=== PATIENT | female | born 1965 | race Caucasian/White ===

== ENCOUNTER 2018-07-05 09:28 | Inpatient (IN) | payer OTHER ==
--- NOTE | 2018-07-05 09:44 | PDOC ---
History of Present Illness - History of Present Illness Initial Comments: 07/05/18 13:53 The patient is a 53 year old female, with a significant past medical history of hypothyroidism, hypertension, and MS, who presents to the emergency department with weakness today. As per family at bedside, the patient was seen by Dr. 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 As per family, the patient was started on Baclofen at the time, however, reportedly fell a few hours later at home and when the PA in the neurology was called she advised the patient to decrease her dose. The patient states she started taking half of her 10mg Baclofen and started hallucinating as per the family. The family states the patient has not been able to ambulate secondary to weakness in her lower extremities (R>L) which is new since starting the new medication. The patient reports multiple bruises to her shins and elbows sustained after falling. The family and patient deny any head trauma or LOC during the patient s fall. Secondarily, the patient states she has had a cold all week but denies having cough or fevers. The patient denies chest pain, shortness of breath, headache and dizziness. The patient denies fever, chills, nausea, vomit, diarrhea and constipation. The patient denies dysuria, frequency, urgency and hematuria. Allergies: NKDA Past surgical history: liver biopsy Social history:Denies tobacco or ETOH PCP - Dr. John Wilkerson <Estrella Spencer - Last Filed: 07/05/18 13:53> - General History Source: Patient Exam Limitations: No Limitations - History of Present Illness Initial Comments: 07/05/18 10:01 Ms Hunter is a 53 yo F with a h/p HTN, Hypothyroidism, and ? MS vs Ataxia, ? h/ o autoimmune liver condition (no longer being treated) She presents to the ER with her family due to weakness Pt was seen 2 weeks ago and started on Baclofen 10 mg po. After taking a single dose, she fell to the ground She contacted the physician that prescribed it and they asked patient to take 5mg instead This resulted in her being confused Since that time, pt has been unable to ambulate as she had been at her baseline - she previously had been ambulatory with a walker No headache or head trauma No bowel or bladder incontinence Tolerating po with no difficulty No diarrhea Pt also reports an upper respiratory infection for the past 2 weeks No prior episodes like this PMH: HTN, Hypothyroidism PSH: Liver biopsy Meds: Levothyroxine, Propanolol, ALL: PCN, Sulfa -- > rash Social: Denies tobacco and drug use ROS: GENERAL/CONSTITUTIONAL: Yes: weakness No: fever, chills HEAD, EYES, EARS, NOSE AND THROAT: No: change in vision, ear pain, discharge, sore throat, throat swelling. CARDIOVASCULAR: No: chest pain, lightheadedness, palpitations, syncope RESPIRATORY: No: cough, shortness of breath, wheezing, GASTROINTESTINAL: No: nausea, vomiting, abdominal pain GENITOURINARY: No: dysuria, hematuria, frequency, urgency, flank pain. MUSCULOSKELETAL: No: back pain, neck pain, joint pain, muscle swelling or pain SKIN AND BREASTS: No: lesions, pallor, rash or easy bruising. NEUROLOGIC: Yes: weakness No: headache, vertigo, paresthesias ENDOCRINE: No: unexplained weight gain or loss HEMATOLOGIC/LYMPHATIC: No: anemia, easy bleeding, swelling nodes PE: GENERAL: The patient is in no acute distress. HEAD: Normal with no signs of trauma. EYES: PERRLA, EOMI, sclera anicteric, conjunctiva clear. ENT: Ears normal, nares patent, oropharynx clear without exudates. Dry mucous membranes. NECK: Normal range of motion, supple without lymphadenopathy, JVD, or masses. LUNGS: Breath sounds equal, clear to auscultation bilaterally. No wheezes, and no crackles. HEART:Regular rate and rhythm, normal S1 and S2 without murmur, rub or gallop. ABDOMEN: Soft, nontender, normoactive bowel sounds. No guarding, no rebound. EXTREMITIES: Normal range of motion, no edema. No clubbing or cyanosis. No erythema, or tenderness. NEUROLOGICAL: Cranial nerves II through XII grossly intact. Normal speech. Right leg weak 3/5 Left leg weak 4/5 Sensation in tact MUSCULOSKELETAL: Back non-tender to palpation, no CVA tenderness SKIN: Warm, Dry, normal turgor, no rashes or lesions noted. 07/05/18 10:17 <Nina Nguyen - Last Filed: 07/06/18 09:52> - General Chief Complaint: Weakness Stated Complaint: Weakness Time Seen by Provider: 07/05/18 09:43 Past History <Estrella Spencer - Last Filed: 07/05/18 13:53> - Past Medical History COPD: No HTN: Yes Thyroid Disease: Yes Other medical history: Multiple sclerosis - Immunization History Immunization Up to Date: No - Suicide/Smoking/Psychosocial Hx Smoking History: Unknown if ever smoked Have you smoked in the past 12 months: No If you are a former smoker, when did you quit?: 1985 Information on smoking cessation initiated: No Hx Alcohol Use: No Drug/Substance Use Hx: No Substance Use Type: None <Nina Nguyen - Last Filed: 07/06/18 09:52> - Past Medical History Allergies/Adverse Reactions: Allergies Allergy/AdvReac Type Severity Reaction Status Date / Time Penicillins Allergy Verified 07/05/18 12:53 sulfur dioxide Allergy Verified 07/05/18 12:53 Home Medications: Ambulatory Orders Fosinopril Sodium [Monopril -] 10 mg PO DAILY 07/05/18 Levothyroxine [Synthroid -] 100 mcg PO DAILY 07/05/18 Propranolol HCl 80 mg PO HS 07/05/18 *Physical Exam - Vital Signs Last Vital Signs Temp Pulse Resp BP Pulse Ox 99.1 F 74 18 115/79 96 07/05/18 10:20 07/05/18 12:53 07/05/18 12:53 07/05/18 12:53 07/05/18 12:53 <Estrella Spencer - Last Filed: 07/05/18 13:53> - Vital Signs Last Vital Signs Temp Pulse Resp BP Pulse Ox 99.0 F 75 16 115/71 96 07/05/18 09:35 07/05/18 09:35 07/05/18 09:35 07/05/18 09:35 07/05/18 09:35 <Nina Nguyen - Last Filed: 07/06/18 09:52> Moderate Sedation - Procedure Monitoring Vital Signs: Procedure Monitoring Vital Signs Temperature 99.1 F 07/05/18 10:20 Pulse Rate 74 07/05/18 12:53 Respiratory Rate 18 07/05/18 12:53 Blood Pressure 115/79 07/05/18 12:53 O2 Sat by Pulse Oximetry (%) 96 07/05/18 12:53 <Estrella Spencer - Last Filed: 07/05/18 13:53> - Procedure Monitoring Vital Signs: Procedure Monitoring Vital Signs Temperature 99.0 F 07/05/18 09:35 Pulse Rate 75 07/05/18 09:35 Respiratory Rate 16 07/05/18 09:35 Blood Pressure 115/71 07/05/18 09:35 O2 Sat by Pulse Oximetry (%) 96 07/05/18 09:35 <Nina Nguyen - Last Filed: 07/06/18 09:52> ED Treatment Course - LABORATORY CBC & Chemistry Diagram: 07/05/18 10:18 07/05/18 10:18 - ADDITIONAL ORDERS Additional order review: Laboratory Results 07/05/18 07/05/18 07/05/18 10:40 10:18 10:18 PT with INR INR PTT (Actin FS) VBG pH POC VBG pCO2 POC VBG pO2 Mixed VBG HCO3 Sodium Potassium Chloride Carbon Dioxide Anion Gap BUN Creatinine Creat Clearance w eGFR Random Glucose Lactic Acid Calcium Total Bilirubin AST ALT Alkaline Phosphatase Creatine Kinase CK-MB (CK-2) Troponin I < 0.02 Total Protein Albumin TSH 8.00 H Serum , Qual Negative Urine Color Patricia Urine Appearance Slcloudy Urine pH 5.0 Ur Specific [place] 1.025 Urine Protein Negative Urine Glucose (UA) Negative Urine Ketones 1+ H Urine Blood 1+ H Urine Nitrite Negative Urine Bilirubin 2.0 Urine Urobilinogen 4.0 e.u/dl H Ur Leukocyte Esterase Negative Urine WBC (Auto) 2 Urine RBC (Auto) 26 Hyaline Casts 10 Urine Mucus Many Blood Type Antibody Screen 07/05/18 07/05/18 07/05/18 10:18 10:18 10:18 PT with INR INR PTT (Actin FS) VBG pH POC VBG pCO2 POC VBG pO2 Mixed VBG HCO3 Sodium 143 Potassium 4.3 Chloride 107 Carbon Dioxide 28 Anion Gap 8 BUN 11 Creatinine 0.7 Creat Clearance w eGFR > 60 Random Glucose 99 Lactic Acid 0.8 Calcium 10.1 Total Bilirubin 0.7 AST 14 L ALT 16 Alkaline Phosphatase 72 Creatine Kinase 84 CK-MB (CK-2) < 1.0 Troponin I Total Protein 7.4 Albumin 3.8 TSH Serum , Qual Urine Color Urine Appearance Urine pH Ur Specific [place] Urine Protein Urine Glucose (UA) Urine Ketones Urine Blood Urine Nitrite Urine Bilirubin Urine Urobilinogen Ur Leukocyte Esterase Urine WBC (Auto) Urine RBC (Auto) Hyaline Casts Urine Mucus Blood Type O POSITIVE Antibody Screen Negative 07/05/18 07/05/18 10:18 10:18 PT with INR 11.90 INR 1.01 PTT (Actin FS) 29.3 VBG pH 7.35 POC VBG pCO2 50.2 POC VBG pO2 34.7 Mixed VBG HCO3 27.0 H Sodium Potassium Chloride Carbon Dioxide Anion Gap BUN Creatinine Creat Clearance w eGFR Random Glucose Lactic Acid Calcium Total Bilirubin AST ALT Alkaline Phosphatase Creatine Kinase CK-MB (CK-2) Troponin I Total Protein Albumin TSH Serum , Qual Urine Color Urine Appearance Urine pH Ur Specific [place] Urine Protein Urine Glucose (UA) Urine Ketones Urine Blood Urine Nitrite Urine Bilirubin Urine Urobilinogen Ur Leukocyte Esterase Urine WBC (Auto) Urine RBC (Auto) Hyaline Casts Urine Mucus Blood Type Antibody Screen 07/05/18 10:18 RBC 4.59 MCV 89.1 MCHC 34.8 RDW 12.6 MPV 8.5 Neutrophils % 62.9 D Lymphocytes % 19.8 D Monocytes % 12.0 H Eosinophils % 2.6 Basophils % 2.7 H <Estrella Spencer - Last Filed: 07/05/18 13:53> - LABORATORY CBC & Chemistry Diagram: 07/06/18 06:30 07/06/18 06:30 <Nina Nguyen - Last Filed: 07/06/18 09:52> Medical Decision Making - Medical Decision Making 07/05/18 10:12 EKG - NSR rate of 76 bpm, L axis deviation, no st elevation or depression, T waves upright Pt presents with weakness DD is broad and includes but is not limited to: UTI/sepsis, Pneumonia, ACS, MS flair?, hypothyroidism Will do: Labs EKG CXR CT head Neuro Consult 07/05/18 11:47 CBC - nml Serum - neg 07/05/18 11:49 Laboratory Tests 07/05/18 07/05/18 07/05/18 10:18 10:18 10:18 PT with INR 11.90 INR 1.01 PTT (Actin FS) 29.3 VBG pH 7.35 POC VBG pCO2 50.2 POC VBG pO2 34.7 BUN 11 Creatinine 0.7 Creatine Kinase 84 CK-MB (CK-2) < 1.0 Troponin I TSH 07/05/18 10:18 PT with INR INR PTT (Actin FS) VBG pH POC VBG pCO2 POC VBG pO2 BUN Creatinine Creatine Kinase CK-MB (CK-2) Troponin I < 0.02 TSH 8.00 H TSH elevated Call placed to PMD for admission Consult placed for Dr Muller <Nina Nguyen - Last Filed: 07/06/18 09:52> *DC/Admit/Observation/Transfer - Attestations Scribe Attestion: 07/05/18 13:53 Documentation prepared by Estrella Spencer, acting as medical esthetician for Nina Nguyen MD <Estrella Spencer - Last Filed: 07/05/18 13:53> - Discharge Dispostion Decision to Admit order: Yes <Nina Nguyen - Last Filed: 07/06/18 09:52> Diagnosis at time of Disposition: Weakness - Discharge Dispostion Condition at time of disposition: Stable
[2018-07-05] MEDS ORDERED: SODIUM CHLORIDE 1,000 ML IV STA (10:01)
[2018-07-05 10:41] LABS: VENOUS PC02 50.2 mmHg (38-52); VENOUS PH 7.35 (7.32-7.42); VENOUS PO2 34.7 mmHg (28-48)
[2018-07-05 10:43] LABS: BASO % 2.7 % (0-2.0); EOS % 2.6 % (0-4.5); HEMATOCRIT 40.9 % (32.4-45.2); HEMOGLOBIN 14.2 GM/dL (10.7-15.3); LYMPH % 19.8 % (8-40); MCHC 34.8 g/dl (32.0-36.0); MEAN CELL VOLUME 89.1 fl (80-96); MEAN PLT VOLUME 8.5 fl (7.5-11.1); NEUT % 62.9 % (42.8-82.8); PLATELET COUNT 180 K/MM3 (134-434); RBC 4.59 M/mm3 (3.60-5.2); RDW 12.6 % (11.6-15.6); WHITE BLOOD COUNT 4.9 K/mm3 (4.0-10.0)
[2018-07-05 11:03] LABS: ALBUMIN 3.8 g/dl (3.4-5.0); ALK PHOS 72 U/L (45-117); ANION GAP 8 MMOL/L (8-16); BILIRUBIN,TOTAL 0.7 mg/dL (0.2-1); BLOOD UREA NITROGEN 11 mg/dL (7-18); CALCIUM 10.1 mg/dL (8.5-10.1); CHLORIDE 107 mmol/L (98-107); CO2 28 mmol/L (21-32); CREATININE 0.7 mg/dL (0.55-1.3); GLUCOSE,RANDOM 99 mg/dL (74-106); POTASSIUM 4.3 mmol/L (3.5-5.1); SGOT/AST 14 U/L (15-37); SGPT/ALT 16 U/L (13-61); SODIUM 143 mmol/L (136-145); TOT PROT 7.4 g/dl (6.4-8.2)
[2018-07-05 11:13] LABS: INR 1.01 (0.83-1.09); PROTHROMBIN TIME (PATIENT) 11.9 SEC (9.7-13.0)
[2018-07-05 11:16] LABS: ACTIVATED PTT 29.3 SECONDS (25.2-36.5)
[2018-07-05 11:18] LABS: URINE APPEARANCE SLCLOUDY; URINE COLOR AMBER; URINE GLUCOSE (UA) NEGATIVE (NEGATIVE); URINE KETONE 1+ (NEGATIVE); URINE LEUK ESTERASE NEGATIVE (NEGATIVE); URINE NITRITE NEGATIVE (NEGATIVE); URINE PROTEIN NEGATIVE (NEGATIVE); URINE UROBILINOGEN 4.0 E.U/dl mg/dL (0.2-1.0)
[2018-07-05 12:29] LABS: URINE HYALINE CAST 10 /lpf; URINE MUCUS MANY
--- NOTE | 2018-07-05 17:56 | HP ---
Admitting History and Physical - Primary Care Physician PCP: Benjamín Lopez - Admission Chief Complaint: Recurrent falls/B/L leg Weakness/ History Source: Patient, Significant Other Limitations to Obtaining History: No Limitations - Past Medical History [employer]GER: Yes: Multiple Sclerosis (Questionable), Other (Recurrent falls, Ataxia,) ...: No - Smoking History Smoking history: Former smoker Have you smoked in the past 12 months: No If you are a former smoker, when did you quit?: 1985 - Alcohol/Substance Use Hx Alcohol Use: No Home Medications - Allergies Allergies/Adverse Reactions: Allergies Allergy/AdvReac Type Severity Reaction Status Date / Time Penicillins Allergy Verified 07/05/18 12:53 sulfur dioxide Allergy Verified 07/05/18 12:53 - Home Medications Home Medications: Ambulatory Orders Fosinopril Sodium [Monopril -] 10 mg PO DAILY 07/05/18 Levothyroxine [Synthroid -] 100 mcg PO DAILY 07/05/18 Propranolol HCl 80 mg PO HS 07/05/18 Review of Systems - Review of Systems Constitutional: reports: Weakness Neck: reports: No Symptoms Cardiovascular: reports: No Symptoms Respiratory: reports: No Symptoms Gastrointestinal: reports: Nausea Breasts: reports: No Symptoms Reported Musculoskeletal: reports: Back Pain, Extremity Pain, Muscle Cramps, Muscle Weakness Endocrine: reports: No Symptoms Hematology/Lymphatic: reports: No Symptoms Physical Examination Vital Signs: Vital Signs Temperature 98.3 F 07/05/18 17:17 Pulse Rate 76 07/05/18 17:17 Respiratory Rate 20 07/05/18 17:17 Blood Pressure 152/71 07/05/18 17:17 O2 Sat by Pulse Oximetry (%) 94 L 07/05/18 17:17 Labs: CBC, BMP 07/05/18 10:18 07/05/18 10:18 Problem List - Problems (1) Frequent falls Code(s): R29.6 - REPEATED FALLS (2) Paraparesis of both lower limbs Code(s): G82.20 - PARAPLEGIA, UNSPECIFIED (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 Code(s): I67.9 - CEREBROVASCULAR DISEASE, UNSPECIFIED; R27.0 - ATAXIA, UNSPECIFIED (4) Multiple sclerosis Code(s): G35 - MULTIPLE SCLEROSIS (5) HTN (hypertension) Code(s): I10 - ESSENTIAL (PRIMARY) HYPERTENSION (6) Anemia Code(s): D64.9 - ANEMIA, UNSPECIFIED (7) CAD (coronary artery disease) Code(s): I25.10 - ATHSCL HEART DISEASE OF [place] CORONARY ARTERY W/O ANG PCTRS (8) TIA (transient ischemic attack) Code(s): G45.9 - TRANSIENT CEREBRAL ISCHEMIC ATTACK, UNSPECIFIED (9) Hypothyroid Code(s): E03.9 - HYPOTHYROIDISM, UNSPECIFIED Assessment/Plan (1) Frequent falls Code(s): R29.6 - REPEATED FALLS (2) Paraparesis of both lower limbs Code(s): G82.20 - PARAPLEGIA, UNSPECIFIED (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 Code(s): I67.9 - CEREBROVASCULAR DISEASE, UNSPECIFIED; R27.0 - ATAXIA, UNSPECIFIED (4) Multiple sclerosis Code(s): G35 - MULTIPLE SCLEROSIS (5) HTN (hypertension) Code(s): I10 - ESSENTIAL (PRIMARY) HYPERTENSION (6) Anemia Code(s): D64.9 - ANEMIA, UNSPECIFIED (7) CAD (coronary artery disease) Code(s): I25.10 - ATHSCL HEART DISEASE OF [place] CORONARY ARTERY W/O ANG PCTRS (8) TIA (transient ischemic attack) Code(s): G45.9 - TRANSIENT CEREBRAL ISCHEMIC ATTACK, UNSPECIFIED (9) Hypothyroid Code(s): E03.9 - HYPOTHYROIDISM, UNSPECIFIED
[2018-07-05] MEDS: D5-1/2NS+10 MEQ KCL - 10 MEQ/1,000 ML INFUS.BAG IV SCH (18:28)
[2018-07-05] MEDS: LISINOPRIL 10 MG TABLET (FP) PO SCH (18:28)
[2018-07-05] MEDS: ACETAMINOPHEN 325 MG TABLET (FP) PO SCH (19:03)
--- NOTE | 2018-07-05 19:09 | EKG ---
Test Reason : Blood Pressure : / mmHG Vent. Rate : 076 BPM Atrial Rate : 076 BPM P-R Int : 144 ms QRS Dur : 084 ms QT Int : 384 ms P-R-T Axes : 057 -30 047 degrees QTc Int : 432 ms POOR DATA QUALITY, INTERPRETATION MAY BE ADVERSELY AFFECTED NORMAL SINUS RHYTHM LEFT AXIS DEVIATION ABNORMAL ECG WHEN COMPARED WITH ECG OF 16-MAR-2017 12:37, NO SIGNIFICANT CHANGE WAS FOUND Confirmed by ANDREW GONZALEZ MD ([id number]) on 07/05/2018 7:09:10 PM Referred By: Confirmed By:ANDREW GONZALEZ MD
[2018-07-05] MEDS: HEPARIN NA (PORCINE) 5,000 UNITS/ML 1ML VIAL SQ SCH (22:37)
[2018-07-06] MEDS: ACETAMINOPHEN 325 MG TABLET (FP) PO SCH ×3 (03:26→17:38)
[2018-07-06] MEDS: LEVOTHYROXINE NA 25 MCG TABLET (FP) PO SCH (06:32)
[2018-07-06 07:24] LABS: BASO % 0.7 % (0-2.0); EOS % 3.8 % (0-4.5); HEMATOCRIT 35.2 % (32.4-45.2); HEMOGLOBIN 12.6 GM/dL (10.7-15.3); LYMPH % 31.4 % (8-40); MCH 31.5 pg (25.7-33.7); MCHC 35.7 g/dl (32.0-36.0); MEAN CELL VOLUME 88.2 fl (80-96); MEAN PLT VOLUME 8.5 fl (7.5-11.1); MONO % 11.9 % (3.8-10.2); NEUT % 52.2 % (42.8-82.8); PLATELET COUNT 140 K/MM3 (134-434); RBC 3.99 M/mm3 (3.60-5.2); RDW 12.6 % (11.6-15.6); WHITE BLOOD COUNT 4.4 K/mm3 (4.0-10.0)
[2018-07-06 07:47] LABS: ANION GAP 7 MMOL/L (8-16); BLOOD UREA NITROGEN 10 mg/dL (7-18); CALCIUM 9.1 mg/dL (8.5-10.1); CHLORIDE 108 mmol/L (98-107); CO2 25 mmol/L (21-32); CREATININE 0.6 mg/dL (0.55-1.3); GLUCOSE,RANDOM 94 mg/dL (74-106); POTASSIUM 3.8 mmol/L (3.5-5.1); SODIUM 140 mmol/L (136-145)
--- NOTE | 2018-07-06 08:20 | CON.NEURO ---
Consult Consult Specialty:: NEUROLOGY-[facility] for Reason for Consultation:: Falls - History of Present Illness History of Present Illness: The patient is a 53 year old female, with a significant past medical history of hypothyroidism, hypertension, and MS, who presents to the emergency department with weakness today. As per family at bedside, the patient was seen by Dr. 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 As per family, the patient was started on Baclofen at the time, however, reportedly fell a few hours later at home and when the PA in the neurology was called she advised the patient to decrease her dose. The patient states she started taking half of her 10mg Baclofen and started hallucinating as per the family. The family states the patient has not been able to ambulate secondary to weakness in her lower extremities (R>L) which is new since starting the new medication. The patient reports multiple bruises to her shins and elbows sustained after falling. The family and patient deny any head trauma or LOC during the patient s fall. Secondarily, the patient states she has had a cold all week but denies having cough or fevers. The patient denies chest pain, shortness of breath, headache and dizziness. The patient denies fever, chills, nausea, vomit, diarrhea and constipation. The patient denies dysuria, frequency, urgency and hematuria. As per patients sister-in law she had hypothyroidism or hyperthyroidism 10 years ago, while being tapered off meds she developed neurologic symptoms and subsequently was dx. with MS and rx, for it. 4 weeks ago saw and dx. 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 X years she has been ambulant with walker. Reviewed MRIs 01/20 in system- only sig abn. is atrophy of the corpus callosum, no MS plaques noted, there is cerebral atrophy. Ambulates with walker x years=recent falls since baclofen - History Source History Provided By: Patient, Family Member - Past Medical History F[employer]ER BR[employer] MAN: Yes: Multiple Sclerosis (Questionable), Other (Recurrent falls, Ataxia,) ...: No - Alcohol/Substance Use Hx Alcohol Use: No - Smoking History Smoking history: Former smoker Have you smoked in the past 12 months: No If you are a former smoker, when did you quit?: 1985 Home Medications - Allergies Allergies/Adverse Reactions: Allergies Allergy/AdvReac Type Severity Reaction Status Date / Time Penicillins Allergy Verified 07/05/18 12:53 sulfur dioxide Allergy Verified 07/05/18 12:53 - Home Medications Home Medications: Ambulatory Orders Fosinopril Sodium [Monopril -] 10 mg PO DAILY 07/05/18 Levothyroxine [Synthroid -] 100 mcg PO DAILY 07/05/18 Propranolol HCl 80 mg PO HS 07/05/18 Physical Exam-Neuro Vital Signs: Vital Signs Temperature 98.3 F 07/06/18 06:40 Pulse Rate 75 07/06/18 06:40 Respiratory Rate 20 07/06/18 06:40 Blood Pressure 100/57 L 07/06/18 06:40 O2 Sat by Pulse Oximetry (%) 94 L 07/05/18 21:00 Labs: CBC, BMP 07/06/18 06:30 07/06/18 06:30 INR, PTT INR 1.01 (0.83-1.09) 07/05/18 10:18 - Neuro Exam Level Of Consciousness: Yes: Alert, Oriented to Person, Oriented to Place, Oriented to Time Eyes: Yes: Other (No nystagmus) Speech: Other (+ cerebellar dysarthria) Dominant Hand: Right Mini Mental Exam: Impaired attention/concentration, somewhat infantile affect+ spontaneous [id number]) Babinski: Present (bilat.upgoing toes) Motor Strength: 3/5: Left Leg, Right Leg (Markedly increased tone in all 4 ext. 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 The dx.is not settled yet, does not appear to have MS. Plan: Vit B12/look for metabolic/systemic causes of encephalopathy/infection. MRI Cspine Will attempt to send genetic ataxia panel. D/W Dr. Phan. Thank you, Chauncey Louis MD
[2018-07-06 08:38] LABS: CHOLESTEROL 103 mg/dL (50-200); HDL CHOLESTEROL 45 mg/dL (40-60); TRIGLYCERIDES 57 mg/dL (0-150)
[2018-07-06] MEDS: LISINOPRIL 10 MG TABLET (FP) PO SCH (12:43)
[2018-07-06] MEDS: HEPARIN NA (PORCINE) 5,000 UNITS/ML 1ML VIAL SQ SCH ×2 (12:52→21:41)
[2018-07-06] MEDS: D5-1/2NS+10 MEQ KCL - 10 MEQ/1,000 ML INFUS.BAG IV SCH ×2 (13:23→21:41)
[2018-07-06 14:42] VITALS: BMI 20.9
--- NOTE | 2018-07-06 15:22 | CONS ---
DATE OF CONSULTATION: 07/06/2018 PHYSICAL MEDICINE REHABILITATION CONSULTATION HISTORY OF PRESENT ILLNESS: The patient is a 53-year-old woman with a past medical history of possible multiple sclerosis but apparently, she was recently diagnosed by Neurology with cerebellar atrophy. She was admitted after a fall. The patient developed hallucinations on Baclofen following the fall and developed weakness in her lower extremities and difficulty with mobility. She apparently suffered a second or third fall at home. On admission, she underwent a CT of the head which was negative for any acute intracranial pathology. A CBC showed normal WBCs at 4.9, hemoglobin of 14.2, platelets count 180. Her chemistries were normal on admission except for an elevated TSH of 8.0. Repeat blood work today was stable except that her chloride was slightly elevated at 108, just slightly higher than it was yesterday at 107. The patient has no complaints of pain. She was placed on subcutaneous heparin. She is also on Synthroid. She was seen by Neurology, Dr. 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 The patient is very labile emotionally but is able to calm down. She is very adamant about not going anywhere for inpatient rehabilitation. She denies any numbness or tingling but does continue to complain of loss of balance and weakness. PAST MEDICAL AND SURGICAL HISTORY: She has a history of anemia, hypertension, coronary artery disease, TIA and hypothyroidism. SOCIAL HISTORY: She lives with her mother. No stairs to enter. There is a stair lift in the home. Premorbidly, she could ambulate short distances with a walker and assist. She required assistance for activities of daily living such as dressing and bathing but could feed herself. Currently, she has been at bed rest since admission. REVIEW OF SYSTEMS: No lightheadedness, dizziness, blurry vision, double vision or change in vision. No nausea, vomiting, difficulty swallowing, difficulty chewing, chest pain, shortness of breath, fever, chills, bowel or bladder changes. No numbness or tingling in the upper or lower extremities but weakness, poor control of her upper and lower extremities and loss of balance. No joint arthralgias. No back or neck pain. No injuries sustained in the fall. PHYSICAL EXAMINATION: GENERAL: The patient is a thin woman lying in bed. Again, she is quite emotional but is able to calm down after reassurance that she will not be sent to an inpatient rehab facility. HEENT: Normocephalic, atraumatic. Her extraocular muscles appear intact. She has no obvious facial weakness. No oral ulcers. NECK: Supple. EXTREMITIES: No pitting edema or calf tenderness. NEUROMUSCULAR: She is awake, alert, cooperative. Cranial nerves 2 through 12 appear grossly intact. She has diffuse weakness in her upper and lower extremities with more weakness in the distal lower extremities and increased tone with brisk reflexes and upgoing toes bilaterally. She has better proximal than distal strength in the lower extremities where she appears to have an equinovarus deformity in both ankles. She has some clonus but I can reduce her to at least a neutral position on the left and perhaps slightly past neutral on the right foot. She can do [id number] but has difficulty and her speech is abnormal. No joint arthralgias. There is good joint stability. SKIN: No skin rash or breakdown. OVERALL IMPRESSION: 1. Deficits in mobility and activities of daily living. 2. Status post multiple falls. 3. 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 4. Hypothyroidism. 5. Elevated TSH. 6. History of chronic anemia, currently normal. 7. Elevated risk for DVT due to immobility. 8. Elevated risk for decubitus ulcerations. PLANS/SUGGESTIONS: 1. Physical therapy at the bedside to include bed mobility, transfers, strengthening, stretching of the distal lower extremities, gait training if appropriate, family training s appropriate. 2. Out of bed to chair if and when appropriate. 3. Neurologic followup regarding blood work and MRI of the cervical spine. 4. Continue subq. heparin. 5. Skin precautions. 6. Bowel regimen. Monitor for constipation. 7. Disposition will most likely be to home with home services. Thank you for this referral. OTTO PACE M.D. PHILLIP/[id number]
--- NOTE | 2018-07-06 17:55 | PN ---
Progress Note, Physician Chief Complaint: Pt is having weakness of Both Lower Limbs Pt will have MRI of cervical spine - Current Medication List Current Medications: Active Medications Acetaminophen (Tylenol -) 650 mg PO Q8H [facility] Last Admin: 07/06/18 17:38 Dose: Not Given Docusate Sodium (Colace -) 100 mg PO Q12H PRN PRN Reason: CONSTIPATION Heparin Sodium (Porcine) (Heparin -) 5,000 unit SQ BID [facility] Last Admin: 07/06/18 12:52 Dose: 5,000 unit Potassium Chloride/Dextrose/Sod Cl (D5-1/2ns+10 Meq Kcl -) 10 meq in 1,000 mls @ 75 mls/hr IV ASDIR [facility] Last Admin: 07/06/18 13:23 Dose: 75 mls/hr Levothyroxine Sodium (Synthroid -) 25 mcg PO DAILY@0700 [facility] Last Admin: 07/06/18 06:32 Dose: 25 mcg Lisinopril (Prinivil) 10 mg PO DAILY [facility] Last Admin: 07/06/18 12:43 Dose: Not Given Propranolol HCl (Inderal La -) 80 mg PO DAILY [facility] Last Admin: 07/06/18 12:43 Dose: Not Given - Objective Vital Signs: Vital Signs Temperature 97.9 F 07/06/18 14:20 Pulse Rate 79 07/06/18 14:20 Respiratory Rate 20 07/06/18 14:20 Blood Pressure 117/73 07/06/18 14:20 O2 Sat by Pulse Oximetry (%) 94 L 07/05/18 21:00 Constitutional: Yes: No Distress Eyes: Yes: Conjunctiva Clear, EOM Intact HENT: Yes: Atraumatic, Normocephalic Neck: Yes: Supple, Trachea Midline Cardiovascular: Yes: Regular Rate and Rhythm, S1, S2 Respiratory: Yes: Regular, CTA Bilaterally Gastrointestinal: Yes: Normal Bowel Sounds, Soft Musculoskeletal: Yes: Joint Stiffness, Muscle Weakness Extremities: Yes: Other (B/L Weakness and wasting) Edema: No Labs: CBC, BMP 07/06/18 06:30 07/06/18 06:30 INR, PTT INR 1.01 (0.83-1.09) 07/05/18 10:18 Problem List - Problems (1) Frequent falls Code(s): R29.6 - REPEATED FALLS (2) Paraparesis of both lower limbs Code(s): G82.20 - PARAPLEGIA, UNSPECIFIED (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 Code(s): I67.9 - CEREBROVASCULAR DISEASE, UNSPECIFIED; R27.0 - ATAXIA, UNSPECIFIED (4) Multiple sclerosis Code(s): G35 - MULTIPLE SCLEROSIS (5) HTN (hypertension) Code(s): I10 - ESSENTIAL (PRIMARY) HYPERTENSION (6) Anemia Code(s): D64.9 - ANEMIA, UNSPECIFIED (7) CAD (coronary artery disease) Code(s): I25.10 - ATHSCL HEART DISEASE OF [place] CORONARY ARTERY W/O ANG PCTRS (8) TIA (transient ischemic attack) Code(s): G45.9 - TRANSIENT CEREBRAL ISCHEMIC ATTACK, UNSPECIFIED (9) Hypothyroid Code(s): E03.9 - HYPOTHYROIDISM, UNSPECIFIED Assessment/Plan (1) Frequent falls Code(s): R29.6 - REPEATED FALLS (2) Paraparesis of both lower limbs Code(s): G82.20 - PARAPLEGIA, UNSPECIFIED (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
[2018-07-07] MEDS: ACETAMINOPHEN 325 MG TABLET (FP) PO SCH ×3 (02:35→17:44)
[2018-07-07] MEDS: LEVOTHYROXINE NA 25 MCG TABLET (FP) PO SCH (06:02)
[2018-07-07] MEDS: HEPARIN NA (PORCINE) 5,000 UNITS/ML 1ML VIAL SQ SCH (11:00)
[2018-07-07] MEDS: LISINOPRIL 10 MG TABLET (FP) PO SCH (12:00)
[2018-07-07] MEDS ORDERED: LORazepam 2 MG/ML SDV VIAL IVPUSH SCH (13:30)
--- NOTE | 2018-07-07 17:11 | PN ---
Progress Note (short form) - Note Progress Note: 53 year old female, with a significant past medical history of hypothyroidism, hypertension, and MS, who presents to the emergency department with weakness today. As per family at bedside, the patient was seen by Dr. hPan two weeks ago and was told she does not have MS she has ataxia. As per family, the patient was started on Baclofen at the time, however, reportedly fell a few hours later at home and when the PA in the neurology was called she advised the patient to decrease her dose. The patient states she started taking half of her 10mg Baclofen and started hallucinating as per the family. The family states the patient has not been able to ambulate secondary to weakness in her lower extremities (R>L) which is new since starting the new medication. The patient reports multiple bruises to her shins and elbows sustained after falling. The family and patient deny any head trauma or LOC during the patients fall. Secondarily, the patient states she has had a cold all week but denies having cough or fevers. The patient denies chest pain, shortness of breath, headache and dizziness. The patient denies fever, chills, nausea, vomit, diarrhea and constipation. The patient denies dysuria, frequency, urgency and hematuria. As per patients sister-in law she had hypothyroidism or hyperthyroidism 10 years ago, while being tapered off meds she developed neurologic symptoms and subsequently was dx. with MS and rx, for it. 4 weeks ago saw and dx. 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 X years she has been ambulant with walker. Reviewed MRIs 01/20 in system- only sig abn. is atrophy of the corpus callosum, no MS plaques noted, there is cerebral atrophy. Ambulates with walker x years=recent falls since baclofen FU : was unable ot tolerate MRI C spine she is poor HX , +cognitive issues seen by REHAB - History Source History Provided By: Patient, Family Member - Past Medical History [employer]: Yes: Multiple Sclerosis (Questionable), Other (Recurrent falls, Ataxia,) ...: No - Alcohol/Substance Use Hx Alcohol Use: No - Smoking History Smoking history: Former smoker Have you smoked in the past 12 months: No If you are a former smoker, when did you quit?: 1985 Home Medications - Allergies Allergies/Adverse Reactions: Allergies Allergy/AdvReac Type Severity Reaction Status Date / Time Penicillins Allergy Verified 07/05/18 12:53 sulfur dioxide Allergy Verified 07/05/18 12:53 - Home Medications Home Medications: Ambulatory Orders Fosinopril Sodium [Monopril -] 10 mg PO DAILY 07/05/18 Levothyroxine [Synthroid -] 100 mcg PO DAILY 07/05/18 Propranolol HCl 80 mg PO HS 07/05/18 Physical Exam-Neuro Vital Signs: Vital Signs Temperature 97.7 F 07/07/18 15:26 Pulse Rate 77 07/07/18 15:26 Respiratory Rate 18 07/07/18 15:26 Blood Pressure 90/57 L 07/07/18 15:26 O2 Sat by Pulse Oximetry (%) 96 07/07/18 09:00 Labs: CBCD WBC 4.4 K/mm3 (4.0-10.0) 07/06/18 06:30 RBC 3.99 M/mm3 (3.60-5.2) 07/06/18 06:30 Hgb 12.6 GM/dL (10.7-15.3) 07/06/18 06:30 Hct 35.2 % (32.4-45.2) 07/06/18 06:30 MCV 88.2 fl (80-96) 07/06/18 06:30 MCHC 35.7 g/dl (32.0-36.0) 07/06/18 06:30 RDW 12.6 % (11.6-15.6) 07/06/18 06:30 Plt Count 140 K/MM3 (134-434) D 07/06/18 06:30 MPV 8.5 fl (7.5-11.1) 07/06/18 06:30 CMP Sodium 140 mmol/L (136-145) 07/06/18 06:30 Potassium 3.8 mmol/L (3.5-5.1) 07/06/18 06:30 Chloride 108 mmol/L (98-107) H 07/06/18 06:30 Carbon Dioxide 25 mmol/L (21-32) 07/06/18 06:30 Anion Gap 7 MMOL/L (8-16) L 07/06/18 06:30 BUN 10 mg/dL (7-18) 07/06/18 06:30 Creatinine 0.6 mg/dL (0.55-1.3) 07/06/18 06:30 Creat Clearance w eGFR > 60 (>60) 07/06/18 06:30 Calcium 9.1 mg/dL (8.5-10.1) 07/06/18 06:30 Total Bilirubin 0.7 mg/dL (0.2-1) 07/05/18 10:18 AST 14 U/L (15-37) L 07/05/18 10:18 ALT 16 U/L (13-61) 07/05/18 10:18 Alkaline Phosphatase 72 U/L (45-117) 07/05/18 10:18 Total Protein 7.4 g/dl (6.4-8.2) 07/05/18 10:18 Albumin 3.8 g/dl (3.4-5.0) 07/05/18 10:18 - Neuro Exam Level Of Consciousness: Yes: Alert, Oriented to Person, Oriented to Place, Oriented to Time Eyes: Yes: Other (No nystagmus) Speech: Other (+ cerebellar dysarthria) Dominant Hand: Right Mini Mental Exam: Impaired attention/concentration, somewhat infantile affect+ spontaneous [id number]) Babinski: Present (bilat.upgoing toes) Motor Strength: 3/5: Left Leg, Right Leg (Markedly increased tone in all 4 ext. 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 The dx.is not settled yet, does not appear to have MS. Plan: unable to get MRI C SPINE can get MRI BRAIN AND C SPINE OPEN SCAN OUTPT genetic testing is in order but can be done as outpt as well will need rehab in meantime -neurologically stable at this juncture spoke to DR DORETHA RIOS outpt with DR HARRY SOLOMON
--- NOTE | 2018-07-07 17:54 | PN ---
Progress Note, Physician Chief Complaint: Pt is Having difficulty in Walking No Fever Dysarthria History of Present Illness: Pt seen by Neurology spoke with Dr Muller on floor Pr is not able to do MRI Pt is having Low BP we will DC both BP meds - Current Medication List Current Medications: Active Medications Acetaminophen (Tylenol -) 650 mg PO Q8H [facility] Last Admin: 07/07/18 17:44 Dose: 650 mg Docusate Sodium (Colace -) 100 mg PO Q12H PRN PRN Reason: CONSTIPATION Heparin Sodium (Porcine) (Heparin -) 5,000 unit SQ BID [facility] Last Admin: 07/07/18 11:00 Dose: 5,000 unit Potassium Chloride/Dextrose/Sod Cl (D5-1/2ns+10 Meq Kcl -) 10 meq in 1,000 mls @ 75 mls/hr IV ASDIR [facility] Last Admin: 07/06/18 21:41 Dose: Not Given Levothyroxine Sodium (Synthroid -) 25 mcg PO DAILY@0700 [facility] Last Admin: 07/07/18 06:02 Dose: 25 mcg Lisinopril (Prinivil) 10 mg PO DAILY [facility] Last Admin: 07/07/18 12:00 Dose: Not Given Lorazepam (Ativan Injection -) 0.5 mg IVPUSH [employer] [facility] Stop: 07/07/18 18:00 Last Admin: 07/07/18 14:09 Dose: 0.5 mg - Objective Vital Signs: Vital Signs Temperature 97.7 F 07/07/18 15:26 Pulse Rate 77 07/07/18 15:26 Respiratory Rate 18 07/07/18 15:26 Blood Pressure 90/57 L 07/07/18 15:26 O2 Sat by Pulse Oximetry (%) 96 07/07/18 09:00 Constitutional: Yes: Anxious Eyes: Yes: Conjunctiva Clear, EOM Intact HENT: Yes: Atraumatic, Normocephalic Neck: Yes: Supple, Trachea Midline Cardiovascular: Yes: Regular Rate and Rhythm, S1, S2 Respiratory: Yes: Regular, CTA Bilaterally Gastrointestinal: Yes: Normal Bowel Sounds, Soft ...Rectal Exam: Yes: WNL Genitourinary: Yes: WNL Breast(s): Yes: WNL Musculoskeletal: Yes: Joint Stiffness, Muscle Weakness Edema: No Peripheral Pulses WNL: Yes Wound/Incision: Yes: Clean/Dry Neurological: Yes: Alert, Cran Nerves II-XII Intact Psychiatric: Yes: Alert Labs: CBC, BMP 07/06/18 06:30 07/06/18 06:30 INR, PTT INR 1.01 (0.83-1.09) 07/05/18 10:18 Problem List - Problems (1) Frequent falls Code(s): R29.6 - REPEATED FALLS (2) Paraparesis of both lower limbs Code(s): G82.20 - PARAPLEGIA, UNSPECIFIED (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
[2018-07-07] MEDS: D5-1/2NS+10 MEQ KCL - 10 MEQ/1,000 ML INFUS.BAG IV SCH (20:31)
[2018-07-08] MEDS: HEPARIN NA (PORCINE) 5,000 UNITS/ML 1ML VIAL SQ SCH ×3 (00:06→21:22)
[2018-07-08] MEDS: ACETAMINOPHEN 325 MG TABLET (FP) PO SCH ×3 (04:18→17:39)
[2018-07-08] MEDS: LEVOTHYROXINE NA 25 MCG TABLET (FP) PO SCH (06:16)
[2018-07-08] MEDS: DOCUSATE SODIUM 100 MG CAPSULE (FP) PO PRN (10:35)
--- NOTE | 2018-07-08 12:33 | PN ---
Progress Note, Physician Chief Complaint: Pt seen today along with Mother Pt wanted to try again today the MRI of cervical spine History of Present Illness: Pt will have MRI now - Current Medication List Current Medications: Active Medications Acetaminophen (Tylenol -) 650 mg PO Q8H [facility] Last Admin: 07/08/18 10:34 Dose: 650 mg Docusate Sodium (Colace -) 100 mg PO Q12H PRN PRN Reason: CONSTIPATION Last Admin: 07/08/18 10:35 Dose: 100 mg Heparin Sodium (Porcine) (Heparin -) 5,000 unit SQ BID [facility] Last Admin: 07/08/18 10:34 Dose: 5,000 unit Potassium Chloride/Dextrose/Sod Cl (D5-1/2ns+10 Meq Kcl -) 10 meq in 1,000 mls @ 75 mls/hr IV ASDIR [facility] Last Admin: 07/07/18 20:31 Dose: Not Given Levothyroxine Sodium (Synthroid -) 25 mcg PO DAILY@0700 [facility] Last Admin: 07/08/18 06:16 Dose: 25 mcg - Objective Vital Signs: Vital Signs Temperature 97.8 F 07/08/18 05:51 Pulse Rate 77 07/08/18 05:51 Respiratory Rate 18 07/08/18 05:51 Blood Pressure 98/63 07/08/18 05:51 O2 Sat by Pulse Oximetry (%) 96 07/07/18 20:49 Constitutional: Yes: Anxious Eyes: Yes: WNL, Conjunctiva Clear, EOM Intact HENT: Yes: WNL, Atraumatic, Normocephalic Neck: Yes: WNL, Supple, Trachea Midline Cardiovascular: Yes: Regular Rate and Rhythm, S1, S2 Respiratory: Yes: Regular, CTA Bilaterally Gastrointestinal: Yes: Normal Bowel Sounds, Soft Musculoskeletal: Yes: Joint Stiffness Edema: No Labs: CBC, BMP 07/06/18 06:30 07/06/18 06:30 INR, PTT INR 1.01 (0.83-1.09) 07/05/18 10:18 Problem List - Problems (1) Frequent falls Code(s): R29.6 - REPEATED FALLS (2) Paraparesis of both lower limbs Code(s): G82.20 - PARAPLEGIA, UNSPECIFIED (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 Code(s): I67.9 - CEREBROVASCULAR DISEASE, UNSPECIFIED; R27.0 - ATAXIA, UNSPECIFIED (4) Multiple sclerosis Code(s): G35 - MULTIPLE SCLEROSIS (5) HTN (hypertension) Code(s): I10 - ESSENTIAL (PRIMARY) HYPERTENSION (6) Anemia Code(s): D64.9 - ANEMIA, UNSPECIFIED (7) CAD (coronary artery disease) Code(s): I25.10 - ATHSCL HEART DISEASE OF [place] CORONARY ARTERY W/O ANG PCTRS (8) TIA (transient ischemic attack) Code(s): G45.9 - TRANSIENT CEREBRAL ISCHEMIC ATTACK, UNSPECIFIED (9) Hypothyroid Code(s): E03.9 - HYPOTHYROIDISM, UNSPECIFIED Assessment/Plan (1) Frequent falls Code(s): R29.6 - REPEATED FALLS (2) Paraparesis of both lower limbs Code(s): G82.20 - PARAPLEGIA, UNSPECIFIED (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 Code(s): I67.9 - CEREBROVASCULAR DISEASE, UNSPECIFIED; R27.0 - ATAXIA, UNSPECIFIED (4) Multiple sclerosis Code(s): G35 - MULTIPLE SCLEROSIS (5) HTN (hypertension) Code(s): I10 - ESSENTIAL (PRIMARY) HYPERTENSION (6) Anemia Code(s): D64.9 - ANEMIA, UNSPECIFIED (7) CAD (coronary artery disease) Code(s): I25.10 - ATHSCL HEART DISEASE OF [place] CORONARY ARTERY W/O ANG PCTRS (8) TIA (transient ischemic attack) Code(s): G45.9 - TRANSIENT CEREBRAL ISCHEMIC ATTACK, UNSPECIFIED (9) Hypothyroid Code(s): E03.9 - HYPOTHYROIDISM, UNSPECIFIED Pt is anxious will Give Ativan 1 mg Pt will have MRI of cervical spine
[2018-07-08] MEDS ORDERED: LORazepam 1 MG TABLET PO ONE (12:37)
[2018-07-08] MEDS ORDERED: LORazepam 2 MG/ML SDV VIAL ONE (15:35)
[2018-07-08] MEDS ORDERED: LORazepam 2 MG/ML SDV VIAL IVPUSH ONE (15:45)
[2018-07-08] MEDS: D5-1/2NS+10 MEQ KCL - 10 MEQ/1,000 ML INFUS.BAG IV SCH (17:48)
[2018-07-09] MEDS: ACETAMINOPHEN 325 MG TABLET (FP) PO SCH ×3 (04:08→18:22)
[2018-07-09] MEDS: LEVOTHYROXINE NA 25 MCG TABLET (FP) PO SCH (06:02)
[2018-07-09] MEDS: D5-1/2NS+10 MEQ KCL - 10 MEQ/1,000 ML INFUS.BAG IV SCH ×3 (06:50→18:25)
[2018-07-09] MEDS: DOCUSATE SODIUM 100 MG CAPSULE (FP) PO PRN (10:55)
[2018-07-09] MEDS: HEPARIN NA (PORCINE) 5,000 UNITS/ML 1ML VIAL SQ SCH ×2 (10:55→21:28)
--- NOTE | 2018-07-09 11:21 | PN ---
Progress Note, Physician Chief Complaint: Pt seen today along with Mother Pt wanted to try again today the MRI of cervical spine But Pt did not do it History of Present Illness: Pt is anxious did not do MRI despite Ativan - Current Medication List Current Medications: Active Medications Acetaminophen (Tylenol -) 650 mg PO Q8H [facility] Last Admin: 07/09/18 10:55 Dose: 650 mg Docusate Sodium (Colace -) 100 mg PO Q12H PRN PRN Reason: CONSTIPATION Last Admin: 07/09/18 10:55 Dose: 100 mg Heparin Sodium (Porcine) (Heparin -) 5,000 unit SQ BID [facility] Last Admin: 07/09/18 10:55 Dose: 5,000 unit Potassium Chloride/Dextrose/Sod Cl (D5-1/2ns+10 Meq Kcl -) 10 meq in 1,000 mls @ 75 mls/hr IV ASDIR [facility] Last Admin: 07/09/18 07:05 Dose: 75 mls/hr Levothyroxine Sodium (Synthroid -) 25 mcg PO DAILY@0700 [facility] Last Admin: 07/09/18 06:02 Dose: 25 mcg - Objective Vital Signs: Vital Signs Temperature 97.8 F 07/09/18 05:38 Pulse Rate 95 H 07/09/18 05:38 Respiratory Rate 18 07/09/18 05:38 Blood Pressure 108/73 07/09/18 05:38 O2 Sat by Pulse Oximetry (%) 97 07/08/18 21:00 Constitutional: Yes: Anxious Eyes: Yes: Conjunctiva Clear, EOM Intact HENT: Yes: Atraumatic, Normocephalic Neck: Yes: Supple, Trachea Midline Cardiovascular: Yes: Regular Rate and Rhythm, S1, S2 Respiratory: Yes: Regular, CTA Bilaterally Gastrointestinal: Yes: Normal Bowel Sounds, Soft Musculoskeletal: Yes: Joint Stiffness, Muscle Weakness Edema: No Labs: CBC, BMP 07/06/18 06:30 07/06/18 06:30 INR, PTT INR 1.01 (0.83-1.09) 07/05/18 10:18 Problem List - Problems (1) Frequent falls Code(s): R29.6 - REPEATED FALLS (2) Paraparesis of both lower limbs Code(s): G82.20 - PARAPLEGIA, UNSPECIFIED (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 Code(s): I67.9 - CEREBROVASCULAR DISEASE, UNSPECIFIED; R27.0 - ATAXIA, UNSPECIFIED (4) Multiple sclerosis Code(s): G35 - MULTIPLE SCLEROSIS (5) HTN (hypertension) Code(s): I10 - ESSENTIAL (PRIMARY) HYPERTENSION (6) Anemia Code(s): D64.9 - ANEMIA, UNSPECIFIED (7) CAD (coronary artery disease) Code(s): I25.10 - ATHSCL HEART DISEASE OF [place] CORONARY ARTERY W/O ANG PCTRS (8) TIA (transient ischemic attack) Code(s): G45.9 - TRANSIENT CEREBRAL ISCHEMIC ATTACK, UNSPECIFIED (9) Hypothyroid Code(s): E03.9 - HYPOTHYROIDISM, UNSPECIFIED Assessment/Plan (1) Frequent falls Code(s): R29.6 - REPEATED FALLS (2) Paraparesis of both lower limbs Code(s): G82.20 - PARAPLEGIA, UNSPECIFIED (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
[2018-07-10] MEDS: ACETAMINOPHEN 325 MG TABLET (FP) PO SCH ×3 (03:00→18:06)
[2018-07-10] MEDS: D5-1/2NS+10 MEQ KCL - 10 MEQ/1,000 ML INFUS.BAG IV SCH (06:03)
[2018-07-10] MEDS: LEVOTHYROXINE NA 25 MCG TABLET (FP) PO SCH (06:03)
[2018-07-10] MEDS: HEPARIN NA (PORCINE) 5,000 UNITS/ML 1ML VIAL SQ SCH ×2 (09:43→22:10)
--- NOTE | 2018-07-10 19:48 | PN ---
Progress Note, Physician Chief Complaint: Pt will be going to rehab Pt will be going to [facility] No Fever No SOB No chest pain History of Present Illness: Pt is hemodynamically stable - Current Medication List Current Medications: Active Medications Acetaminophen (Tylenol -) 650 mg PO Q8H [facility] Last Admin: 07/10/18 18:06 Dose: 650 mg Docusate Sodium (Colace -) 100 mg PO Q12H PRN PRN Reason: CONSTIPATION Last Admin: 07/09/18 10:55 Dose: 100 mg Heparin Sodium (Porcine) (Heparin -) 5,000 unit SQ BID [facility] Last Admin: 07/10/18 09:43 Dose: 5,000 unit Potassium Chloride/Dextrose/Sod Cl (D5-1/2ns+10 Meq Kcl -) 10 meq in 1,000 mls @ 75 mls/hr IV ASDIR [facility] Last Admin: 07/10/18 06:03 Dose: 75 mls/hr Levothyroxine Sodium (Synthroid -) 25 mcg PO DAILY@0700 [facility] Last Admin: 07/10/18 06:03 Dose: 25 mcg - Objective Vital Signs: Vital Signs Temperature 97.3 F L 07/10/18 18:26 Pulse Rate 92 H 07/10/18 18:26 Respiratory Rate 18 07/10/18 18:26 Blood Pressure 118/69 07/10/18 18:26 O2 Sat by Pulse Oximetry (%) 97 07/10/18 09:00 Constitutional: Yes: Anxious Eyes: Yes: Conjunctiva Clear, EOM Intact HENT: Yes: Atraumatic, Normocephalic Neck: Yes: Supple, Trachea Midline Cardiovascular: Yes: Regular Rate and Rhythm, S1, S2 Respiratory: Yes: Regular, CTA Bilaterally Gastrointestinal: Yes: Normal Bowel Sounds, Soft Musculoskeletal: Yes: Joint Stiffness, Muscle Weakness Edema: No Labs: CBC, BMP 07/06/18 06:30 07/06/18 06:30 INR, PTT INR 1.01 (0.83-1.09) 07/05/18 10:18 Problem List - Problems (1) Frequent falls Code(s): R29.6 - REPEATED FALLS (2) Paraparesis of both lower limbs Code(s): G82.20 - PARAPLEGIA, UNSPECIFIED (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 Code(s): I67.9 - CEREBROVASCULAR DISEASE, UNSPECIFIED; R27.0 - ATAXIA, UNSPECIFIED (4) Multiple sclerosis Code(s): G35 - MULTIPLE SCLEROSIS (5) HTN (hypertension) Code(s): I10 - ESSENTIAL (PRIMARY) HYPERTENSION (6) Anemia Code(s): D64.9 - ANEMIA, UNSPECIFIED (7) CAD (coronary artery disease) Code(s): I25.10 - ATHSCL HEART DISEASE OF [place] CORONARY ARTERY W/O ANG PCTRS (8) TIA (transient ischemic attack) Code(s): G45.9 - TRANSIENT CEREBRAL ISCHEMIC ATTACK, UNSPECIFIED (9) Hypothyroid Code(s): E03.9 - HYPOTHYROIDISM, UNSPECIFIED Assessment/Plan (1) Frequent falls Code(s): R29.6 - REPEATED FALLS (2) Paraparesis of both lower limbs Code(s): G82.20 - PARAPLEGIA, UNSPECIFIED (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 Code(s): I67.9 - CEREBROVASCULAR DISEASE, UNSPECIFIED; R27.0 - ATAXIA, UNSPECIFIED (4) Multiple sclerosis Code(s): G35 - MULTIPLE SCLEROSIS (5) HTN (hypertension) Code(s): I10 - ESSENTIAL (PRIMARY) HYPERTENSION (6) Anemia Code(s): D64.9 - ANEMIA, UNSPECIFIED (7) CAD (coronary artery disease) Code(s): I25.10 - ATHSCL HEART DISEASE OF [place] CORONARY ARTERY W/O ANG PCTRS (8) TIA (transient ischemic attack) Code(s): G45.9 - TRANSIENT CEREBRAL ISCHEMIC ATTACK, UNSPECIFIED (9) Hypothyroid Code(s): E03.9 - HYPOTHYROIDISM, UNSPECIFIED Pt will be going to rehab Pt will go to [facility] left a message for Larissa Lin [phone] we will FU in AM
[2018-07-10] MEDS: MIRTAZAPINE 15 MG TABLET (FP) PO SCH (22:52)
[2018-07-11] MEDS: D5-1/2NS+10 MEQ KCL - 10 MEQ/1,000 ML INFUS.BAG IV SCH ×2 (02:00→17:14)
[2018-07-11] MEDS: ACETAMINOPHEN 325 MG TABLET (FP) PO SCH ×3 (02:59→17:35)
[2018-07-11] MEDS: LEVOTHYROXINE NA 100 MCG TABLET (FP) PO SCH (06:43)
[2018-07-11 08:04] LABS: ANION GAP 6 MMOL/L (8-16); BLOOD UREA NITROGEN 6 mg/dL (7-18); CALCIUM 9.3 mg/dL (8.5-10.1); CHLORIDE 108 mmol/L (98-107); CO2 25 mmol/L (21-32); CREATININE 0.6 mg/dL (0.55-1.3); GLUCOSE,RANDOM 90 mg/dL (74-106); POTASSIUM 4.1 mmol/L (3.5-5.1); SODIUM 140 mmol/L (136-145)
[2018-07-11 08:06] LABS: BASO % 0.6 % (0-2.0); EOS % 2.8 % (0-4.5); HEMATOCRIT 36.7 % (32.4-45.2); HEMOGLOBIN 13.1 GM/dL (10.7-15.3); LYMPH % 24.6 % (8-40); MCH 31.7 pg (25.7-33.7); MCHC 35.6 g/dl (32.0-36.0); MEAN PLT VOLUME 8.8 fl (7.5-11.1); MONO % 11.9 % (3.8-10.2); NEUT % 60.1 % (42.8-82.8); PLATELET COUNT 161 K/MM3 (134-434); RBC 4.12 M/mm3 (3.60-5.2); RDW 12.8 % (11.6-15.6); WHITE BLOOD COUNT 5.9 K/mm3 (4.0-10.0)
[2018-07-11] MEDS: HEPARIN NA (PORCINE) 5,000 UNITS/ML 1ML VIAL SQ SCH ×2 (09:25→22:19)
--- NOTE | 2018-07-11 18:25 | PN ---
Progress Note, Physician Chief Complaint: Pt will be going to rehab Pt will be going to [facility] No Fever No SOB No chest pain History of Present Illness: Pt is hemodynamically stable and Pt is going to rehab - Current Medication List Current Medications: Active Medications Acetaminophen (Tylenol -) 650 mg PO Q8H [facility] Last Admin: 07/11/18 17:35 Dose: 650 mg Docusate Sodium (Colace -) 100 mg PO Q12H PRN PRN Reason: CONSTIPATION Last Admin: 07/09/18 10:55 Dose: 100 mg Heparin Sodium (Porcine) (Heparin -) 5,000 unit SQ BID [facility] Last Admin: 07/11/18 09:25 Dose: 5,000 unit Potassium Chloride/Dextrose/Sod Cl (D5-1/2ns+10 Meq Kcl -) 10 meq in 1,000 mls @ 75 mls/hr IV ASDIR [facility] Last Admin: 07/11/18 17:14 Dose: 75 mls/hr Levothyroxine Sodium (Synthroid -) 100 mcg PO DAILY@0700 [facility] Last Admin: 07/11/18 06:43 Dose: 100 mcg Mirtazapine (Remeron -) 7.5 mg PO HS [facility] Last Admin: 07/10/18 22:52 Dose: 7.5 mg - Objective Vital Signs: Vital Signs Temperature 98.1 F 07/11/18 13:58 Pulse Rate 103 H 07/11/18 13:58 Respiratory Rate 20 07/11/18 13:58 Blood Pressure 104/58 L 07/11/18 13:58 O2 Sat by Pulse Oximetry (%) 96 07/11/18 09:00 Constitutional: Yes: Anxious Eyes: Yes: Conjunctiva Clear, EOM Intact HENT: Yes: Atraumatic, Normocephalic Neck: Yes: Supple, Trachea Midline Cardiovascular: Yes: Regular Rate and Rhythm, S1, S2 Respiratory: Yes: CTA Bilaterally Gastrointestinal: Yes: Normal Bowel Sounds, Soft Musculoskeletal: Yes: Joint Stiffness, Muscle Weakness Edema: No Peripheral Pulses WNL: Yes Labs: CBC, BMP 07/11/18 06:30 07/11/18 06:30 INR, PTT INR 1.01 (0.83-1.09) 07/05/18 10:18 Problem List - Problems (1) Frequent falls Code(s): R29.6 - REPEATED FALLS (2) Paraparesis of both lower limbs Code(s): G82.20 - PARAPLEGIA, UNSPECIFIED (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 Code(s): I67.9 - CEREBROVASCULAR DISEASE, UNSPECIFIED; R27.0 - ATAXIA, UNSPECIFIED (4) Multiple sclerosis Code(s): G35 - MULTIPLE SCLEROSIS (5) HTN (hypertension) Code(s): I10 - ESSENTIAL (PRIMARY) HYPERTENSION (6) Anemia Code(s): D64.9 - ANEMIA, UNSPECIFIED (7) CAD (coronary artery disease) Code(s): I25.10 - ATHSCL HEART DISEASE OF [place] CORONARY ARTERY W/O ANG PCTRS (8) TIA (transient ischemic attack) Code(s): G45.9 - TRANSIENT CEREBRAL ISCHEMIC ATTACK, UNSPECIFIED (9) Hypothyroid Code(s): E03.9 - HYPOTHYROIDISM, UNSPECIFIED Assessment/Plan (1) Frequent falls Code(s): R29.6 - REPEATED FALLS (2) Paraparesis of both lower limbs Code(s): G82.20 - PARAPLEGIA, UNSPECIFIED (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 Code(s): I67.9 - CEREBROVASCULAR DISEASE, UNSPECIFIED; R27.0 - ATAXIA, UNSPECIFIED (4) Multiple sclerosis Code(s): G35 - MULTIPLE SCLEROSIS (5) HTN (hypertension) Code(s): I10 - ESSENTIAL (PRIMARY) HYPERTENSION (6) Anemia Code(s): D64.9 - ANEMIA, UNSPECIFIED (7) CAD (coronary artery disease) Code(s): I25.10 - ATHSCL HEART DISEASE OF [place] CORONARY ARTERY W/O ANG PCTRS (8) TIA (transient ischemic attack) Code(s): G45.9 - TRANSIENT CEREBRAL ISCHEMIC ATTACK, UNSPECIFIED (9) Hypothyroid Code(s): E03.9 - HYPOTHYROIDISM, UNSPECIFIED Pt will be going to rehab Pt will go to [facility] Pt will have Rehab there
--- NOTE | 2018-07-11 18:32 | DS ---
Physical Examination Vital Signs: Vital Signs Temperature 98.1 F 07/11/18 13:58 Pulse Rate 103 H 07/11/18 13:58 Respiratory Rate 20 07/11/18 13:58 Blood Pressure 104/58 L 07/11/18 13:58 O2 Sat by Pulse Oximetry (%) 96 07/11/18 09:00 Constitutional: Yes: Calm Eyes: Yes: Conjunctiva Clear, EOM Intact HENT: Yes: Atraumatic, Normocephalic Neck: Yes: Supple, Trachea Midline Cardiovascular: Yes: Regular Rate and Rhythm, S1, S2 Respiratory: Yes: Regular, CTA Bilaterally Gastrointestinal: Yes: Normal Bowel Sounds, Soft Musculoskeletal: Yes: Joint Stiffness, Muscle Weakness Edema: No Neurological: Yes: Alert, Cran Nerves II-XII Intact Labs: CBC, BMP 07/11/18 06:30 07/11/18 06:30 Discharge Summary Reason For Visit: Weakness Current Active Problems Anemia (Acute) Ataxia due to cerebrovascular disease (Acute) CAD (coronary artery disease) (Acute) Frequent falls (Acute) HTN (hypertension) (Acute) Hypothyroid (Acute) Multiple sclerosis (Acute) Paraparesis of both lower limbs (Acute) TIA (transient ischemic attack) (Acute) Weakness (Acute) Procedures: Principal: Pt having recurrent falls. Pt was seen by Neurology. Pt is having Neurodegenarative disorder. Pt need MRI cerviocal spine and MRI of brain (open MRI) as Pt very anxious. Pt need Neurology FU in one week with Dr Monterroso for workup of Neurodegenarative disorder panel. Pt need agrressive rehab. Pt is dpressed and she is put on remeron and dose clinton to be uptitrated. B /L heel gaurds. Sacral area care. Condition: Guarded - Instructions Referrals: Benjamín Lopez MD [Primary Care Provider] - - Home Medications Comprehensive Discharge Medication List: Ambulatory Orders Fosinopril Sodium [Monopril -] 10 mg PO DC Orthostatic Hypotension Levothyroxine [Synthroid -] 100 mcg PO DAILY 07/05/18 Propranolol HCl 80 mg PO HS to DC as Pt is orthostatic MVT one daily Remeron 7.5 Po daily after one week to increase to 15mg
[2018-07-11] MEDS ORDERED: PT OWN MED DRAWER 7, Y5N ONE (21:50)
[2018-07-11] MEDS: SULFAMETHOXAZOLE/TRIMETHOPRIM 800MG/160MG D.S. TABLET PO SCH (21:53)
[2018-07-11] MEDS: MIRTAZAPINE 15 MG TABLET (FP) PO SCH (21:54)
[2018-07-11] MEDS: MUPIROCIN CA 2% TOPICAL CREAM 15 GM TUBE TP SCH (21:58)
[2018-07-11] MEDS ORDERED: MIRTAZAPINE 15 MG TABLET (FP) PO SCH (22:00)
[2018-07-12] MEDS: ACETAMINOPHEN 325 MG TABLET (FP) PO SCH ×2 (03:30→10:00)
[2018-07-12] MEDS: LEVOTHYROXINE NA 100 MCG TABLET (FP) PO SCH (06:10)
[2018-07-12] MEDS: SULFAMETHOXAZOLE/TRIMETHOPRIM 800MG/160MG D.S. TABLET PO SCH (10:01)
[2018-07-12] MEDS: HEPARIN NA (PORCINE) 5,000 UNITS/ML 1ML VIAL SQ SCH (10:01)
[2018-07-12] MEDS: MUPIROCIN CA 2% TOPICAL CREAM 15 GM TUBE TP SCH (10:03)
[2018-07-12 10:40] VITALS: BP 105/66; PULSE 94; TEMP 98.4
== END 2018-07-12 14:41 | DRG 42 ==
LOC: JER 09:28 → JERBED 15:00 → J7W 15:49
PROVIDERS: ADMIT Internal Medicine; ATTEND Internal Medicine
DX: G11.1 Early-onset cerebellar ataxia (principal); G93.40 Encephalopathy, unspecified; R53.1 Weakness; E03.9 Hypothyroidism, unspecified; I10 Essential (primary) hypertension; G35 Multiple sclerosis; R29.6 Repeated falls; Z87.891 Personal history of nicotine dependence; G82.20 Paraplegia, unspecified; R47.1 Dysarthria and anarthria; I25.10 Atherosclerotic heart disease of native coronary artery without angina pectoris; D64.9 Anemia, unspecified; F32.9 Major depressive disorder, single episode, unspecified; Z86.73 Personal history of transient ischemic attack (TIA), and cerebral infarction without residual deficits
CPT/HCPCS: 36415; 70450-TC; 71045-TC-FY; 72141-TC; 80048; 80053; 80061; 81003; 81015; 82550; 82553; 82803; 83605; 83721; 84443; 84484; 84703; 85025; 85610; 85651; 85730; 86850; 86900; 86901; 87040; 87086; 93005; 93010; 97116-GP; 97162-GP; 99284-25; J1644; J7030

== ENCOUNTER 2018-08-14 02:50 | Inpatient (IN) | payer OTHER ==
--- NOTE | 2018-08-14 03:05 | PDOC ---
Attending Attestation - Resident Resident Name: Lucy Mata - HPI HPI: 08/14/18 03:36 PT presents to the ED complaining of shortness of breath in the mcc. Patient is apparently normally able to speak, but today is able only to speak yes no answers. Denies pain. Hypoxic into the 80's on arrival of EMS. - Physicial Exam PE: 08/14/18 03:38 Agree with resident exam. Patient is alert and opens her eyes in response to questions. Able to answer some yes/no questions in response to repeated questioning. CV: RRR tachycardic. Pulm: CTA b/l tachypneic. Abdomen: soft, non tender non distended. - Critical Care Time Total Critical Care Time: 30 Critical Care Statement: The care of this patient involved high complexity decision making to prevent further life threatening deterioration of the patient 's condition and/or to evaluate & treat vital organ system(s) failure or risk of failure. - Medical Decision Making 08/14/18 03:40 PT presents to the ED with hypoxia and altered mental status. Differential includes PNA, sepsis, MS flare, PE, less likely CHF or ACS. Will check labs and CXR, start bipap, check cxr, CT head, blood cx and lactate and admit to medicine for continued management.
[2018-08-14] MEDS ORDERED: SODIUM CHLORIDE 1,000 ML IV STA (03:23)
--- NOTE | 2018-08-14 03:29 | PDOC ---
History of Present Illness - General Chief Complaint: Shortness of Breath Stated Complaint: SOB Time Seen by Provider: 08/14/18 03:00 - History of Present Illness Initial Comments: 53yo F with PMH of HTN, MS, CAD, TIA presenting from the intermediate with hypoxia. Patient was noted to have low oxygen saturation in the 80s and was placed on nasal cannula with O2 sat improving to the low 90s. EMS placed her on 15L non rebreather mask and her oxygen sat increased to 96. Patient is limited in giving history as she is only nodding yes/no. Denies any acute pain. 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 Pt only nods Y/N) *Physical Exam - Vital Signs Last Vital Signs Temp Pulse Resp BP Pulse Ox 98.1 F 119 H 22 H 99/69 92 L 08/14/18 02:50 08/14/18 02:50 08/14/18 02:50 08/14/18 02:50 08/14/18 02:50 - Physical Exam Comments: General: Awake, alert, in no acute distress Head: No signs of trauma Eyes: EOMI, sclera anicteric ENT: Dry mucus membranes Neck: Normal ROM, supple Lungs: Tachypneic, Lungs clear to auscultation bilaterally Cardio: Tachycardic, regular rhythm, S1 and S2 present Abdomen: Soft, nontender. No guarding, no rebound, no masses Extremities: Normal range of motion, Distal pulses present SKIN: Warm, Dry, normal turgor Neurologic: Cranial nerves II through XII grossly intact. Paraplegic. Only nodding yes/no to questions. Following commands Moderate Sedation - Procedure Monitoring Vital Signs: Procedure Monitoring Vital Signs Temperature 98.1 F 08/14/18 02:50 Pulse Rate 119 H 08/14/18 02:50 Respiratory Rate 22 H 08/14/18 02:50 Blood Pressure 99/69 08/14/18 02:50 O2 Sat by Pulse Oximetry (%) 92 L 08/14/18 02:50 ED Treatment Course - LABORATORY CBC & Chemistry Diagram: 08/15/18 05:30 08/15/18 05:30 - RADIOLOGY Radiology Studies Ordered: Category Date Time Status CHEST X-RAY PORTABLE* [RAD] Stat Radiology 08/14/18 03:19 Ordered Medical Decision Making - Medical Decision Making 53yo F with PMH of HTN, MS, CAD, TIA presenting with hypoxia. Vitals significant for tachycardia, hypoxia, hypotension, and tachypnea DDX including but not limited to sepsis, MS exacerbation, pulmonary embolus, PNA Septic workup ordered 1L NS Per EMS, patient satting in low 90s while on NC at [place]. Satting 96 on 15L non- rebreather. BiPAP ordered 08/14/18 03:28 Patient's mother, Larissa Post, can be reached at [phone] 08/14/18 05:35 No leukocytosis or anemia Lactate wnl Tpn <0.02 Creatinine normal EKG: rate 125, QTc 453, sinus tachycardia CTA Chest ordered to assess for PE Patient's mother consented to imaging study with contrast Patient tolerating BiPAP, satting well 08/14/18 06:00 Patient signed out to day team *DC/Admit/Observation/Transfer Diagnosis at time of Disposition: Hypoxia - Discharge Dispostion Condition at time of disposition: Fair - Referrals - Patient Instructions - Post Discharge Activity
[2018-08-14 04:33] LABS: VENOUS PC02 38.6 mmHg (38-52); VENOUS PH 7.42 (7.32-7.42); VENOUS PO2 85.5 mmHg (28-48)
[2018-08-14 04:39] LABS: BASO % 0.7 % (0-2.0); EOS % 0.6 % (0-4.5); HEMATOCRIT 41.8 % (32.4-45.2); HEMOGLOBIN 14.7 GM/dL (10.7-15.3); LYMPH % 16.9 % (8-40); MCH 31.5 pg (25.7-33.7); MCHC 35.3 g/dl (32.0-36.0); MEAN CELL VOLUME 89.2 fl (80-96); MEAN PLT VOLUME 7.8 fl (7.5-11.1); NEUT % 73.8 % (42.8-82.8); PLATELET COUNT 352 K/MM3 (134-434); RBC 4.68 M/mm3 (3.60-5.2); WHITE BLOOD COUNT 8.4 K/mm3 (4.0-10.0)
[2018-08-14 04:48] LABS: INR 1.04 (0.83-1.09); PROTHROMBIN TIME (PATIENT) 12.3 SEC (9.7-13.0)
[2018-08-14 04:51] LABS: ACTIVATED PTT 26.9 SECONDS (25.2-36.5)
[2018-08-14 05:16] LABS: ALBUMIN 2.7 g/dl (3.4-5.0); ALK PHOS 105 U/L (45-117); ANION GAP 9 MMOL/L (8-16); BILIRUBIN,TOTAL 0.6 mg/dL (0.2-1); BLOOD UREA NITROGEN 7 mg/dL (7-18); CALCIUM 9.9 mg/dL (8.5-10.1); CHLORIDE 104 mmol/L (98-107); CO2 25 mmol/L (21-32); CREATININE 0.7 mg/dL (0.55-1.3); GLUCOSE,RANDOM 118 mg/dL (74-106); POTASSIUM 4.6 mmol/L (3.5-5.1); SGOT/AST 34 U/L (15-37); SGPT/ALT 22 U/L (13-61); SODIUM 137 mmol/L (136-145); TOT PROT 6.8 g/dl (6.4-8.2)
--- NOTE | 2018-08-14 07:53 | PDOC ---
*Physical Exam - Vital Signs Last Vital Signs Temp Pulse Resp BP Pulse Ox 98.1 F 119 H 22 H 99/69 95 08/14/18 02:50 08/14/18 02:50 08/14/18 02:50 08/14/18 02:50 08/14/18 07:35 ED Treatment Course - LABORATORY CBC & Chemistry Diagram: 08/14/18 03:58 08/14/18 03:58 - ADDITIONAL ORDERS Additional order review: Laboratory Results 08/14/18 08/14/18 08/14/18 03:58 03:58 03:58 PT with INR INR PTT (Actin FS) VBG pH 7.42 POC VBG pCO2 38.6 D POC VBG pO2 85.5 H D VBG HCO3 24.6 L* VBG O2 Sat (Stan) 96.2 H* VBG Base Excess 0.8 Sodium 137 Potassium 4.6 Chloride 104 Carbon Dioxide 25 Anion Gap 9 BUN 7 Creatinine 0.7 Creat Clearance w eGFR > 60 Random Glucose 118 H Lactic Acid 1.2 Calcium 9.9 Total Bilirubin 0.6 AST 34 ALT 22 Alkaline Phosphatase 105 Troponin I 0.02 Total Protein 6.8 Albumin 2.7 L TSH 7.08 H 08/14/18 03:58 PT with INR 12.30 INR 1.04 PTT (Actin FS) 26.9 VBG pH POC VBG pCO2 POC VBG pO2 VBG HCO3 VBG O2 Sat (Stan) VBG Base Excess Sodium Potassium Chloride Carbon Dioxide Anion Gap BUN Creatinine Creat Clearance w eGFR Random Glucose Lactic Acid Calcium Total Bilirubin AST ALT Alkaline Phosphatase Troponin I Total Protein Albumin TSH 08/14/18 03:58 RBC 4.68 MCV 89.2 MCHC 35.3 RDW 13.0 MPV 7.8 D Neutrophils % 73.8 D Lymphocytes % 16.9 D Monocytes % 8.0 Eosinophils % 0.6 Basophils % 0.7 - Medications Given in the ED: ED Medications Discontinued Medications Generic Name Dose Route Start Last Admin Trade Name Freq PRN Reason Stop Dose Admin Sodium Chloride 1,000 mls @ 1,000 mls/hr 08/14/18 03:23 08/14/18 05:15 Normal Saline - IV 08/14/18 04:22 1,000 mls/hr ASDIR STA Administration Medical Decision Making - Medical Decision Making 08/14/18 07:48 Sign out received from Dr So. Lucy Hunter is a 53yo woman with a PMH of HTN, neurodegenerative disease, CAD, TIA who presented with hypoxia with sats in the 80's, tachypnea to near 30 , tachycardia. Afebrile in ED. - ED workup so far notable for negative sepsis workup. Sats improved with BiPAP. Appeared altered, CT head ordered for eval. CTA chest ordered for evaluation of hypoxia, tachypnea, tachycardia. - CT's completed. CT head w/o acute abnormalities, read by radiology. CTA completed, reviewed in ED, no acute thrombus noted, radiology read pending. 08/14/18 10:19 - Spoke to radiology. No obvious PE but study limited by artifact. - Will contact PMD for admission 08/14/18 10:46 - Spoke to Dr Lopez. Will accept for admission, would like empiric antibiotics for possible aspiration. Would like to consult ICU for admission assessment. Also requesting consults for Dr Uribe and Dr Doty. 08/14/18 12:41 - Accepted to ICU for admission - Sign out given to Dr Salazar Discussed with Dr Goodman. Rosita Oconnor PGY1 *DC/Admit/Observation/Transfer Diagnosis at time of Disposition: Hypoxia - Discharge Dispostion Condition at time of disposition: Fair Decision to Admit order: Yes - Referrals Referrals: Benjamín Lopez MD [Primary Care Provider] - - Patient Instructions - Post Discharge Activity
[2018-08-14 09:46] LABS: URINE APPEARANCE CLOUDY; URINE BILIRUBIN NEGATIVE (<2.0 mg/dL); URINE GLUCOSE (UA) NEGATIVE (NEGATIVE); URINE KETONE NEGATIVE (NEGATIVE); URINE LEUK ESTERASE NEGATIVE (NEGATIVE); URINE NITRITE POSITIVE (NEGATIVE); URINE PROTEIN NEGATIVE (NEGATIVE); URINE UROBILINOGEN 4.0 E.U/dl mg/dL (0.2-1.0)
[2018-08-14 09:48] LABS: URINE COLOR YELLOW
--- NOTE | 2018-08-14 10:32 | EKG ---
Test Reason : Blood Pressure : / mmHG Vent. Rate : 125 BPM Atrial Rate : 125 BPM P-R Int : 122 ms QRS Dur : 082 ms QT Int : 314 ms P-R-T Axes : 071 264 063 degrees QTc Int : 453 ms SINUS TACHYCARDIA ABNORMAL ECG WHEN COMPARED WITH ECG OF 05-JUL-2018 10:02, VENT. RATE HAS INCREASED BY 49 BPM Confirmed by JÚNIOR LAGUNA MD ([id number]) on 08/14/2018 10:31:53 AM Referred By: Confirmed By:JÚNIOR LAGUNA MD
[2018-08-14] MEDS ORDERED: VANCOMYCIN 1 GM in D5W (PRE-DOCKED) 1,000 MG/250 ML IVPB ONE (10:48)
[2018-08-14] MEDS ORDERED: VANCOMYCIN 1 GRAM (PRE-DOCKED) 1,000 MG/250 ML BAG IVPB ONE (11:19)
--- NOTE | 2018-08-14 13:51 | CON.ID ---
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: Multiple Sclerosis (Questionable), Other (Recurrent falls, Ataxia,) - Alcohol/Substance Use Hx Alcohol Use: No - Smoking History Smoking history: Never smoked Have you smoked in the past 12 months: No If you are a former smoker, when did you quit?: 1985 Home Medications - Allergies Allergies/Adverse Reactions: Allergies Allergy/AdvReac Type Severity Reaction Status Date / Time Penicillins Allergy Verified 08/14/18 03:03 sulfur dioxide Allergy Verified 08/14/18 03:03 - Home Medications Home Medications: Ambulatory Orders Fosinopril Sodium [Monopril -] 10 mg PO DAILY 07/05/18 Levothyroxine [Synthroid -] 100 mcg PO DAILY 07/05/18 Propranolol HCl 80 mg PO HS 07/05/18 Physical Exam Vital Signs: Vital Signs Temperature 98.1 F 08/14/18 02:50 Pulse Rate 105 H 08/14/18 11:40 Respiratory Rate 16 08/14/18 11:40 Blood Pressure 121/100 08/14/18 11:40 O2 Sat by Pulse Oximetry (%) 95 08/14/18 13:40 Labs: CBC, BMP 08/14/18 03:58 08/14/18 03:58
--- NOTE | 2018-08-14 13:55 | PN ---
Teaching Attending Note Name of Resident: Supriya Salazar ATTENDING PHYSICIAN STATEMENT I saw and evaluated the patient. I reviewed the resident's note and discussed the case with the resident. I agree with the resident's findings and plan as documented. SUBJECTIVE: Patient seen in the ER. 53 F, undescript neurodegenerative process (deemed not MS), HTN, MS, CAD, and TIA. Admitted via the SNF due to hypoxia that required NIPPV with 100% FiO2. CTA: no PE, bilateral infiltrates Patient is not able to provide any history so it is obtained from the chart. Intake & Output 08/11/18 08/12/18 08/13/18 08/14/18 22:59 22:59 23:59 23:59 Weight 125 lb Last Vital Signs Temp Pulse Resp BP Pulse Ox 98.1 F 105 H 16 121/100 95 08/14/18 02:50 08/14/18 11:40 08/14/18 11:40 08/14/18 11:40 08/14/18 13:40 Active Medications Aztreonam 1 gm/ Dextrose 50 mls @ 100 mls/hr IVPB Q8H-IV [facility]; Protocol Levothyroxine Sodium (Synthroid -) 100 mcg PO DAILY [facility] Non-Formulary Medication (Fosinopril Sodium) 10 mg PO DAILY [facility] Non-Formulary Medication (Propranolol Hcl [Propranolol Hcl]) 80 mg PO HS [facility] General: Lethargic but arousable Head: No signs of trauma Eyes: EOMI, sclera anicteric ENT: Dry mucus membranes Neck: Normal ROM, supple Lungs: diminished at the bases, bilateral rhonchi, no wheeze Cardio: Tachycardic, regular rhythm, S1 and S2 present Abdomen: Soft, nontender. No guarding, no rebound, no masses Extremities: Normal range of motion, Distal pulses present SKIN: Warm, Dry, normal turgor Neurologic: lethargic diffuse weakness Laboratory Results - last 24 hr 08/14/18 08/14/18 08/14/18 03:58 03:58 03:58 WBC 8.4 RBC 4.68 Hgb 14.7 Hct 41.8 MCV 89.2 MCH 31.5 MCHC 35.3 RDW 13.0 Plt Count 352 D MPV 7.8 D Absolute Neuts (auto) 6.2 Neutrophils % 73.8 D Lymphocytes % 16.9 D Monocytes % 8.0 Eosinophils % 0.6 Basophils % 0.7 Nucleated RBC % 0 PT with INR 12.30 INR 1.04 PTT (Actin FS) 26.9 VBG pH 7.42 POC VBG pCO2 38.6 D POC VBG pO2 85.5 H D VBG HCO3 24.6 L* VBG O2 Sat (Stan) 96.2 H* VBG Base Excess 0.8 Sodium Potassium Chloride Carbon Dioxide Anion Gap BUN Creatinine Creat Clearance w eGFR Random Glucose Lactic Acid Calcium Total Bilirubin AST ALT Alkaline Phosphatase Troponin I Total Protein Albumin TSH Urine Color Urine Appearance Urine pH Ur Specific [place] Urine Protein Urine Glucose (UA) Urine Ketones Urine Blood Urine Nitrite Urine Bilirubin Urine Urobilinogen Ur Leukocyte Esterase 08/14/18 08/14/18 08/14/18 03:58 03:58 08:23 WBC RBC Hgb Hct MCV MCH MCHC RDW Plt Count MPV Absolute Neuts (auto) Neutrophils % Lymphocytes % Monocytes % Eosinophils % Basophils % Nucleated RBC % PT with INR INR PTT (Actin FS) VBG pH POC VBG pCO2 POC VBG pO2 VBG HCO3 VBG O2 Sat (Stan) VBG Base Excess Sodium 137 Potassium 4.6 Chloride 104 Carbon Dioxide 25 Anion Gap 9 BUN 7 Creatinine 0.7 Creat Clearance w eGFR > 60 Random Glucose 118 H Lactic Acid 1.2 Calcium 9.9 Total Bilirubin 0.6 AST 34 ALT 22 Alkaline Phosphatase 105 Troponin I 0.02 Total Protein 6.8 Albumin 2.7 L TSH 7.08 H Urine Color Yellow Urine Appearance Cloudy Urine pH 6.0 Ur Specific [place] 1.029 Urine Protein Negative Urine Glucose (UA) Negative Urine Ketones Negative Urine Blood 1+ H Urine Nitrite Positive Urine Bilirubin Negative Urine Urobilinogen 4.0 e.u/dl H Ur Leukocyte Esterase Negative IMP: Acute Hypoxemic Respiratory Failure R/O Sepsis R/O PNA No PE Neurodegenerative disease R/O Hypoventilation HTN CAD CVA TIA NIPPV as needed Check ABG Aspiration precautions Maynard-culture ABX per ID Neuro evaluation VTE prophylaxis Check NIF and VC if mental status improves Requires ICU monitoring as high risk for respiratory failure Dr Holly Critical care time spent in reviewing chart, evaluating patient and formulating plan - 36 minutes.
--- NOTE | 2018-08-14 13:57 | CONSULT ---
Consultation: REQUESTING PROVIDER: Dr. Bundy CONSULT REQUEST FOR ICU: We have been asked to medically evaluate this patient for Acute hypoxic respiratory failure. HISTORY OF PRESENT ILLNESS: Patient is a 53 year old female with a PMHx of HTN, TIA, progressive neurodegenerative disorder who presented from the [facility] due to respiratory distress and hypoxia. According to patients sister in law and mother at bedside, patient has been experiencing a decline in mental and neuro acuity since 2017. Patient was misdiagnosed with MS 9 years ago and had a follow up with the neurologist 1.[address] Phan who repeated images and then stopped her MS medications as she did not have MS. June of this year, patient started experiencing worsening Gait as well as mental acuity and is now in [facility] jail. According to the ED staff, patient was noted to have low oxygen saturation in the mid 80's at the [facility] and was placed on Nasal cannula with improved saturation in the low 90's. Patient in the ED was then found to be hypoxic in the mid 80's and placed on BIPAP. Non-rebreather was attempted and patient desaturated to the 80's and then placed back on BIPAP. On my evaluation, patient was in no acute distress but was unable to answer appropriately. I placed her on a non-rebreather and patient remained between 98 %-100%. When asking questions patient nodded no to any chest pain, palpitations, abdominal pain, diarrhea, constipation. 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 Responds to command. HEAD: Normal with no signs of trauma. EYES: Pupils equal, round and reactive to light, extraocular movements intact, sclera anicteric, conjunctiva clear. EARS, NOSE, THROAT: Oropharynx clear without exudates. Dry mucous membranes. NECK: (-) JVD, or masses. LUNGS: Bilateral rhonchi with diminished breath sounds. No accessory muscle use. HEART: Tachycardic with regular rhythm, normal S1 and S2 without murmur, rub or gallop. ABDOMEN: Soft, nontender, not distended, normoactive bowel sounds, no guarding, no rebound, no masses. No hepatomegaly or splenomegaly. MUSCULOSKELETAL: No CVA tenderness. EXTREMITIES: No calf tenderness. No peripheral edema. NEUROLOGICAL: Lethargic but arousable SKIN: Warm, dry, normal turgor, no rashes or lesions noted. Laboratory Results 08/14/18 03:58 08/14/18 03:58 08/14/18 03:58 Total Bilirubin 0.6 AST 34 ALT 22 Alkaline Phosphatase 105 Troponin I 0.02 TSH 7.08 H ABG Results ABG pH 7.45 (7.35-7.45) 08/14/18 14:13 ABG pCO2 at Pt Temp 34.2 mmHg (35-45) L 08/14/18 14:13 ABG pO2 at Pt Temp 117.0 mmHg (80-100) H 08/14/18 14:13 ABG HCO3 23.6 meq/L (22-26) 08/14/18 14:13 ABG O2 Sat (Measured) 98.3 % (90-98.9) 08/14/18 14:13 ABG O2 Content 18.5 % vol (15-22) 08/14/18 14:13 ABG Base Excess 0.6 meq/l (-2-2) 08/14/18 14:13 Urine Test Results Urine Color Yellow 08/14/18 08:23 Urine Appearance Cloudy 08/14/18 08:23 Urine pH 6.0 (5.0-8.0) 08/14/18 08:23 Ur Specific [place] 1.029 (1.010-1.035) 08/14/18 08:23 Urine Protein Negative (NEGATIVE) 08/14/18 08:23 Urine Glucose (UA) Negative (NEGATIVE) 08/14/18 08:23 Urine Ketones Negative (NEGATIVE) 08/14/18 08:23 Urine Blood 1+ (NEGATIVE) H 08/14/18 08:23 Urine Nitrite Positive (NEGATIVE) 08/14/18 08:23 Urine Bilirubin Negative (<2.0 mg/dL) 08/14/18 08:23 Ur Leukocyte Esterase Negative (NEGATIVE) 08/14/18 08:23 Ur Epithelial Cells None seen /HPF (FEW) 08/14/18 08:23 Urine Bacteria 4+ /hpf (NONE SEEN) 08/14/18 08:23 Active Medications Generic Name Dose Route Start Last Admin Trade Name Gricelda PRN Reason Stop Dose Admin Aztreonam 1 gm/ Dextrose 50 mls @ 100 mls/hr 08/14/18 14:00 IVPB Q8H-IV KIMO Protocol IMAGES: Chest CTA (08/14/18): Evaluation of the distal branches of both lower lobes are limited. Otherwise, there is no evidence of a pulmonary embolus within the main pulmonary artery and proximal branches, bilaterally. Normal size and enhancement of the thoracic and included portion of the upper abdominal aorta. Bibasal atelectasis/consolidation. Head CT (08/14/18): No evidence of acute intracranial hemorrhage, edema, midline shift, mass effect, or skull fracture. No CT evidence of acute territorial ischemic changes. Infratentorial, supratentorial loss of volume of the brain parenchyma with involutional changes. No evidence of hydrocephalus. ASSESSMENT/PLAN: Patient is a 53 year old female who was BIBEMS for hypoxia and was found to be in acute hypoxic respiratory failure. Patient admitted to ICU for further monitoring and management. NEURO: #Progressive Neurodegenerative Disorder -Progressive neurological acuity with worsening ataxia but no definite diagnosis. Currently being followed with outpatient neurologist, Dr. Phan -Frequent Neuro checks -Patient was recently taken off Baclofen as she developed hallucinations/ encephalopathy and worsened gait/falls. -Neuro consult placed #TIA -On no medications PULMONARY: #Acute Hypoxic Respiratory failure -Rule out sepsis vs PE vs PNA -No PE shown on CTA -Patient improved and is now on non-rebreather -ABG unimpressive -Negative inspiratory force and VC ordered once mental status improves -Aspiration precaution -Aztreonam 1gm Q8H IVPB, as per ID -Legionella and sputum cultures ordered -Blood and urine cultures pending -Aspiration precaution and HOB -Will need end tidal c02 monitoring -ID consult placed CARDIOLOGY: #HTN -Controlled -Continue home medication Propranolol ER 80mg daily -Continue to monitor BP ENDOCRINOLOGY: #Hypothyroidism -Continue home medication Levothyroxine 100mcg po daily -TSH elevated at 7, possibly sick euthyroidism GASTROENTEROLOGY #Autoimmune Liver Disease -Treated as outpatient several years ago according to family -Continue to monitor LFT's F/E/N -On no fluids -Electrolytes wnl -Clear liquid diet Prophylaxis -High risk. Heparin 5000 units sq TID for DVT -No GI required Disposition -Full code -Will need respiratory monitoring Supriya Salazar [id number] Visit type - Emergency Visit Emergency Visit: Yes ED Registration Date: 08/14/18 Care time: The patient presented to the Emergency Department on the above date and was hospitalized for further evaluation of their emergent condition. - New Patient This patient is new to me today: Yes Date on this admission: 08/14/18 - Critical Care Critical Care patient: Yes Total Critical Care Time (in minutes): 36 Critical Care Statement: The care of this patient involved high complexity decision making to prevent further life threatening deterioration of the patient 's condition and/or to evaluate & treat vital organ system(s) failure or risk of failure.
--- NOTE | 2018-08-14 14:21 | HP ---
Admitting History and Physical - Primary Care Physician PCP: Benjamín Lopez - Admission Chief Complaint: send from [facility] [facility] due to hypoxia History of Present Illness: pt seen/ examined in er chart reviewed case discussed with er physician/ pts pmd mother at bedside Per Er records 53yo F with PMH of HTN, Neuro degenerative disorder , CAD, TIA presenting from the [place] [facility] with hypoxia. Patient was noted to have low oxygen saturation in the 80s and was placed on nasal cannula with O2 sat improving to the low 90s. EMS placed her on 15L non rebreather mask and her oxygen sat increased to 96. 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: Multiple Sclerosis (Questionable), Other (Recurrent falls, Ataxia,) - Smoking History Smoking history: Never smoked Have you smoked in the past 12 months: No If you are a former smoker, when did you quit?: 1985 - Alcohol/Substance Use Hx Alcohol Use: No Home Medications - Allergies Allergies/Adverse Reactions: Allergies Allergy/AdvReac Type Severity Reaction Status Date / Time Penicillins Allergy Verified 08/14/18 03:03 sulfur dioxide Allergy Verified 08/14/18 03:03 - Home Medications Home Medications: Ambulatory Orders Fosinopril Sodium [Monopril -] 10 mg PO DAILY 07/05/18 Levothyroxine [Synthroid -] 100 mcg PO DAILY 07/05/18 Baclofen 10 mg PO DAILY 08/14/18 Propranolol HCl [Propranolol HCl ER] 80 mg PO DAILY 08/14/18 Physical Examination Vital Signs: Vital Signs Temperature 98.1 F 08/14/18 02:50 Pulse Rate 105 H 08/14/18 11:40 Respiratory Rate 16 08/14/18 11:40 Blood Pressure 121/100 08/14/18 11:40 O2 Sat by Pulse Oximetry (%) 95 08/14/18 13:40 Constitutional: Yes: Anxious, Mild Distress Eyes: Yes: Conjunctiva Clear Neck: Yes: Supple Cardiovascular: Yes: Regular Rate and Rhythm Respiratory: Yes: Diminished Gastrointestinal: Yes: Soft Edema: No Labs: CBC, BMP 08/14/18 03:58 08/14/18 03:58 Imaging - Results Cat Scan: Report Reviewed Problem List - Problems (1) Hypoxia Code(s): R09.02 - HYPOXEMIA (2) Ataxia due to cerebrovascular disease Code(s): I67.9 - CEREBROVASCULAR DISEASE, UNSPECIFIED; R27.0 - ATAXIA, UNSPECIFIED (3) Hypothyroid Code(s): E03.9 - HYPOTHYROIDISM, UNSPECIFIED Assessment/Plan Admit to icu Abx NIppv Pulmonary/ i/d on case Neurlogy consult dvt prophylaxs Discussed with Dr. Soren noe will follow cc time approx 40 min Discussed with pts private pmd also
[2018-08-14 14:22] LABS: ARTERIAL BLD GAS O2 SATURATION 98.3 % (90-98.9); ARTERIAL BLOOD GAS BASE EXCESS 0.6 meq/l (-2-2); ARTERIAL BLOOD GAS PCO2 34.2 mmHg (35-45); ARTERIAL BLOOD GAS pH 7.45 (7.35-7.45)
[2018-08-14 15:12] LABS: EPI CELLS NONE SEEN /HPF (FEW); URINE BACTERIA 4+ /hpf (NONE SEEN)
[2018-08-14] MEDS: AZTREONAM 1 GM in DEXTROSE 5%-WATER - 50 ML IVPB SCH ×3 (15:16→22:20)
[2018-08-14] MEDS ORDERED: ACETAMINOPHEN 1000 MG/100 ML VIAL (NON FORMULARY) IVPB PRN (18:21)
[2018-08-14] MEDS ORDERED: D5-1/2NS+10 MEQ KCL - 10 MEQ/1,000 ML INFUS.BAG IV SCH (20:30)
[2018-08-14] MEDS ORDERED: PROPRANOLOL HCL 80 MG PO SCH (22:00)
[2018-08-14] MEDS ORDERED: HEPARIN NA (PORCINE) 5,000 UNITS/ML 1ML VIAL ONE (22:17)
[2018-08-14] MEDS: HEPARIN NA (PORCINE) 5,000 UNITS/ML 1ML VIAL SQ SCH (22:20)
[2018-08-15] MEDS ORDERED: PT OWN MED DRAWER 7, Y5N ONE ×3 (02:57→09:25)
[2018-08-15] MEDS: AZTREONAM 1 GM in DEXTROSE 5%-WATER - 50 ML IVPB SCH ×3 (03:11→18:30)
[2018-08-15 06:26] LABS: BASO % 0.5 % (0-2.0); EOS % 3.2 % (0-4.5); HEMOGLOBIN 11.6 GM/dL (10.7-15.3); LYMPH % 21.7 % (8-40); MCH 31.1 pg (25.7-33.7); MEAN CELL VOLUME 88.7 fl (80-96); MEAN PLT VOLUME 7.4 fl (7.5-11.1); MONO % 7.4 % (3.8-10.2); NEUT % 67.2 % (42.8-82.8); PLATELET COUNT 240 K/MM3 (134-434); RBC 3.72 M/mm3 (3.60-5.2); WHITE BLOOD COUNT 6.2 K/mm3 (4.0-10.0)
[2018-08-15] MEDS: HEPARIN NA (PORCINE) 5,000 UNITS/ML 1ML VIAL SQ SCH ×2 (06:33→22:53)
[2018-08-15 06:45] LABS: ANION GAP 4 MMOL/L (8-16); BLOOD UREA NITROGEN 8 mg/dL (7-18); CALCIUM 8.5 mg/dL (8.5-10.1); CHLORIDE 110 mmol/L (98-107); CO2 24 mmol/L (21-32); CREATININE 0.5 mg/dL (0.55-1.3); GLUCOSE,RANDOM 96 mg/dL (74-106); POTASSIUM 3.8 mmol/L (3.5-5.1); SODIUM 138 mmol/L (136-145)
[2018-08-15] MEDS ORDERED: LEVOTHYROXINE NA 100 MCG TABLET (FP) PO SCH (07:00)
--- NOTE | 2018-08-15 08:39 | PN ---
Physical Exam: SUBJECTIVE: Patient is a 53 year old female with a PMHx of HTN, TIA, progressive neurodegenerative disorder, autoimmune liver disease who presented from [facility] due to respiratory distress and hypoxia. Pt was satting low 80s, palced on 15L nonrebreather, with resolution of hypoxia. In the ED pt was hypoxic and placed on BIPAP. Pt today reported no pain, no SOB, no complaints. OBJECTIVE: Vital Signs Period Temp Pulse Resp BP Sys/Ricardo Pulse Ox Last 24 Hr 98.6 F-100.7 F 81-118 14-21 91-133/64-100 94-100 GENERAL: The patient is awake, alert, and fully oriented, in no acute distress. HEAD: Normal with no signs of trauma. EYES: PERRL, extraocular movements intact, sclera anicteric, conjunctiva clear. No ptosis. ENT: Ears normal, nares patent, oropharynx clear without exudates, moist mucous membranes. NECK: Trachea midline, full range of motion, supple. LUNGS: Breath sounds equal, clear to auscultation bilaterally, no wheezes, no crackles, no accessory muscle use. HEART: Regular rate and rhythm, S1, S2 without murmur, rub or gallop. ABDOMEN: Soft, nontender, nondistended, normoactive bowel sounds, no guarding, no rebound, no hepatosplenomegaly, no masses. EXTREMITIES: 2+ pulses, warm, well-perfused, no edema. NEUROLOGICAL: Cranial nerves II through XII grossly intact. Normal speech, gait not observed. PSYCH: Normal mood, normal affect. SKIN: Warm, dry, normal turgor, no rashes or lesions noted Laboratory Results - last 24 hr 08/14/18 08/14/18 08/14/18 03:58 03:58 08:23 WBC RBC Hgb Hct MCV MCH MCHC RDW Plt Count MPV Absolute Neuts (auto) Neutrophils % Lymphocytes % Monocytes % Eosinophils % Basophils % Nucleated RBC % Anticoagulation Therapy Puncture Site ABG pH ABG pCO2 at Pt Temp ABG pO2 at Pt Temp ABG HCO3 ABG O2 Sat (Measured) ABG O2 Content ABG Base Excess José Luis Test VBG pH 7.42 POC VBG pCO2 38.6 D POC VBG pO2 85.5 H D VBG HCO3 24.6 L* VBG O2 Sat (Stan) 96.2 H* VBG Base Excess 0.8 O2 Delivery Device Oxygen Flow Rate Vent Mode Vent Rate Mechanical Rate Pressure Support Vent Sodium 137 Potassium 4.6 Chloride 104 Carbon Dioxide 25 Anion Gap 9 BUN 7 Creatinine 0.7 Creat Clearance w eGFR > 60 Random Glucose 118 H Calcium 9.9 Total Bilirubin 0.6 AST 34 ALT 22 Alkaline Phosphatase 105 Troponin I 0.02 Total Protein 6.8 Albumin 2.7 L TSH 7.08 H Urine Color Yellow Urine Appearance Cloudy Urine pH 6.0 Ur Specific [place] 1.029 Urine Protein Negative Urine Glucose (UA) Negative Urine Ketones Negative Urine Blood 1+ H Urine Nitrite Positive Urine Bilirubin Negative Urine Urobilinogen 4.0 e.u/dl H Ur Leukocyte Esterase Negative Urine WBC (Auto) 2-4 Urine RBC (Auto) 2-5 Ur Epithelial Cells None seen Urine Bacteria 4+ 08/14/18 08/15/18 08/15/18 14:13 05:30 05:30 WBC 6.2 RBC 3.72 Hgb 11.6 Hct 33.0 D MCV 88.7 MCH 31.1 MCHC 35.0 RDW 13.0 Plt Count 240 D MPV 7.4 L Absolute Neuts (auto) 4.2 Neutrophils % 67.2 Lymphocytes % 21.7 D Monocytes % 7.4 Eosinophils % 3.2 D Basophils % 0.5 Nucleated RBC % 0 Anticoagulation Therapy No Result Required. Puncture Site No Result Required. ABG pH 7.45 ABG pCO2 at Pt Temp 34.2 L ABG pO2 at Pt Temp 117.0 H ABG HCO3 23.6 ABG O2 Sat (Measured) 98.3 ABG O2 Content 18.5 ABG Base Excess 0.6 José Luis Test No Result Required. VBG pH POC VBG pCO2 POC VBG pO2 VBG HCO3 VBG O2 Sat (Stan) VBG Base Excess O2 Delivery Device No Result Required. Oxygen Flow Rate No Result Required. Vent Mode No Result Required. Vent Rate No Result Required. Mechanical Rate No Result Required. Pressure Support Vent No Result Required. Sodium 138 Potassium 3.8 Chloride 110 H Carbon Dioxide 24 Anion Gap 4 L BUN 8 Creatinine 0.5 L Creat Clearance w eGFR > 60 Random Glucose 96 Calcium 8.5 Total Bilirubin AST ALT Alkaline Phosphatase Troponin I Total Protein Albumin TSH Urine Color Urine Appearance Urine pH Ur Specific [place] Urine Protein Urine Glucose (UA) Urine Ketones Urine Blood Urine Nitrite Urine Bilirubin Urine Urobilinogen Ur Leukocyte Esterase Urine WBC (Auto) Urine RBC (Auto) Ur Epithelial Cells Urine Bacteria Active Medications Generic Name Dose Route Start Last Admin Trade Name Freq PRN Reason Stop Dose Admin Acetaminophen 1,000 mg 08/14/18 18:21 08/14/18 18:49 Ofirmev Injection - IVPB 1,000 mg Q6H PRN Administration FEVER Chlorhexidine Gluconate 1 applic 08/15/18 22:00 Hibiclens For Decolonization - TP HS KIMO Heparin Sodium (Porcine) 5,000 unit 08/14/18 22:00 08/15/18 06:33 Heparin - SQ 5,000 unit TID KIMO Administration Aztreonam 1 gm/ Dextrose 50 mls @ 100 mls/hr 08/14/18 20:00 08/15/18 03:11 IVPB 100 mls/hr Q8H-IV KIMO Administration Protocol Potassium Chloride/Dextrose/Sod Cl 10 meq in 1,000 mls @ 75 mls/hr 08/14/18 20 :30 08/14/18 21:40 D5-1/2ns+10 Meq Kcl - IV 75 mls/hr ASDIR KIMO Administration Levothyroxine Sodium 100 mcg 08/15/18 07:00 08/15/18 06:33 Synthroid - PO 100 mcg DAILY@0700 KIMO Administration Lisinopril 10 mg 08/15/18 10:00 Prinivil PO DAILY KIMO Mupirocin 1 applic 08/15/18 10:00 Bactroban Ointment (For Decolonization) - NS 08/20/18 09:59 BID KIMO Propranolol HCl 80 mg 08/15/18 10:00 Inderal La - PO DAILY KIMO Intake & Output 08/12/18 08/13/18 08/14/18 08/15/18 22:59 23:59 23:59 23:59 Intake Total 500 Balance 500 Weight 56.699 kg 50.848 kg ASSESSMENT/PLAN: Patient is a 53 year old female who was BIBEMS for hypoxia and was found to be in acute hypoxic respiratory failure. Patient admitted to ICU for further monitoring and management. NEURO: #Progressive Neurodegenerative Disorder -Progressive neurological acuity with worsening ataxia but no definite diagnosis. Currently being followed with outpatient neurologist, Dr. Phan -Frequent Neuro checks -Patient was recently taken off Baclofen as she developed hallucinations/ encephalopathy and worsened gait/falls. -Neuro consult placed #TIA -On no medications PULMONARY: #Acute Hypoxic Respiratory failure -No PE on CTA -Patient improved and is now off bipap on room air -No hypercapnia on ABG -Negative inspiratory force and VC ordered once mental status improves -Aspiration precaution -Aztreonam 1gm Q8H IVPB, as per ID -Legionella and sputum cultures ordered -Blood cultures negative at 24 hours -Aspiration precaution and HOB -End tidal c02 monitoring -ID consult placed CARDIOLOGY: #HTN -Controlled -Continue home medication Propranolol ER 80mg daily -Continue to monitor BP ENDOCRINOLOGY: #Hypothyroidism -Continue home medication Levothyroxine 100mcg po daily -TSH elevated at 7 GASTROENTEROLOGY #Autoimmune Liver Disease -Treated as outpatient several years ago according to family -Continue to monitor LFT's F/E/N -On no fluids -Electrolytes wnl -Clear liquid diet -Barium swallow today Prophylaxis -High risk. Heparin 5000 units sq TID for DVT -No GI required Disposition -Full code -Will need respiratory monitoring Visit type - Emergency Visit Emergency Visit: Yes ED Registration Date: 08/14/18 Care time: The patient presented to the Emergency Department on the above date and was hospitalized for further evaluation of their emergent condition. - New Patient This patient is new to me today: Yes Date on this admission: 08/17/18 - Critical Care Critical Care patient: Yes Total Critical Care Time (in minutes): 35 Critical Care Statement: The care of this patient involved high complexity decision making to prevent further life threatening deterioration of the patient 's condition and/or to evaluate & treat vital organ system(s) failure or risk of failure. - Discharge Referral Referred to [facility] Med P.C.: No
--- NOTE | 2018-08-15 09:21 | CONSULT ---
Consult - text type - Consultation Consultation Note: Neurology HISTORY OF PRESENT ILLNESS: Covering for Dr. Phan 53 year old female with a PMHx of HTN, TIA, progressive neurodegenerative disorder who [facility] and [facility]. According to patients sister in law and mother per notes, patient had been experiencing a decline in mental and neuro acuity since 2017. Patient was misdiagnosed with MS 9 years ago and had a follow up with the neurologist 1.[address] Phan who repeated images and then stopped her MS medications as she did not have MS according to history noted. June of this year, patient started experiencing worsening Gait as well as mental acuity and is now in [facility] custodial. According to the ED staff, patient was noted to have low oxygen saturation in the mid 80's at the [facility] and was placed on Nasal cannula with improved saturation in the low 90's. Patient in the ED was then found to be hypoxic in the mid 80's and placed on BIPAP. Non- rebreather was attempted and patient desaturated to the 80's and then placed back on BIPAP. Patient admitted and in ICU under critical care monitoring. On my evaluation this AM, patient was in no acute distress, awake, alert, but does not answer questions appropriately. Does appear neurologically stable and no focal deficits noted. CT head reviewed, no acute changes noted. PMHx: HTN Hypothyroidism TIA progressive neurodegenerative disorder Autoimmune Liver Disease (Treated according to the family) Social Hx: Lives at [facility] Denies smoking Denies alcohol use Denies drug use REVIEW OF SYSTEMS: Unable to obtain due to patients lack of verbal response PHYSICAL EXAMINATION Vital Signs Period Temp Pulse Resp BP Sys/Ricardo Pulse Ox Last 24 Hr 98.6 F-100.7 F 81-118 14-21 91-133/64-100 94-100 GENERAL: Awake, Responds to voice HEAD: Normal with no signs of trauma. EYES: Pupils equal, round and reactive to light, extraocular movements intact, sclera anicteric, conjunctiva clear. EARS, NOSE, THROAT: Oropharynx clear without exudates. Dry mucous membranes. NECK: (-) JVD, or masses. LUNGS: Bilateral rhonchi with diminished breath sounds. No accessory muscle use. HEART: Tachycardic with regular rhythm, normal S1 and S2 without murmur, rub or gallop. ABDOMEN: Soft, nontender, not distended, normoactive bowel sounds, no guarding, no rebound, no masses. No hepatomegaly or splenomegaly. MUSCULOSKELETAL: No CVA tenderness. EXTREMITIES: No calf tenderness. No peripheral edema. NEUROLOGICAL: Awake, alert, appears to move all extremities, not pariticipating in confrontation testing, intact to tactile stimulation SKIN: Warm, dry, normal turgor, no rashes or lesions noted. 08/14/18 03:58 Total Bilirubin 0.6 AST 34 ALT 22 Alkaline Phosphatase 105 Troponin I 0.02 TSH 7.08 H ABG Results ABG pH 7.45 (7.35-7.45) 08/14/18 14:13 ABG pCO2 at Pt Temp 34.2 mmHg (35-45) L 08/14/18 14:13 ABG pO2 at Pt Temp 117.0 mmHg (80-100) H 08/14/18 14:13 ABG HCO3 23.6 meq/L (22-26) 08/14/18 14:13 ABG O2 Sat (Measured) 98.3 % (90-98.9) 08/14/18 14:13 ABG O2 Content 18.5 % vol (15-22) 08/14/18 14:13 ABG Base Excess 0.6 meq/l (-2-2) 08/14/18 14:13 Urine Test Results Urine Color Yellow 08/14/18 08:23 Urine Appearance Cloudy 08/14/18 08:23 Urine pH 6.0 (5.0-8.0) 08/14/18 08:23 Ur Specific [place] 1.029 (1.010-1.035) 08/14/18 08:23 Urine Protein Negative (NEGATIVE) 08/14/18 08:23 Urine Glucose (UA) Negative (NEGATIVE) 08/14/18 08:23 Urine Ketones Negative (NEGATIVE) 08/14/18 08:23 Urine Blood 1+ (NEGATIVE) H 08/14/18 08:23 Urine Nitrite Positive (NEGATIVE) 08/14/18 08:23 Urine Bilirubin Negative (<2.0 mg/dL) 08/14/18 08:23 Ur Leukocyte Esterase Negative (NEGATIVE) 08/14/18 08:23 Ur Epithelial Cells None seen /HPF (FEW) 08/14/18 08:23 Urine Bacteria 4+ /hpf (NONE SEEN) 08/14/18 08:23 IMAGES: Chest CTA (08/14/18): Evaluation of the distal branches of both lower lobes are limited. Otherwise, there is no evidence of a pulmonary embolus within the main pulmonary artery and proximal branches, bilaterally. Normal size and enhancement of the thoracic and included portion of the upper abdominal aorta. Bibasal atelectasis/consolidation. Head CT (08/14/18): No evidence of acute intracranial hemorrhage, edema, midline shift, mass effect, or skull fracture. No CT evidence of acute territorial ischemic changes. Infratentorial, supratentorial loss of volume of the brain parenchyma with involutional changes. No evidence of hydrocephalus. ASSESSMENT/PLAN: 53 year old female with a PMHx of HTN, TIA, progressive neurodegenerative disorder who [facility] and [facility]. According to patients sister in law and mother per notes, patient had been experiencing a decline in mental and neuro acuity since 2017. Patient was misdiagnosed with MS 9 years ago and had a follow up with the neurologist 1.[address] Phan who repeated images and then stopped her MS medications as she did not have MS according to history noted. June of this year, patient started experiencing worsening Gait as well as mental acuity and is now in [facility] home. According to the ED staff, patient was noted to have low oxygen saturation in the mid 80's at the [facility] and was placed on Nasal cannula with improved saturation in the low 90's. Patient in the ED was then found to be hypoxic in the mid 80's and placed on BIPAP. Non- rebreather was attempted and patient desaturated to the 80's and then placed back on BIPAP. Patient admitted and in ICU under critical care monitoring. On my evaluation this AM, patient was in no acute distress, awake, alert, but does not answer questions appropriately. Does appear neurologically stable and no focal deficits noted. CT head reviewed, no acute changes noted. Continue medical optimization. Respiratory mgmt per ICU team. ABx as per primary for pulmonary consolidation. ID eval. Critical care time 40 mins.
[2018-08-15] MEDS ORDERED: MUPIROCIN 2% TOPICAL OINTMENT FOR DECOLONIZATION NS SCH ×2 (10:00→22:00)
[2018-08-15] MEDS ORDERED: LISINOPRIL 10 MG TABLET (FP) PO SCH (10:00)
--- NOTE | 2018-08-15 10:18 | PN ---
Progress Note (short form) - Note Progress Note: Events noted Pt saturating 96-97n % on room air No complaints crying Vital Signs - 24 hr 08/14/18 08/14/18 08/14/18 11:40 13:40 15:29 Temperature 98.6 F Pulse Rate Pulse Rate [ 105 H 104 H Left Apical] Respiratory 16 16 Rate Blood Pressure Blood Pressure 121/100 133/76 [Left Arm] O2 Sat by Pulse 100 95 95 Oximetry (%) 08/14/18 08/14/18 08/14/18 15:50 18:13 18:45 Temperature 100.7 F H Pulse Rate 106 H Pulse Rate [ 118 H Left Apical] Respiratory 16 Rate Blood Pressure Blood Pressure 111/73 [Left Arm] O2 Sat by Pulse 94 L 100 95 Oximetry (%) 08/15/18 08/15/18 08/15/18 01:06 02:00 02:16 Temperature 98.9 F 98.9 F Pulse Rate 92 H 90 Pulse Rate [ 88 Left Apical] Respiratory 19 21 H 20 Rate Blood Pressure 110/96 97/66 Blood Pressure 102/86 [Left Arm] O2 Sat by Pulse 96 96 Oximetry (%) 08/15/18 08/15/18 08/15/18 04:00 06:00 10:00 Temperature 99.2 F 98.9 F Pulse Rate 81 87 86 Pulse Rate [ Left Apical] Respiratory 20 14 14 Rate Blood Pressure 96/64 91/67 109/98 Blood Pressure [Left Arm] O2 Sat by Pulse Oximetry (%) Current Medications Generic Name Dose Route Start Last Admin Trade Name Freq PRN Reason Stop Dose Admin Acetaminophen 1,000 mg 08/14/18 18:21 08/14/18 18:49 Ofirmev Injection - IVPB 1,000 mg Q6H PRN Administration FEVER Chlorhexidine Gluconate 1 applic 08/15/18 22:00 Hibiclens For Decolonization - TP HS KIMO Heparin Sodium (Porcine) 5,000 unit 08/14/18 22:00 08/15/18 06:33 Heparin - SQ 5,000 unit TID [facility] Administration Aztreonam 1 gm/ Dextrose 50 mls @ 100 mls/hr 08/14/18 20:00 08/15/18 10:08 IVPB 100 mls/hr Q8H-IV KIMO Administration Protocol Potassium Chloride/Dextrose/Sod Cl 10 meq in 1,000 mls @ 75 mls/hr 08/14/18 20 :30 08/14/18 21:40 D5-1/2ns+10 Meq Kcl - IV 75 mls/hr ASDIR [facility]IMO Administration Levothyroxine Sodium 100 mcg 08/15/18 07:00 08/15/18 06:33 Synthroid - PO 100 mcg DAILY@0700 [facility] Administration Lisinopril 10 mg 08/15/18 10:00 08/15/18 10:07 Prinivil PO 10 mg DAILY [facility]IMO Administration Mupirocin 1 applic 08/15/18 10:00 08/15/18 10:07 Bactroban Ointment (For Decolonization) - NS 08/20/18 09:59 1 applic BID [facility] Administration Propranolol HCl 80 mg 08/15/18 10:00 Inderal La - PO DAILY [facility] Laboratory Results - last 24 hr 08/14/18 08/14/18 08/15/18 08:23 14:13 05:30 WBC 6.2 RBC 3.72 Hgb 11.6 Hct 33.0 D MCV 88.7 MCH 31.1 MCHC 35.0 RDW 13.0 Plt Count 240 D MPV 7.4 L Absolute Neuts (auto) 4.2 Neutrophils % 67.2 Lymphocytes % 21.7 D Monocytes % 7.4 Eosinophils % 3.2 D Basophils % 0.5 Nucleated RBC % 0 Anticoagulation Therapy No Result Required. Puncture Site No Result Required. ABG pH 7.45 ABG pCO2 at Pt Temp 34.2 L ABG pO2 at Pt Temp 117.0 H ABG HCO3 23.6 ABG O2 Sat (Measured) 98.3 ABG O2 Content 18.5 ABG Base Excess 0.6 José Luis Test No Result Required. O2 Delivery Device No Result Required. Oxygen Flow Rate No Result Required. Vent Mode No Result Required. Vent Rate No Result Required. Mechanical Rate No Result Required. Pressure Support Vent No Result Required. Sodium Potassium Chloride Carbon Dioxide Anion Gap BUN Creatinine Creat Clearance w eGFR Random Glucose Calcium Urine WBC (Auto) 2-4 Urine RBC (Auto) 2-5 Ur Epithelial Cells None seen Urine Bacteria 4+ 08/15/18 05:30 WBC RBC Hgb Hct MCV MCH MCHC RDW Plt Count MPV Absolute Neuts (auto) Neutrophils % Lymphocytes % Monocytes % Eosinophils % Basophils % Nucleated RBC % Anticoagulation Therapy Puncture Site ABG pH ABG pCO2 at Pt Temp ABG pO2 at Pt Temp ABG HCO3 ABG O2 Sat (Measured) ABG O2 Content ABG Base Excess José Luis Test O2 Delivery Device Oxygen Flow Rate Vent Mode Vent Rate Mechanical Rate Pressure Support Vent Sodium 138 Potassium 3.8 Chloride 110 H Carbon Dioxide 24 Anion Gap 4 L BUN 8 Creatinine 0.5 L Creat Clearance w eGFR > 60 Random Glucose 96 Calcium 8.5 Urine WBC (Auto) Urine RBC (Auto) Ur Epithelial Cells Urine Bacteria No pallor S1 S2 RRR Lungs decreased Abd- soft, NT Contracted PLAN All consults appreciated on iv antibiotics off BIPAP Saturating well nebs as needed Swallow eval to r/o aspiration Problem List - Problems (1) Neurodegenerative cognitive impairment Code(s): G31.9 - DEGENERATIVE DISEASE OF NERVOUS SYSTEM, UNSPECIFIED (2) Functional quadriplegia Code(s): R53.2 - FUNCTIONAL QUADRIPLEGIA (3) Hypoxia Code(s): R09.02 - HYPOXEMIA (4) Anemia Code(s): D64.9 - ANEMIA, UNSPECIFIED (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 Code(s): I67.9 - CEREBROVASCULAR DISEASE, UNSPECIFIED; R27.0 - ATAXIA, UNSPECIFIED (6) CAD (coronary artery disease) Code(s): I25.10 - ATHSCL HEART DISEASE OF [place] CORONARY ARTERY W/O ANG PCTRS (7) HTN (hypertension) Code(s): I10 - ESSENTIAL (PRIMARY) HYPERTENSION (8) Hypothyroid Code(s): E03.9 - HYPOTHYROIDISM, UNSPECIFIED (9) Paraparesis of both lower limbs Code(s): G82.20 - PARAPLEGIA, UNSPECIFIED (10) Weakness Code(s): R53.1 - WEAKNESS
--- NOTE | 2018-08-15 12:17 | CONSULT ---
Admitting History and Physical - Primary Care Physician PCP: Benjamín Lopez - Admission History of Present Illness: Per family history, pt has demonstrated a progressive neurodegenerative disorder x 15 years, initially thought to be MS. She has been evaluated by many neurologists. She was ambulating with a walker, living with assistance until further deterioration in June, unable to ambulate and deterioration of communication and swallowing function.[facility] and hypoxia. Speech intelligibilty has been quite impaired, but cries frequently, and she holds solids in her mouth, needing to spit it out. She is reported to cough at times while drinking. MRI 2017- No MS plaque Pt on Clear liquid diet, reported to be tolerating it. 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 No CT evidence of acute territorial ischemic changes. Infratentorial, supratentorial loss of volume of the brain parenchyma with involutional changes. No evidence of hydrocephalus.) MRI: Report Reviewed (2017- No ms plaque) Other: Report Reviewed ( Chest CTA (08/14/18): Evaluation of the distal branches of both lower lobes are limited. Otherwise, there is no evidence of a pulmonary embolus within the main pulmonary artery and proximal branches, bilaterally. Normal size and enhancement of the thoracic and included portion of the upper abdominal aorta. Bibasal atelectasis/consolidatio) - General Mental Status: Awake and Alert (Labile, crying frequently, but when asked, she denies feeling sad or depressed), Able to Follow Commands, Forgetful, Vague, Confused Attention: Distractible, Mild Impairment Ability to Follow Directions: Fair - Hearing Hearing: Normal Speech Evaluation - Communication Primary Language: GUYANESE Communication: Yes: Dysarthria Oral Expression Ability: Yes: Moderate Impairment, Severe Impairment - Speech Production Dysarthria: Yes: Ataxic Able to Make Needs Known: Yes: Moderately Impaired, Severely Impaired Intelligibility: Yes: Moderately Impaired, Severely Impaired - Speech Characteristics Voice Loudness: Excessive Variation Voice Pitch: Yes: Moderately High Voice Phonatory-based Quality: Yes: Shrill Speech Pattern: Impaired Speech Clarity: < 25% Articulation: Yes: Imprecise Voice, Other Observations: Yes: Progressively Weak Voice, Disordered Intonation , Inadequate Breath Support - Language/Auditory Comprehension Follows: Yes: 1 Stage Simple Commands Observation: Able to respond to yes/no queries: Yes, Yes/No Confusion: No, Comprehends Conversational Speech: Yes - Swallow Evaluation/Bedside Assessment Current Nutritional Intake: Clear Liquids Oral Secretions: Yes: WFL Dentition: Yes: Adequate Facial Symmetry at Rest: Symmetrical Facial Symmetry on Retraction: Symmetrical Jaw Position: Open at Rest Against Resistance Opening: Weak Against Resistance Closing: Weak Pucker Lips: Weak Smile: Weak Lingual Movement: Symmetric Lingual Movement Strgth Against Opposition: Reduced Laryngeal Movement: Able to Palpate, Labored,delay initiation Rate of Intake: Slow/Holding Bolus Size: Small Oral Prep Time: Increased Pocketing: Present Bilaterally Timing of Swallow: Delayed Coughing/Throat Clear: No Change in Voice: No Recommendations - Speech Evaluation, Impression/Plan Impression: Pt prents with 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 Lability, frequently "crying" without tears, denies sadness.Dysphagia. With cues to take deep breath, and say 1 word at a time, intelligibility improved significantly, with more euphonic pitch, improved breath control, and coordination of respiration, with phonation, articulation and resonance. - Dysphagia Impressions/Plan Swallowing Skills: Impaired Dysphagia Impressions: Suspect Aspiration *Silent aspiration: cannot be R/O at bedside Recommendations: Neuro Consult (f/u- r/o Cerebellar degeneration? Has Lymes disease been r/o?), Modified Barium Swallow
--- NOTE | 2018-08-15 13:22 | PN ---
Teaching Attending Note Name of Resident: Josette Watt ATTENDING PHYSICIAN STATEMENT I saw and evaluated the patient. I reviewed the resident's note and discussed the case with the resident. I agree with the resident's findings and plan as documented. SUBJECTIVE: Patient seen in the ICU. More awake and alert today. Off NIPPV. Some cough. CXR: LLL infiltrate Intake & Output 08/12/18 08/13/18 08/14/18 08/15/18 22:59 23:59 23:59 23:59 Intake Total 500 Balance 500 Weight 125 lb 112 lb 1.6 oz Last Vital Signs Temp Pulse Resp BP Pulse Ox 98.9 F 88 14 103/73 96 08/15/18 10:00 08/15/18 12:00 08/15/18 12:00 08/15/18 12:00 08/15/18 02:16 Active Medications Acetaminophen (Ofirmev Injection -) 1,000 mg IVPB Q6H PRN PRN Reason: FEVER Last Admin: 08/14/18 18:49 Dose: 1,000 mg Chlorhexidine Gluconate (Hibiclens For Decolonization -) 1 applic TP HS [facility] Heparin Sodium (Porcine) (Heparin -) 5,000 unit SQ TID [facility] Last Admin: 08/15/18 06:33 Dose: 5,000 unit Aztreonam 1 gm/ Dextrose 50 mls @ 100 mls/hr IVPB Q8H-IV [facility]IMO; Protocol Last Admin: 08/15/18 10:08 Dose: 100 mls/hr Potassium Chloride/Dextrose/Sod Cl (D5-1/2ns+10 Meq Kcl -) 10 meq in 1,000 mls @ 75 mls/hr IV ASDIR [facility] Last Admin: 08/14/18 21:40 Dose: 75 mls/hr Levothyroxine Sodium (Synthroid -) 100 mcg PO DAILY@0700 [facility] Last Admin: 08/15/18 06:33 Dose: 100 mcg Lisinopril (Prinivil) 10 mg PO DAILY [facility] Last Admin: 08/15/18 10:07 Dose: 10 mg Mupirocin (Bactroban Ointment (For Decolonization) -) 1 applic NS BID [facility] Stop: 08/20/18 09:59 Last Admin: 08/15/18 10:07 Dose: 1 applic Propranolol HCl (Inderal La -) 80 mg PO DAILY [facility] General: more awake and alert, interactive Head: No signs of trauma Eyes: EOMI, sclera anicteric ENT: Dry mucus membranes Neck: Normal ROM, supple Lungs: diminished at the bases, few basilar rhonchi, no wheeze Cardio: Tachycardic, regular rhythm, S1 and S2 present Abdomen: Soft, nontender. No guarding, no rebound, no masses Extremities: Normal range of motion, Distal pulses present SKIN: Warm, Dry, normal turgor Neurologic: more awake alert Laboratory Results - last 24 hr 08/14/18 08/14/18 08/15/18 08:23 14:13 05:30 WBC 6.2 RBC 3.72 Hgb 11.6 Hct 33.0 D MCV 88.7 MCH 31.1 MCHC 35.0 RDW 13.0 Plt Count 240 D MPV 7.4 L Absolute Neuts (auto) 4.2 Neutrophils % 67.2 Lymphocytes % 21.7 D Monocytes % 7.4 Eosinophils % 3.2 D Basophils % 0.5 Nucleated RBC % 0 Anticoagulation Therapy No Result Required. Puncture Site No Result Required. ABG pH 7.45 ABG pCO2 at Pt Temp 34.2 L ABG pO2 at Pt Temp 117.0 H ABG HCO3 23.6 ABG O2 Sat (Measured) 98.3 ABG O2 Content 18.5 ABG Base Excess 0.6 José Luis Test No Result Required. O2 Delivery Device No Result Required. Oxygen Flow Rate No Result Required. Vent Mode No Result Required. Vent Rate No Result Required. Mechanical Rate No Result Required. Pressure Support Vent No Result Required. Sodium Potassium Chloride Carbon Dioxide Anion Gap BUN Creatinine Creat Clearance w eGFR Random Glucose Calcium Urine WBC (Auto) 2-4 Urine RBC (Auto) 2-5 Ur Epithelial Cells None seen Urine Bacteria 4+ 08/15/18 05:30 WBC RBC Hgb Hct MCV MCH MCHC RDW Plt Count MPV Absolute Neuts (auto) Neutrophils % Lymphocytes % Monocytes % Eosinophils % Basophils % Nucleated RBC % Anticoagulation Therapy Puncture Site ABG pH ABG pCO2 at Pt Temp ABG pO2 at Pt Temp ABG HCO3 ABG O2 Sat (Measured) ABG O2 Content ABG Base Excess José Luis Test O2 Delivery Device Oxygen Flow Rate Vent Mode Vent Rate Mechanical Rate Pressure Support Vent Sodium 138 Potassium 3.8 Chloride 110 H Carbon Dioxide 24 Anion Gap 4 L BUN 8 Creatinine 0.5 L Creat Clearance w eGFR > 60 Random Glucose 96 Calcium 8.5 Urine WBC (Auto) Urine RBC (Auto) Ur Epithelial Cells Urine Bacteria IMP: Acute Hypoxemic Respiratory Failure R/O Sepsis R/O PNA No PE Neurodegenerative disease R/O Hypoventilation HTN CAD CVA TIA O2 as needed to maintain saturation Aspiration precautions Follow cultures ABX per ID Neuro evaluation noted VTE prophylaxis Floor Dr Holly
--- NOTE | 2018-08-15 14:13 | CONSULT ---
Admitting History and Physical - Admission History of Present Illness: 53yo F with PMH of HTN, Neuro degenerative disorder, CAD, TIA presenting [facility] with [facility]. Patient was noted to have low oxygen saturation in the 80s and was placed on nasal cannula with O2 sat improving to the low 90s. EMS placed her on 15L non rebreather mask and her oxygen sat increased to 96. 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
--- NOTE | 2018-08-15 15:38 | PN ---
Progress Note, Physician History of Present Illness: sad crying breathing well on room air comfortable - Current Medication List Current Medications: Active Medications Acetaminophen (Ofirmev Injection -) 1,000 mg IVPB Q6H PRN PRN Reason: FEVER Last Admin: 08/14/18 18:49 Dose: 1,000 mg Chlorhexidine Gluconate (Hibiclens For Decolonization -) 1 applic TP HS [facility] Heparin Sodium (Porcine) (Heparin -) 5,000 unit SQ TID [facility] Last Admin: 08/15/18 06:33 Dose: 5,000 unit Aztreonam 1 gm/ Dextrose 50 mls @ 100 mls/hr IVPB Q8H-IV [facility]IMO; Protocol Last Admin: 08/15/18 10:08 Dose: 100 mls/hr Potassium Chloride/Dextrose/Sod Cl (D5-1/2ns+10 Meq Kcl -) 10 meq in 1,000 mls @ 75 mls/hr IV ASDIR [facility] Last Admin: 08/14/18 21:40 Dose: 75 mls/hr Levothyroxine Sodium (Synthroid -) 100 mcg PO DAILY@0700 [facility] Last Admin: 08/15/18 06:33 Dose: 100 mcg Lisinopril (Prinivil) 10 mg PO DAILY [facility] Last Admin: 08/15/18 10:07 Dose: 10 mg Mupirocin (Bactroban Ointment (For Decolonization) -) 1 applic NS BID [facility] Stop: 08/20/18 09:59 Last Admin: 08/15/18 10:07 Dose: 1 applic Propranolol HCl (Inderal La -) 80 mg PO DAILY [facility] Last Admin: 08/15/18 15:14 Dose: Not Given - Objective Vital Signs: Vital Signs Temperature 98.9 F 08/15/18 10:00 Pulse Rate 95 H 08/15/18 14:01 Respiratory Rate 18 08/15/18 14:01 Blood Pressure 101/65 08/15/18 14:01 O2 Sat by Pulse Oximetry (%) 96 08/15/18 02:16 Constitutional: Yes: No Distress, Anxious Cardiovascular: Yes: Regular Rate and Rhythm Respiratory: Yes: Regular, CTA Bilaterally Gastrointestinal: Yes: Normal Bowel Sounds, Soft Extremities: Yes: Other Neurological: Yes: Alert Psychiatric: Yes: Alert Labs: CBC, BMP 08/15/18 05:30 08/15/18 05:30 INR, PTT INR 1.04 (0.83-1.09) 08/14/18 03:58 Assessment/Plan Problem List - Problems (1) Neurodegenerative cognitive impairment Code(s): G31.9 - DEGENERATIVE DISEASE OF NERVOUS SYSTEM, UNSPECIFIED (2) Functional quadriplegia Code(s): R53.2 - FUNCTIONAL QUADRIPLEGIA (3) Hypoxia Code(s): R09.02 - HYPOXEMIA (4) Anemia Code(s): D64.9 - ANEMIA, UNSPECIFIED (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 Code(s): I67.9 - CEREBROVASCULAR DISEASE, UNSPECIFIED; R27.0 - ATAXIA, UNSPECIFIED (6) CAD (coronary artery disease) Code(s): I25.10 - ATHSCL HEART DISEASE OF [place] CORONARY ARTERY W/O ANG PCTRS (7) HTN (hypertension) Code(s): I10 - ESSENTIAL (PRIMARY) HYPERTENSION (8) Hypothyroid Code(s): E03.9 - HYPOTHYROIDISM, UNSPECIFIED (9) Paraparesis of both lower limbs Code(s): G82.20 - PARAPLEGIA, UNSPECIFIED (10) Weakness Code(s): R53.1 - WEAKNESS plan will await for all cx if the cx are negative will probably deescalate the abx incentive juancarlos rest as per the team
[2018-08-15] MEDS ORDERED: ACETAMINOPHEN 1000 MG/100 ML VIAL (NON FORMULARY) IVPB PRN (17:26)
[2018-08-15] MEDS: D5-1/2NS+10 MEQ KCL - 10 MEQ/1,000 ML INFUS.BAG IV SCH (18:33)
[2018-08-15] MEDS ORDERED: CHLORHEXIDINE GLUCONATE 4% CLEANSER FOR DECOLONIZATION TP SCH ×2 (22:00)
[2018-08-16] MEDS: AZTREONAM 1 GM in DEXTROSE 5%-WATER - 50 ML IVPB SCH ×2 (02:30→11:05)
[2018-08-16] MEDS: D5-1/2NS+10 MEQ KCL - 10 MEQ/1,000 ML INFUS.BAG IV SCH (06:13)
[2018-08-16] MEDS: HEPARIN NA (PORCINE) 5,000 UNITS/ML 1ML VIAL SQ SCH ×4 (06:13→22:51)
[2018-08-16] MEDS ORDERED: LEVOTHYROXINE NA 100 MCG TABLET (FP) PO SCH (07:00)
[2018-08-16] MEDS ORDERED: LISINOPRIL 10 MG TABLET (FP) PO SCH (10:00)
--- NOTE | 2018-08-16 10:16 | PN ---
Progress Note (short form) - Note Progress Note: Barium swallow results noted No complaints crying- no c/o of pain behavior - sad Vital Signs - 24 hr 08/15/18 08/15/18 08/16/18 21:00 22:00 02:00 Temperature 98.9 F 99.5 F Pulse Rate 92 H 102 H Respiratory 18 18 18 Rate Blood Pressure 102/66 100/59 L O2 Sat by Pulse 96 Oximetry (%) 08/16/18 08/16/18 08/16/18 05:47 09:00 09:45 Temperature 99.1 F 97.4 F L Pulse Rate 96 H 105 H Respiratory 18 20 Rate Blood Pressure 102/54 L 98/52 L O2 Sat by Pulse 96 96 Oximetry (%) 08/16/18 14:00 Temperature 98.9 F Pulse Rate 89 Respiratory 18 Rate Blood Pressure 114/57 L O2 Sat by Pulse Oximetry (%) Current Medications Generic Name Dose Route Start Last Admin Trade Name Freq PRN Reason Stop Dose Admin Acetaminophen 1,000 mg 08/15/18 17:26 08/15/18 19:07 Ofirmev Injection - IVPB 1,000 mg Q6H PRN Administration FEVER Heparin Sodium (Porcine) 5,000 unit 08/15/18 22:00 08/16/18 14:38 Heparin - SQ 5,000 unit TID KIMO Administration Levothyroxine Sodium 112 mcg 08/17/18 07:00 Synthroid - PO DAILY@0700 [facility] Propranolol HCl 80 mg 08/16/18 10:00 08/16/18 11:10 Inderal La - PO 80 mg DAILY [facility] Administration No pallor S1 S2 RRR Lungs decreased Abd- soft, NT Contracted PLAN completed antibiotics diet changed will monitor for any signs of fever PT eval Neurology follow up increase Synthroid dose continue with meds possible dc in AM Problem List - Problems (1) Neurodegenerative cognitive impairment Code(s): G31.9 - DEGENERATIVE DISEASE OF NERVOUS SYSTEM, UNSPECIFIED (2) Functional quadriplegia Code(s): R53.2 - FUNCTIONAL QUADRIPLEGIA (3) Hypoxia Code(s): R09.02 - HYPOXEMIA (4) Anemia Code(s): D64.9 - ANEMIA, UNSPECIFIED (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 Code(s): I67.9 - CEREBROVASCULAR DISEASE, UNSPECIFIED; R27.0 - ATAXIA, UNSPECIFIED (6) CAD (coronary artery disease) Code(s): I25.10 - ATHSCL HEART DISEASE OF [place] CORONARY ARTERY W/O ANG PCTRS (7) HTN (hypertension) Code(s): I10 - ESSENTIAL (PRIMARY) HYPERTENSION (8) Hypothyroid Code(s): E03.9 - HYPOTHYROIDISM, UNSPECIFIED (9) Paraparesis of both lower limbs Code(s): G82.20 - PARAPLEGIA, UNSPECIFIED (10) Weakness Code(s): R53.1 - WEAKNESS
--- NOTE | 2018-08-16 11:00 | PN ---
Progress Note, Physician History of Present Illness: continues to have crying episodes otherwise comfortable no complaints no pain - Current Medication List Current Medications: Active Medications Acetaminophen (Ofirmev Injection -) 1,000 mg IVPB Q6H PRN PRN Reason: FEVER Last Admin: 08/15/18 19:07 Dose: 1,000 mg Heparin Sodium (Porcine) (Heparin -) 5,000 unit SQ TID [facility] Last Admin: 08/16/18 06:13 Dose: 5,000 unit Aztreonam 1 gm/ Dextrose 50 mls @ 100 mls/hr IVPB Q8H-IV [facility]; Protocol Last Admin: 08/16/18 02:30 Dose: 100 mls/hr Potassium Chloride/Dextrose/Sod Cl (D5-1/2ns+10 Meq Kcl -) 10 meq in 1,000 mls @ 75 mls/hr IV ASDIR [facility] Last Admin: 08/16/18 06:13 Dose: 75 mls/hr Levothyroxine Sodium (Synthroid -) 100 mcg PO DAILY@0700 [facility] Last Admin: 08/16/18 06:12 Dose: 100 mcg Propranolol HCl (Inderal La -) 80 mg PO DAILY [facility] - Objective Vital Signs: Vital Signs Temperature 97.4 F L 08/16/18 09:45 Pulse Rate 105 H 08/16/18 09:45 Respiratory Rate 20 08/16/18 09:45 Blood Pressure 98/52 L 08/16/18 09:45 O2 Sat by Pulse Oximetry (%) 96 08/16/18 09:45 Constitutional: Yes: No Distress, Other (crying) Cardiovascular: Yes: Regular Rate and Rhythm Respiratory: Yes: Regular, CTA Bilaterally Musculoskeletal: Yes: WNL Extremities: Yes: Other Neurological: Yes: Alert, Other Labs: CBC, BMP 08/15/18 05:30 08/15/18 05:30 INR, PTT INR 1.04 (0.83-1.09) 08/14/18 03:58 Assessment/Plan Problem List - Problems (1) Neurodegenerative cognitive impairment Code(s): G31.9 - DEGENERATIVE DISEASE OF NERVOUS SYSTEM, UNSPECIFIED (2) Functional quadriplegia Code(s): R53.2 - FUNCTIONAL QUADRIPLEGIA (3) Hypoxia Code(s): R09.02 - HYPOXEMIA (4) Anemia Code(s): D64.9 - ANEMIA, UNSPECIFIED (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 Code(s): I67.9 - CEREBROVASCULAR DISEASE, UNSPECIFIED; R27.0 - ATAXIA, UNSPECIFIED (6) CAD (coronary artery disease) Code(s): I25.10 - ATHSCL HEART DISEASE OF [place] CORONARY ARTERY W/O ANG PCTRS (7) HTN (hypertension) Code(s): I10 - ESSENTIAL (PRIMARY) HYPERTENSION (8) Hypothyroid Code(s): E03.9 - HYPOTHYROIDISM, UNSPECIFIED (9) Paraparesis of both lower limbs Code(s): G82.20 - PARAPLEGIA, UNSPECIFIED (10) Weakness Code(s): R53.1 - WEAKNESS plan will stop abx close watch rest as per the team
[2018-08-16 12:40] VITALS: BMI 20.2
--- NOTE | 2018-08-16 13:31 | PN ---
Progress Note (short form) - Note Progress Note: PULMONARY Denies shortness of breath, cough. No fevers or chills. Vital Signs Period Temp Pulse Resp BP Sys/Ricardo Pulse Ox Last 24 Hr 97.4 F-99.5 F 92-105 18-20 98-106/52-66 96-96 Gen: NAD but tearful Heart: RRR Lung: decreased breath sounds at the bases Abd: soft, nontender Ext: no edema CBC, BMP 08/15/18 05:30 08/15/18 05:30 Active Medications Acetaminophen (Ofirmev Injection -) 1,000 mg IVPB Q6H PRN PRN Reason: FEVER Last Admin: 08/15/18 19:07 Dose: 1,000 mg Heparin Sodium (Porcine) (Heparin -) 5,000 unit SQ TID [facility] Last Admin: 08/16/18 06:13 Dose: 5,000 unit Potassium Chloride/Dextrose/Sod Cl (D5-1/2ns+10 Meq Kcl -) 10 meq in 1,000 mls @ 75 mls/hr IV ASDIR [facility] Last Admin: 08/16/18 06:13 Dose: 75 mls/hr Levothyroxine Sodium (Synthroid -) 100 mcg PO DAILY@0700 [facility] Last Admin: 08/16/18 06:12 Dose: 100 mcg Propranolol HCl (Inderal La -) 80 mg PO DAILY [facility] Last Admin: 08/16/18 11:10 Dose: 80 mg A/P s/p Acute Hypoxic Respiratory Failure Pneumonia Sepsis Neurodegenerative Disorder CAD h/o CVA HTN - completed antibiotics - O2 as needed - aspiration precautions - DVT prophylaxis - d/c planning
--- NOTE | 2018-08-16 13:44 | PN ---
Progress Note, MEDICAL CODING SPECIALIST - Note Progress Note: Selected Entries 08/15/18 08/15/18 08/16/18 09:59 19:57 02:00 Breakfast 50% Supper 25% Temperature 99.5 F 08/16/18 08/16/18 05:47 09:45 Breakfast Supper Temperature 99.1 F 97.4 F L Laboratory Tests 08/15/18 05:30 WBC 6.2 Reviewed MBS with family and staff. Silent aspiration on thin liquid. Pt tolerated puree/nectar lunchtime today. Reviewed compensatory swallowing rec of MBS With cues, pt was able to inspire and then speak with much improved vocal quality, volume and normal intelligibility on 1-2 word level. Pt will benefit from continued speech/swallow tx upon d/c.
--- NOTE | 2018-08-16 14:07 | PN ---
Progress Note (short form) - Note Progress Note: NEUROLOGY PROGRESS: Events reviewed, Pt examined and discussed with MAGGY Belcher who met with patient 's Mother and [id number] earlier today. Dr. Coleman's coverage Consult read and appreciated. This 53 yo woman is from [facility] and well known to me for progressive gait dysfunction since her mid-to late 30's. Carried as MS > 10 years but multiple MRI scans of the brain and C-spine are neg for demyelinating lesions and show only progressive atrophy. She has been essentially wheelchair bound > 4 years and became difficult for her mother to care for her at home. Progressive OMS x 1-2 years and Incontinent of bowel and bladder. Exams have shown progressive UMN dysfunction c/w Progressive Spastic PP. She is here after reports of hypoxia, requiring BIPAP and brief ICU stay, possibly due to aspiration? Was put on Aztreotam while awaiting cx, discontinued as blood cx neg. Seen today awake and alert without distress, tolerating pureed diet. Head CT (reviewed): mod, diffuse, atrophy, scattered microcalcifications TSH 7.08; Alb 2.9 UC contaminated; Chest xray with possible LLL atelectasis. SARA: Cor reg. No Bruit. Tongue appears hydrated. Wearing diaper. Early contractures both Knees. NEURO: Awake, alert, speech sparse, fluent, dysarthric. Moderately severe OMS. No month, no year. Prominent PSEUDOBULBAR AFFECT. Full figueredo to threat. Decreased rapid tongue. Gag ok. Strong grasps. Brisk reflexes. B/L Babinski's. B/L ankle clonus. No FTN dystaxia Reduced pinch to all four's. Unable to lift legs off bed. Can wiggle toes. Impression: 1. 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 Dysaarthria, Dysphagia and Pseudobulbar affect (Pseudobulbar Palsy). 2. Worsening due to Toxic-Metabolic Encephalopathy (possibly aspiration with hypoxemia). Suggest: Tolerating pureed diet but Pt should only be fed when seated upright and observed. Agree with LOCK MASTER, assist with feeds Adjust levothyroxine dose as required (on levothyroxine 100 mcg, but TSH still > 7)) Repeat UA, C & S Will try Nuedexta for PBA as out patient Pt will still require SNF level of care but needs aggressive PT vs knee contractures (to prevent decubitae) Thank you very much, Rush Phan MD
[2018-08-17] MEDS: HEPARIN NA (PORCINE) 5,000 UNITS/ML 1ML VIAL SQ SCH ×2 (06:30→13:35)
[2018-08-17] MEDS ORDERED: LEVOTHYROXINE NA 112 MCG TABLET (FP) PO SCH (07:00)
--- NOTE | 2018-08-17 10:07 | PN ---
Progress Note (short form) - Note Progress Note: PULMONARY Denies shortness of breath, cough. No fevers or chills. Vital Signs Period Temp Pulse Resp BP Sys/Ricardo Pulse Ox Last 24 Hr 98.6 F-98.9 F 72-89 18-20 99-130/54-62 Gen: NAD but tearful Heart: RRR Lung: decreased breath sounds at the bases Abd: soft, nontender Ext: no edema CBC, BMP 08/15/18 05:30 08/15/18 05:30 Active Medications Acetaminophen (Ofirmev Injection -) 1,000 mg IVPB Q6H PRN PRN Reason: FEVER Last Admin: 08/15/18 19:07 Dose: 1,000 mg Heparin Sodium (Porcine) (Heparin -) 5,000 unit SQ TID [facility] Last Admin: 08/17/18 06:30 Dose: 5,000 unit Levothyroxine Sodium (Synthroid -) 112 mcg PO AM [facility] Last Admin: 08/17/18 06:30 Dose: 112 mcg Propranolol HCl (Inderal La -) 80 mg PO DAILY [facility] Last Admin: 08/16/18 11:10 Dose: 80 mg A/P s/p Acute Hypoxic Respiratory Failure Pneumonia Sepsis Neurodegenerative Disorder CAD h/o CVA HTN - completed antibiotics - O2 as needed - aspiration precautions - DVT prophylaxis - d/c planning
--- NOTE | 2018-08-17 11:13 | PN ---
Progress Note, HALL MONITOR - Note Progress Note: Selected Entries 08/16/18 08/16/18 08/16/18 02:00 05:47 09:45 Breakfast Lunch Supper Temperature 99.5 F 99.1 F 97.4 F L 08/16/18 08/16/18 08/16/18 14:00 18:00 19:00 Breakfast 25% Lunch 25% Supper 25% Temperature 98.9 F 98.8 F 08/17/18 05:50 Breakfast Lunch Supper Temperature 98.6 F Laboratory Tests 08/15/18 05:30 WBC 6.2 Tolerating diet. Accuracy of 25% documentation of meals? Family reported eating well yesterday and well this am. Provide supplements b/n meals, Recommend continued speech/swallow tx upon d/c.
--- NOTE | 2018-08-17 11:32 | DS ---
Physical Examination Vital Signs: Vital Signs Temperature 98.6 F 08/17/18 05:50 Pulse Rate 72 08/17/18 05:50 Respiratory Rate 20 08/17/18 05:50 Blood Pressure 99/54 L 08/17/18 05:50 O2 Sat by Pulse Oximetry (%) 96 08/16/18 09:45 Constitutional: Yes: Other (emotional labile) Cardiovascular: Yes: Regular Rate and Rhythm Respiratory: Yes: Diminished Gastrointestinal: Yes: Normal Bowel Sounds, Soft. No: Tenderness Extremities: Yes: Other (contracted) Edema: No Neurological: Yes: Other (emotionally labile, awake) Labs: CBC, BMP 08/15/18 05:30 08/15/18 05:30 Discharge Summary Reason For Visit: HYPOXIA Current Active Problems Functional quadriplegia (Acute) Hypoxia (Acute) Neurodegenerative cognitive impairment (Acute) Hospital Course: Admitting history-- Pt admitted to the ICU for acute hypoxic respiratory failure-- was initially on 100 % NRB and changed to BIPAP- intially admitted to ICU-- seen and evaluated by ID and Critical care team- pt was started on IV Aztreonam Cultures negative CTA chest-- Negative for PE , has pneumonia She completed antibiotics Synthroid increased per TSH Evaluated by swallow therapist on the medical floors-- recommends dysphagia puree diet with nectar thick liquids As per Neurology -- DR Phan Impression: 1. 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 Dysaarthria, Dysphagia and Pseudobulbar affect (Pseudobulbar Palsy). 2. Worsening due to Toxic-Metabolic Encephalopathy (possibly aspiration with hypoxemia). Suggest: Tolerating pureed diet but Pt should only be fed when seated upright and observed. Agree with [employer], assist with feeds Adjust levothyroxine dose as required (on levothyroxine 100 mcg, but TSH still > 7)) Repeat UA, C & S Will try Nuedexta for PBA as out patient Pt will still require SNF level of care but needs aggressive PT vs knee contractures (to prevent decubitae) Antibiotics discontinued on 08/16/18-- afebrile for the last 24 hours O2 sat-- 96 % RA PLAN for discharge-- Synthroid increased No further antibiotics Puree diet and nectar thick liquids Try Neudexta per Neurology Needs swallow and speech therapy in NH as well BP was lower side here -- DC Fosinopril monitor BP Follow up with Neurology as outpt Stable for dc to NH Condition: Fair - Instructions Referrals: Benjamín Lopez MD [Primary Care Provider] - [facility] - Home Medications Comprehensive Discharge Medication List: Ambulatory Orders Fosinopril Sodium [Monopril -] 10 mg PO DAILY 07/05/18 Levothyroxine [Synthroid -] 100 mcg PO DAILY 07/05/18 Baclofen 10 mg PO DAILY 08/14/18 Propranolol HCl [Propranolol HCl ER] 80 mg PO DAILY 08/14/18
[2018-08-17 13:54] VITALS: BP 105/50; PULSE 73; TEMP 98.2
--- NOTE | 2018-08-17 15:27 | PN ---
Progress Note, Physician - Current Medication List Current Medications: Active Medications Acetaminophen (Ofirmev Injection -) 1,000 mg IVPB Q6H PRN PRN Reason: FEVER Last Admin: 08/15/18 19:07 Dose: 1,000 mg Heparin Sodium (Porcine) (Heparin -) 5,000 unit SQ TID [facility] Last Admin: 08/17/18 13:35 Dose: 5,000 unit Levothyroxine Sodium (Synthroid -) 112 mcg PO AM [facility] Last Admin: 08/17/18 06:30 Dose: 112 mcg Propranolol HCl (Inderal La -) 80 mg PO DAILY [facility] Last Admin: 08/17/18 10:44 Dose: 80 mg - Objective Vital Signs: Vital Signs Temperature 98.2 F 08/17/18 13:52 Pulse Rate 73 08/17/18 13:52 Respiratory Rate 20 08/17/18 13:52 Blood Pressure 105/50 L 08/17/18 13:52 O2 Sat by Pulse Oximetry (%) 96 08/16/18 09:45 Labs: CBC, BMP 08/15/18 05:30 08/15/18 05:30 INR, PTT INR 1.04 (0.83-1.09) 08/14/18 03:58
== END 2018-08-17 17:01 | DRG 720 ==
LOC: JER 02:50 → JERBED 10:22 → JICU 08-15 01:32 → J6S 08-15 14:32
PROVIDERS: ADMIT Internal Medicine; ATTEND Internal Medicine
DX: A41.89 Other specified sepsis (principal); J18.9 Pneumonia, unspecified organism; I25.10 Atherosclerotic heart disease of native coronary artery without angina pectoris; R53.2 Functional quadriplegia; J98.11 Atelectasis; G35 Multiple sclerosis; I10 Essential (primary) hypertension; J96.01 Acute respiratory failure with hypoxia; K75.4 Autoimmune hepatitis; G93.41 Metabolic encephalopathy; R13.10 Dysphagia, unspecified; F48.2 Pseudobulbar affect; E03.9 Hypothyroidism, unspecified; G11.8 Other hereditary ataxias; D64.9 Anemia, unspecified; G82.20 Paraplegia, unspecified; R53.1 Weakness; G31.9 Degenerative disease of nervous system, unspecified; Z86.73 Personal history of transient ischemic attack (TIA), and cerebral infarction without residual deficits
CPT/HCPCS: 36415; 36600; 70450-TC; 71045-TC-FY; 71275-TC; 74230-TC-FY; 80048; 80053; 81003; 81015; 82803; 83605; 84443; 84484; 85025; 85610; 85730; 87040; 87086; 92611-GN; 93005; 93010; 97116-GP; 97161-GP; 99285-25; J0131; J1644; J7030

== ENCOUNTER 2018-10-09 10:03 | Inpatient (IN) | payer OTHER ==
--- NOTE | 2018-10-09 14:20 | HP ---
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: Multiple Sclerosis (Questionable), Other (Recurrent falls, Ataxia,) ...LMP Comment: UNSURE - Smoking History Smoking history: Never smoked Have you smoked in the past 12 months: No If you are a former smoker, when did you quit?: 1985 - Alcohol/Substance Use Hx Alcohol Use: No Home Medications - Allergies Allergies/Adverse Reactions: Allergies Allergy/AdvReac Type Severity Reaction Status Date / Time Penicillins Allergy Verified 10/06/18 15:14 sulfur dioxide Allergy Verified 10/06/18 15:14 - Home Medications Home Medications: Ambulatory Orders Fosinopril Sodium [Fosinopril Sodium -] 10 mg PO DAILY 07/05/18 Baclofen 10 mg PO DAILY 08/14/18 Propranolol HCl [Propranolol HCl ER] 80 mg PO DAILY 08/14/18 Heparin - 5,000 unit SQ BID #30 vial 08/17/18 Levothyroxine [Synthroid -] 112 mcg PO AM #30 tablet 08/17/18 Acetaminophen 325 mg PO PRN PRN 10/06/18 Docusate Sodium [Colace -] 200 mg PO HS 10/06/18 Nystatin Powder [Nystop Topical Powder -] 60 gm TP DAILY 10/06/18 Vits A and D/White Pet/Lanolin [A and D Ointment] 42.5 gm TP DAILY 10/06/18 Zinc Oxide 500 gm MC DAILY 10/06/18 Review of Systems - Review of Systems Neck: reports: No Symptoms, Swollen Glands Cardiovascular: reports: No Symptoms Respiratory: reports: No Symptoms Physical Examination Vital Signs: Vital Signs Temperature 97.6 F 10/09/18 11:06 Pulse Rate 86 10/09/18 11:06 Respiratory Rate 20 10/09/18 11:06 Blood Pressure 121/66 10/09/18 11:06 O2 Sat by Pulse Oximetry (%) 97 10/09/18 11:06 Constitutional: Yes: Calm, Thin Cardiovascular: Yes: Regular Rate and Rhythm, S1, S2 Respiratory: Yes: CTA Bilaterally Gastrointestinal: Yes: Normal Bowel Sounds, Soft Musculoskeletal: Yes: Other (flexed legs) Edema: No Problem List - Problems (1) Dysphagia Assessment/Plan: ng tube placed mittens now g tube in AM hold anticogulatns Code(s): R13.10 - DYSPHAGIA, UNSPECIFIED (2) Hypothyroid Assessment/Plan: synthroid Code(s): E03.9 - HYPOTHYROIDISM, UNSPECIFIED
[2018-10-09 15:43] LABS: HEMATOCRIT 44.8 % (32.4-45.2); HEMOGLOBIN 15.3 GM/dL (10.7-15.3); MCH 30.2 pg (25.7-33.7); MCHC 34.1 g/dl (32.0-36.0); MEAN CELL VOLUME 88.7 fl (80-96); MEAN PLT VOLUME 8.1 fl (7.5-11.1); PLATELET COUNT 258 K/MM3 (134-434); RBC 5.05 M/mm3 (3.60-5.2); RDW 15.2 % (11.6-15.6); WHITE BLOOD COUNT 6.2 K/mm3 (4.0-10.0)
[2018-10-09 16:01] LABS: INR 1.04 (0.83-1.09); PROTHROMBIN TIME (PATIENT) 12.3 SEC (9.7-13.0)
[2018-10-09 16:08] LABS: ALBUMIN 3.4 g/dl (3.4-5.0); ALK PHOS 85 U/L (45-117); ANION GAP 6 MMOL/L (8-16); BILIRUBIN,TOTAL 0.8 mg/dL (0.2-1); BLOOD UREA NITROGEN 17 mg/dL (7-18); CALCIUM 11.6 mg/dL (8.5-10.1); CHLORIDE 108 mmol/L (98-107); CO2 29 mmol/L (21-32); CREATININE 0.6 mg/dL (0.55-1.3); GLUCOSE,RANDOM 94 mg/dL (74-106); POTASSIUM 4.7 mmol/L (3.5-5.1); SGOT/AST 15 U/L (15-37); SGPT/ALT 21 U/L (13-61); SODIUM 143 mmol/L (136-145); TOT PROT 7.5 g/dl (6.4-8.2)
[2018-10-09] MEDS ORDERED: HEPARIN NA (PORCINE) 5,000 UNITS/ML 1ML VIAL SQ SCH (22:00)
[2018-10-10] MEDS: LEVOTHYROXINE SODIUM 100 MCG VIAL IVPUSH SCH (06:09)
[2018-10-10 08:47] LABS: ALBUMIN 3.1 g/dl (3.4-5.0); ALK PHOS 78 U/L (45-117); ANION GAP 11 MMOL/L (8-16); BILIRUBIN,TOTAL 1.2 mg/dL (0.2-1); BLOOD UREA NITROGEN 16 mg/dL (7-18); CALCIUM 10.5 mg/dL (8.5-10.1); CHLORIDE 103 mmol/L (98-107); CO2 24 mmol/L (21-32); CREATININE 0.6 mg/dL (0.55-1.3); GLUCOSE,RANDOM 86 mg/dL (74-106); POTASSIUM 3.8 mmol/L (3.5-5.1); SGOT/AST 21 U/L (15-37); SGPT/ALT 20 U/L (13-61); SODIUM 138 mmol/L (136-145); TOT PROT 6.9 g/dl (6.4-8.2)
--- NOTE | 2018-10-10 15:01 | PN ---
Progress Note, Physician Chief Complaint: G-tube Placement Multiple Sclerosis History of Present Illness: Previous notes and events reviewed sleeping, responsive to tactile stimuli G tube in place to LCS NGT - Current Medication List Current Medications: Active Medications Levothyroxine Sodium (Synthroid Injection -) 88 mcg IVPUSH DAILY@0700 [facility] Last Admin: 10/10/18 06:09 Dose: 88 mcg - Objective Vital Signs: Vital Signs Temperature 98.6 F 10/10/18 07:20 Pulse Rate 102 H 10/10/18 12:31 Respiratory Rate 14 10/10/18 12:27 Blood Pressure 107/73 10/10/18 12:31 O2 Sat by Pulse Oximetry (%) 98 10/10/18 12:31 Constitutional: Yes: No Distress, Calm Eyes: Yes: Conjunctiva Clear HENT: Yes: Atraumatic Cardiovascular: Yes: Regular Rate and Rhythm Respiratory: Yes: Regular, Diminished Gastrointestinal: Yes: Normal Bowel Sounds, Soft, Other (G-tube) Genitourinary: Yes: Incontinence Musculoskeletal: Yes: Muscle Weakness Edema: No Neurological: Yes: Alert, Pre-Existing Deficit Psychiatric: Yes: Alert Labs: CBC, BMP 10/09/18 15:00 10/10/18 06:30 INR, PTT INR 1.04 (0.83-1.09) 10/09/18 15:00 - ....Imaging X-ray: Report Reviewed Problem List - Problems (1) Dysphagia Assessment/Plan: -G tube placed -IR on board -NPO until G tube cleared for use -aspiration precaution Code(s): R13.10 - DYSPHAGIA, UNSPECIFIED (2) Anemia Assessment/Plan: -Hg 15.3 -monitor Hg and transfuse for Hg <8.0 Code(s): D64.9 - ANEMIA, UNSPECIFIED (3) Functional quadriplegia Assessment/Plan: -fall precaution -PT Code(s): R53.2 - FUNCTIONAL QUADRIPLEGIA (4) Hypothyroid Assessment/Plan: -Levothyroxine Code(s): E03.9 - HYPOTHYROIDISM, UNSPECIFIED (5) Multiple sclerosis Assessment/Plan: -PT -fall precaution Code(s): G35 - MULTIPLE SCLEROSIS Assessment/Plan see problem list dvt ppx
[2018-10-11] MEDS: LEVOTHYROXINE SODIUM 100 MCG VIAL IVPUSH SCH (06:10)
[2018-10-11 08:35] LABS: HEMATOCRIT 43.8 % (32.4-45.2); HEMOGLOBIN 15.1 GM/dL (10.7-15.3); MCH 30.7 pg (25.7-33.7); MCHC 34.4 g/dl (32.0-36.0); MEAN CELL VOLUME 89.3 fl (80-96); MEAN PLT VOLUME 8.3 fl (7.5-11.1); PLATELET COUNT 226 K/MM3 (134-434); RBC 4.91 M/mm3 (3.60-5.2); RDW 15.4 % (11.6-15.6); WHITE BLOOD COUNT 11.4 K/mm3 (4.0-10.0)
[2018-10-11 08:56] LABS: INR 1.14 (0.83-1.09); PROTHROMBIN TIME (PATIENT) 13.5 SEC (9.7-13.0)
[2018-10-11 09:07] LABS: ALBUMIN 3.1 g/dl (3.4-5.0); ALK PHOS 80 U/L (45-117); ANION GAP 10 MMOL/L (8-16); BILIRUBIN,TOTAL 1.4 mg/dL (0.2-1); BLOOD UREA NITROGEN 19 mg/dL (7-18); CALCIUM 10.6 mg/dL (8.5-10.1); CHLORIDE 106 mmol/L (98-107); CO2 26 mmol/L (21-32); CREATININE 0.8 mg/dL (0.55-1.3); GLUCOSE,RANDOM 88 mg/dL (74-106); POTASSIUM 3.9 mmol/L (3.5-5.1); SGOT/AST 27 U/L (15-37); SGPT/ALT 18 U/L (13-61); SODIUM 143 mmol/L (136-145); TOT PROT 6.8 g/dl (6.4-8.2)
--- NOTE | 2018-10-11 13:00 | EKG ---
Test Reason : Blood Pressure : / mmHG Vent. Rate : 115 BPM Atrial Rate : 115 BPM P-R Int : 124 ms QRS Dur : 076 ms QT Int : 334 ms P-R-T Axes : 077 -78 075 degrees QTc Int : 462 ms SINUS TACHYCARDIA LEFT ANTERIOR FASCICULAR BLOCK NONSPECIFIC ST ABNORMALITY ABNORMAL ECG WHEN COMPARED WITH ECG OF 14-AUG-2018 03:11, ST NOW DEPRESSED IN INFERIOR LEADS Confirmed by CARLOS SANABRIA, ANDREW ([id number]) on 10/11/2018 1:00:21 PM Referred By: MCKENNA VALDIVIA Confirmed By:ANDREW GONZALEZ MD
--- NOTE | 2018-10-11 14:26 | PN ---
Progress Note, Physician Chief Complaint: G-tube Placement Multiple Sclerosis History of Present Illness: Previous notes and events reviewed sleeping, responsive to tactile stimuli G tube in place, feedings tolerated during night noted to be tachycardic, hypotensive, and febrile--CXR, BC, and UA ordered WBC 11.4 - Current Medication List Current Medications: Active Medications Levothyroxine Sodium (Synthroid Injection -) 88 mcg IVPUSH DAILY@0700 [facility] Last Admin: 10/11/18 06:10 Dose: 88 mcg - Objective Vital Signs: Vital Signs Temperature 99 F 10/11/18 14:00 Pulse Rate 120 H 10/11/18 14:00 Respiratory Rate 18 10/11/18 14:00 Blood Pressure 98/67 10/11/18 14:00 O2 Sat by Pulse Oximetry (%) 97 10/11/18 05:25 Constitutional: Yes: No Distress, Calm Eyes: Yes: Conjunctiva Clear HENT: Yes: Atraumatic Cardiovascular: Yes: Tachycardia Respiratory: Yes: Regular, Diminished Gastrointestinal: Yes: Normal Bowel Sounds, Soft, Tenderness (diffuse), Other ( G tube) Genitourinary: Yes: Incontinence Musculoskeletal: Yes: Muscle Weakness Extremities: Yes: WNL Edema: No Neurological: Yes: Alert, Pre-Existing Deficit Psychiatric: Yes: Alert Labs: CBC, BMP 10/11/18 07:18 10/11/18 07:18 INR, PTT INR 1.14 (0.83-1.09) H 10/11/18 07:18 Problem List - Problems (1) Dysphagia Assessment/Plan: -G tube placed -IR on board -G tube with feeding infusing, currently tolerating -aspiration precaution Code(s): R13.10 - DYSPHAGIA, UNSPECIFIED (2) Anemia Assessment/Plan: -Hg 15.1 -monitor Hg and transfuse for Hg <8.0 Code(s): D64.9 - ANEMIA, UNSPECIFIED (3) Functional quadriplegia Assessment/Plan: -fall precaution -PT Code(s): R53.2 - FUNCTIONAL QUADRIPLEGIA (4) Hypothyroid Assessment/Plan: -Levothyroxine Code(s): E03.9 - HYPOTHYROIDISM, UNSPECIFIED (5) Multiple sclerosis Assessment/Plan: -PT -fall precaution Code(s): G35 - MULTIPLE SCLEROSIS (6) Tachycardia Assessment/Plan: -EKG -cardiac profile ordered Code(s): R00.0 - TACHYCARDIA, UNSPECIFIED (7) Fever Assessment/Plan: -tylenol for temp >100F -CXR, BC, UA ordered Code(s): R50.9 - FEVER, UNSPECIFIED (8) Leukocytosis Assessment/Plan: -WBC 11.4 -CXR, BC, UA ordered Code(s): D72.829 - ELEVATED WHITE BLOOD CELL COUNT, UNSPECIFIED Assessment/Plan see problem list dvt ppx
[2018-10-11] MEDS ORDERED: VANCOMYCIN 1 GRAM (PRE-DOCKED) 1,000 MG/250 ML BAG IVPB ONE (22:53)
[2018-10-11] MEDS ORDERED: AZTREONAM 2 GM in DEXTROSE 5%-WATER 100 ML IVPB ONE (22:55)
--- NOTE | 2018-10-11 23:15 | HOSP ---
Physical Examination Vital Signs: Vital Signs Temperature 102 F H 10/11/18 22:38 Pulse Rate 130 H 10/11/18 22:30 Respiratory Rate 20 10/11/18 22:30 Blood Pressure 109/69 10/11/18 22:30 O2 Sat by Pulse Oximetry (%) 97 10/11/18 14:00 Labs: CBC, BMP 10/11/18 07:18 10/11/18 07:18 Hospitalist Encounter Assessment: I got called for patient who has fever -102F, tachycardia, appears to be septic. Blood cultures, UA, cxr ordered earlier. Orderd cbc, bmp, lactate, aztreonam, flagyl, vancomycin. Patient is s/p PEG today, noted to have left forearm erythema- phlebitis? Possible source of infection. ID consult.
[2018-10-12 00:05] LABS: BASO % 0.4 % (0-2.0); EOS % 0.1 % (0-4.5); HEMATOCRIT 41.9 % (32.4-45.2); LYMPH % 10.7 % (8-40); MCH 30.1 pg (25.7-33.7); MCHC 33.3 g/dl (32.0-36.0); MEAN CELL VOLUME 90.6 fl (80-96); MEAN PLT VOLUME 8.2 fl (7.5-11.1); MONO % 9.9 % (3.8-10.2); NEUT % 78.9 % (42.8-82.8); PLATELET COUNT 193 K/MM3 (134-434); RBC 4.63 M/mm3 (3.60-5.2); RDW 15.3 % (11.6-15.6); WHITE BLOOD COUNT 11.6 K/mm3 (4.0-10.0)
[2018-10-12 00:24] LABS: CALCIUM 10.3 mg/dL (8.5-10.1); CREATININE 0.6 mg/dL (0.55-1.3); POTASSIUM 3.5 mmol/L (3.5-5.1)
[2018-10-12] MEDS ORDERED: PT OWN MED DRAWER 7, Y5N ONE (06:25)
[2018-10-12] MEDS: LEVOTHYROXINE SODIUM 100 MCG VIAL IVPUSH SCH (06:33)
[2018-10-12 08:02] LABS: HEMATOCRIT 39.9 % (32.4-45.2); HEMOGLOBIN 13.6 GM/dL (10.7-15.3); MCH 30.3 pg (25.7-33.7); MCHC 34.2 g/dl (32.0-36.0); MEAN CELL VOLUME 88.8 fl (80-96); MEAN PLT VOLUME 8.5 fl (7.5-11.1); PLATELET COUNT 211 K/MM3 (134-434); RBC 4.49 M/mm3 (3.60-5.2); WHITE BLOOD COUNT 11.6 K/mm3 (4.0-10.0)
[2018-10-12 08:29] LABS: ALBUMIN 2.7 g/dl (3.4-5.0); BILIRUBIN,TOTAL 0.8 mg/dL (0.2-1); CALCIUM 10.3 mg/dL (8.5-10.1); CREATININE 0.5 mg/dL (0.55-1.3); POTASSIUM 3.2 mmol/L (3.5-5.1); TOT PROT 6.5 g/dl (6.4-8.2)
[2018-10-12] MEDS ORDERED: KCL 10 MEQ IVPB 10 MEQ/100 ML INFUS.BAG IVPB SCH (12:15)
--- NOTE | 2018-10-12 12:40 | PN ---
Progress Note (short form) - Note Progress Note: ID CONSULT DICTATED FEVER/ TACHYCARDIA/ HYPOTENSION PROBABLE SEPSIS ? SKIN SOURCE ? CATHETER-RELATED PHLEBITIS R/O BACTEREMIA PCN ALLERGY NEUROMUSCULAR DISORDER PENDING C/S EMPIRIC VANCOMYCIN/ AZTREONAM
[2018-10-12] MEDS ORDERED: POTASSIUM CHLORIDE ORAL LIQUID 20 MEQ/15 ML GT ONE (13:12)
[2018-10-12] MEDS ORDERED: ACETAMINOPHEN 1000 MG/100 ML VIAL (NON FORMULARY) IVPB PRN (13:12)
[2018-10-12] MEDS ORDERED: POTASSIUM CHLORIDE ORAL LIQUID 20 MEQ/15 ML PO ONE (13:12)
--- NOTE | 2018-10-12 13:21 | PN ---
Progress Note, Physician Chief Complaint: G-tube Placement Multiple Sclerosis History of Present Illness: Previous notes and events reviewed awake and alert G tube in place, feedings tolerated during night patient have temp 102F WBC 11.6 - Current Medication List Current Medications: Active Medications Acetaminophen (Ofirmev Injection -) 1,000 mg IVPB Q6H PRN PRN Reason: FEVER Vancomycin HCl (Vancomycin (Pre-Docked)) 1,000 mg in 250 mls @ 166.667 mls/hr IVPB Q12H [facility]; Protocol Aztreonam 1 gm/ Dextrose 50 mls @ 100 mls/hr IVPB Q8H-IV [facility]; Protocol Levothyroxine Sodium (Synthroid Injection -) 88 mcg IVPUSH DAILY@0700 [facility] Last Admin: 10/12/18 06:33 Dose: 88 mcg Potassium Chloride (Potassium Chloride Oral Liquid) 40 meq GT ONCE ONE Stop: 10/12/18 13:13 - Objective Vital Signs: Vital Signs Temperature 102 F H 10/12/18 12:57 Pulse Rate 114 H 10/12/18 09:30 Respiratory Rate 20 10/12/18 12:57 Blood Pressure 116/63 10/12/18 09:30 O2 Sat by Pulse Oximetry (%) 97 10/12/18 06:00 Constitutional: Yes: No Distress, Calm Eyes: Yes: Conjunctiva Clear HENT: Yes: Atraumatic Cardiovascular: Yes: Tachycardia Respiratory: Yes: Regular, Diminished Gastrointestinal: Yes: Normal Bowel Sounds, Soft, Other (G-tube) Genitourinary: Yes: Incontinence Musculoskeletal: Yes: Muscle Weakness Extremities: Yes: WNL Neurological: Yes: Alert, Pre-Existing Deficit Psychiatric: Yes: Alert Labs: CBC, BMP 10/12/18 07:20 10/12/18 07:20 INR, PTT INR 1.14 (0.83-1.09) H 10/11/18 07:18 Problem List - Problems (1) Dysphagia Assessment/Plan: -G tube placed -IR on board -G tube with feeding infusing, currently tolerating -aspiration precaution Code(s): R13.10 - DYSPHAGIA, UNSPECIFIED (2) Anemia Assessment/Plan: -Hg 13.6 -monitor Hg and transfuse for Hg <8.0 Code(s): D64.9 - ANEMIA, UNSPECIFIED (3) Functional quadriplegia Assessment/Plan: -fall precaution -PT Code(s): R53.2 - FUNCTIONAL QUADRIPLEGIA (4) Hypothyroid Assessment/Plan: -Levothyroxine Code(s): E03.9 - HYPOTHYROIDISM, UNSPECIFIED (5) Multiple sclerosis Assessment/Plan: -PT -fall precaution Code(s): G35 - MULTIPLE SCLEROSIS (6) Tachycardia Assessment/Plan: -EKG -cardiac profile ordered Code(s): R00.0 - TACHYCARDIA, UNSPECIFIED (7) Fever Assessment/Plan: -tylenol for temp >100F -CXR shows some increased density seen at the left apex and some very atelectatic changes in RUL -pending BC and UC -IV hydration Code(s): R50.9 - FEVER, UNSPECIFIED (8) Leukocytosis Assessment/Plan: -WBC 11.6 -CXR shows some increased density seen at the left apex and some very atelectatic changes in RUL -BC and UC Pending -ID on board -IV Vancomycin and Azactam Code(s): D72.829 - ELEVATED WHITE BLOOD CELL COUNT, UNSPECIFIED Assessment/Plan see problem list dvt ppx
--- NOTE | 2018-10-12 13:26 | CONS ---
DATE OF CONSULTATION: DATE OF DICTATION: 10/12/2018 HISTORY OF PRESENT ILLNESS: The patient is a 53-year-old female who is evaluated for fever. History is obtained from the chart as she cannot give a history secondary to her condition. She was admitted to the hospital on October 09, 2018, for insertion of feeding gastrostomy. Her hospital course has now been complicated by fever of 102, hypotension, tachycardia. Cultures were obtained. She was empirically treated with vancomycin and Azactam. She has a history of PENICILLIN allergy. She was noted to have a phlebitis of the left upper extremity from a previous IV catheter. History is limited. She is able to nod her head and answer simple questions. When questioned she denied chest pain, shortness of breath, cough or sputum production. no vomiting or diarrhea. No dysuria. No infected decubitus ulcers. PAST MEDICAL HISTORY: Positive for hypertension, hypothyroidism, neuromuscular disorder. ALLERGIES: PENICILLIN and SULFA. Nature of the PENICILLIN allergy not known. MEDICATIONS: Lisinopril, baclofen, propranolol, Synthroid, Colace. SOCIAL HISTORY: She resides in a shelter facility, dependent in activities of daily living. No active tobacco or alcohol use. SYSTEMS REVIEW:Neurologic: Positive for neuromuscular disorder. Cardiac: Negative chest pain or palpitations. Respiratory: Negative cough or sputum production. Gastrointestinal: As per HPI. Genitourinary: Negative for urinary tract infection. LABORATORY DATA: White count 11.6, hematocrit 39.9, platelet count 211. Creatinine 0.5. Chest x-ray negative. Cultures are pending. PHYSICAL EXAMINATION:General: She is awake and alert. She is supine in bed in no acute distress, contracted. Vital Signs: Temperature 100.1, T-max 102, blood pressure 93/53, pulse 130, respirations 20 per minute. HEENT: Sclerae are anicteric. Cardiac: Heart sounds S1, S2. Lungs: Grossly clear. Abdomen: Soft, nontender. Feeding gastrostomy tube site no erythema or drainage. Extremities: Negative for edema. Negative Shivam sign. No heel decubiti present. There is erythema of the sacrum. No infected decubitus ulcer noted. Left upper extremity with catheter-related phlebitis, palpable cord and erythema. No fluctuance or expressible pus. IMPRESSION: 1. Fever, tachycardia, hypotension, probable sepsis. 2. Catheter-related phlebitis, rule out catheter-related bacteremia. 3. Rule out urinary tract infection/urosepsis. 4. PENICILLIN allergy. 5. Neuromuscular disorder. RECOMMENDATIONS: Pending sepsis workup empiric antibiotic coverage in this patient with PENICILLIN allergy with vancomycin and Azactam. Further recommendations pending cultures. Will follow. Thank you for the kind referral. FRANKO JANSEN M.D. [facility]/[id number]
[2018-10-12] MEDS ORDERED: DEXTROSE 5%-WATER - 50 ML IVPB ONE ×2 (14:09→17:54)
[2018-10-12] MEDS ORDERED: AZTREONAM 1 GM VIAL (RESTRICTED TO ID) ONE ×2 (14:09→17:54)
[2018-10-12] MEDS: AZTREONAM 1 GM in DEXTROSE 5%-WATER - 50 ML IVPB SCH ×2 (14:12→18:12)
[2018-10-12] MEDS: SODIUM CHLORIDE 1,000 ML IV SCH (14:12)
[2018-10-12] MEDS: VANCOMYCIN 1 GRAM (PRE-DOCKED) 1,000 MG/250 ML BAG IVPB SCH (16:09)
[2018-10-12] MEDS: ACETAMINOPHEN 650 MG/20.3 ML ORAL SOLUTION (CUPS) GT PRN (16:11)
[2018-10-12 19:08] LABS: EPI CELLS 1.1 /HPF (0-5/HPF); PH,URINE 5.5 (5.0-8.0); URINE APPEARANCE CLEAR; URINE BACTERIA 0.7 /hpf (NEGATIVE); URINE BILIRUBIN 1+ (NEGATIVE); URINE CASTS 12 /lpf (0-8); URINE COLOR DK YELLOW; URINE GLUCOSE (UA) NEGATIVE (NEGATIVE); URINE KETONE TRACE (NEGATIVE); URINE LEUK ESTERASE TRACE (NEGATIVE); URINE NITRITE POSITIVE (NEGATIVE); URINE PROTEIN NEGATIVE (NEGATIVE); URINE WBC 1 /hpf (0-5)
[2018-10-12 19:55] LABS: URINE RBC 3 /hpf (0-4)
[2018-10-13] MEDS ORDERED: DEXTROSE 5%-WATER - 50 ML IVPB ONE ×3 (00:25→16:59)
[2018-10-13] MEDS ORDERED: AZTREONAM 1 GM VIAL (RESTRICTED TO ID) ONE ×3 (00:25→16:58)
[2018-10-13] MEDS: VANCOMYCIN 1 GRAM (PRE-DOCKED) 1,000 MG/250 ML BAG IVPB SCH ×2 (01:13→12:09)
[2018-10-13] MEDS: AZTREONAM 1 GM in DEXTROSE 5%-WATER - 50 ML IVPB SCH ×3 (03:00→17:03)
[2018-10-13] MEDS ORDERED: PT OWN MED DRAWER 7, Y5N ONE ×2 (05:37→15:04)
[2018-10-13 06:50] LABS: HEMATOCRIT 35.4 % (32.4-45.2); HEMOGLOBIN 11.8 GM/dL (10.7-15.3); MCH 29.9 pg (25.7-33.7); MCHC 33.4 g/dl (32.0-36.0); MEAN CELL VOLUME 89.5 fl (80-96); MEAN PLT VOLUME 8.5 fl (7.5-11.1); PLATELET COUNT 156 K/MM3 (134-434); RBC 3.96 M/mm3 (3.60-5.2); RDW 15.3 % (11.6-15.6); WHITE BLOOD COUNT 11.8 K/mm3 (4.0-10.0)
[2018-10-13] MEDS: LEVOTHYROXINE SODIUM 100 MCG VIAL IVPUSH SCH (06:51)
[2018-10-13 07:31] LABS: ALBUMIN 2.1 g/dl (3.4-5.0); BILIRUBIN,TOTAL 0.6 mg/dL (0.2-1); CALCIUM 9.3 mg/dL (8.5-10.1); CREATININE 0.4 mg/dL (0.55-1.3); POTASSIUM 3.7 mmol/L (3.5-5.1); TOT PROT 5.5 g/dl (6.4-8.2)
--- NOTE | 2018-10-13 11:17 | PN ---
Progress Note, Physician History of Present Illness: AWAKE IN BED WEEPY BUT IN NO ACUTE DISTRESS LOW GRADE TEMP TODAY WBC SL ELEVATED BREATHING NON-LABORED CULTURES PRELIM (-) - Current Medication List Current Medications: Active Medications Acetaminophen (Tylenol Oral Solution -) 650 mg GT Q6H PRN PRN Reason: PAIN/FEVER Last Admin: 10/12/18 16:11 Dose: 650 mg Vancomycin HCl (Vancomycin (Pre-Docked)) 1,000 mg in 250 mls @ 166.667 mls/hr IVPB Q12H [facility]; Protocol Last Admin: 10/13/18 01:13 Dose: 166.667 mls/hr Aztreonam 1 gm/ Dextrose 50 mls @ 100 mls/hr IVPB Q8H-IV [facility]; Protocol Last Admin: 10/13/18 09:34 Dose: 100 mls/hr Sodium Chloride (Normal Saline -) 1,000 mls @ 50 mls/hr IV ASDIR [facility] Stop: 10/13/18 13:15 Last Admin: 10/12/18 14:12 Dose: 50 mls/hr Levothyroxine Sodium (Synthroid Injection -) 88 mcg IVPUSH DAILY@0700 [facility] Last Admin: 10/13/18 06:51 Dose: 88 mcg - Objective Vital Signs: Vital Signs Temperature 98.0 F 10/13/18 10:00 Pulse Rate 104 H 10/13/18 10:00 Respiratory Rate 18 10/13/18 10:00 Blood Pressure 86/52 L 10/13/18 10:00 O2 Sat by Pulse Oximetry (%) 94 L 10/12/18 21:00 Constitutional: Yes: No Distress, Cachectic Eyes: Yes: Conjunctiva Clear Cardiovascular: Yes: Regular Rate and Rhythm, S1, S2 Respiratory: Yes: Diminished Gastrointestinal: Yes: Normal Bowel Sounds, Soft. No: Tenderness Extremities: Yes: Other (+ PALPABLE CORD L FOREARM, SL ERYTHEMA; NO FLUCTUANCE/ DRAINAGE) Edema: No Labs: CBC, BMP 10/13/18 05:30 10/13/18 05:30 INR, PTT INR 1.14 (0.83-1.09) H 10/11/18 07:18 Assessment/Plan FEVER ? SKIN SOURCE ? ? ASP PCN ALLERGY HX NEUROMUSCULAR DISORDER AWAIT C/S CONTINUE VANCO/AZTREONAM
[2018-10-13] MEDS ORDERED: SODIUM CHLORIDE 250 ML IV STA (12:44)
--- NOTE | 2018-10-13 12:49 | PN ---
Progress Note, Physician Chief Complaint: G-tube Placement Multiple Sclerosis History of Present Illness: Previous notes and events reviewed awake and alert G tube in place, feedings tolerated during night patient have low grade temp 99.7F patient hypotensive BP 83/52--250cc bolus ordered WBC 11.8 - Current Medication List Current Medications: Active Medications Acetaminophen (Tylenol Oral Solution -) 650 mg GT Q6H PRN PRN Reason: PAIN/FEVER Last Admin: 10/12/18 16:11 Dose: 650 mg Vancomycin HCl (Vancomycin (Pre-Docked)) 1,000 mg in 250 mls @ 166.667 mls/hr IVPB Q12H [facility]; Protocol Last Admin: 10/13/18 12:09 Dose: 166.667 mls/hr Aztreonam 1 gm/ Dextrose 50 mls @ 100 mls/hr IVPB Q8H-IV [facility]; Protocol Last Admin: 10/13/18 09:34 Dose: 100 mls/hr Sodium Chloride (Normal Saline -) 1,000 mls @ 50 mls/hr IV ASDIR [facility] Stop: 10/13/18 13:15 Last Admin: 10/12/18 14:12 Dose: 50 mls/hr Levothyroxine Sodium (Synthroid Injection -) 88 mcg IVPUSH DAILY@0700 [facility] Last Admin: 10/13/18 06:51 Dose: 88 mcg - Objective Vital Signs: Vital Signs Temperature 98.0 F 10/13/18 10:00 Pulse Rate 104 H 10/13/18 10:00 Respiratory Rate 18 10/13/18 10:00 Blood Pressure 86/52 L 10/13/18 10:00 O2 Sat by Pulse Oximetry (%) 96 10/13/18 09:00 Constitutional: Yes: No Distress, Calm Eyes: Yes: Conjunctiva Clear HENT: Yes: Atraumatic Cardiovascular: Yes: Tachycardia Respiratory: Yes: Regular, Diminished Gastrointestinal: Yes: Normal Bowel Sounds, Soft, Other (G tube) Musculoskeletal: Yes: Muscle Weakness Edema: No Neurological: Yes: Alert, Pre-Existing Deficit Psychiatric: Yes: Alert Labs: CBC, BMP 10/13/18 05:30 10/13/18 05:30 INR, PTT INR 1.14 (0.83-1.09) H 10/11/18 07:18 Microbiology 10/11/18 16:00 Urine - Urine - Catheterized Urine Culture - Final NO GROWTH OBTAINED 10/11/18 17:00 Blood - Peripheral Venous Blood Culture - Preliminary NO GROWTH OBTAINED AFTER 24 HOURS, INCUBATION TO CONTINUE FOR 4 DAYS. 10/11/18 17:00 Blood - Peripheral Venous Blood Culture - Preliminary NO GROWTH OBTAINED AFTER 24 HOURS, INCUBATION TO CONTINUE FOR 4 DAYS. Problem List - Problems (1) Dysphagia Assessment/Plan: -G tube placed -IR on board -G tube with feeding infusing, currently tolerating -aspiration precaution Code(s): R13.10 - DYSPHAGIA, UNSPECIFIED (2) Anemia Assessment/Plan: -Hg 11.8 -monitor Hg and transfuse for Hg <8.0 -drop in Hg 13 to 11.8--stool OB ordered Code(s): D64.9 - ANEMIA, UNSPECIFIED (3) Functional quadriplegia Assessment/Plan: -fall precaution -PT Code(s): R53.2 - FUNCTIONAL QUADRIPLEGIA (4) Hypothyroid Assessment/Plan: -Levothyroxine Code(s): E03.9 - HYPOTHYROIDISM, UNSPECIFIED (5) Multiple sclerosis Assessment/Plan: -PT -fall precaution Code(s): G35 - MULTIPLE SCLEROSIS (6) Tachycardia Assessment/Plan: -EKG -cardiac profile ordered Code(s): R00.0 - TACHYCARDIA, UNSPECIFIED (7) Fever Assessment/Plan: -tylenol for temp >100F -CXR shows some increased density seen at the left apex and some very atelectatic changes in RUL -BC and UC neg -IV hydration Code(s): R50.9 - FEVER, UNSPECIFIED (8) Leukocytosis Assessment/Plan: -WBC 11.8 -CXR shows some increased density seen at the left apex and some very atelectatic changes in RUL -BC and UC Pending -ID on board -IV Vancomycin and Azactam Code(s): D72.829 - ELEVATED WHITE BLOOD CELL COUNT, UNSPECIFIED (9) Hypotension Assessment/Plan: -NS 250cc bolus x 1 -continue with NS at 50cc/hr -monitor BP Code(s): I95.9 - HYPOTENSION, UNSPECIFIED Assessment/Plan see problem list
[2018-10-13] MEDS: SODIUM CHLORIDE 1,000 ML IV SCH ×2 (15:22→18:45)
[2018-10-13] MEDS: ACETAMINOPHEN 650 MG/20.3 ML ORAL SOLUTION (CUPS) GT PRN (15:54)
[2018-10-13 18:52] VITALS: BMI 15.5
[2018-10-14] MEDS ORDERED: AZTREONAM 1 GM VIAL (RESTRICTED TO ID) ONE ×3 (02:24→17:38)
[2018-10-14] MEDS ORDERED: DEXTROSE 5%-WATER - 50 ML IVPB ONE ×3 (02:24→17:38)
[2018-10-14] MEDS: AZTREONAM 1 GM in DEXTROSE 5%-WATER - 50 ML IVPB SCH ×3 (02:26→17:43)
[2018-10-14] MEDS: VANCOMYCIN 1 GRAM (PRE-DOCKED) 1,000 MG/250 ML BAG IVPB SCH ×2 (02:39→14:22)
[2018-10-14] MEDS: ACETAMINOPHEN 650 MG/20.3 ML ORAL SOLUTION (CUPS) GT PRN (02:44)
[2018-10-14] MEDS: LEVOTHYROXINE SODIUM 100 MCG VIAL IVPUSH SCH (06:13)
[2018-10-14] MEDS: SODIUM CHLORIDE 1,000 ML IV SCH ×2 (06:18→23:20)
[2018-10-14 08:17] LABS: HEMATOCRIT 31.2 % (32.4-45.2); HEMOGLOBIN 10.8 GM/dL (10.7-15.3); MCH 30.8 pg (25.7-33.7); MCHC 34.6 g/dl (32.0-36.0); MEAN CELL VOLUME 89.1 fl (80-96); MEAN PLT VOLUME 8.8 fl (7.5-11.1); PLATELET COUNT 143 K/MM3 (134-434); RDW 15.2 % (11.6-15.6); WHITE BLOOD COUNT 10.8 K/mm3 (4.0-10.0)
[2018-10-14 08:58] LABS: ALBUMIN 1.8 g/dl (3.4-5.0); BILIRUBIN,TOTAL 0.5 mg/dL (0.2-1); CALCIUM 8.3 mg/dL (8.5-10.1); CREATININE 0.3 mg/dL (0.55-1.3); POTASSIUM 3.5 mmol/L (3.5-5.1); TOT PROT 4.7 g/dl (6.4-8.2)
--- NOTE | 2018-10-14 13:11 | PN ---
Progress Note, Physician Chief Complaint: G tube placement Multiple sclerosis History of Present Illness: G tube placed On IV abx for low grade temp Seen by ID - Current Medication List Current Medications: Active Medications Acetaminophen (Tylenol Oral Solution -) 650 mg GT Q6H PRN PRN Reason: PAIN/FEVER Last Admin: 10/14/18 02:44 Dose: 650 mg Vancomycin HCl (Vancomycin (Pre-Docked)) 1,000 mg in 250 mls @ 166.667 mls/hr IVPB Q12H [facility]; Protocol Last Admin: 10/14/18 02:39 Dose: 166.667 mls/hr Aztreonam 1 gm/ Dextrose 50 mls @ 100 mls/hr IVPB Q8H-IV [facility]; Protocol Last Admin: 10/14/18 10:57 Dose: 100 mls/hr Sodium Chloride (Normal Saline -) 1,000 mls @ 100 mls/hr IV ASDIR [facility] Last Admin: 10/14/18 06:18 Dose: 100 mls/hr Levothyroxine Sodium (Synthroid Injection -) 88 mcg IVPUSH DAILY@0700 [facility] Last Admin: 10/14/18 06:13 Dose: 88 mcg - Objective Vital Signs: Vital Signs Temperature 98.5 F 10/14/18 06:20 Pulse Rate 109 H 10/14/18 10:00 Respiratory Rate 20 10/14/18 10:00 Blood Pressure 107/66 10/14/18 10:00 O2 Sat by Pulse Oximetry (%) 96 10/14/18 09:00 Constitutional: Yes: No Distress, Calm, Cachectic Cardiovascular: Yes: Regular Rate and Rhythm Respiratory: Yes: Regular Gastrointestinal: Yes: Normal Bowel Sounds, Soft, Other (G tube) Genitourinary: Yes: Incontinence Musculoskeletal: Yes: Muscle Weakness Extremities: Yes: WNL Edema: No Neurological: Yes: Pre-Existing Deficit Labs: CBC, BMP 10/14/18 07:15 10/14/18 07:15 INR, PTT INR 1.14 (0.83-1.09) H 10/11/18 07:18 Assessment/Plan (1) Dysphagia Assessment/Plan: -G tube placed -IR on board -G tube with feeding infusing, currently tolerating -aspiration precaution Code(s): R13.10 - DYSPHAGIA, UNSPECIFIED (2) Anemia Assessment/Plan: -monitor Hg and transfuse for Hg <8.0 Code(s): D64.9 - ANEMIA, UNSPECIFIED (3) Functional quadriplegia Assessment/Plan: -fall precaution -PT Code(s): R53.2 - FUNCTIONAL QUADRIPLEGIA (4) Hypothyroid Assessment/Plan: -Levothyroxine Code(s): E03.9 - HYPOTHYROIDISM, UNSPECIFIED (5) Multiple sclerosis Assessment/Plan: -PT -fall precaution Code(s): G35 - MULTIPLE SCLEROSIS (6) Tachycardia Assessment/Plan: -EKG -cardiac profile ordered Code(s): R00.0 - TACHYCARDIA, UNSPECIFIED (7) Fever Assessment/Plan: -tylenol for temp >100F -CXR shows some increased density seen at the left apex and some very atelectatic changes in RUL -BC and UC neg -IV hydration -IV abx -Seen by ID Code(s): R50.9 - FEVER, UNSPECIFIED (8) Leukocytosis Assessment/Plan: -CXR shows some increased density seen at the left apex and some very atelectatic changes in RUL -BC and UC Pending -ID on board -IV Vancomycin and Azactam Code(s): D72.829 - ELEVATED WHITE BLOOD CELL COUNT, UNSPECIFIED
[2018-10-14] MEDS ORDERED: ACETAMINOPHEN 160 MG/5 ML *Children Solution PO PRN (13:25)
[2018-10-14] MEDS ORDERED: ACETAMINOPHEN 160 MG/5 ML *Children Solution PEG PRN (13:28)
[2018-10-14] MEDS ORDERED: BACLOFEN 10 MG TABLET (FP) PO SCH (13:30)
[2018-10-14] MEDS ORDERED: MULTIVIT-MINERALS ORAL LIQUID PO SCH (13:30)
[2018-10-14] MEDS ORDERED: PT OWN MED DRAWER 7, Y5N ONE (14:18)
[2018-10-14] MEDS: ACETAMINOPHEN 650 MG/20.3 ML ORAL SOLUTION (CUPS) PEG PRN ×2 (14:22→23:22)
[2018-10-14] MEDS: MULTIVIT-MINERALS ORAL LIQUID PEG SCH (14:23)
[2018-10-14] MEDS: NYSTATIN POWDER 100,000 UNITS/GM - 15 GM TOPICAL POWDER TP SCH ×2 (14:23→23:21)
[2018-10-14] MEDS: BACLOFEN 10 MG TABLET (FP) PEG SCH (14:28)
[2018-10-14] MEDS ORDERED: MINERAL OIL 30 ML UNIT-DOSE CUP PO PRN (14:28)
[2018-10-14] MEDS: MINERAL OIL 30 ML UNIT-DOSE CUP TP PRN (15:49)
[2018-10-14] MEDS: MINERAL OIL/PET HY-PHL TOPICAL OINTMENT 454 GM JAR TP SCH ×2 (15:55→23:21)
[2018-10-15] MEDS ORDERED: AZTREONAM 1 GM VIAL (RESTRICTED TO ID) ONE ×3 (00:57→17:22)
[2018-10-15] MEDS ORDERED: DEXTROSE 5%-WATER - 50 ML IVPB ONE ×3 (00:58→17:23)
[2018-10-15] MEDS: VANCOMYCIN 1 GRAM (PRE-DOCKED) 1,000 MG/250 ML BAG IVPB SCH ×2 (01:09→14:20)
[2018-10-15] MEDS: AZTREONAM 1 GM in DEXTROSE 5%-WATER - 50 ML IVPB SCH ×3 (03:02→17:28)
[2018-10-15] MEDS: LEVOTHYROXINE NA 112 MCG TABLET (FP) PEG SCH (06:13)
[2018-10-15] MEDS ORDERED: PT OWN MED DRAWER 7, Y5N ONE (09:39)
[2018-10-15] MEDS: BACLOFEN 10 MG TABLET (FP) PEG SCH (09:47)
[2018-10-15] MEDS: ACETAMINOPHEN 650 MG/20.3 ML ORAL SOLUTION (CUPS) PEG PRN ×2 (09:47→17:28)
[2018-10-15] MEDS: MULTIVIT-MINERALS ORAL LIQUID PEG SCH (09:48)
[2018-10-15] MEDS: MINERAL OIL/PET HY-PHL TOPICAL OINTMENT 454 GM JAR TP SCH ×2 (09:48→21:25)
[2018-10-15] MEDS: NYSTATIN POWDER 100,000 UNITS/GM - 15 GM TOPICAL POWDER TP SCH ×2 (09:49→21:25)
--- NOTE | 2018-10-15 18:20 | PN ---
Progress Note, Physician Chief Complaint: G tube placement Multiple sclerosis History of Present Illness: G tube placed On IV abx for low grade temp Seen by ID - Current Medication List Current Medications: Active Medications Acetaminophen (Tylenol Oral Solution -) 650 mg PEG Q4H PRN PRN Reason: FEVER Last Admin: 10/15/18 17:28 Dose: 650 mg Baclofen (Lioresal -) 10 mg PEG DAILY [facility] Last Admin: 10/15/18 09:47 Dose: 10 mg Emollient Ointment (Aquaphor -) 1 applic TP BID [facility] Last Admin: 10/15/18 09:48 Dose: 1 applic Vancomycin HCl (Vancomycin (Pre-Docked)) 1,000 mg in 250 mls @ 166.667 mls/hr IVPB Q12H [facility]; Protocol Last Admin: 10/15/18 14:20 Dose: 166.667 mls/hr Aztreonam 1 gm/ Dextrose 50 mls @ 100 mls/hr IVPB Q8H-IV [facility]; Protocol Last Admin: 10/15/18 17:28 Dose: 100 mls/hr Sodium Chloride (Normal Saline -) 1,000 mls @ 100 mls/hr IV ASDIR [facility] Last Admin: 10/14/18 23:20 Dose: 100 mls/hr Levothyroxine Sodium (Synthroid -) 112 mcg PEG DAILY@0700 [facility] Last Admin: 10/15/18 06:13 Dose: 112 mcg Mineral Oil (Mineral Oil -) 30 ml TP Q6H PRN PRN Reason: DRY MOUTH Last Admin: 10/14/18 15:49 Dose: 30 ml Nystatin (Nystop Powder -) 1 applic TP BID [facility] Last Admin: 10/15/18 09:49 Dose: 1 applic - Objective Vital Signs: Vital Signs Temperature 98.9 F 10/15/18 17:09 Pulse Rate 115 H 10/15/18 17:09 Respiratory Rate 18 10/15/18 17:09 Blood Pressure 128/68 10/15/18 17:09 O2 Sat by Pulse Oximetry (%) 96 10/15/18 09:00 Constitutional: Yes: No Distress, Calm, Cachectic Cardiovascular: Yes: Regular Rate and Rhythm Respiratory: Yes: Regular Gastrointestinal: Yes: Normal Bowel Sounds, Other (g tube) Genitourinary: Yes: WNL Musculoskeletal: Yes: WNL Extremities: Yes: WNL Edema: No Peripheral Pulses WNL: Yes Neurological: Yes: Pre-Existing Deficit Labs: CBC, BMP 10/14/18 07:15 10/14/18 07:15 INR, PTT INR 1.14 (0.83-1.09) H 10/11/18 07:18 Assessment/Plan (1) Dysphagia Assessment/Plan: -G tube placed -IR on board -G tube with feeding infusing, currently tolerating -aspiration precaution Code(s): R13.10 - DYSPHAGIA, UNSPECIFIED (2) Anemia Assessment/Plan: -monitor Hg and transfuse for Hg <8.0 Code(s): D64.9 - ANEMIA, UNSPECIFIED (3) Functional quadriplegia Assessment/Plan: -fall precaution -PT Code(s): R53.2 - FUNCTIONAL QUADRIPLEGIA (4) Hypothyroid Assessment/Plan: -Levothyroxine Code(s): E03.9 - HYPOTHYROIDISM, UNSPECIFIED (5) Multiple sclerosis Assessment/Plan: -PT -fall precaution Code(s): G35 - MULTIPLE SCLEROSIS (6) Tachycardia Assessment/Plan: -EKG -cardiac profile ordered Code(s): R00.0 - TACHYCARDIA, UNSPECIFIED (7) Fever Assessment/Plan: -tylenol for temp >100F -CXR shows some increased density seen at the left apex and some very atelectatic changes in RUL -BC and UC neg -IV hydration -IV abx -Seen by ID Code(s): R50.9 - FEVER, UNSPECIFIED (8) Leukocytosis Assessment/Plan: -CXR shows some increased density seen at the left apex and some very atelectatic changes in RUL -BC and UC Pending -ID on board -IV Vancomycin and Azactam Code(s): D72.829 - ELEVATED WHITE BLOOD CELL COUNT, UNSPECIFIED
[2018-10-15] MEDS: SODIUM CHLORIDE 1,000 ML IV SCH (21:26)
[2018-10-16] MEDS ORDERED: DEXTROSE 5%-WATER - 50 ML IVPB ONE ×2 (00:08→09:47)
[2018-10-16] MEDS ORDERED: AZTREONAM 1 GM VIAL (RESTRICTED TO ID) ONE ×2 (00:08→09:47)
[2018-10-16] MEDS: VANCOMYCIN 1 GRAM (PRE-DOCKED) 1,000 MG/250 ML BAG IVPB SCH ×2 (01:02→15:44)
[2018-10-16] MEDS: AZTREONAM 1 GM in DEXTROSE 5%-WATER - 50 ML IVPB SCH ×2 (02:53→10:11)
[2018-10-16] MEDS: SODIUM CHLORIDE 1,000 ML IV SCH ×2 (02:53→15:43)
[2018-10-16] MEDS: ACETAMINOPHEN 650 MG/20.3 ML ORAL SOLUTION (CUPS) PEG PRN ×2 (03:29→10:13)
[2018-10-16] MEDS: LEVOTHYROXINE NA 112 MCG TABLET (FP) PEG SCH (06:19)
[2018-10-16] MEDS: MINERAL OIL/PET HY-PHL TOPICAL OINTMENT 454 GM JAR TP SCH ×2 (10:08→21:19)
[2018-10-16] MEDS: NYSTATIN POWDER 100,000 UNITS/GM - 15 GM TOPICAL POWDER TP SCH ×2 (10:08→21:20)
[2018-10-16] MEDS: BACLOFEN 10 MG TABLET (FP) PEG SCH (10:12)
[2018-10-16] MEDS: MULTIVIT-MINERALS ORAL LIQUID PEG SCH (10:12)
--- NOTE | 2018-10-16 13:13 | PN ---
Progress Note, Physician Chief Complaint: G-tube Placement Multiple Sclerosis History of Present Illness: Previous notes and events reviewed awake and alert G tube in place, feedings tolerated afebrile WBC 10.8 erythematous rash noted to b/l wrists--2/2 ID band? - Current Medication List Current Medications: Active Medications Acetaminophen (Tylenol Oral Solution -) 650 mg PEG Q4H PRN PRN Reason: FEVER Last Admin: 10/16/18 10:13 Dose: 650 mg Baclofen (Lioresal -) 10 mg PEG DAILY [facility] Last Admin: 10/16/18 10:12 Dose: 10 mg Emollient Ointment (Aquaphor -) 1 applic TP BID [facility] Last Admin: 10/16/18 10:08 Dose: 1 applic Vancomycin HCl (Vancomycin (Pre-Docked)) 1,000 mg in 250 mls @ 166.667 mls/hr IVPB Q12H [facility]; Protocol Last Admin: 10/16/18 01:02 Dose: 166.667 mls/hr Aztreonam 1 gm/ Dextrose 50 mls @ 100 mls/hr IVPB Q8H-IV [facility]; Protocol Last Admin: 10/16/18 10:11 Dose: 100 mls/hr Sodium Chloride (Normal Saline -) 1,000 mls @ 100 mls/hr IV ASDIR [facility] Last Admin: 10/16/18 02:53 Dose: 100 mls/hr Levothyroxine Sodium (Synthroid -) 112 mcg PEG DAILY@0700 [facility] Last Admin: 10/16/18 06:19 Dose: 112 mcg Mineral Oil (Mineral Oil -) 30 ml TP Q6H PRN PRN Reason: DRY MOUTH Last Admin: 10/14/18 15:49 Dose: 30 ml Nystatin (Nystop Powder -) 1 applic TP BID [facility] Last Admin: 10/16/18 10:08 Dose: 1 applic - Objective Vital Signs: Vital Signs Temperature 98.4 F 10/16/18 05:00 Pulse Rate 106 H 10/16/18 05:00 Respiratory Rate 18 10/16/18 05:00 Blood Pressure 133/57 L 10/16/18 05:00 O2 Sat by Pulse Oximetry (%) 96 10/15/18 09:00 Constitutional: Yes: No Distress, Calm Eyes: Yes: Conjunctiva Clear HENT: Yes: Atraumatic Cardiovascular: Yes: Tachycardia Respiratory: Yes: Regular, Diminished Gastrointestinal: Yes: Normal Bowel Sounds, Soft, Other (G-tube) Genitourinary: Yes: Incontinence Musculoskeletal: Yes: Muscle Weakness Extremities: Yes: WNL Edema: No Integumentary: Yes: Rash (b/l wrists) Neurological: Yes: Alert, Pre-Existing Deficit Psychiatric: Yes: Alert Labs: CBC, BMP 10/14/18 07:15 10/14/18 07:15 INR, PTT INR 1.14 (0.83-1.09) H 10/11/18 07:18 Microbiology 10/11/18 17:00 Blood - Peripheral Venous Blood Culture - Preliminary NO GROWTH OBTAINED AFTER 96 HOURS, INCUBATION TO CONTINUE FOR 1 DAYS. 10/11/18 17:00 Blood - Peripheral Venous Blood Culture - Preliminary NO GROWTH OBTAINED AFTER 96 HOURS, INCUBATION TO CONTINUE FOR 1 DAYS. 10/11/18 16:00 Urine - Urine - Catheterized Urine Culture - Final NO GROWTH OBTAINED Problem List - Problems (1) Dysphagia Assessment/Plan: -G tube placed -IR on board -G tube with feeding infusing, currently tolerating -aspiration precaution Code(s): R13.10 - DYSPHAGIA, UNSPECIFIED (2) Anemia Assessment/Plan: -Hg 11.8 -monitor Hg and transfuse for Hg <8.0 Code(s): D64.9 - ANEMIA, UNSPECIFIED (3) Functional quadriplegia Assessment/Plan: -fall precaution -PT Code(s): R53.2 - FUNCTIONAL QUADRIPLEGIA (4) Hypothyroid Assessment/Plan: -Levothyroxine Code(s): E03.9 - HYPOTHYROIDISM, UNSPECIFIED (5) Multiple sclerosis Assessment/Plan: -PT -fall precaution Code(s): G35 - MULTIPLE SCLEROSIS (6) Tachycardia Assessment/Plan: -EKG -cardiac profile ordered Code(s): R00.0 - TACHYCARDIA, UNSPECIFIED (7) Fever Assessment/Plan: -tylenol for temp >100F -CXR shows some increased density seen at the left apex and some very atelectatic changes in RUL--Pulm consult -BC and UC neg -resolved Code(s): R50.9 - FEVER, UNSPECIFIED (8) Leukocytosis Assessment/Plan: -WBC 11.8 -CXR shows some increased density seen at the left apex and some very atelectatic changes in RUL--Pulm Consult -BC and UC neg -ID on board -IV Vancomycin and Azactam Code(s): D72.829 - ELEVATED WHITE BLOOD CELL COUNT, UNSPECIFIED (9) Hypotension Assessment/Plan: -resolved -monitor BP Code(s): I95.9 - HYPOTENSION, UNSPECIFIED (10) Rash and nonspecific skin eruption Assessment/Plan: -hydrocortisone cream Code(s): R21 - RASH AND OTHER NONSPECIFIC SKIN ERUPTION
--- NOTE | 2018-10-16 14:04 | CON.PULM ---
Consult Consult Specialty:: PULM/CCM Referred by:: PHILLIP Reason for Consultation:: Abnormal CXR - History of Present Illness Chief Complaint: cough History of Present Illness: 53 F, known to our service from previous admissions. Hypothyroidism, HTN , and a progressive neurodegenrative disorder. Admitted for placement of a G tube. No specific reports of CP or SOB. Some dry cough. No hemoptysis or night sweats. Noted has been on broad spectrum ABX per ID. 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: Multiple Sclerosis (Questionable), Other (Recurrent falls, Ataxia,) ...LMP Comment: UNSURE - Alcohol/Substance Use Hx Alcohol Use: No - Smoking History Smoking history: Never smoked Have you smoked in the past 12 months: No If you are a former smoker, when did you quit?: 1985 Home Medications - Allergies Allergies/Adverse Reactions: Allergies Allergy/AdvReac Type Severity Reaction Status Date / Time Penicillins Allergy Verified 10/06/18 15:14 sulfur dioxide Allergy Verified 10/06/18 15:14 - Home Medications Home Medications: Ambulatory Orders Fosinopril Sodium [Fosinopril Sodium -] 10 mg PO DAILY 07/05/18 Baclofen 10 mg PO DAILY 08/14/18 Propranolol HCl [Propranolol HCl ER] 80 mg PO DAILY 08/14/18 Heparin - 5,000 unit SQ BID #30 vial 08/17/18 Acetaminophen 325 mg PO PRN PRN 10/06/18 Docusate Sodium [Colace -] 200 mg PO HS 10/06/18 Nystatin Powder [Nystop Topical Powder -] 1 applic TP DAILY 10/06/18 Vits A and D/White Pet/Lanolin [A and D Ointment] 1 applic TP DAILY 10/06/18 Zinc Oxide 500 gm MC DAILY 10/06/18 Levothyroxine [Synthroid -] 112 mcg PO ACBK 10/09/18 Triamcinolone 0.1% Cream [Aristocort] 1 applic TP TID 10/09/18 Zinc Oxide 20% Topical Oint 1 applic TP Q8H 10/09/18 Review of Systems Unable to obtain ROS, reason: unable to provide Physical Exam Vital Sings: Vital Signs Temperature 98.6 F 10/16/18 09:00 Pulse Rate 113 H 10/16/18 09:00 Respiratory Rate 18 10/16/18 09:00 Blood Pressure 100/79 10/16/18 09:00 O2 Sat by Pulse Oximetry (%) 96 10/16/18 09:00 Constitutional: Yes: No Distress, Cachectic, Thin Eyes: Yes: Conjunctiva Clear, EOM Intact HENT: Yes: Atraumatic, Normocephalic Neck: Yes: Supple, Trachea Midline Cardiovascular: Yes: Regular Rate and Rhythm Respiratory: Yes: Diminished. No: Accessory Muscle Use, Rales, Rhonchi, SOB, SOB on Exertion, Stridor, Tachypnea, Wheezes ...Inspection: Yes: WNL ...Clubbing: No Gastrointestinal: Yes: Normal Bowel Sounds, Soft Renal/: Yes: WNL Musculoskeletal: Yes: WNL Extremities: Yes: Shortened Edema: No Peripheral Pulses WNL: Yes Neurological: Yes: Alert Psychiatric: Yes: Alert Labs: CBC, BMP 10/14/18 07:15 10/14/18 07:15 Imaging - Results Chest X-ray: Report Reviewed, Image Reviewed Problem List - Problems (1) Dysphagia Code(s): R13.10 - DYSPHAGIA, UNSPECIFIED (2) Rash and nonspecific skin eruption Code(s): R21 - RASH AND OTHER NONSPECIFIC SKIN ERUPTION (3) Tachycardia Code(s): R00.0 - TACHYCARDIA, UNSPECIFIED (4) Anemia Code(s): D64.9 - ANEMIA, UNSPECIFIED (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 Code(s): I67.9 - CEREBROVASCULAR DISEASE, UNSPECIFIED; R27.0 - ATAXIA, UNSPECIFIED (6) CAD (coronary artery disease) Code(s): I25.10 - ATHSCL HEART DISEASE OF [place] CORONARY ARTERY W/O ANG PCTRS (7) Functional quadriplegia Code(s): R53.2 - FUNCTIONAL QUADRIPLEGIA (8) HTN (hypertension) Code(s): I10 - ESSENTIAL (PRIMARY) HYPERTENSION (9) Hypothyroid Code(s): E03.9 - HYPOTHYROIDISM, UNSPECIFIED (10) Multiple sclerosis Code(s): G35 - MULTIPLE SCLEROSIS (11) Neurodegenerative cognitive impairment Code(s): G31.9 - DEGENERATIVE DISEASE OF NERVOUS SYSTEM, UNSPECIFIED (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 Dr Holly
[2018-10-16] MEDS ORDERED: PT OWN MED DRAWER 7, Y5N ONE ×2 (15:00→21:05)
--- NOTE | 2018-10-16 15:13 | PN ---
Progress Note, Physician History of Present Illness: AWAKE IN BED WEEPY BUT IN NO ACUTE DISTRESS AFEBRILE WBC IMPROVED BREATHING NON-LABORED CULTURES (-) - Current Medication List Current Medications: Active Medications Acetaminophen (Tylenol Oral Solution -) 650 mg PEG Q4H PRN PRN Reason: FEVER Last Admin: 10/16/18 10:13 Dose: 650 mg Baclofen (Lioresal -) 10 mg PEG DAILY [facility] Last Admin: 10/16/18 10:12 Dose: 10 mg Emollient Ointment (Aquaphor -) 1 applic TP BID [facility] Last Admin: 10/16/18 10:08 Dose: 1 applic Hydrocortisone (Anusol 2.5% Hc Cream -) 1 applic TP DAILY [facility] Vancomycin HCl (Vancomycin (Pre-Docked)) 1,000 mg in 250 mls @ 166.667 mls/hr IVPB Q12H [facility]; Protocol Last Admin: 10/16/18 01:02 Dose: 166.667 mls/hr Aztreonam 1 gm/ Dextrose 50 mls @ 100 mls/hr IVPB Q8H-IV [facility]; Protocol Last Admin: 10/16/18 10:11 Dose: 100 mls/hr Sodium Chloride (Normal Saline -) 1,000 mls @ 100 mls/hr IV ASDIR [facility] Last Admin: 10/16/18 02:53 Dose: 100 mls/hr Levothyroxine Sodium (Synthroid -) 112 mcg PEG DAILY@0700 [facility] Last Admin: 10/16/18 06:19 Dose: 112 mcg Mineral Oil (Mineral Oil -) 30 ml TP Q6H PRN PRN Reason: DRY MOUTH Last Admin: 10/14/18 15:49 Dose: 30 ml Nystatin (Nystop Powder -) 1 applic TP BID [facility] Last Admin: 10/16/18 10:08 Dose: 1 applic - Objective Vital Signs: Vital Signs Temperature 98.6 F 10/16/18 09:00 Pulse Rate 113 H 10/16/18 09:00 Respiratory Rate 18 10/16/18 09:00 Blood Pressure 100/79 10/16/18 09:00 O2 Sat by Pulse Oximetry (%) 96 10/16/18 09:00 Constitutional: Yes: No Distress, Cachectic Cardiovascular: Yes: Regular Rate and Rhythm, S1, S2 Respiratory: Yes: CTA Bilaterally Gastrointestinal: Yes: Normal Bowel Sounds, Soft. No: Tenderness Extremities: Yes: Other (PHLEBITIS L UE IMPROVED) Edema: No Labs: CBC, BMP 10/14/18 07:15 10/14/18 07:15 INR, PTT INR 1.14 (0.83-1.09) H 10/11/18 07:18 Assessment/Plan FEVER ? SKIN SOURCE ? ? ASP PCN ALLERGY HX NEUROMUSCULAR DISORDER IMPROVED DAY #5 VANCO/AZTREONAM WILL D/C ANTIBIOTICS, OBSERVE OFF
[2018-10-16] MEDS: HYDROCORTISONE 2.5% TOPICAL CREAM 30 GM TUBE TP SCH (15:38)
[2018-10-16] MEDS: MINERAL OIL 30 ML UNIT-DOSE CUP TP PRN (21:20)
[2018-10-17] MEDS: SODIUM CHLORIDE 1,000 ML IV SCH (00:02)
[2018-10-17] MEDS: LEVOTHYROXINE NA 112 MCG TABLET (FP) PEG SCH (06:00)
[2018-10-17 06:24] LABS: HEMATOCRIT 30.1 % (32.4-45.2); HEMOGLOBIN 10.4 GM/dL (10.7-15.3); MCHC 34.5 g/dl (32.0-36.0); PLATELET COUNT 258 K/MM3 (134-434); RBC 3.35 M/mm3 (3.60-5.2); RDW 16.1 % (11.6-15.6); WHITE BLOOD COUNT 8.8 K/mm3 (4.0-10.0)
[2018-10-17 06:55] LABS: ALBUMIN 1.8 g/dl (3.4-5.0); BILIRUBIN,TOTAL 0.3 mg/dL (0.2-1); CALCIUM 8.8 mg/dL (8.5-10.1); CREATININE 0.3 mg/dL (0.55-1.3); POTASSIUM 4.2 mmol/L (3.5-5.1); TOT PROT 4.9 g/dl (6.4-8.2)
[2018-10-17] MEDS ORDERED: PT OWN MED DRAWER 7, Y5N ONE (08:57)
[2018-10-17] MEDS: MINERAL OIL/PET HY-PHL TOPICAL OINTMENT 454 GM JAR TP SCH ×2 (09:43→22:07)
[2018-10-17] MEDS: MULTIVIT-MINERALS ORAL LIQUID PEG SCH (09:43)
[2018-10-17] MEDS: BACLOFEN 10 MG TABLET (FP) PEG SCH (09:43)
[2018-10-17] MEDS: HYDROCORTISONE 2.5% TOPICAL CREAM 30 GM TUBE TP SCH (09:44)
[2018-10-17] MEDS: NYSTATIN POWDER 100,000 UNITS/GM - 15 GM TOPICAL POWDER TP SCH ×2 (09:44→22:07)
--- NOTE | 2018-10-17 10:00 | PN ---
Progress Note (short form) - Note Progress Note: Awake. NAD on RA. Afebrile. Breathing non-labored. Intake & Output 10/14/18 10/15/18 10/16/18 10/17/18 23:59 23:59 23:59 23:59 Intake Total 4610 4090 3955 1260 Balance 4610 4090 3955 1260 Weight 101 lb 4 oz 100 lb 1 oz 101 lb 7 oz Last Vital Signs Temp Pulse Resp BP Pulse Ox 97.7 F 105 H 18 92/54 L 96 10/17/18 04:00 10/17/18 04:00 10/17/18 04:00 10/17/18 04:00 10/16/18 21:00 Active Medications Acetaminophen (Tylenol Oral Solution -) 650 mg PEG Q4H PRN PRN Reason: FEVER Last Admin: 10/16/18 10:13 Dose: 650 mg Baclofen (Lioresal -) 10 mg PEG DAILY [facility] Last Admin: 10/17/18 09:43 Dose: 10 mg Emollient Ointment (Aquaphor -) 1 applic TP BID [facility] Last Admin: 10/17/18 09:43 Dose: 1 applic Hydrocortisone (Anusol 2.5% Hc Cream -) 1 applic TP DAILY [facility] Last Admin: 10/17/18 09:44 Dose: 1 applic Levothyroxine Sodium (Synthroid -) 112 mcg PEG DAILY@0700 [facility] Last Admin: 10/17/18 06:00 Dose: 112 mcg Mineral Oil (Mineral Oil -) 30 ml TP Q6H PRN PRN Reason: DRY MOUTH Last Admin: 10/16/18 21:20 Dose: 30 ml Nystatin (Nystop Powder -) 1 applic TP BID [facility] Last Admin: 10/17/18 09:44 Dose: 1 applic Constitutional: Yes: No Distress, Cachectic, Thin Eyes: Yes: Conjunctiva Clear, EOM Intact HENT: Yes: Atraumatic, Normocephalic Neck: Yes: Supple, Trachea Midline Cardiovascular: Yes: Regular Rate and Rhythm Respiratory: Yes: Diminished. No: Accessory Muscle Use, Rales, Rhonchi, SOB, SOB on Exertion, Stridor, Tachypnea, Wheezes ...Inspection: Yes: WNL ...Clubbing: No Gastrointestinal: Yes: Normal Bowel Sounds, Soft Renal/: Yes: WNL Musculoskeletal: Yes: WNL Extremities: Yes: Shortened Edema: No Peripheral Pulses WNL: Yes Neurological: Yes: Alert Psychiatric: Yes: Alert Labs: Laboratory Results - last 24 hr 10/17/18 10/17/18 05:20 05:20 WBC 8.8 RBC 3.35 L Hgb 10.4 L Hct 30.1 L MCV 90.0 MCH 31.0 MCHC 34.5 RDW 16.1 H Plt Count 258 D MPV 8.0 Sodium 140 Potassium 4.2 Chloride 108 H Carbon Dioxide 28 Anion Gap 4 L BUN 8 Creatinine 0.3 L Est GFR (CKD-EPI)AfAm 151.50 Est GFR (CKD-EPI)NonAf 130.72 Random Glucose 94 Calcium 8.8 Total Bilirubin 0.3 AST 21 ALT 42 Alkaline Phosphatase 144 H Total Protein 4.9 L Albumin 1.8 L Problem List - Problems (1) Dysphagia Code(s): R13.10 - DYSPHAGIA, UNSPECIFIED (2) Rash and nonspecific skin eruption Code(s): R21 - RASH AND OTHER NONSPECIFIC SKIN ERUPTION (3) Tachycardia Code(s): R00.0 - TACHYCARDIA, UNSPECIFIED (4) Anemia Code(s): D64.9 - ANEMIA, UNSPECIFIED (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 Code(s): I67.9 - CEREBROVASCULAR DISEASE, UNSPECIFIED; R27.0 - ATAXIA, UNSPECIFIED (6) CAD (coronary artery disease) Code(s): I25.10 - ATHSCL HEART DISEASE OF [place] CORONARY ARTERY W/O ANG PCTRS (7) Functional quadriplegia Code(s): R53.2 - FUNCTIONAL QUADRIPLEGIA (8) HTN (hypertension) Code(s): I10 - ESSENTIAL (PRIMARY) HYPERTENSION (9) Hypothyroid Code(s): E03.9 - HYPOTHYROIDISM, UNSPECIFIED (10) Multiple sclerosis Code(s): G35 - MULTIPLE SCLEROSIS (11) Neurodegenerative cognitive impairment Code(s): G31.9 - DEGENERATIVE DISEASE OF NERVOUS SYSTEM, UNSPECIFIED (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 Assessment/Plan Suspect atelectasis more than PNA: S/P ABX coverage, monitoring of ABX per ID Aspiration precautions Pulmonary toilet as able due to Neuro status VTE prophylaxis Nutritional support D/C planning Dr Holly Problem List - Problems (1) Dysphagia Code(s): R13.10 - DYSPHAGIA, UNSPECIFIED (2) Rash and nonspecific skin eruption Code(s): R21 - RASH AND OTHER NONSPECIFIC SKIN ERUPTION (3) Tachycardia Code(s): R00.0 - TACHYCARDIA, UNSPECIFIED (4) Anemia Code(s): D64.9 - ANEMIA, UNSPECIFIED (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 Code(s): I67.9 - CEREBROVASCULAR DISEASE, UNSPECIFIED; R27.0 - ATAXIA, UNSPECIFIED (6) CAD (coronary artery disease) Code(s): I25.10 - ATHSCL HEART DISEASE OF [place] CORONARY ARTERY W/O ANG PCTRS (7) Functional quadriplegia Code(s): R53.2 - FUNCTIONAL QUADRIPLEGIA (8) HTN (hypertension) Code(s): I10 - ESSENTIAL (PRIMARY) HYPERTENSION (9) Hypothyroid Code(s): E03.9 - HYPOTHYROIDISM, UNSPECIFIED (10) Multiple sclerosis Code(s): G35 - MULTIPLE SCLEROSIS (11) Neurodegenerative cognitive impairment Code(s): G31.9 - DEGENERATIVE DISEASE OF NERVOUS SYSTEM, UNSPECIFIED (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
--- NOTE | 2018-10-17 11:05 | DS ---
Physical Examination Vital Signs: Vital Signs Temperature 97.8 F 10/17/18 08:00 Pulse Rate 109 H 10/17/18 08:00 Respiratory Rate 20 10/17/18 08:00 Blood Pressure 99/63 10/17/18 08:00 O2 Sat by Pulse Oximetry (%) 96 10/17/18 09:00 Findings/Remarks: 53 yr old female with PMH hypothyroid, HTN , progressive neurodegenrative disorder came in form [facility] for g tube placement Was treated for sepsis G tube place by IR Constitutional: Yes: No Distress, Calm, Cachectic Cardiovascular: Yes: Regular Rate and Rhythm Respiratory: Yes: Regular Gastrointestinal: Yes: Normal Bowel Sounds, Soft, Other (G tube) Musculoskeletal: Yes: WNL Extremities: Yes: WNL Edema: No Peripheral Pulses WNL: Yes Neurological: Yes: Pre-Existing Deficit Labs: CBC, BMP 10/17/18 05:20 10/17/18 05:20 Discharge Summary Reason For Visit: DYSPHAGIA Current Active Problems Dysphagia (Acute) Fever (Acute) Hypotension (Acute) Leukocytosis (Acute) Rash and nonspecific skin eruption (Acute) Tachycardia (Acute) Hospital Course: Laboratory Last Values WBC 8.8 K/mm3 (4.0-10.0) 10/17/18 05:20 RBC 3.35 M/mm3 (3.60-5.2) L 10/17/18 05:20 Hgb 10.4 GM/dL (10.7-15.3) L 10/17/18 05:20 Hct 30.1 % (32.4-45.2) L 10/17/18 05:20 MCV 90.0 fl (80-96) 10/17/18 05:20 MCH 31.0 pg (25.7-33.7) 10/17/18 05:20 MCHC 34.5 g/dl (32.0-36.0) 10/17/18 05:20 RDW 16.1 % (11.6-15.6) H 10/17/18 05:20 Plt Count 258 K/MM3 (134-434) D 10/17/18 05:20 MPV 8.0 fl (7.5-11.1) 10/17/18 05:20 Absolute Neuts (auto) 9.2 K/mm3 (1.5-8.0) H 10/11/18 23:35 Neutrophils % 78.9 % (42.8-82.8) 10/11/18 23:35 Lymphocytes % 10.7 % (8-40) D 10/11/18 23:35 Monocytes % 9.9 % (3.8-10.2) 10/11/18 23:35 Eosinophils % 0.1 % (0-4.5) D 10/11/18 23:35 Basophils % 0.4 % (0-2.0) 10/11/18 23:35 Nucleated RBC % 0 % (0-0) 10/11/18 23:35 PT with INR 13.50 SEC (9.7-13.0) H 10/11/18 07:18 INR 1.14 (0.83-1.09) H 10/11/18 07:18 Sodium 140 mmol/L (136-145) 10/17/18 05:20 Potassium 4.2 mmol/L (3.5-5.1) 10/17/18 05:20 Chloride 108 mmol/L (98-107) H 10/17/18 05:20 Carbon Dioxide 28 mmol/L (21-32) 10/17/18 05:20 Anion Gap 4 MMOL/L (8-16) L 10/17/18 05:20 BUN 8 mg/dL (7-18) 10/17/18 05:20 Creatinine 0.3 mg/dL (0.55-1.3) L 10/17/18 05:20 Creat Clearance w eGFR 75.03 (>60) 10/11/18 07:18 Est GFR (CKD-EPI)AfAm 151.50 10/17/18 05:20 Est GFR (CKD-EPI)NonAf 130.72 10/17/18 05:20 Random Glucose 94 mg/dL (74-106) 10/17/18 05:20 Lactic Acid 1.3 mmol/L (0.4-2.0) 10/11/18 23:35 Calcium 8.8 mg/dL (8.5-10.1) 10/17/18 05:20 Total Bilirubin 0.3 mg/dL (0.2-1) 10/17/18 05:20 AST 21 U/L (15-37) 10/17/18 05:20 ALT 42 U/L (13-61) 10/17/18 05:20 Alkaline Phosphatase 144 U/L (45-117) H 10/17/18 05:20 Creatine Kinase 488 U/L (26-192) H 10/11/18 13:45 Creatine Kinase Index 1.8 % (0.0-5.0) 10/11/18 13:45 CK-MB (CK-2) 8.8 ng/mL (0.5-3.6) H 10/11/18 13:45 Troponin I < 0.02 ng/ml (0.00-0.05) 10/11/18 13:45 Total Protein 4.9 g/dl (6.4-8.2) L 10/17/18 05:20 Albumin 1.8 g/dl (3.4-5.0) L 10/17/18 05:20 Urine Color Dk yellow 10/12/18 17:15 Urine Appearance Clear 10/12/18 17:15 Urine pH 5.5 (5.0-8.0) 10/12/18 17:15 Ur Specific Tie [place]iding 1.027 (1.010-1.035) 10/12/18 17:15 Urine Protein Negative (NEGATIVE) 10/12/18 17:15 Urine Glucose (UA) Negative (NEGATIVE) 10/12/18 17:15 Urine Ketones Trace (NEGATIVE) H 10/12/18 17:15 Urine Blood Negative (NEGATIVE) 10/12/18 17:15 Urine Nitrite Positive (NEGATIVE) H 10/12/18 17:15 Urine Bilirubin 1+ (NEGATIVE) H 10/12/18 17:15 Urine Urobilinogen 1.0 mg/dL (0.2-1.0) 10/12/18 17:15 Ur Leukocyte Esterase Trace (NEGATIVE) 10/12/18 17:15 Urine WBC (Auto) 1 /hpf (0-5) 10/12/18 17:15 Urine RBC (Auto) 3 /hpf (0-4) 10/12/18 17:15 Urine Casts (Auto) 12 /lpf (0-8) 10/12/18 17:15 U Epithel Cells (Auto) 1.1 /HPF (0-5/HPF) 10/12/18 17:15 Urine Bacteria (Auto) 0.7 /hpf (NEGATIVE) 10/12/18 17:15 Vital Signs Temp 97.8 F 10/17/18 08:00 Pulse 109 H 10/17/18 08:00 Resp 20 10/17/18 08:00 BP 99/63 10/17/18 08:00 Pulse Ox 96 10/17/18 09:00 Intake & Output 10/16/18 10/16/18 10/17/18 11:59 23:59 11:59 Intake Total 1000 2955 1260 Balance 1000 2955 1260 Weight 46.011 kg Intake: IV 700 1300 Normal Saline - 1,000 ml 700 300 @ 100 mls/hr IV ASDIR [facility] Rx#:[id number] SALINE LOCK 1000 IVPB 300 350 Tube Feeding 605 660 Tube Irrigant 700 600 Other: Voiding Method Incontinent Indwelling Catheter Incontinent # Unmeasured Voids Void 1 Bowel Movement No Weight Measurement [facility] 10/11/18 17:00 Blood - Peripheral Venous Blood Culture - Final NO GROWTH AFTER 5 DAYS INCUBATION 10/11/18 17:00 Blood - Peripheral Venous Blood Culture - Final NO GROWTH AFTER 5 DAYS INCUBATION 10/11/18 16:00 Urine - Urine - Catheterized Urine Culture - Final NO GROWTH OBTAINED Condition: Stable - Instructions Diet, Activity, Other Instructions: Continue Jevity 1.5 at 55 ml/hr with H20 50 ml/hr Disposition: [facility] - Home Medications Comprehensive Discharge Medication List: Ambulatory Orders Fosinopril Sodium [Fosinopril Sodium -] 10 mg PO DAILY 07/05/18 Baclofen 10 mg PO DAILY 08/14/18 Propranolol HCl [Propranolol HCl ER] 80 mg PO DAILY 08/14/18 Heparin - 5,000 unit SQ BID #30 vial 08/17/18 Acetaminophen 325 mg PO PRN PRN 10/06/18 Nystatin Powder [Nystop Powder -] 1 applic TP DAILY 10/06/18 Vits A and D/White Pet/Lanolin [A and D Ointment] 1 applic TP DAILY 10/06/18 Zinc Oxide 500 gm MC DAILY 10/06/18 Levothyroxine [Synthroid -] 112 mcg PO ACBK 10/09/18 Zinc Oxide 20% Topical Oint 1 applic TP Q8H 10/09/18 Baclofen [Lioresal -] 10 mg PEG DAILY tablet 10/17/18 Hydrocortisone 2.5% Topical Cr [Anusol-Hc -] 1 applic TP DAILY tube 10/17/18 Levothyroxine [Synthroid -] 112 mcg PEG DAILY@0700 tablet 10/17/18 Mineral Oil - 30 ml TP Q6H PRN cup 10/17/18 Mineral Oil/Pet Hy-Phl [Aquaphor -] 1 applic TP BID jar 10/17/18 Nystatin Powder [Nystop Powder -] 1 applic TP BID applic 10/17/18
[2018-10-17] MEDS: ACETAMINOPHEN 650 MG/20.3 ML ORAL SOLUTION (CUPS) PEG PRN ×3 (11:09→22:02)
[2018-10-18] MEDS: LEVOTHYROXINE NA 112 MCG TABLET (FP) PEG SCH (06:18)
[2018-10-18] MEDS: BACLOFEN 10 MG TABLET (FP) PEG SCH (09:04)
[2018-10-18] MEDS: ACETAMINOPHEN 650 MG/20.3 ML ORAL SOLUTION (CUPS) PEG PRN (09:05)
[2018-10-18] MEDS: HYDROCORTISONE 2.5% TOPICAL CREAM 30 GM TUBE TP SCH (09:06)
[2018-10-18] MEDS: MINERAL OIL/PET HY-PHL TOPICAL OINTMENT 454 GM JAR TP SCH (09:06)
[2018-10-18] MEDS: NYSTATIN POWDER 100,000 UNITS/GM - 15 GM TOPICAL POWDER TP SCH (09:06)
[2018-10-18] MEDS: MULTIVIT-MINERALS ORAL LIQUID PEG SCH (09:31)
[2018-10-18 10:12] VITALS: BP 106/75; PULSE 112; TEMP 98.3
--- NOTE | 2018-10-18 10:48 | PN ---
Progress Note, Physician Chief Complaint: G tube placement Multiple sclerosis History of Present Illness: G tube placed Awaiting discharge - Current Medication List Current Medications: Active Medications Acetaminophen (Tylenol Oral Solution -) 650 mg PEG Q4H PRN PRN Reason: FEVER Last Admin: 10/18/18 09:05 Dose: 650 mg Baclofen (Lioresal -) 10 mg PEG DAILY [facility] Last Admin: 10/18/18 09:04 Dose: 10 mg Emollient Ointment (Aquaphor -) 1 applic TP BID [facility] Last Admin: 10/18/18 09:06 Dose: 1 applic Hydrocortisone (Anusol 2.5% Hc Cream -) 1 applic TP DAILY [facility] Last Admin: 10/18/18 09:06 Dose: 1 applic Levothyroxine Sodium (Synthroid -) 112 mcg PEG DAILY@0700 [facility] Last Admin: 10/18/18 06:18 Dose: 112 mcg Mineral Oil (Mineral Oil -) 30 ml TP Q6H PRN PRN Reason: DRY MOUTH Last Admin: 10/16/18 21:20 Dose: 30 ml Nystatin (Nystop Powder -) 1 applic TP BID [facility] Last Admin: 10/18/18 09:06 Dose: 1 applic - Objective Vital Signs: Vital Signs Temperature 98.3 F 10/18/18 10:00 Pulse Rate 112 H 10/18/18 10:00 Respiratory Rate 18 10/18/18 10:00 Blood Pressure 106/75 10/18/18 10:00 O2 Sat by Pulse Oximetry (%) 96 10/17/18 21:00 Constitutional: Yes: No Distress, Calm, Cachectic Cardiovascular: Yes: Regular Rate and Rhythm Respiratory: Yes: Regular Gastrointestinal: Yes: Normal Bowel Sounds, Soft, Other (g tube) Genitourinary: Yes: Incontinence Musculoskeletal: Yes: Muscle Weakness Extremities: Yes: Other (generalized atrophy) Edema: No Peripheral Pulses WNL: Yes Neurological: Yes: Alert, Pre-Existing Deficit Psychiatric: Yes: Alert Labs: CBC, BMP 10/17/18 05:20 10/17/18 05:20 INR, PTT INR 1.14 (0.83-1.09) H 10/11/18 07:18 Assessment/Plan (1) Dysphagia Assessment/Plan: -G tube placed -IR on board -G tube with feeding infusing, currently tolerating -aspiration precaution Code(s): R13.10 - DYSPHAGIA, UNSPECIFIED (2) Anemia Assessment/Plan: -monitor Hg and transfuse for Hg <8.0 Code(s): D64.9 - ANEMIA, UNSPECIFIED (3) Functional quadriplegia Assessment/Plan: -fall precaution -PT Code(s): R53.2 - FUNCTIONAL QUADRIPLEGIA (4) Hypothyroid Assessment/Plan: -Levothyroxine Code(s): E03.9 - HYPOTHYROIDISM, UNSPECIFIED (5) Multiple sclerosis Assessment/Plan: -PT -fall precaution Code(s): G35 - MULTIPLE SCLEROSIS (6) Tachycardia Assessment/Plan: -EKG -cardiac profile ordered Code(s): R00.0 - TACHYCARDIA, UNSPECIFIED (7) Fever Assessment/Plan: -tylenol for temp >100F -BC and UC neg -IV hydration -completed IV abx -Seen by ID Code(s): R50.9 - FEVER, UNSPECIFIED (8) Leukocytosis Assessment/Plan: -resolved Code(s): D72.829 - ELEVATED WHITE BLOOD CELL COUNT, UNSPECIFIED Return back to [facility]
== END 2018-10-18 15:16 | DRG 720 ==
LOC: JRADIR 10:03 → J8W 12:38 → JRADIR 12:39 → J8W 12:39 → JRADIR 10-10 12:17 → J8W 10-10 12:17
PROVIDERS: ADMIT Family Medicine; ATTEND Family Medicine
PROC: 0DH64UZ Insertion of Feeding Device into Stomach, Percutaneous Endoscopic Approach (ICD-10-PCS; principal; 2018-10-10)
DX: A41.89 Other specified sepsis (principal); R64 Cachexia; R53.2 Functional quadriplegia; G35 Multiple sclerosis; R13.10 Dysphagia, unspecified; I95.9 Hypotension, unspecified; Z68.1 Body mass index [BMI] 19.9 or less, adult; J98.11 Atelectasis; E03.9 Hypothyroidism, unspecified; I10 Essential (primary) hypertension; Z45.89 Encounter for adjustment and management of other implanted devices; R27.0 Ataxia, unspecified; R29.6 Repeated falls; Z87.891 Personal history of nicotine dependence; D64.9 Anemia, unspecified; R21 Rash and other nonspecific skin eruption; G31.9 Degenerative disease of nervous system, unspecified; Z88.0 Allergy status to penicillin
CPT/HCPCS: 36415; 43752; 49440; 49465; 71045-TC-FY; 74018-TC-FY; 76000-TC-FY; 80048; 80053; 81003; 82550; 82553; 83605; 84484; 85025; 85027; 85610; 87040; 87086; 93005; 93010; E0186; J0475; J7030

== ENCOUNTER 2018-10-26 05:20 | Emergency (ER) | payer OTHER ==
--- NOTE | 2018-10-26 05:57 | PDOC ---
Attending Attestation - Resident Resident Name: Lucy Mata - ED Attending Attestation I have performed the following: I have examined & evaluated the patient, The case was reviewed & discussed with the resident, I agree w/resident's findings & plan - HPI HPI: 10/26/18 06:41 53-year-old female sent from an extended care facility for hip fracture on outpatient x-ray. - Physicial Exam PE: 10/26/18 06:42 Agree with resident exam - Medical Decision Making 10/26/18 06:50 53-year-old female with right hip fracture on outpatient imaging Repeat imaging and x-rays pending Signed out to day shift
--- NOTE | 2018-10-26 06:02 | PDOC ---
History of Present Illness - General Chief Complaint: Adult/Elder Abuse Stated Complaint: FALL Time Seen by Provider: 10/26/18 05:35 - History of Present Illness Initial Comments: 53yo F with PMH of HTN, progressive neurodegenerative disorder, CAD, TIA presenting from the care home with right proximal hip fracture. Patient is limited in giving history as she is not able to definitely gesture yes/no. When asked if she is in pain, patient pointed toward pelvis. Per PR paperwork: "right mandible- normal mandible. Pelvis- acute right proximal femur fracture. Left hip- normal left hip. Right hip- acute right femoral intertrochanteric fracture with no displacement" Per charge nurse, the PR reported that the fall likely occurred about five days ago with imaging results reported yesterday. Past History - Past Medical History Allergies/Adverse Reactions: Allergies Allergy/AdvReac Type Severity Reaction Status Date / Time Penicillins Allergy Verified 10/26/18 06:06 sulfur dioxide Allergy Verified 10/26/18 06:06 Home Medications: Ambulatory Orders Fosinopril Sodium [Fosinopril Sodium -] 10 mg GT DAILY 07/05/18 Propranolol HCl [Propranolol HCl ER] 80 mg GT BID 08/14/18 Heparin - 5,000 unit SQ BID #30 vial 08/17/18 Acetaminophen 650 mg GT Q6H PRN 10/06/18 Vits A and D/White Pet/Lanolin [A and D Ointment] 1 applic TP BID 10/06/18 Zinc Oxide 20% Topical Oint 1 applic TP Q8H 10/09/18 Baclofen [Lioresal -] 10 mg PEG DAILY tablet 10/17/18 Levothyroxine [Synthroid -] 112 mcg PEG DAILY@0700 tablet 10/17/18 Mineral Oil/Pet Hy-Phl [Aquaphor -] 1 applic TP BID jar 10/17/18 Nystatin Powder [Nystop Powder -] 1 applic TP BID applic 10/17/18 Hydrocortisone 2.5% Topical Cr [Anusol-Hc -] 1 applic TP BID 10/26/18 Silver Sulfadiazine [Silvadene] 1,000 gm TP BID 10/26/18 Anemia: No Asthma: No Cancer: No CVA: Yes COPD: No Disorders: No HTN: Yes Hypercholesterolemia: No 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) Thyroid Disease: (Yes; HYPOTHYROIDISM) - Immunization History Immunization Up to Date: No - Suicide/Smoking/Psychosocial Hx Smoking History: Never smoked Have you smoked in the past 12 months: No If you are a former smoker, when did you quit?: 1985 Hx Alcohol Use: No Drug/Substance Use Hx: No Substance Use Type: None Hx Substance Use Treatment: No Review of Systems - Review of Systems Able to Perform ROS?: No (pt unable to communicate) *Physical Exam - Physical Exam Comments: General: Awake, alert, cachectic, pained expression on face, laying in position Head: No signs of trauma Eyes: EOMI, sclera anicteric ENT: Dry mucus membranes Neck: Normal ROM, supple Lungs: Lungs clear to auscultation bilaterally Cardio: Regular rhythm, S1 and S2 present Abdomen: Soft, nontender Extremities: Normal range of motion, Distal pulses present SKIN: Warm, Dry, normal turgor Neurologic: Contracted in lower extremities. Paraplegic. Will gesture indeterminately to questions. Following commands ED Treatment Course - LABORATORY CBC & Chemistry Diagram: 10/26/18 06:45 10/26/18 06:45 Medical Decision Making - Medical Decision Making 53yo F with PMH of HTN, progressive neurodegenerative disorder, CAD, TIA presenting from the care home with right proximal hip fracture. Pre-op labs, EKG, CXR Right hip and pelvis, Right femur radiographs 10/26/18 06:46 EKG: rate 98, QTc 418, NSR, LAD Patient signed out to Dr. Vela and day team 10/26/18 07:51 *DC/Admit/Observation/Transfer Diagnosis at time of Disposition: Fall - Discharge Dispostion Disposition: LONGTERM FACILITY Condition at time of disposition: Fair - Referrals Referrals: Fredo Collier MD [Primary Care Provider] - - Patient Instructions Additional Instructions: You were seen in the Emergency Department for evaluation after a fall. Your Xray showed no fractures within your hip. You were evaluated by the orthopedic surgeon who discussed no intervention is necessary at this time. You are being discharged back to [facility] facility. Continue taking your medications as directed. Follow up with your primary care physician within one-two days after discharge. Return to the nearest Emergency Department if you experience worsening, or concerning symptoms, subjective fevers, chills, shortness of breath, chest pain , palpitations, abdominal pain, nausea, vomiting, lightheadedness, dizziness, fall, loss of consciousness, any trauma. - Post Discharge Activity
[2018-10-26 06:06] VITALS: BMI 16.3
[2018-10-26] MEDS ORDERED: ACETAMINOPHEN 1000 MG/100 ML VIAL (NON FORMULARY) IVPB ONE (06:09)
[2018-10-26] MEDS ORDERED: morphine CARPU-JECT 4 MG/1 ML DISP.SYRIN IVPUSH ONE (06:16)
[2018-10-26] MEDS ORDERED: morphine SULFATE 4 MG/ML VIAL ONE (06:49)
[2018-10-26] MEDS ORDERED: ACETAMINOPHEN INJECTION 100 ML IVPB ONE (06:49)
[2018-10-26 07:05] LABS: BASO % 0.7 % (0-2.0); EOS % 3.8 % (0-4.5); HEMOGLOBIN 11.4 GM/dL (10.7-15.3); LYMPH % 22.1 % (8-40); MCH 30.9 pg (25.7-33.7); MCHC 34.5 g/dl (32.0-36.0); MEAN CELL VOLUME 89.4 fl (80-96); MONO % 8.2 % (3.8-10.2); NEUT % 65.2 % (42.8-82.8); PLATELET COUNT 407 K/MM3 (134-434); RBC 3.69 M/mm3 (3.60-5.2); RDW 15.9 % (11.6-15.6); WHITE BLOOD COUNT 7.4 K/mm3 (4.0-10.0)
--- NOTE | 2018-10-26 07:55 | PDOC ---
History of Present Illness - General Chief Complaint: Adult/Elder Abuse Stated Complaint: FALL Time Seen by Provider: 10/26/18 05:35 Past History - Past Medical History Allergies/Adverse Reactions: Allergies Allergy/AdvReac Type Severity Reaction Status Date / Time Penicillins Allergy Verified 10/26/18 06:06 sulfur dioxide Allergy Verified 10/26/18 06:06 Home Medications: Ambulatory Orders Fosinopril Sodium [Fosinopril Sodium -] 10 mg GT DAILY 07/05/18 Propranolol HCl [Propranolol HCl ER] 80 mg GT BID 08/14/18 Heparin - 5,000 unit SQ BID #30 vial 08/17/18 Acetaminophen 650 mg GT Q6H PRN 10/06/18 Vits A and D/White Pet/Lanolin [A and D Ointment] 1 applic TP BID 10/06/18 Zinc Oxide 20% Topical Oint 1 applic TP Q8H 10/09/18 Baclofen [Lioresal -] 10 mg PEG DAILY tablet 10/17/18 Levothyroxine [Synthroid -] 112 mcg PEG DAILY@0700 tablet 10/17/18 Mineral Oil/Pet Hy-Phl [Aquaphor -] 1 applic TP BID jar 10/17/18 Nystatin Powder [Nystop Powder -] 1 applic TP BID applic 10/17/18 Hydrocortisone 2.5% Topical Cr [Anusol-Hc -] 1 applic TP BID 10/26/18 Silver Sulfadiazine [Silvadene] 1,000 gm TP BID 10/26/18 Anemia: No Asthma: No Cancer: No CVA: Yes COPD: No Disorders: No HTN: Yes Hypercholesterolemia: No 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) Thyroid Disease: (Yes; HYPOTHYROIDISM) - Immunization History Immunization Up to Date: No - Suicide/Smoking/Psychosocial Hx Smoking History: Never smoked Have you smoked in the past 12 months: No If you are a former smoker, when did you quit?: 1985 Information on smoking cessation initiated: No Hx Alcohol Use: No Drug/Substance Use Hx: No Substance Use Type: None Hx Substance Use Treatment: No *Physical Exam - Vital Signs Last Vital Signs Temp Pulse Resp BP Pulse Ox 97.8 F 94 H 18 106/71 97 10/26/18 05:20 10/26/18 05:20 10/26/18 05:20 10/26/18 05:20 10/26/18 05:20 ED Treatment Course - LABORATORY CBC & Chemistry Diagram: 10/26/18 06:45 10/26/18 06:45 - ADDITIONAL ORDERS Additional order review: 10/26/18 06:45 RBC 3.69 MCV 89.4 MCHC 34.5 RDW 15.9 H MPV 7.0 L D Neutrophils % 65.2 Lymphocytes % 22.1 D Monocytes % 8.2 Eosinophils % 3.8 D Basophils % 0.7 - Medications Given in the ED: ED Medications Discontinued Medications Generic Name Dose Route Start Last Admin Trade Name Gricelda PRN Reason Stop Dose Admin Acetaminophen 1,000 mg 10/26/18 06:09 10/26/18 06:54 Ofirmev Injection - IVPB 10/26/18 06:10 1,000 mg ONCE ONE Administration Morphine Sulfate 4 mg 10/26/18 06:16 10/26/18 06:54 Morphine Injection - IVPUSH 10/26/18 06:17 4 mg ONCE ONE Administration Medical Decision Making - Medical Decision Making 10/26/18 07:54 Sign out obtained from Dr. Mata Briefly, patient is a 53 year old female presenting from [facility] for right hip fracture. Pending: Radiograph hip, femur, pelvis CBC, CMP, PT/INR, type and cross Will discuss case with orthopedic surgery once imaging results. 10/26/18 08:[address] Zepeda, orthopedic surgery 10/26/18 10:21 Per orthopedic surgery, no acute fracture noted upon review of todays radiographs. No orthopedic surgery intervention. Per patient's family at bedside, patient appears at baseline. Will discharge patient back to [facility] 10/26/18 10:[address] Madden who is in agreement for discharge back to [facility] *DC/Admit/Observation/Transfer Diagnosis at time of Disposition: Fall - Discharge Dispostion Disposition: [facility]OD[facility] FACILITY Condition at time of disposition: Fair Decision to Admit order: No - Referrals Referrals: Fredo Collier MD [Primary Care Provider] - - Patient Instructions Additional Instructions: You were seen in the Emergency Department for evaluation after a fall. Your Xray showed no fractures within your hip. You were evaluated by the orthopedic surgeon who discussed no intervention is necessary at this time. You are being discharged back to [facility] facility. Continue taking your medications as directed. Follow up with your primary care physician within one-two days after discharge. Return to the nearest Emergency Department if you experience worsening, or concerning symptoms, subjective fevers, chills, shortness of breath, chest pain , palpitations, abdominal pain, nausea, vomiting, lightheadedness, dizziness, fall, loss of consciousness, any trauma. - Post Discharge Activity
[2018-10-26 08:10] LABS: ALBUMIN 2.5 g/dl (3.4-5.0); BILIRUBIN,TOTAL 0.4 mg/dL (0.2-1); CALCIUM 9.5 mg/dL (8.5-10.1); CREATININE 0.4 mg/dL (0.55-1.3); POTASSIUM 4.7 mmol/L (3.5-5.1)
[2018-10-26 08:52] LABS: INR 0.94 (0.83-1.09); PROTHROMBIN TIME (PATIENT) 11.1 SEC (9.7-13.0)
[2018-10-26 08:55] LABS: ACTIVATED PTT 28.6 SECONDS (25.2-36.5)
--- NOTE | 2018-10-26 09:48 | PN ---
Progress Note (short form) - Note Progress Note: Pt seen and examined in ER. She is a 53 year old female who lives in a NH, has a progressive neurologic degenerative disorder, is a nonverbal, nonambulator who slipped out of bed onto the floor which had a rubber mat on it. According to her mother, who I spoke to at the ER bedside, she is at her normal baseline, she does not appear to be in pain, she in in NAD. Her mother confirms she is a nonambulator, and has flexion contractures of both hips and knees. PE Bedbound female in NAD. Nonverbal Does not appear to be in any pain, including with pressure over right hip and pelvis. B/L LE at her baseline, with contractures, + moving Xrays Of the pelvis and right hip show no acute pathology, no fractures or dislocations. Imp No hip fracture in a 53 nonverbal nonambulator. + mild right hip contusion Rec No orthopedic intervention necessary Can transfer back to the NH from the ER from an orthopedic pov No f/u needed unless there are continued problems
[2018-10-26 10:56] VITALS: BP 120/63; PULSE 92; TEMP 98.1
--- NOTE | 2018-10-26 13:11 | EKG ---
Test Reason : Blood Pressure : / mmHG Vent. Rate : 098 BPM Atrial Rate : 098 BPM P-R Int : 126 ms QRS Dur : 074 ms QT Int : 328 ms P-R-T Axes : 065 -39 065 degrees QTc Int : 418 ms POOR DATA QUALITY, INTERPRETATION MAY BE ADVERSELY AFFECTED NORMAL SINUS RHYTHM LEFT AXIS DEVIATION ABNORMAL ECG WHEN COMPARED WITH ECG OF 11-OCT-2018 12:33, ST NO LONGER DEPRESSED IN INFERIOR LEADS Confirmed by SALEEM ROTHMAN MD ([id number]) on 10/26/2018 1:11:13 PM Referred By: Confirmed By:SALEEM ROTHMAN MD
== END 2018-10-26 11:00 ==
LOC: JER 05:20
DX: S70.01XA Contusion of right hip, initial encounter (principal); W06.XXXA Fall from bed, initial encounter; Y93.89 Activity, other specified; Y92.122 Bedroom in nursing home as the place of occurrence of the external cause; Y99.8 Other external cause status; I10 Essential (primary) hypertension; E03.8 Other specified hypothyroidism; G31.9 Degenerative disease of nervous system, unspecified; M35.8 Other specified systemic involvement of connective tissue; Z86.73 Personal history of transient ischemic attack (TIA), and cerebral infarction without residual deficits
CPT/HCPCS: 36415; 71045-TC-FY; 73523-TC-FY; 73552-TC-RT-FY; 80053; 85025; 85610; 85730; 86850; 86900; 86901; 93005; 93010; 99283-25; J0131

== ENCOUNTER 2019-04-22 09:09 | Inpatient (IN) | payer MEDICARE, OTHER ==
--- NOTE | 2019-04-22 09:34 | PDOC ---
History of Present Illness - General Chief Complaint: SIRS, Suspected/Possible Stated Complaint: FEVER Time Seen by Provider: 04/22/19 09:32 History Source: Patient, Shelter Records Exam Limitations: Clinical Condition - History of Present Illness Initial Comments: 53yo F with PMH of HTN, progressive neurodegenerative disorder, CAD, TIA, and pseudobulbar affect presents to the emergency department from her detention for elevated temperature, tachycardia, and tachypnea. The patient was unable to provide a history due to clinical condition. Per the detention, the fever began today. Allergies: PCN, sulfur dioxide Past History - Past Medical History Allergies/Adverse Reactions: Allergies Allergy/AdvReac Type Severity Reaction Status Date / Time Penicillins Allergy Verified 04/22/19 09:38 sulfur dioxide Allergy Verified 04/22/19 09:38 Home Medications: Ambulatory Orders Fosinopril Sodium [Fosinopril Sodium -] 10 mg GT DAILY 07/05/18 Propranolol HCl [Propranolol HCl ER] 80 mg GT BID 08/14/18 Heparin - 5,000 unit SQ BID #30 vial 08/17/18 Acetaminophen 650 mg GT Q6H PRN 10/06/18 Vits A and D/White Pet/Lanolin [A and D Ointment] 1 applic TP BID 10/06/18 Zinc Oxide 20% Topical Oint 1 applic TP Q8H 10/09/18 Baclofen [Lioresal -] 10 mg PEG DAILY tablet 10/17/18 Levothyroxine [Synthroid -] 112 mcg PEG DAILY@0700 tablet 10/17/18 Hydrocortisone 2.5% Topical Cr [Anusol 2.5% Hc Cream -] 1 applic RC BID Lactulose (Oral Use) [Cephulac -] 15 ml GT DAILY 04/22/19 Sennosides [Senna] 2 tab GT HS 04/22/19 Anemia: No Asthma: No Cancer: No CVA: Yes COPD: No GI Disorders: Yes (peg tube) Disorders: No HTN: Yes Hypercholesterolemia: No 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) Thyroid Disease: (Yes; HYPOTHYROIDISM) - Immunization History Immunization Up to Date: No - Psycho Social/Smoking Cessation Hx Smoking History: Never smoked Have you smoked in the past 12 months: No If you are a former smoker, when did you quit?: 1985 Hx Alcohol Use: No Drug/Substance Use Hx: No Substance Use Type: None Hx Substance Use Treatment: No Review of Systems - Review of Systems Able to Perform ROS?: No (CLINICAL CONDITION) *Physical Exam - Physical Exam General Appearance: Yes: Nourished, Appropriately Dressed, Mild Distress, Other (tachypnea, hot to the touch) HEENT: positive: EOMI, KIRAN, Other (dry mucous membranes. no lymphadenopathy appreciated. ). negative: Pale Conjunctivae, Scleral Icterus (R), Scleral Icterus (L) Neck: positive: Trachea midline, Supple. negative: Tender, Lymphadenopathy (R) , Lymphadenopathy (L), Tender lateral, Tender midline Respiratory/Chest: positive: Lungs Clear, Rapid RR, Decreased Breath Sounds ( bilateral bases; decreased more on the right side). negative: Chest Tender, Accessory Muscle Use Cardiovascular: positive: Regular Rhythm, S1, S2, Tachycardia. negative: Systolic Murmur Gastrointestinal/Abdominal: positive: Normal Bowel Sounds, Flat, Soft, Other ( PEG present. no erythema or purulent discharge noted at the stoma). negative: Tender Lymphatic: negative: Adenopathy Musculoskeletal: negative: Normal Inspection (contraction of the extremities), CVA Tenderness, Vertebral Tenderness Extremity: positive: Normal Capillary Refill. negative: Normal Inspection ( contracted), Normal Range of Motion (contracted), Tender, Swelling, Calf Tenderness Integumentary: positive: Normal Color, Dry, Warm Neurologic: positive: Alert ED Treatment Course - LABORATORY CBC & Chemistry Diagram: 04/22/19 09:40 04/22/19 09:40 Medical Decision Making - Medical Decision Making 53yo F with PMH of HTN, progressive neurodegenerative disorder, CAD, TIA, and pseudobulbar affect presents to the emergency department from her detention for elevated temperature, tachycardia, and tachypnea Initial vitals: Initial Vital Signs Temp 103.8 F H 04/22/19 09:15 Heart rate was in 140s, RR in the 40s, BP within normal limits. Work up: 04/22/19 13:41 The patient was reassessed. Vital Signs Temperature 99.8 F H 04/22/19 13:00 Pulse Rate 107 H 04/22/19 13:00 Respiratory Rate 31 H 04/22/19 13:00 Blood Pressure 105/81 04/22/19 13:00 O2 Sat by Pulse Oximetry (%) 100 04/22/19 13:00 04/22/19 13:54 Mother of the patient: [phone] 04/22/19 14:32 Discharge - Discharge Information Problems reviewed: Yes Clinical Impression/Diagnosis: Sepsis, UTI (urinary tract infection) - Follow up/Referral Referrals: Fredo Collier MD [Primary Care Provider] - - Patient Discharge Instructions - Post Discharge Activity
[2019-04-22] MEDS ORDERED: SODIUM CHLORIDE 1,000 ML IV STA ×2 (09:35→12:25)
[2019-04-22] MEDS ORDERED: ACETAMINOPHEN 1000 MG/100 ML VIAL (NON FORMULARY) IVPB ONE (09:36)
[2019-04-22] MEDS ORDERED: VANCOMYCIN 1 GM in D5W (PRE-DOCKED) 1,000 MG/250 ML IVPB ONE (09:39)
[2019-04-22] MEDS ORDERED: MEROPENEM 1 GM in DEXTROSE 5%-WATER 100 ML IVPB ONE (09:41)
[2019-04-22] MEDS ORDERED: ACETAMINOPHEN 325 MG SUPP.RECT PR ONE (09:44)
[2019-04-22] MEDS ORDERED: IBUPROFEN 800 MG/8 ML IJ IVPB ONE ×2 (09:45→09:59)
[2019-04-22] MEDS ORDERED: MEROPENEM 1 GM VIAL (RESTRICTED TO ID) IVPB ONE ×2 (09:59→17:52)
[2019-04-22 10:04] LABS: VENOUS PH 7.45 (7.31-7.41)
[2019-04-22 10:07] LABS: BASO % 0.7 % (0-2.0); EOS % 0.9 % (0-4.5); HEMATOCRIT 44.5 % (32.4-45.2); HEMOGLOBIN 15.1 GM/dL (10.7-15.3); LYMPH % 17.1 % (8-40); MCHC 33.9 g/dl (32.0-36.0); MEAN CELL VOLUME 94.6 fl (80-96); MEAN PLT VOLUME 7.7 fl (7.5-11.1); MONO % 8.1 % (3.8-10.2); NEUT % 73.2 % (42.8-82.8); PLATELET COUNT 377 K/MM3 (134-434); RBC 4.71 M/mm3 (3.60-5.2); RDW 12.8 % (11.6-15.6); WHITE BLOOD COUNT 12.1 K/mm3 (4.0-10.0)
[2019-04-22 10:19] LABS: EPI CELLS 5.3 /HPF (0-5/HPF); HYALINE CASTS 136 /lpf (0-8); PH,URINE 6.5 (5.0-8.0); URINE APPEARANCE TURBID; URINE BACTERIA 5.7 /hpf (NEGATIVE); URINE BILIRUBIN NEGATIVE (NEGATIVE); URINE COLOR YELLOW; URINE GLUCOSE (UA) NEGATIVE (NEGATIVE); URINE KETONE NEGATIVE (NEGATIVE); URINE LEUK ESTERASE 3+ (NEGATIVE); URINE NITRITE NEGATIVE (NEGATIVE); URINE PROTEIN TRACE (NEGATIVE); URINE WBC 153 /hpf (0-5)
[2019-04-22 10:20] LABS: INR 1.02 (0.83-1.09)
[2019-04-22] MEDS ORDERED: VANCOMYCIN 1 GRAM (PRE-DOCKED) 1,000 MG/250 ML BAG IVPB ONE (10:21)
[2019-04-22 10:23] LABS: ACTIVATED PTT 28.1 SECONDS (25.2-36.5)
[2019-04-22 10:25] LABS: ALBUMIN 3.3 g/dl (3.4-5.0); ALK PHOS 118 U/L (45-117); ANION GAP 5 MMOL/L (8-16); BILIRUBIN,TOTAL 0.4 mg/dL (0.2-1); CALCIUM 9.6 mg/dL (8.5-10.1); CHLORIDE 111 mmol/L (98-107); CO2 25 mmol/L (21-32); CREATININE 0.9 mg/dL (0.55-1.3); GLUCOSE,RANDOM 159 mg/dL (74-106); POTASSIUM 4.8 mmol/L (3.5-5.1); SGOT/AST 28 U/L (15-37); SGPT/ALT 53 U/L (13-61); SODIUM 141 mmol/L (136-145); TOT PROT 8.1 g/dl (6.4-8.2)
[2019-04-22 10:37] LABS: URINE CRYSTALS NONE SEEN /hpf; URINE RBC 10 /hpf (0-4); YEAST 3+ (NEGATIVE)
--- NOTE | 2019-04-22 10:52 | PDOC ---
Documentation entered by Jo Koch SCRIBE, acting as scribe for Jhoan Barakat MD. Jhoan Barakat MD: This documentation has been prepared by the kailaibe, Jo Koch SCRIBE, under my direction and personally reviewed by me in its entirety. I confirm that the documentation accurately reflects all work, treatment, procedures, and medical decision making performed by me. Attending Attestation - Resident Resident Name: Fernando Gorman - ED Attending Attestation I have performed the following: I have examined & evaluated the patient, The case was reviewed & discussed with the resident, I agree w/resident's findings & plan - HPI HPI: 04/22/19 09:47 53y F hx of hypothyroidism, htn, ?neurodegenerative disorder, presnts from [place] for fever. History is limited by the patient due to her clinical status she is awake staring ahead but not answering questions. On upon arrival the patient was noted to be febrile, tachycardic, tachypneic. Lung sounds appear to be symmetric without any rales. Patient had a Adkins catheter in place with purulent urine. GENERAL: The patient is awake, tachypneic HEAD: Normocephalic, atraumatic. EYES: extraocular movements intact, sclera anicteric, conjunctiva clear. ENT: Normal voice, dry mucous membranes. NECK: Normal range of motion, supple LUNGS: Diminished breath sounds bilaterally HEART: Tachycardic, regular ABDOMEN: Soft, nontender, No guarding, no rebound. G-tube in place EXTREMITIES: Normal range of motion, no edema. NEUROLOGICAL: No facial assymetry, history limited by physical condition PSYCH: Normal mood, normal affect. SKIN: Hot to touch, Dry, normal turgor, Upon arrival we were at bedside immediately patient was placed on sofa inspector, sepsis protocol was initiated. We will give the patient medication for fever control We will give this patient some fluids for hydration as she appears dry - Physicial Exam PE: 04/22/19 11:15 see above - Critical Care Time Total Critical Care Time: 35 Critical Care Statement: The care of this patient involved high complexity decision making to prevent further life threatening deterioration of the patient 's condition and/or to evaluate & treat vital organ system(s) failure or risk of failure. - Medical Decision Making 04/22/19 10:49 labs reviweed noted for mild leukocytosis ua noted for yeast but minimal bacteria blood gas noted for mild respirator alkalosis 04/22/19 11:15 mother bedside, notes that pt was in her usual state of health yesterday. her typical baseline mental status is sometimes she can track, and sometimes verbalize/grunt in response. 04/22/19 13:41 pt doig well, no more responsive, tracking me, shaking/nodding her head to questions HR also improved to 96. bp stable. RR improved pts ct abdomen reviewed will obtain lipase will admit for further management Heart Score/ECG Review - ECG Impressions Comment:: 04/22/19 09:56 Twelve-lead EKG was performed and reviewed by me. There is normal sinus rhythm with rate of 136 Left axis deviation Abnormal R wave progression
[2019-04-22] MEDS ORDERED: FLUCONAZOLE 150 MG TABLET PO ONE (11:50)
[2019-04-22 11:53] LABS: ARTERIAL BLOOD GAS BASE EXCESS -1.9 meq/l (-2-2); ARTERIAL BLOOD GAS PCO2 35.1 mmHg (35-45); ARTERIAL BLOOD GAS PO2 89.2 mmHg (80-100); ARTERIAL BLOOD GAS pH 7.41 (7.35-7.45)
[2019-04-22 11:54] LABS: ALLENS TEST POSITIVE
[2019-04-22] MEDS ORDERED: FLUCONAZOLE 100 MG TABLET (UD) ONE (11:56)
[2019-04-22 13:45] LABS: LIPASE 173 U/L (73-393)
--- NOTE | 2019-04-22 17:29 | PN ---
Progress Note (short form) - Note Progress Note: ID consult dictated fevers/lethargy pen/sulfa allergy suspect urinary source continue vanco/meropenem abd/pelvis ct no acute pathology robbins inserted in ED with cloudy urine with sediment cxray no infiltrate Problem List - Problems (1) Fever Code(s): R50.9 - FEVER, UNSPECIFIED (2) UTI (urinary tract infection) Code(s): N39.0 - URINARY TRACT INFECTION, SITE NOT SPECIFIED (3) Functional quadriplegia Code(s): R53.2 - FUNCTIONAL QUADRIPLEGIA (4) Allergy to multiple antibiotics Code(s): Z88.1 - ALLERGY STATUS TO OTHER ANTIBIOTIC AGENTS STATUS
[2019-04-22] MEDS ORDERED: DEXTROSE 5%-WATER 100 ML IVPB ONE (17:52)
[2019-04-22] MEDS ORDERED: PT OWN MED DRAWER 7, Y5N ONE (21:37)
[2019-04-22] MEDS: HEPARIN NA (PORCINE) 5,000 UNITS/ML 1ML VIAL SQ SCH (21:42)
[2019-04-22] MEDS: VANCOMYCIN 1 GRAM (PRE-DOCKED) 1,000 MG/250 ML BAG IVPB SCH (21:42)
[2019-04-22] MEDS: MEROPENEM 1 GM in DEXTROSE 5%-WATER 100 ML IVPB SCH (21:42)
[2019-04-22] MEDS: SENNOSIDES 8.6MG TABLET (FP) PO SCH (21:43)
[2019-04-22] MEDS: LANOLIN (EMOLL) 30 GM TUBE TP SCH (22:00)
[2019-04-22] MEDS: HYDROCORTISONE 2.5% TOPICAL CREAM 30 GM TUBE RC SCH (22:39)
[2019-04-23] MEDS ORDERED: DEXTROSE 5%-WATER 100 ML IVPB ONE ×4 (00:52→17:01)
[2019-04-23] MEDS ORDERED: MEROPENEM 1 GM VIAL (RESTRICTED TO ID) IVPB ONE ×4 (00:52→17:01)
[2019-04-23] MEDS: MEROPENEM 1 GM in DEXTROSE 5%-WATER 100 ML IVPB SCH ×3 (01:04→17:09)
[2019-04-23] MEDS: VANCOMYCIN 1 GRAM (PRE-DOCKED) 1,000 MG/250 ML BAG IVPB SCH (06:24)
[2019-04-23] MEDS ORDERED: LEVOTHYROXINE NA 112 MCG TABLET (FP) PEG SCH (07:00)
[2019-04-23 07:54] LABS: HEMATOCRIT 34.3 % (32.4-45.2); HEMOGLOBIN 11.8 GM/dL (10.7-15.3); MCH 32.5 pg (25.7-33.7); MCHC 34.4 g/dl (32.0-36.0); MEAN CELL VOLUME 94.7 fl (80-96); MEAN PLT VOLUME 8.2 fl (7.5-11.1); PLATELET COUNT 203 K/MM3 (134-434); RBC 3.62 M/mm3 (3.60-5.2); RDW 12.8 % (11.6-15.6); WHITE BLOOD COUNT 7.9 K/mm3 (4.0-10.0)
[2019-04-23 08:07] LABS: ALBUMIN 2.6 g/dl (3.4-5.0); BILIRUBIN,TOTAL 0.7 mg/dL (0.2-1); BLOOD UREA NITROGEN 12.6 mg/dL (7-18); CALCIUM 9.4 mg/dL (8.5-10.1); CREATININE 0.5 mg/dL (0.55-1.3); MAGNESIUM 2.1 mg/dL (1.8-2.4); POTASSIUM 4.2 mmol/L (3.5-5.1); TOT PROT 6.2 g/dl (6.4-8.2)
--- NOTE | 2019-04-23 10:07 | EKG ---
Test Reason : Blood Pressure : / mmHG Vent. Rate : 136 BPM Atrial Rate : 136 BPM P-R Int : 118 ms QRS Dur : 072 ms QT Int : 282 ms P-R-T Axes : 079 -85 065 degrees QTc Int : 424 ms SINUS TACHYCARDIA POSSIBLE LEFT ATRIAL ENLARGEMENT LEFT AXIS DEVIATION SEPTAL INFARCT , AGE UNDETERMINED ABNORMAL ECG WHEN COMPARED WITH ECG OF 26-OCT-2018 06:49, NO SIGNIFICANT CHANGE WAS FOUND Confirmed by JÚNIOR LAGUNA MD ([id number]) on 04/23/2019 10:06:57 AM Referred By: Confirmed By:JÚNIOR LAGUNA MD
[2019-04-23] MEDS: LISINOPRIL 5 MG TABLET (FP) NGT SCH (10:15)
[2019-04-23] MEDS ORDERED: PT OWN MED DRAWER 7, Y5N ONE ×2 (10:17→21:40)
[2019-04-23] MEDS: BACLOFEN 10 MG TABLET (FP) PEG SCH (10:21)
[2019-04-23] MEDS: HEPARIN NA (PORCINE) 5,000 UNITS/ML 1ML VIAL SQ SCH ×2 (10:21→21:59)
[2019-04-23] MEDS: HYDROCORTISONE 2.5% TOPICAL CREAM 30 GM TUBE RC SCH ×2 (10:21→21:59)
[2019-04-23] MEDS: LACTULOSE 20 GM/30 ML UDC (FOR ORAL USE ONLY) GT SCH (10:22)
--- NOTE | 2019-04-23 10:37 | PN ---
Progress Note (short form) - Note Progress Note: PULMONARY CONSULTATION DICTATED 04/23/19 IMP FEVER ? ,? PNEUMONIA ADVANCED MS HTN H/O TIA ASHD FUNCTIONAL QUADRIPLEGIA PLAN CULTURES O2 ABX IVF MONITOR LYTES,CBC F/U CHEST X-RAYS DR CATALAN Problem List - Problems (1) Sepsis Code(s): A41.9 - SEPSIS, UNSPECIFIED ORGANISM (2) UTI (urinary tract infection) Code(s): N39.0 - URINARY TRACT INFECTION, SITE NOT SPECIFIED (3) Anemia Code(s): D64.9 - ANEMIA, UNSPECIFIED (4) CAD (coronary artery disease) Code(s): I25.10 - ATHSCL HEART DISEASE OF [place] CORONARY ARTERY W/O ANG PCTRS (5) Fever Code(s): R50.9 - FEVER, UNSPECIFIED (6) Functional quadriplegia Code(s): R53.2 - FUNCTIONAL QUADRIPLEGIA (7) HTN (hypertension) Code(s): I10 - ESSENTIAL (PRIMARY) HYPERTENSION (8) Hypothyroid Code(s): E03.9 - HYPOTHYROIDISM, UNSPECIFIED (9) Multiple sclerosis Code(s): G35 - MULTIPLE SCLEROSIS (10) Neurodegenerative cognitive impairment Code(s): G31.9 - DEGENERATIVE DISEASE OF NERVOUS SYSTEM, UNSPECIFIED (11) Tachycardia Code(s): R00.0 - TACHYCARDIA, UNSPECIFIED
[2019-04-23] MEDS: LANOLIN (EMOLL) 30 GM TUBE TP SCH ×2 (11:10→22:00)
--- NOTE | 2019-04-23 13:28 | CONS ---
PULMONARY CONSULTATION DATE OF CONSULTATION: 04/23/2019 REFERRING PHYSICIAN: Fredo Collier MD History is obtained from medical records. HISTORY: Patient is a 53-year-old female with past medical history of hypothyroidism, hypertension, advanced MS, history of TIAs, pseudobulbar long term resident transferred to [facility] on April 22 secondary to fever. Patient apparently at the long term was noted to be febrile, tachycardic, and tachypneic. Apparently, she had a Adkins in place with purulent urine. Cultures were obtained. Patient was started on IV fluids and antibiotics and transferred up to telemetry unit for further management. Patient underwent a CT of the abdomen , which revealed bibasilar atelectasis changes, cannot exclude possible infiltrate but no evidence of acute intra-abdominal process. Patient is essentially bedbound. PAST MEDICAL HISTORY: Again includes hypothyroidism, TIA, ASHD, hypertension, advanced MS. REVIEW OF SYSTEMS: Unable to obtain. CURRENT MEDICATIONS: Include Anusol, lactulose, Tylenol, Prinivil, Meropenem, vancomycin, heparin, lanolin topical ointment, Inderal, Senna, and Synthroid. PHYSICAL EXAMINATION: General: Patient is a well-developed, thin female, lower extremity contractures. Awake, alert in no acute distress. She is nonverbal. Vital Signs: Blood pressure is 107/67, temperature 98, respiratory rate 20, O2 saturation 98% on 2 L nasal cannula. HEENT: Normocephalic, atraumatic. Neck: Supple. Heart: Regular S1, S2. Chest: Clear. Abdomen: Soft. Bowel sounds are positive. Extremities: Bilateral lower extremity contractures. LABORATORIES: UA is positive heme, 3+ leukocyte esterase, negative nitrite. WBC is 7.9, hemoglobin 11.8, hematocrit 34.3 with a platelet count of 203,000 initially. WBC 12.1, hemoglobin 15.1, hematocrit 44.5 with a platelet count of 377,000. Blood gas; pH 7.41, PCO2 of 35, PO2 of 89, bicarbonate 21, saturation 97. That was on 2 L nasal cannula. BUN initially 31, creatinine 0.9, lactate level 1.8. Repeat BUN is 12.6, hematocrit 0.5. TSH is 7.82. Chest x-ray; no acute infiltrates and/or effusions. CT scan of the abdomen as noted. IMPRESSION: 1. Fever etiology to be determined. Rule out possible urosepsis, rule out possible pneumonia. 2. Advanced multiple sclerosis, bed bound. 3. Hypertension. 4. History of transient ischemic attack. 5. Functional Quadriplegia 6. Pseudobulbar. 7. Hypothyroid PLAN: Cultures. Supplemental O2. Antibiotics. IV fluids. Monitor electrolytes and CBC. MASON CATALAN M.D. [id number] MTDD
--- NOTE | 2019-04-23 13:39 | HP ---
Admitting History and Physical - Admission Chief Complaint: sent in from [place] for fever tachycardia and respiratory distress History of Present Illness: 53y F hx of hypothyroidism, htn, ?neurodegenerative disorder, presnts from [place] for fever. History is limited by the patient due to her clinical status she is awake staring ahead but not answering questions. per MD records the temp at MD was 103.4 and RR 48 and HR 113 and BP 109/64 paient was given TYlenol and 40min after the temp was 102.2 in the ER in ER WBC 12. got vancomycin and meropenem History Source: Medical Record Limitations to Obtaining History: Clinical Condition, Other - Past Medical History MANAGER SKILLED: Yes: Multiple Sclerosis (Questionable), Other (Recurrent falls, Ataxia,) - Smoking History Smoking history: Never smoked Have you smoked in the past 12 months: No If you are a former smoker, when did you quit?: 1985 - Alcohol/Substance Use Hx Alcohol Use: No Home Medications - Allergies Allergies/Adverse Reactions: Allergies Allergy/AdvReac Type Severity Reaction Status Date / Time Penicillins Allergy Verified 04/22/19 09:38 sulfur dioxide Allergy Verified 04/22/19 09:38 - Home Medications Home Medications: Ambulatory Orders Fosinopril Sodium [Fosinopril Sodium -] 10 mg GT DAILY 07/05/18 Propranolol HCl [Propranolol HCl ER] 80 mg GT BID 08/14/18 Heparin - 5,000 unit SQ BID #30 vial 08/17/18 Acetaminophen 650 mg GT Q6H PRN 10/06/18 Vits A and D/White Pet/Lanolin [A and D Ointment] 1 applic TP BID 10/06/18 Zinc Oxide 20% Topical Oint 1 applic TP Q8H 10/09/18 Baclofen [Lioresal -] 10 mg PEG DAILY tablet 10/17/18 Levothyroxine [Synthroid -] 112 mcg PEG DAILY@0700 tablet 10/17/18 Hydrocortisone 2.5% Topical Cr [Anusol 2.5% Hc Cream -] 1 applic RC BID Lactulose (Oral Use) [Cephulac -] 15 ml GT DAILY 04/22/19 Sennosides [Senna] 2 tab GT HS 04/22/19 Review of Systems Unable to obtain ROS, reason: non verbal Physical Examination Vital Signs: Vital Signs Temperature 99.3 F 04/23/19 10:00 Pulse Rate 101 H 04/23/19 10:00 Respiratory Rate 20 04/23/19 10:00 Blood Pressure 99/69 04/23/19 10:00 O2 Sat by Pulse Oximetry (%) 98 04/23/19 09:00 afebrile still tacycardiac on monitor- sinus tachy Constitutional: Yes: Calm, Thin Cardiovascular: Yes: Regular Rate and Rhythm, S1, S2 Respiratory: Yes: Diminished Gastrointestinal: Yes: Soft, Other (g tube) Renal/: Yes: Adkins Present Extremities: Yes: Other (contracted flexed) Labs: CBC, BMP 04/23/19 06:30 04/23/19 06:30 Imaging - Results Cat Scan: Report Reviewed (no acute abdominal pathology noted) Problem List - Problems (1) Sepsis Assessment/Plan: seconday to UTI iv abx WBC now normal normal lactic acid Microbiology 04/22/19 09:40 Urine - Urine Adkins Urine Culture - Final NO GROWTH OBTAINED 04/22/19 09:40 Blood - Peripheral Venous Blood Culture - Preliminary NO GROWTH OBTAINED AFTER 24 HOURS, INCUBATION TO CONTINUE FOR 4 DAYS. 04/22/19 09:40 Blood - Peripheral Venous Blood Culture - Preliminary NO GROWTH OBTAINED AFTER 24 HOURS, INCUBATION TO CONTINUE FOR 4 DAYS. Code(s): A41.9 - SEPSIS, UNSPECIFIED ORGANISM (2) UTI (urinary tract infection) Assessment/Plan: ID on board meropenem and vancomycin Code(s): N39.0 - URINARY TRACT INFECTION, SITE NOT SPECIFIED (3) Functional quadriplegia Assessment/Plan: ferquent turn and position g tube for nutrion dvt ppx Code(s): R53.2 - FUNCTIONAL QUADRIPLEGIA (4) Hypothyroid Assessment/Plan: tsh noted 7 range mello increase the synthroid dose to 125mcg daily Code(s): E03.9 - HYPOTHYROIDISM, UNSPECIFIED (5) Leukocytosis Assessment/Plan: resolved Code(s): D72.829 - ELEVATED WHITE BLOOD CELL COUNT, UNSPECIFIED (6) Neurodegenerative cognitive impairment Assessment/Plan: frequent trun and positioning dvt xx nutrition via g tube Code(s): G31.9 - DEGENERATIVE DISEASE OF NERVOUS SYSTEM, UNSPECIFIED
--- NOTE | 2019-04-23 14:15 | PN ---
Progress Note (short form) - Note Progress Note: high grade fevers resolved resting comfortablly Vital Signs Period Temp Pulse Resp BP Sys/Ricardo Pulse Ox Last 24 Hr 98.0 F-99.3 F 77-101 20-24 99-107/62-82 98-99 cor-rrr lulngs decreased bs at bases abd soft,nt ext contracted CBC, BMP 04/23/19 06:30 04/23/19 06:30 Microbiology 04/22/19 09:40 Blood - Peripheral Venous Blood Culture - Preliminary NO GROWTH OBTAINED AFTER 24 HOURS, INCUBATION TO CONTINUE FOR 4 DAYS. 04/22/19 09:40 Blood - Peripheral Venous Blood Culture - Preliminary NO GROWTH OBTAINED AFTER 24 HOURS, INCUBATION TO CONTINUE FOR 4 DAYS. 04/22/19 09:40 Urine - Urine Adkins Urine Culture - Final NO GROWTH OBTAINED Active Medications Acetaminophen (Tylenol Oral Solution -) 650 mg GT Q4H PRN PRN Reason: PAIN Baclofen (Lioresal -) 10 mg PEG DAILY REPLACED BY [facility] Last Admin: 04/23/19 10:21 Dose: 10 mg Emollient Ointment (Lanolin Topical Ointment -) 1 applic TP BID REPLACED BY [facility] Last Admin: 04/23/19 11:10 Dose: 1 applic Heparin Sodium (Porcine) (Heparin -) 5,000 unit SQ BID REPLACED BY [facility] Last Admin: 04/23/19 10:21 Dose: 5,000 unit Hydrocortisone (Anusol 2.5% Hc Cream -) 1 applic RC BID REPLACED BY [facility] Last Admin: 04/23/19 10:21 Dose: 1 applic Vancomycin HCl (Vancomycin (Pre-Docked)) 1,000 mg in 250 mls @ 166.667 mls/hr IVPB BID@0600,1800 REPLACED BY [facility]; Protocol Last Admin: 04/23/19 06:24 Dose: 166.667 mls/hr Meropenem 1 gm/ Dextrose 100 mls @ 200 mls/hr IVPB Q8H-IV REPLACED BY [facility] Last Admin: 04/23/19 10:21 Dose: 200 mls/hr Influenza Virus Vaccine Quadrival (Flulaval Quad ) 60 mcg IM .ONCE ONE Stop: 04/23/19 13:37 Lactulose (Cephulac (Oral Use)) 10 gm GT DAILY REPLACED BY [facility] Last Admin: 04/23/19 10:22 Dose: 10 gm Levothyroxine Sodium (Synthroid -) 125 mcg PEG DAILY@0700 REPLACED BY [facility] Lisinopril (Prinivil) 2.5 mg NGT DAILY REPLACED BY [facility] Last Admin: 04/23/19 10:15 Dose: Not Given Propranolol HCl (Inderal -) 80 mg PO BID REPLACED BY [facility] Last Admin: 04/23/19 10:15 Dose: Not Given Senna (Senna -) 2 tab PO HS REPLACED BY [facility] Last Admin: 04/22/19 21:43 Dose: 2 tab a/p fevers improved no clear source d/c vancomycin continue meropenem for now
[2019-04-23] MEDS ORDERED: FLU VACCINE QUAD 60 MCG/0.5 ML (MDV 19-20) IM ONE (15:00)
[2019-04-23] MEDS: SENNOSIDES 8.6MG TABLET (FP) PO SCH (22:00)
[2019-04-23] MEDS: ACETAMINOPHEN 650 MG/20.3 ML ORAL SOLUTION (CUPS) GT PRN (22:01)
[2019-04-24] MEDS ORDERED: SODIUM CHLORIDE 500 ML IV STA (01:48)
[2019-04-24] MEDS ORDERED: DEXTROSE 5%-WATER 100 ML IVPB ONE ×2 (01:52→17:15)
[2019-04-24] MEDS ORDERED: MEROPENEM 1 GM VIAL (RESTRICTED TO ID) IVPB ONE ×3 (01:52→17:14)
[2019-04-24] MEDS: MEROPENEM 1 GM in DEXTROSE 5%-WATER 100 ML IVPB SCH ×3 (01:58→18:00)
[2019-04-24] MEDS: LEVOTHYROXINE NA 125 MCG TABLET (FP) PEG SCH (06:29)
--- NOTE | 2019-04-24 10:47 | PN ---
Progress Note, Physician Chief Complaint: FUO History of Present Illness: Seen by JEFFRY rivera, still on meropenem Cultures so far negative leukocytosis improved afebrile this morning Mother at bedisde Pt more awake - Current Medication List Current Medications: Active Medications Acetaminophen (Tylenol Oral Solution -) 650 mg GT Q4H PRN PRN Reason: PAIN Last Admin: 04/23/19 22:01 Dose: 650 mg Baclofen (Lioresal -) 10 mg PEG DAILY [facility] Last Admin: 04/23/19 10:21 Dose: 10 mg Emollient Ointment (Lanolin Topical Ointment -) 1 applic TP BID [facility] Last Admin: 04/23/19 22:00 Dose: 1 applic Heparin Sodium (Porcine) (Heparin -) 5,000 unit SQ BID [facility] Last Admin: 04/23/19 21:59 Dose: 5,000 unit Hydrocortisone (Anusol 2.5% Hc Cream -) 1 applic RC BID [facility] Last Admin: 04/23/19 21:59 Dose: 1 applic Meropenem 1 gm/ Dextrose 100 mls @ 200 mls/hr IVPB Q8H-IV [facility] Last Admin: 04/24/19 01:58 Dose: 200 mls/hr Lactulose (Cephulac (Oral Use)) 10 gm GT DAILY [facility] Last Admin: 04/23/19 10:22 Dose: 10 gm Levothyroxine Sodium (Synthroid -) 125 mcg PEG DAILY@0700 [facility] Last Admin: 04/24/19 06:29 Dose: 125 mcg Lisinopril (Prinivil) 2.5 mg NGT DAILY [facility] Last Admin: 04/23/19 10:15 Dose: Not Given Propranolol HCl (Inderal -) 80 mg PO BID [facility] Last Admin: 04/23/19 21:59 Dose: 80 mg Senna (Senna -) 2 tab PO HS [facility] Last Admin: 04/23/19 22:00 Dose: 2 tab - Objective Vital Signs: Vital Signs Temperature 99.1 F 04/24/19 09:20 Pulse Rate 84 04/24/19 09:20 Respiratory Rate 20 04/24/19 09:20 Blood Pressure 97/63 04/24/19 09:20 O2 Sat by Pulse Oximetry (%) 98 04/24/19 09:00 Constitutional: Yes: Well Nourished, No Distress, Calm Cardiovascular: Yes: Regular Rate and Rhythm Respiratory: Yes: Regular Gastrointestinal: Yes: Normal Bowel Sounds, Soft Genitourinary: Yes: Incontinence Musculoskeletal: Yes: Other (generalized atrophy) Extremities: Yes: WNL Edema: No Peripheral Pulses WNL: Yes Neurological: Yes: Alert, Pre-Existing Deficit Psychiatric: Yes: Alert Labs: CBC, BMP 04/23/19 06:30 04/23/19 06:30 INR, PTT INR 1.02 (0.83-1.09) 04/22/19 09:40 Problem List - Problems (1) FUO (fever of unknown origin) Assessment/Plan: -ABD/Pelvis CT: bilateral lower lobe discoid atelectasis. A wall superimposed infiltrate would be difficult to exclude on the basis of CT only. Correlate clinically. No definite CT findings of acute pathology is seen involving the abdomen/pelvis. A percutaneous gastrostomy tube is seen in place. The balloon portion appears to be located within the duodenal cap. The common bile duct appears slightly dilated measuring 0.7 cm. There is also mild focal prominence of the main pancreatic duct within the body (versus representing a 0.5 cm cyst). Direct comparison with prior imaging studies would be quite helpful if available from a different facility. If prior studies are not available MRI/MRCP evaluation is suggested. Alternatively correlate with endoscopic sonography or 2 month follow- up contrast enhanced CT. -ID on board -IV abx -Cultures:negative so far Microbiology 04/22/19 09:40 Blood - Peripheral Venous Blood Culture - Preliminary NO GROWTH OBTAINED AFTER 48 HOURS, INCUBATION TO CONTINUE FOR 3 DAYS. 04/22/19 09:40 Blood - Peripheral Venous Blood Culture - Preliminary NO GROWTH OBTAINED AFTER 48 HOURS, INCUBATION TO CONTINUE FOR 3 DAYS. 04/22/19 09:40 Urine - Urine Adkins Urine Culture - Final NO GROWTH OBTAINED -afebrile this AM -leukocytosis resolved Code(s): R50.9 - FEVER, UNSPECIFIED (2) Sepsis Assessment/Plan: -no lactic acidosis -BP stable -afebrile this AM -leukocytosis resolved -ID on board -IV abx -Cultures negative so far Problems reviewed: Yes Code(s): A41.9 - SEPSIS, UNSPECIFIED ORGANISM (3) Functional quadriplegia Problems reviewed: Yes Code(s): R53.2 - FUNCTIONAL QUADRIPLEGIA (4) Hypothyroid Assessment/Plan: -Levothyroxine increased to 125 mcg daily -repeat thyroid profile in 4 weeks Code(s): E03.9 - HYPOTHYROIDISM, UNSPECIFIED (5) Neurodegenerative cognitive impairment Problems reviewed: Yes Code(s): G31.9 - DEGENERATIVE DISEASE OF NERVOUS SYSTEM, UNSPECIFIED Assessment/Plan see problem list
--- NOTE | 2019-04-24 10:49 | PN ---
Progress Note, Physician History of Present Illness: PULMONARY ALERT,COMFORTABLE,-RESP DISTRESS - Current Medication List Current Medications: Active Medications Acetaminophen (Tylenol Oral Solution -) 650 mg GT Q4H PRN PRN Reason: PAIN Last Admin: 04/23/19 22:01 Dose: 650 mg Baclofen (Lioresal -) 10 mg PEG DAILY [facility] Last Admin: 04/23/19 10:21 Dose: 10 mg Emollient Ointment (Lanolin Topical Ointment -) 1 applic TP BID [facility] Last Admin: 04/23/19 22:00 Dose: 1 applic Heparin Sodium (Porcine) (Heparin -) 5,000 unit SQ BID [facility] Last Admin: 04/23/19 21:59 Dose: 5,000 unit Hydrocortisone (Anusol 2.5% Hc Cream -) 1 applic RC BID [facility] Last Admin: 04/23/19 21:59 Dose: 1 applic Meropenem 1 gm/ Dextrose 100 mls @ 200 mls/hr IVPB Q8H-IV [facility] Last Admin: 04/24/19 01:58 Dose: 200 mls/hr Lactulose (Cephulac (Oral Use)) 10 gm GT DAILY [facility] Last Admin: 04/23/19 10:22 Dose: 10 gm Levothyroxine Sodium (Synthroid -) 125 mcg PEG DAILY@0700 [facility] Last Admin: 04/24/19 06:29 Dose: 125 mcg Lisinopril (Prinivil) 2.5 mg NGT DAILY [facility] Last Admin: 04/23/19 10:15 Dose: Not Given Propranolol HCl (Inderal -) 80 mg PO BID [facility] Last Admin: 04/23/19 21:59 Dose: 80 mg Senna (Senna -) 2 tab PO HS [facility] Last Admin: 04/23/19 22:00 Dose: 2 tab - Objective Vital Signs: Vital Signs Temperature 99.1 F 04/24/19 09:20 Pulse Rate 84 04/24/19 09:20 Respiratory Rate 20 04/24/19 09:20 Blood Pressure 97/63 04/24/19 09:20 O2 Sat by Pulse Oximetry (%) 98 04/24/19 09:00 Constitutional: Yes: Calm, Thin Eyes: Yes: WNL HENT: Yes: WNL Neck: Yes: WNL Cardiovascular: Yes: Regular Rate and Rhythm, S1, S2 Respiratory: Yes: Diminished Gastrointestinal: Yes: Normal Bowel Sounds, Soft Extremities: Yes: Other (LOWER EXT CONTRACTURES) Edema: No Peripheral Pulses WNL: No Labs: CBC, BMP Problem List - Problems (1) Sepsis Code(s): A41.9 - SEPSIS, UNSPECIFIED ORGANISM (2) UTI (urinary tract infection) Code(s): N39.0 - URINARY TRACT INFECTION, SITE NOT SPECIFIED (3) Anemia Code(s): D64.9 - ANEMIA, UNSPECIFIED (4) CAD (coronary artery disease) Code(s): I25.10 - ATHSCL HEART DISEASE OF [place] CORONARY ARTERY W/O ANG PCTRS (5) Fever Code(s): R50.9 - FEVER, UNSPECIFIED (6) Functional quadriplegia Code(s): R53.2 - FUNCTIONAL QUADRIPLEGIA (7) HTN (hypertension) Code(s): I10 - ESSENTIAL (PRIMARY) HYPERTENSION (8) Hypothyroid Code(s): E03.9 - HYPOTHYROIDISM, UNSPECIFIED (9) Multiple sclerosis Code(s): G35 - MULTIPLE SCLEROSIS (10) Neurodegenerative cognitive impairment Code(s): G31.9 - DEGENERATIVE DISEASE OF NERVOUS SYSTEM, UNSPECIFIED (11) Tachycardia Code(s): R00.0 - TACHYCARDIA, UNSPECIFIED Assessment/Plan IMP FEVER ? ,? PNEUMONIA ADVANCED MS HTN H/O TIA ASHD FUNCTIONAL QUADRIPLEGIA PLAN O2 ABX PER ID IVF MONITOR LYTES,CBC F/U CHEST X-RAYS DR CATALAN Problem List - Problems (1) Sepsis Code(s): A41.9 - SEPSIS, UNSPECIFIED ORGANISM (2) UTI (urinary tract infection) Code(s): N39.0 - URINARY TRACT INFECTION, SITE NOT SPECIFIED (3) Anemia Code(s): D64.9 - ANEMIA, UNSPECIFIED (4) CAD (coronary artery disease) Code(s): I25.10 - ATHSCL HEART DISEASE OF [place] CORONARY ARTERY W/O ANG PCTRS (5) Fever Code(s): R50.9 - FEVER, UNSPECIFIED (6) Functional quadriplegia Code(s): R53.2 - FUNCTIONAL QUADRIPLEGIA (7) HTN (hypertension) Code(s): I10 - ESSENTIAL (PRIMARY) HYPERTENSION (8) Hypothyroid Code(s): E03.9 - HYPOTHYROIDISM, UNSPECIFIED (9) Multiple sclerosis Code(s): G35 - MULTIPLE SCLEROSIS (10) Neurodegenerative cognitive impairment Code(s): G31.9 - DEGENERATIVE DISEASE OF NERVOUS SYSTEM, UNSPECIFIED (11) Tachycardia Code(s): R00.0 - TACHYCARDIA, UNSPECIFIED
[2019-04-24] MEDS ORDERED: DEXTROSE 5%-WATER 200 ML IVPB ONE (11:17)
[2019-04-24] MEDS: LISINOPRIL 5 MG TABLET (FP) NGT SCH (11:21)
[2019-04-24] MEDS: HEPARIN NA (PORCINE) 5,000 UNITS/ML 1ML VIAL SQ SCH ×2 (11:21→21:39)
[2019-04-24] MEDS ORDERED: PT OWN MED DRAWER 7, Y5N ONE ×2 (11:27→21:11)
[2019-04-24] MEDS: HYDROCORTISONE 2.5% TOPICAL CREAM 30 GM TUBE RC SCH ×2 (11:31→21:39)
[2019-04-24] MEDS: BACLOFEN 10 MG TABLET (FP) PEG SCH (11:32)
[2019-04-24] MEDS: LANOLIN (EMOLL) 30 GM TUBE TP SCH ×2 (11:32→21:39)
[2019-04-24] MEDS: LACTULOSE 20 GM/30 ML UDC (FOR ORAL USE ONLY) GT SCH (11:33)
[2019-04-24 13:14] VITALS: BMI 23.9
--- NOTE | 2019-04-24 18:49 | CON.GI ---
Consult Consult Specialty:: GI Referred by:: Dr Collier - History of Present Illness History of Present Illness: 53 y/o F with PMH of advanced MS, quadriplegia was admitted because of pneumonia and UTI. Ct was done which revealed a 0.5CM pancreatic cyst in the body of the pancreas. The pancreatic duct and common bile duct was top normal. She denies abdominal pain, nausea and vomiting. - Past Medical History [employer]: Yes: Multiple Sclerosis (Questionable), Other (Recurrent falls, Ataxia,) - Alcohol/Substance Use Hx Alcohol Use: No - Smoking History Smoking history: Never smoked Have you smoked in the past 12 months: No If you are a former smoker, when did you quit?: 1985 Home Medications - Allergies Allergies/Adverse Reactions: Allergies Allergy/AdvReac Type Severity Reaction Status Date / Time Penicillins Allergy Verified 04/22/19 09:38 sulfur dioxide Allergy Verified 04/22/19 09:38 - Home Medications Home Medications: Ambulatory Orders Fosinopril Sodium [Fosinopril Sodium -] 10 mg GT DAILY 07/05/18 Propranolol HCl [Propranolol HCl ER] 80 mg GT BID 08/14/18 Heparin - 5,000 unit SQ BID #30 vial 08/17/18 Acetaminophen 650 mg GT Q6H PRN 10/06/18 Vits A and D/White Pet/Lanolin [A and D Ointment] 1 applic TP BID 10/06/18 Zinc Oxide 20% Topical Oint 1 applic TP Q8H 10/09/18 Baclofen [Lioresal -] 10 mg PEG DAILY tablet 10/17/18 Levothyroxine [Synthroid -] 112 mcg PEG DAILY@0700 tablet 10/17/18 Hydrocortisone 2.5% Topical Cr [Anusol 2.5% Hc Cream -] 1 applic RC BID Lactulose (Oral Use) [Cephulac -] 15 ml GT DAILY 04/22/19 Sennosides [Senna] 2 tab GT HS 04/22/19 Review of Systems - Review of Systems Gastrointestinal: reports: No Symptoms Physical Exam-GI Vital Signs: Vital Signs Temperature 98.3 F 04/24/19 15:24 Pulse Rate 94 H 04/24/19 15:24 Respiratory Rate 18 04/24/19 15:24 Blood Pressure 93/60 04/24/19 15:24 O2 Sat by Pulse Oximetry (%) 98 04/24/19 09:00 Constitutional: Yes: No Distress Eyes: Yes: Conjunctiva Clear HENT: Yes: Atraumatic Neck: Yes: Trachea Midline Cardiovascular: Yes: Regular Rate and Rhythm Respiratory: Yes: CTA Bilaterally ...Palpate: Yes: Soft. No: Firm/Rigid, Guarding, Hepatomegaly, Mass, Pulsatile Mass, Splenomegaly, Tenderness Labs: CBC, BMP 04/23/19 06:30 04/23/19 06:30 INR, PTT INR 1.02 (0.83-1.09) 04/22/19 09:40 Problem List - Problems (1) Pancreatic cyst Assessment/Plan: 5mm body of the pancreas by catscan R> MRI of the pancreas CEA, [id number] Code(s): K86.2 - CYST OF PANCREAS
--- NOTE | 2019-04-24 19:02 | PN ---
Progress Note (short form) - Note Progress Note: afebrile alert Vital Signs Period Temp Pulse Resp BP Sys/Ricardo Pulse Ox Last 24 Hr 98.2 F-100.5 F 84-120 18-20 89-97/53-63 98-98 cor-rrr lungs decreased bs at bases abd soft +gt with green bilious leakage ext no edema CBC, BMP 04/23/19 06:30 04/23/19 06:30 Microbiology 04/22/19 09:40 Blood - Peripheral Venous Blood Culture - Preliminary NO GROWTH OBTAINED AFTER 48 HOURS, INCUBATION TO CONTINUE FOR 3 DAYS. 04/22/19 09:40 Blood - Peripheral Venous Blood Culture - Preliminary NO GROWTH OBTAINED AFTER 48 HOURS, INCUBATION TO CONTINUE FOR 3 DAYS. 04/22/19 09:40 Urine - Urine Adkins Urine Culture - Final NO GROWTH OBTAINED a/p fevers/lethargy pen/sulfa allergy ?basilar pneumonia cultures negative continue meropenem GI to evaluate GT Problem List - Problems (1) Fever Code(s): R50.9 - FEVER, UNSPECIFIED (2) UTI (urinary tract infection) Code(s): N39.0 - URINARY TRACT INFECTION, SITE NOT SPECIFIED (3) Functional quadriplegia Code(s): R53.2 - FUNCTIONAL QUADRIPLEGIA (4) Allergy to multiple antibiotics Code(s): Z88.1 - ALLERGY STATUS TO OTHER ANTIBIOTIC AGENTS STATUS
--- NOTE | 2019-04-24 19:04 | PN ---
Progress Note (short form) - Note Progress Note: I was informed that the g -tube was clogged. The g tube was noted to have migrated to the duodenum. The balloon was deflated and g-tube re adjusted. R> do not use the tube until gastrograffin study done. Problem List - Problems (1) Pancreatic cyst Code(s): K86.2 - CYST OF PANCREAS
[2019-04-25] MEDS: MEROPENEM 1 GM in DEXTROSE 5%-WATER 100 ML IVPB SCH ×3 (03:40→17:54)
[2019-04-25] MEDS ORDERED: DEXTROSE 5%-WATER 100 ML IVPB ONE ×3 (03:58→17:53)
[2019-04-25] MEDS ORDERED: MEROPENEM 1 GM VIAL (RESTRICTED TO ID) IVPB ONE ×3 (03:58→17:53)
[2019-04-25] MEDS: SENNOSIDES 8.6MG TABLET (FP) PO SCH ×2 (06:39→22:22)
[2019-04-25] MEDS: LEVOTHYROXINE NA 125 MCG TABLET (FP) PEG SCH (06:40)
[2019-04-25] MEDS ORDERED: PT OWN MED DRAWER 7, Y5N ONE (09:42)
[2019-04-25] MEDS: LACTULOSE 20 GM/30 ML UDC (FOR ORAL USE ONLY) GT SCH (09:45)
[2019-04-25] MEDS: LISINOPRIL 5 MG TABLET (FP) NGT SCH (09:46)
[2019-04-25] MEDS: HEPARIN NA (PORCINE) 5,000 UNITS/ML 1ML VIAL SQ SCH ×2 (09:46→22:23)
[2019-04-25] MEDS: LANOLIN (EMOLL) 30 GM TUBE TP SCH ×2 (09:47→22:23)
[2019-04-25] MEDS: BACLOFEN 10 MG TABLET (FP) PEG SCH (09:47)
[2019-04-25] MEDS: HYDROCORTISONE 2.5% TOPICAL CREAM 30 GM TUBE RC SCH ×2 (09:51→22:23)
--- NOTE | 2019-04-25 10:27 | PN ---
Progress Note, Physician Chief Complaint: FUO History of Present Illness: Seen by JEFFRY rivera, still on meropenem Cultures so far negative leukocytosis improved Now febrile this morning Mother at bedisde Pt more awake G tube was clogged- fxnal now - Current Medication List Current Medications: Active Medications Acetaminophen (Tylenol Oral Solution -) 650 mg GT Q4H PRN PRN Reason: PAIN Last Admin: 04/23/19 22:01 Dose: 650 mg Baclofen (Lioresal -) 10 mg PEG DAILY [facility] Last Admin: 04/25/19 09:47 Dose: 10 mg Emollient Ointment (Lanolin Topical Ointment -) 1 applic TP BID [facility] Last Admin: 04/25/19 09:47 Dose: 1 applic Heparin Sodium (Porcine) (Heparin -) 5,000 unit SQ BID [facility] Last Admin: 04/25/19 09:46 Dose: 5,000 unit Hydrocortisone (Anusol 2.5% Hc Cream -) 1 applic RC BID [facility] Last Admin: 04/25/19 09:51 Dose: 1 applic Meropenem 1 gm/ Dextrose 100 mls @ 200 mls/hr IVPB Q8H-IV [facility] Last Admin: 04/25/19 09:47 Dose: 200 mls/hr Lactulose (Cephulac (Oral Use)) 10 gm GT DAILY [facility] Last Admin: 04/25/19 09:45 Dose: 10 gm Levothyroxine Sodium (Synthroid -) 125 mcg PEG DAILY@0700 [facility] Last Admin: 04/25/19 06:40 Dose: Not Given Lisinopril (Prinivil) 2.5 mg NGT DAILY [facility] Last Admin: 04/25/19 09:46 Dose: 2.5 mg Propranolol HCl (Inderal -) 80 mg PO BID [facility] Last Admin: 04/25/19 09:48 Dose: Not Given Senna (Senna -) 2 tab PO HS [facility] Last Admin: 04/25/19 06:39 Dose: Not Given - Objective Vital Signs: Vital Signs Temperature 97.9 F 04/25/19 05:43 Pulse Rate 98 H 04/25/19 05:43 Respiratory Rate 20 04/25/19 05:43 Blood Pressure 94/62 04/25/19 05:43 O2 Sat by Pulse Oximetry (%) 98 04/24/19 21:00 Constitutional: Yes: Well Nourished, No Distress, Calm Cardiovascular: Yes: Regular Rate and Rhythm Respiratory: Yes: Regular Gastrointestinal: Yes: Normal Bowel Sounds, Soft Genitourinary: Yes: Robbins Present Musculoskeletal: Yes: Other (generalized atrophy) Extremities: Yes: WNL Edema: No Peripheral Pulses WNL: Yes Neurological: Yes: Alert, Pre-Existing Deficit Psychiatric: Yes: Alert Labs: CBC, BMP 04/23/19 06:30 04/23/19 06:30 INR, PTT INR 1.02 (0.83-1.09) 04/22/19 09:40 Problem List - Problems (1) FUO (fever of unknown origin) Assessment/Plan: -ABD/Pelvis CT: bilateral lower lobe discoid atelectasis. A wall superimposed infiltrate would be difficult to exclude on the basis of CT only. Correlate clinically. No definite CT findings of acute pathology is seen involving the abdomen/pelvis. A percutaneous gastrostomy tube is seen in place. The balloon portion appears to be located within the duodenal cap. The common bile duct appears slightly dilated measuring 0.7 cm. There is also mild focal prominence of the main pancreatic duct within the body (versus representing a 0.5 cm cyst). Direct comparison with prior imaging studies would be quite helpful if available from a different facility. If prior studies are not available MRI/MRCP evaluation is suggested. Alternatively correlate with endoscopic sonography or 2 month follow- up contrast enhanced CT. -ID on board -IV abx -Cultures:negative so far Microbiology 04/22/19 09:40 Blood - Peripheral Venous Blood Culture - Preliminary NO GROWTH OBTAINED AFTER 48 HOURS, INCUBATION TO CONTINUE FOR 3 DAYS. 04/22/19 09:40 Blood - Peripheral Venous Blood Culture - Preliminary NO GROWTH OBTAINED AFTER 48 HOURS, INCUBATION TO CONTINUE FOR 3 DAYS. 04/22/19 09:40 Urine - Urine Robbins Urine Culture - Final NO GROWTH OBTAINED -afebrile this AM -leukocytosis resolved -Possible BLL pneumonia Problems reviewed: Yes Code(s): R50.9 - FEVER, UNSPECIFIED (2) Sepsis Assessment/Plan: -no lactic acidosis -BP stable -febrile this AM -leukocytosis resolved -Repeat labs today pending -ID on board -IV abx -Cultures negative so far Problems reviewed: Yes Code(s): A41.9 - SEPSIS, UNSPECIFIED ORGANISM (3) Functional quadriplegia Problems reviewed: Yes Code(s): R53.2 - FUNCTIONAL QUADRIPLEGIA (4) Hypothyroid Assessment/Plan: -Levothyroxine increased to 125 mcg daily -repeat thyroid profile in 4 weeks Problems reviewed: Yes Code(s): E03.9 - HYPOTHYROIDISM, UNSPECIFIED (5) Neurodegenerative cognitive impairment Problems reviewed: Yes Code(s): G31.9 - DEGENERATIVE DISEASE OF NERVOUS SYSTEM, UNSPECIFIED (6) Dislodged gastrostomy tube Assessment/Plan: -Seen by GI and re-adjusted -Grastrograffin study confirmed placement Problems reviewed: Yes Code(s): Z43.1 - ENCOUNTER FOR ATTENTION TO GASTROSTOMY Assessment/Plan see problem list D/C robbins catheter
--- NOTE | 2019-04-25 11:09 | PN ---
Progress Note, Physician History of Present Illness: pulmonary awake,comfortable,-resp distress,-congestion. tmax 1003 - Current Medication List Current Medications: Active Medications Acetaminophen (Tylenol Oral Solution -) 650 mg GT Q4H PRN PRN Reason: PAIN Last Admin: 04/23/19 22:01 Dose: 650 mg Baclofen (Lioresal -) 10 mg PEG DAILY [facility] Last Admin: 04/25/19 09:47 Dose: 10 mg Emollient Ointment (Lanolin Topical Ointment -) 1 applic TP BID [facility] Last Admin: 04/25/19 09:47 Dose: 1 applic Heparin Sodium (Porcine) (Heparin -) 5,000 unit SQ BID [facility] Last Admin: 04/25/19 09:46 Dose: 5,000 unit Hydrocortisone (Anusol 2.5% Hc Cream -) 1 applic RC BID [facility] Last Admin: 04/25/19 09:51 Dose: 1 applic Meropenem 1 gm/ Dextrose 100 mls @ 200 mls/hr IVPB Q8H-IV [facility] Last Admin: 04/25/19 09:47 Dose: 200 mls/hr Lactulose (Cephulac (Oral Use)) 10 gm GT DAILY [facility] Last Admin: 04/25/19 09:45 Dose: 10 gm Levothyroxine Sodium (Synthroid -) 125 mcg PEG DAILY@0700 [facility] Last Admin: 04/25/19 06:40 Dose: Not Given Lisinopril (Prinivil) 2.5 mg NGT DAILY [facility] Last Admin: 04/25/19 09:46 Dose: 2.5 mg Propranolol HCl (Inderal -) 80 mg PO BID [facility] Last Admin: 04/25/19 09:48 Dose: Not Given Senna (Senna -) 2 tab PO HS [facility] Last Admin: 04/25/19 06:39 Dose: Not Given - Objective Vital Signs: Vital Signs Temperature 97.9 F 04/25/19 05:43 Pulse Rate 98 H 04/25/19 05:43 Respiratory Rate 20 04/25/19 05:43 Blood Pressure 94/62 04/25/19 05:43 O2 Sat by Pulse Oximetry (%) 98 04/24/19 21:00 Constitutional: Yes: Well Nourished, Calm Eyes: Yes: WNL HENT: Yes: WNL Neck: Yes: WNL Cardiovascular: Yes: Regular Rate and Rhythm, S1, S2 Respiratory: Yes: Diminished Gastrointestinal: Yes: Normal Bowel Sounds, Soft Extremities: Yes: Other (contracted) Edema: No Labs: Problem List - Problems (1) Sepsis Code(s): A41.9 - SEPSIS, UNSPECIFIED ORGANISM (2) UTI (urinary tract infection) Code(s): N39.0 - URINARY TRACT INFECTION, SITE NOT SPECIFIED (3) Anemia Code(s): D64.9 - ANEMIA, UNSPECIFIED (4) CAD (coronary artery disease) Code(s): I25.10 - ATHSCL HEART DISEASE OF [place] CORONARY ARTERY W/O ANG PCTRS (5) Fever Code(s): R50.9 - FEVER, UNSPECIFIED (6) Functional quadriplegia Code(s): R53.2 - FUNCTIONAL QUADRIPLEGIA (7) HTN (hypertension) Code(s): I10 - ESSENTIAL (PRIMARY) HYPERTENSION (8) Hypothyroid Code(s): E03.9 - HYPOTHYROIDISM, UNSPECIFIED (9) Multiple sclerosis Code(s): G35 - MULTIPLE SCLEROSIS (10) Neurodegenerative cognitive impairment Code(s): G31.9 - DEGENERATIVE DISEASE OF NERVOUS SYSTEM, UNSPECIFIED (11) Tachycardia Code(s): R00.0 - TACHYCARDIA, UNSPECIFIED Assessment/Plan IMP FEVER ? ,? PNEUMONIA ADVANCED MS HTN H/O TIA ASHD FUNCTIONAL QUADRIPLEGIA PLAN O2 ABX PER ID IVF MONITOR LYTES,CBC F/U CHEST X-RAYS DR CATALAN Problem List - Problems (1) Sepsis Code(s): A41.9 - SEPSIS, UNSPECIFIED ORGANISM (2) UTI (urinary tract infection) Code(s): N39.0 - URINARY TRACT INFECTION, SITE NOT SPECIFIED (3) Anemia Code(s): D64.9 - ANEMIA, UNSPECIFIED (4) CAD (coronary artery disease) Code(s): I25.10 - ATHSCL HEART DISEASE OF [place] CORONARY ARTERY W/O ANG PCTRS (5) Fever Code(s): R50.9 - FEVER, UNSPECIFIED (6) Functional quadriplegia Code(s): R53.2 - FUNCTIONAL QUADRIPLEGIA (7) HTN (hypertension) Code(s): I10 - ESSENTIAL (PRIMARY) HYPERTENSION (8) Hypothyroid Code(s): E03.9 - HYPOTHYROIDISM, UNSPECIFIED (9) Multiple sclerosis Code(s): G35 - MULTIPLE SCLEROSIS (10) Neurodegenerative cognitive impairment Code(s): G31.9 - DEGENERATIVE DISEASE OF NERVOUS SYSTEM, UNSPECIFIED (11) Tachycardia Code(s): R00.0 - TACHYCARDIA, UNSPECIFIED
[2019-04-25 12:54] LABS: BASO % 0.3 % (0-2.0); EOS % 3.7 % (0-4.5); HEMATOCRIT 36.8 % (32.4-45.2); HEMOGLOBIN 12.1 GM/dL (10.7-15.3); LYMPH % 14.4 % (8-40); MCH 31.4 pg (25.7-33.7); MEAN CELL VOLUME 95.2 fl (80-96); MEAN PLT VOLUME 8.6 fl (7.5-11.1); MONO % 9.5 % (3.8-10.2); NEUT % 72.1 % (42.8-82.8); PLATELET COUNT 210 K/MM3 (134-434); RBC 3.87 M/mm3 (3.60-5.2); RDW 12.9 % (11.6-15.6)
[2019-04-25 13:22] LABS: ALBUMIN 2.8 g/dl (3.4-5.0); BILIRUBIN,TOTAL 0.6 mg/dL (0.2-1); BLOOD UREA NITROGEN 12.7 mg/dL (7-18); CALCIUM 9.2 mg/dL (8.5-10.1); CREATININE 0.5 mg/dL (0.55-1.3)
[2019-04-25] MEDS: ACETAMINOPHEN 650 MG/20.3 ML ORAL SOLUTION (CUPS) GT PRN (15:25)
--- NOTE | 2019-04-25 18:07 | PN ---
Progress Note (short form) - Note Progress Note: Pt seen/examined, no acute issues per nursing staff. G tube study confirmed position. On examination: pt appears comfortable Abd soft, nt, nd Labs reviewed. LFTs normal CT abd/pelvis revealing mild biliary and PD dilation vs possible cyst Recommendations: -Ok to resume PEG feeds, formula per junior brand manager -MRI/MRCP if within GOC to further evaluate CT findings r/o underlying pancreatic pathology
[2019-04-26] MEDS ORDERED: DEXTROSE 5%-WATER 100 ML IVPB ONE ×2 (00:55→09:52)
[2019-04-26] MEDS ORDERED: MEROPENEM 1 GM VIAL (RESTRICTED TO ID) IVPB ONE ×2 (00:55→09:51)
[2019-04-26] MEDS: MEROPENEM 1 GM in DEXTROSE 5%-WATER 100 ML IVPB SCH ×2 (01:22→11:33)
[2019-04-26] MEDS: ACETAMINOPHEN 650 MG/20.3 ML ORAL SOLUTION (CUPS) GT PRN ×3 (01:51→22:42)
[2019-04-26] MEDS: LEVOTHYROXINE NA 125 MCG TABLET (FP) PEG SCH (06:03)
[2019-04-26 08:08] LABS: BASO % 0.7 % (0-2.0); EOS % 3.5 % (0-4.5); HEMATOCRIT 34.4 % (32.4-45.2); HEMOGLOBIN 11.7 GM/dL (10.7-15.3); LYMPH % 16.8 % (8-40); MCH 32.2 pg (25.7-33.7); MCHC 34.1 g/dl (32.0-36.0); MEAN CELL VOLUME 94.5 fl (80-96); MEAN PLT VOLUME 8.5 fl (7.5-11.1); MONO % 10.3 % (3.8-10.2); NEUT % 68.7 % (42.8-82.8); PLATELET COUNT 196 K/MM3 (134-434); RBC 3.64 M/mm3 (3.60-5.2); RDW 12.9 % (11.6-15.6)
[2019-04-26 08:49] LABS: ALBUMIN 2.6 g/dl (3.4-5.0); BILIRUBIN,TOTAL 0.8 mg/dL (0.2-1); BLOOD UREA NITROGEN 13.7 mg/dL (7-18); CALCIUM 9.2 mg/dL (8.5-10.1); CREATININE 0.6 mg/dL (0.55-1.3); POTASSIUM 3.8 mmol/L (3.5-5.1); TOT PROT 6.6 g/dl (6.4-8.2)
--- NOTE | 2019-04-26 10:28 | PN ---
Progress Note, Physician History of Present Illness: pulmonary awake,no distress,-congestion. tmax 100.9 - Current Medication List Current Medications: Active Medications Acetaminophen (Tylenol Oral Solution -) 650 mg GT Q4H PRN PRN Reason: PAIN Last Admin: 04/26/19 05:53 Dose: 650 mg Baclofen (Lioresal -) 10 mg PEG DAILY [facility] Last Admin: 04/25/19 09:47 Dose: 10 mg Emollient Ointment (Lanolin Topical Ointment -) 1 applic TP BID [facility] Last Admin: 04/25/19 22:23 Dose: 1 applic Heparin Sodium (Porcine) (Heparin -) 5,000 unit SQ BID [facility] Last Admin: 04/25/19 22:23 Dose: 5,000 unit Hydrocortisone (Anusol 2.5% Hc Cream -) 1 applic RC BID [facility] Last Admin: 04/25/19 22:23 Dose: 1 applic Meropenem 1 gm/ Dextrose 100 mls @ 200 mls/hr IVPB Q8H-IV [facility] Last Admin: 04/26/19 01:22 Dose: 200 mls/hr Lactulose (Cephulac (Oral Use)) 10 gm GT DAILY [facility] Last Admin: 04/25/19 09:45 Dose: 10 gm Levothyroxine Sodium (Synthroid -) 125 mcg PEG DAILY@0700 [facility] Last Admin: 04/26/19 06:03 Dose: 125 mcg Lisinopril (Prinivil) 2.5 mg NGT DAILY [facility] Last Admin: 04/25/19 09:46 Dose: 2.5 mg Propranolol HCl (Inderal -) 80 mg PO BID [facility] Last Admin: 04/25/19 22:21 Dose: Not Given Senna (Senna -) 2 tab PO HS [facility] Last Admin: 04/25/19 22:22 Dose: 2 tab - Objective Vital Signs: Vital Signs Temperature 100.5 F H 04/26/19 05:00 Pulse Rate 100 H 04/26/19 05:00 Respiratory Rate 20 04/26/19 05:00 Blood Pressure 93/66 04/26/19 05:00 O2 Sat by Pulse Oximetry (%) 100 04/25/19 21:00 Constitutional: Yes: Well Nourished, Calm Eyes: Yes: WNL HENT: Yes: WNL Neck: Yes: WNL Cardiovascular: Yes: Regular Rate and Rhythm, S1, S2 Respiratory: Yes: Diminished Gastrointestinal: Yes: Normal Bowel Sounds, Soft Extremities: Yes: Other (contracted) Edema: No Labs: CBC, BMP 04/26/19 07:25 04/26/19 07:25 Problem List - Problems (1) Sepsis Code(s): A41.9 - SEPSIS, UNSPECIFIED ORGANISM (2) UTI (urinary tract infection) Code(s): N39.0 - URINARY TRACT INFECTION, SITE NOT SPECIFIED (3) Anemia Code(s): D64.9 - ANEMIA, UNSPECIFIED (4) CAD (coronary artery disease) Code(s): I25.10 - ATHSCL HEART DISEASE OF [place] CORONARY ARTERY W/O ANG PCTRS (5) Fever Code(s): R50.9 - FEVER, UNSPECIFIED (6) Functional quadriplegia Code(s): R53.2 - FUNCTIONAL QUADRIPLEGIA (7) HTN (hypertension) Code(s): I10 - ESSENTIAL (PRIMARY) HYPERTENSION (8) Hypothyroid Code(s): E03.9 - HYPOTHYROIDISM, UNSPECIFIED (9) Multiple sclerosis Code(s): G35 - MULTIPLE SCLEROSIS (10) Neurodegenerative cognitive impairment Code(s): G31.9 - DEGENERATIVE DISEASE OF NERVOUS SYSTEM, UNSPECIFIED (11) Tachycardia Code(s): R00.0 - TACHYCARDIA, UNSPECIFIED Assessment/Plan IMP FEVER ? ,? PNEUMONIA ADVANCED MS HTN H/O TIA ASHD FUNCTIONAL QUADRIPLEGIA PLAN O2 ABX PER ID IVF MONITOR LYTES,CBC F/U CHEST X-RAY TODAY DR CATALAN Problem List - Problems (1) Sepsis Code(s): A41.9 - SEPSIS, UNSPECIFIED ORGANISM (2) UTI (urinary tract infection) Code(s): N39.0 - URINARY TRACT INFECTION, SITE NOT SPECIFIED (3) Anemia Code(s): D64.9 - ANEMIA, UNSPECIFIED (4) CAD (coronary artery disease) Code(s): I25.10 - ATHSCL HEART DISEASE OF [place] CORONARY ARTERY W/O ANG PCTRS (5) Fever Code(s): R50.9 - FEVER, UNSPECIFIED (6) Functional quadriplegia Code(s): R53.2 - FUNCTIONAL QUADRIPLEGIA (7) HTN (hypertension) Code(s): I10 - ESSENTIAL (PRIMARY) HYPERTENSION (8) Hypothyroid Code(s): E03.9 - HYPOTHYROIDISM, UNSPECIFIED (9) Multiple sclerosis Code(s): G35 - MULTIPLE SCLEROSIS (10) Neurodegenerative cognitive impairment Code(s): G31.9 - DEGENERATIVE DISEASE OF NERVOUS SYSTEM, UNSPECIFIED (11) Tachycardia Code(s): R00.0 - TACHYCARDIA, UNSPECIFIED
[2019-04-26] MEDS: HYDROCORTISONE 2.5% TOPICAL CREAM 30 GM TUBE RC SCH ×2 (11:25→23:14)
[2019-04-26] MEDS: LACTULOSE 20 GM/30 ML UDC (FOR ORAL USE ONLY) GT SCH (11:32)
[2019-04-26] MEDS: HEPARIN NA (PORCINE) 5,000 UNITS/ML 1ML VIAL SQ SCH ×2 (11:32→22:43)
[2019-04-26] MEDS: LANOLIN (EMOLL) 30 GM TUBE TP SCH ×2 (11:32→23:14)
[2019-04-26] MEDS: BACLOFEN 10 MG TABLET (FP) PEG SCH (11:33)
[2019-04-26] MEDS: LISINOPRIL 5 MG TABLET (FP) NGT SCH (11:33)
--- NOTE | 2019-04-26 12:40 | PN ---
Progress Note, Physician Chief Complaint: patient seen in bed mom at bedside does not verbalize - Current Medication List Current Medications: Active Medications Acetaminophen (Tylenol Oral Solution -) 650 mg GT Q4H PRN PRN Reason: PAIN Last Admin: 04/26/19 05:53 Dose: 650 mg Baclofen (Lioresal -) 10 mg PEG DAILY [facility] Last Admin: 04/26/19 11:33 Dose: 10 mg Emollient Ointment (Lanolin Topical Ointment -) 1 applic TP BID [facility] Last Admin: 04/26/19 11:32 Dose: 1 applic Heparin Sodium (Porcine) (Heparin -) 5,000 unit SQ BID [facility] Last Admin: 04/26/19 11:32 Dose: 5,000 unit Hydrocortisone (Anusol 2.5% Hc Cream -) 1 applic RC BID [facility] Last Admin: 04/26/19 11:25 Dose: 1 applic Meropenem 1 gm/ Dextrose 100 mls @ 200 mls/hr IVPB Q8H-IV [facility] Last Admin: 04/26/19 11:33 Dose: 200 mls/hr Lactulose (Cephulac (Oral Use)) 10 gm GT DAILY [facility] Last Admin: 04/26/19 11:32 Dose: 10 gm Levothyroxine Sodium (Synthroid -) 125 mcg PEG DAILY@0700 [facility] Last Admin: 04/26/19 06:03 Dose: 125 mcg Lisinopril (Prinivil) 2.5 mg NGT DAILY [facility] Last Admin: 04/26/19 11:33 Dose: Not Given Propranolol HCl (Inderal -) 80 mg PO BID [facility] Last Admin: 04/26/19 11:32 Dose: Not Given Senna (Senna -) 2 tab PO HS [facility] Last Admin: 04/25/19 22:22 Dose: 2 tab - Objective Vital Signs: Vital Signs Temperature 100.5 F H 04/26/19 05:00 Pulse Rate 100 H 04/26/19 05:00 Respiratory Rate 20 04/26/19 05:00 Blood Pressure 93/66 04/26/19 05:00 O2 Sat by Pulse Oximetry (%) 100 04/25/19 21:00 Constitutional: Yes: Calm Neck: Yes: Trachea Midline Cardiovascular: Yes: Regular Rate and Rhythm, S1, S2 Respiratory: Yes: CTA Bilaterally Gastrointestinal: Yes: Normal Bowel Sounds, Soft Musculoskeletal: Yes: Other (contracted and flexed) Edema: No Labs: CBC, BMP 04/26/19 07:25 04/26/19 07:25 INR, PTT INR 1.02 (0.83-1.09) 04/22/19 09:40 Problem List - Problems (1) Elevated LFTs Assessment/Plan: ct scan show mild bilary and PD dilatation mom is ok with getting Abdominal MRI gi consult noted Code(s): R94.5 - ABNORMAL RESULTS OF LIVER FUNCTION STUDIES (2) Sepsis Assessment/Plan: temp today 100.5 iv abx MRI of abdomen ordered to look at pancreatic CBD WBC now normal normal lactic acid Microbiology 04/22/19 09:40 Urine - Urine Adkins Urine Culture - Final NO GROWTH OBTAINED 04/22/19 09:40 Blood - Peripheral Venous Blood Culture - Preliminary NO GROWTH OBTAINED AFTER 24 HOURS, INCUBATION TO CONTINUE FOR 4 DAYS. 04/22/19 09:40 Blood - Peripheral Venous Blood Culture - Preliminary NO GROWTH OBTAINED AFTER 24 HOURS, INCUBATION TO CONTINUE FOR 4 DAYS. Microbiology 04/22/19 09:40 Urine - Urine Adkins Urine Culture - Final NO GROWTH OBTAINED 04/22/19 09:40 Blood - Peripheral Venous Blood Culture - Preliminary NO GROWTH OBTAINED AFTER 96 HOURS, INCUBATION TO CONTINUE FOR 1 DAYS. 04/22/19 09:40 Blood - Peripheral Venous Blood Culture - Preliminary NO GROWTH OBTAINED AFTER 96 HOURS, INCUBATION TO CONTINUE FOR 1 DAYS. Code(s): A41.9 - SEPSIS, UNSPECIFIED ORGANISM (3) UTI (urinary tract infection) Assessment/Plan: culture negative meropenem Code(s): N39.0 - URINARY TRACT INFECTION, SITE NOT SPECIFIED (4) Functional quadriplegia Assessment/Plan: ferquent turn and position g tube for nutrion dvt ppx Code(s): R53.2 - FUNCTIONAL QUADRIPLEGIA (5) Hypothyroid Assessment/Plan: tsh noted 7 range mello increase the synthroid dose to 125mcg daily Code(s): E03.9 - HYPOTHYROIDISM, UNSPECIFIED (6) Leukocytosis Assessment/Plan: resolved Code(s): D72.829 - ELEVATED WHITE BLOOD CELL COUNT, UNSPECIFIED (7) Neurodegenerative cognitive impairment Assessment/Plan: frequent trun and positioning dvt xx nutrition via g tube Code(s): G31.9 - DEGENERATIVE DISEASE OF NERVOUS SYSTEM, UNSPECIFIED
--- NOTE | 2019-04-26 15:09 | PN ---
Progress Note (short form) - Note Progress Note: low grade fever alert Vital Signs Period Temp Pulse Resp BP Sys/Ricardo Pulse Ox Last 24 Hr 99.3 F-100.9 F 100-106 18-20 83-100/59-69 100 cor-rrr lungs clear decreased bs at bases abd soft, +gt ext +erythema LUE CBC, BMP 04/26/19 07:25 04/26/19 07:25 Microbiology 04/22/19 09:40 Blood - Peripheral Venous Blood Culture - Preliminary NO GROWTH OBTAINED AFTER 96 HOURS, INCUBATION TO CONTINUE FOR 1 DAYS. 04/22/19 09:40 Blood - Peripheral Venous Blood Culture - Preliminary NO GROWTH OBTAINED AFTER 96 HOURS, INCUBATION TO CONTINUE FOR 1 DAYS. 04/22/19 09:40 Urine - Urine Adkins Urine Culture - Final NO GROWTH OBTAINED a/p fevers/ pen/sulfa allergy cellulitis LUe cultures sent switch to vancomycin d/c meropenem Problem List - Problems (1) Fever Code(s): R50.9 - FEVER, UNSPECIFIED (2) UTI (urinary tract infection) Code(s): N39.0 - URINARY TRACT INFECTION, SITE NOT SPECIFIED (3) Functional quadriplegia Code(s): R53.2 - FUNCTIONAL QUADRIPLEGIA (4) Allergy to multiple antibiotics Code(s): Z88.1 - ALLERGY STATUS TO OTHER ANTIBIOTIC AGENTS STATUS
[2019-04-26] MEDS: VANCOMYCIN 1 GRAM (PRE-DOCKED) 1,000 MG/250 ML BAG IVPB SCH (17:53)
[2019-04-26] MEDS: SENNOSIDES 8.6MG TABLET (FP) PO SCH (22:43)
[2019-04-27] MEDS: LEVOTHYROXINE NA 125 MCG TABLET (FP) PEG SCH (06:36)
[2019-04-27 07:20] LABS: ALBUMIN 2.5 g/dl (3.4-5.0); BILIRUBIN,TOTAL 0.5 mg/dL (0.2-1); BLOOD UREA NITROGEN 12.6 mg/dL (7-18); CALCIUM 9.6 mg/dL (8.5-10.1); CREATININE 0.5 mg/dL (0.55-1.3); POTASSIUM 3.7 mmol/L (3.5-5.1); TOT PROT 6.5 g/dl (6.4-8.2)
[2019-04-27] MEDS: BACLOFEN 10 MG TABLET (FP) PEG SCH (11:01)
[2019-04-27] MEDS: LISINOPRIL 5 MG TABLET (FP) NGT SCH (11:01)
[2019-04-27] MEDS: LACTULOSE 20 GM/30 ML UDC (FOR ORAL USE ONLY) GT SCH (11:02)
[2019-04-27] MEDS: HYDROCORTISONE 2.5% TOPICAL CREAM 30 GM TUBE RC SCH ×2 (11:05→21:56)
[2019-04-27] MEDS: HEPARIN NA (PORCINE) 5,000 UNITS/ML 1ML VIAL SQ SCH ×2 (11:05→21:58)
[2019-04-27] MEDS: LANOLIN (EMOLL) 30 GM TUBE TP SCH ×2 (11:05→21:55)
--- NOTE | 2019-04-27 11:30 | PN ---
Progress Note, Physician History of Present Illness: pulmonary awake,-resp distress,afebrile - Current Medication List Current Medications: Active Medications Acetaminophen (Tylenol Oral Solution -) 650 mg GT Q4H PRN PRN Reason: PAIN Last Admin: 04/26/19 22:42 Dose: 650 mg Baclofen (Lioresal -) 10 mg PEG DAILY [facility] Last Admin: 04/27/19 11:01 Dose: 10 mg Emollient Ointment (Lanolin Topical Ointment -) 1 applic TP BID [facility] Last Admin: 04/27/19 11:05 Dose: 1 applic Heparin Sodium (Porcine) (Heparin -) 5,000 unit SQ BID [facility] Last Admin: 04/27/19 11:05 Dose: 5,000 unit Hydrocortisone (Anusol 2.5% Hc Cream -) 1 applic RC BID [facility] Last Admin: 04/27/19 11:05 Dose: 1 applic Vancomycin HCl (Vancomycin (Pre-Docked)) 1,000 mg in 250 mls @ 166.667 mls/hr IVPB Q24H [facility]; Protocol Last Admin: 04/26/19 17:53 Dose: 166.667 mls/hr Lactulose (Cephulac (Oral Use)) 10 gm GT DAILY [facility] Last Admin: 04/27/19 11:02 Dose: 10 gm Levothyroxine Sodium (Synthroid -) 125 mcg PEG DAILY@0700 [facility] Last Admin: 04/27/19 06:36 Dose: 125 mcg Lisinopril (Prinivil) 2.5 mg NGT DAILY [facility] Last Admin: 04/27/19 11:01 Dose: 2.5 mg Propranolol HCl (Inderal -) 80 mg PO BID [facility] Last Admin: 04/27/19 11:02 Dose: 80 mg Senna (Senna -) 2 tab PO HS [facility] Last Admin: 04/26/19 22:43 Dose: 2 tab - Objective Vital Signs: Vital Signs Temperature 99.1 F 04/27/19 09:00 Pulse Rate 98 H 04/27/19 09:00 Respiratory Rate 18 04/27/19 09:00 Blood Pressure 103/58 L 04/27/19 09:00 O2 Sat by Pulse Oximetry (%) 95 04/27/19 09:00 Constitutional: Yes: Well Nourished, Calm Eyes: Yes: WNL HENT: Yes: WNL Neck: Yes: WNL Cardiovascular: Yes: Regular Rate and Rhythm, S1, S2 Respiratory: Yes: Diminished Gastrointestinal: Yes: Normal Bowel Sounds, Soft Extremities: Yes: Other (contracted) Labs: CBC, BMP 04/27/19 06:09 INR, PTT INR 1.02 (0.83-1.09) 04/22/19 09:40 Problem List - Problems (1) Sepsis Code(s): A41.9 - SEPSIS, UNSPECIFIED ORGANISM (2) UTI (urinary tract infection) Code(s): N39.0 - URINARY TRACT INFECTION, SITE NOT SPECIFIED (3) Anemia Code(s): D64.9 - ANEMIA, UNSPECIFIED (4) CAD (coronary artery disease) Code(s): I25.10 - ATHSCL HEART DISEASE OF [place] CORONARY ARTERY W/O ANG PCTRS (5) Fever Code(s): R50.9 - FEVER, UNSPECIFIED (6) Functional quadriplegia Code(s): R53.2 - FUNCTIONAL QUADRIPLEGIA (7) HTN (hypertension) Code(s): I10 - ESSENTIAL (PRIMARY) HYPERTENSION (8) Hypothyroid Code(s): E03.9 - HYPOTHYROIDISM, UNSPECIFIED (9) Multiple sclerosis Code(s): G35 - MULTIPLE SCLEROSIS (10) Neurodegenerative cognitive impairment Code(s): G31.9 - DEGENERATIVE DISEASE OF NERVOUS SYSTEM, UNSPECIFIED (11) Tachycardia Code(s): R00.0 - TACHYCARDIA, UNSPECIFIED Assessment/Plan IMP FEVER IMPROVING ADVANCED MS HTN H/O TIA ASHD FUNCTIONAL QUADRIPLEGIA PLAN O2 ABX PER ID IVF MONITOR LYTES,CBC DR CATALAN Problem List - Problems (1) Sepsis Code(s): A41.9 - SEPSIS, UNSPECIFIED ORGANISM (2) UTI (urinary tract infection) Code(s): N39.0 - URINARY TRACT INFECTION, SITE NOT SPECIFIED (3) Anemia Code(s): D64.9 - ANEMIA, UNSPECIFIED (4) CAD (coronary artery disease) Code(s): I25.10 - ATHSCL HEART DISEASE OF [place] CORONARY ARTERY W/O ANG PCTRS (5) Fever Code(s): R50.9 - FEVER, UNSPECIFIED (6) Functional quadriplegia Code(s): R53.2 - FUNCTIONAL QUADRIPLEGIA (7) HTN (hypertension) Code(s): I10 - ESSENTIAL (PRIMARY) HYPERTENSION (8) Hypothyroid Code(s): E03.9 - HYPOTHYROIDISM, UNSPECIFIED (9) Multiple sclerosis Code(s): G35 - MULTIPLE SCLEROSIS (10) Neurodegenerative cognitive impairment Code(s): G31.9 - DEGENERATIVE DISEASE OF NERVOUS SYSTEM, UNSPECIFIED (11) Tachycardia Code(s): R00.0 - TACHYCARDIA, UNSPECIFIED
--- NOTE | 2019-04-27 11:58 | PN ---
Progress Note (short form) - Note Progress Note: afebrile nad alert 2 Vital Signs Period Temp Pulse Resp BP Sys/Ricardo Pulse Ox Last 24 Hr 98.1 F-100 F 87-101 17-20 94-110/58-79 95-95 cor-rrr lungs decreased bs at bases abd soft, +GT no leaking ext less erythema left arm CBC, BMP 04/26/19 07:25 04/27/19 06:09 Microbiology 04/22/19 09:40 Blood - Peripheral Venous Blood Culture - Final NO GROWTH AFTER 5 DAYS INCUBATION 04/22/19 09:40 Blood - Peripheral Venous Blood Culture - Final NO GROWTH AFTER 5 DAYS INCUBATION 04/25/19 18:30 Blood - Peripheral Venous Blood Culture - Preliminary NO GROWTH OBTAINED AFTER 24 HOURS, INCUBATION TO CONTINUE FOR 4 DAYS. 04/25/19 18:30 Blood - Peripheral Venous Blood Culture - Preliminary NO GROWTH OBTAINED AFTER 24 HOURS, INCUBATION TO CONTINUE FOR 4 DAYS. 04/22/19 09:40 Urine - Urine Adkins Urine Culture - Final NO GROWTH OBTAINED a/p fevers/ pen/sulfa allergy cellulitis LUE cultures sent continue vancomycin Problem List - Problems (1) Fever Code(s): R50.9 - FEVER, UNSPECIFIED (2) UTI (urinary tract infection) Code(s): N39.0 - URINARY TRACT INFECTION, SITE NOT SPECIFIED (3) Functional quadriplegia Code(s): R53.2 - FUNCTIONAL QUADRIPLEGIA (4) Allergy to multiple antibiotics Code(s): Z88.1 - ALLERGY STATUS TO OTHER ANTIBIOTIC AGENTS STATUS
--- NOTE | 2019-04-27 14:53 | PN ---
Progress Note, Physician Chief Complaint: patient seen and examined on iv vancomycin for LUE cellulitis - Current Medication List Current Medications: Active Medications Acetaminophen (Tylenol Oral Solution -) 650 mg GT Q4H PRN PRN Reason: PAIN Last Admin: 04/26/19 22:42 Dose: 650 mg Baclofen (Lioresal -) 10 mg PEG DAILY [facility] Last Admin: 04/27/19 11:01 Dose: 10 mg Emollient Ointment (Lanolin Topical Ointment -) 1 applic TP BID [facility] Last Admin: 04/27/19 11:05 Dose: 1 applic Heparin Sodium (Porcine) (Heparin -) 5,000 unit SQ BID [facility] Last Admin: 04/27/19 11:05 Dose: 5,000 unit Hydrocortisone (Anusol 2.5% Hc Cream -) 1 applic RC BID [facility] Last Admin: 04/27/19 11:05 Dose: 1 applic Vancomycin HCl (Vancomycin (Pre-Docked)) 1,000 mg in 250 mls @ 166.667 mls/hr IVPB Q24H [facility]; Protocol Last Admin: 04/26/19 17:53 Dose: 166.667 mls/hr Lactulose (Cephulac (Oral Use)) 10 gm GT DAILY [facility] Last Admin: 04/27/19 11:02 Dose: 10 gm Levothyroxine Sodium (Synthroid -) 125 mcg PEG DAILY@0700 [facility] Last Admin: 04/27/19 06:36 Dose: 125 mcg Lisinopril (Prinivil) 2.5 mg NGT DAILY [facility] Last Admin: 04/27/19 11:01 Dose: 2.5 mg Propranolol HCl (Inderal -) 80 mg PO BID [facility] Last Admin: 04/27/19 11:02 Dose: 80 mg Senna (Senna -) 2 tab PO HS [facility] Last Admin: 04/26/19 22:43 Dose: 2 tab - Objective Vital Signs: Vital Signs Temperature 99.4 F 04/27/19 14:33 Pulse Rate 98 H 04/27/19 14:33 Respiratory Rate 16 04/27/19 14:33 Blood Pressure 95/57 L 04/27/19 14:33 O2 Sat by Pulse Oximetry (%) 95 04/27/19 09:00 Constitutional: Yes: Calm Cardiovascular: Yes: Regular Rate and Rhythm, S1, S2 Respiratory: Yes: CTA Bilaterally, Diminished (at bases) Gastrointestinal: Yes: Normal Bowel Sounds, Soft Extremities: Yes: Erythema, Other (LUE) Neurological: Yes: Other (non verbal) Labs: CBC, BMP 04/26/19 07:25 04/27/19 06:09 INR, PTT INR 1.02 (0.83-1.09) 04/22/19 09:40 Problem List - Problems (1) Elevated LFTs Assessment/Plan: ct scan show mild bilary and PD dilatation mom is ok with getting Abdominal MRI awaiting abdominal MRI gi consult noted Code(s): R94.5 - ABNORMAL RESULTS OF LIVER FUNCTION STUDIES (2) Sepsis Assessment/Plan: afebrile iv abx MRI of abdomen ordered to look at pancreatic CBD WBC now normal normal lactic acid Microbiology 04/22/19 09:40 Urine - Urine Adkins Urine Culture - Final NO GROWTH OBTAINED 04/22/19 09:40 Blood - Peripheral Venous Blood Culture - Preliminary NO GROWTH OBTAINED AFTER 24 HOURS, INCUBATION TO CONTINUE FOR 4 DAYS. 04/22/19 09:40 Blood - Peripheral Venous Blood Culture - Preliminary NO GROWTH OBTAINED AFTER 24 HOURS, INCUBATION TO CONTINUE FOR 4 DAYS. Microbiology 04/22/19 09:40 Urine - Urine Adkins Urine Culture - Final NO GROWTH OBTAINED 04/22/19 09:40 Blood - Peripheral Venous Blood Culture - Preliminary NO GROWTH OBTAINED AFTER 96 HOURS, INCUBATION TO CONTINUE FOR 1 DAYS. 04/22/19 09:40 Blood - Peripheral Venous Blood Culture - Preliminary NO GROWTH OBTAINED AFTER 96 HOURS, INCUBATION TO CONTINUE FOR 1 DAYS. LUE cellulitis now on iv vancomcyin Code(s): A41.9 - SEPSIS, UNSPECIFIED ORGANISM (3) UTI (urinary tract infection) Assessment/Plan: culture negative meropenem dc Code(s): N39.0 - URINARY TRACT INFECTION, SITE NOT SPECIFIED (4) Functional quadriplegia Assessment/Plan: ferquent turn and position g tube for nutrion dvt ppx Code(s): R53.2 - FUNCTIONAL QUADRIPLEGIA (5) Hypothyroid Assessment/Plan: tsh noted 7 range mello increase the synthroid dose to 125mcg daily Code(s): E03.9 - HYPOTHYROIDISM, UNSPECIFIED (6) Leukocytosis Assessment/Plan: resolved Code(s): D72.829 - ELEVATED WHITE BLOOD CELL COUNT, UNSPECIFIED (7) Neurodegenerative cognitive impairment Assessment/Plan: frequent trun and positioning dvt xx nutrition via g tube Code(s): G31.9 - DEGENERATIVE DISEASE OF NERVOUS SYSTEM, UNSPECIFIED (8) Cellulitis Assessment/Plan: iv vancomycin Code(s): L03.90 - CELLULITIS, UNSPECIFIED Qualifiers: Site of cellulitis of extremity: upper extremity
[2019-04-27] MEDS: VANCOMYCIN 1 GRAM (PRE-DOCKED) 1,000 MG/250 ML BAG IVPB SCH (17:13)
[2019-04-27] MEDS: SENNOSIDES 8.6MG TABLET (FP) PO SCH (21:58)
[2019-04-28] MEDS: LEVOTHYROXINE NA 125 MCG TABLET (FP) PEG SCH (06:26)
[2019-04-28] MEDS ORDERED: PT OWN MED DRAWER 7, Y5N ONE (08:37)
[2019-04-28] MEDS: LISINOPRIL 5 MG TABLET (FP) NGT SCH (09:22)
[2019-04-28] MEDS: BACLOFEN 10 MG TABLET (FP) PEG SCH (09:23)
[2019-04-28] MEDS: HEPARIN NA (PORCINE) 5,000 UNITS/ML 1ML VIAL SQ SCH ×2 (09:23→21:35)
[2019-04-28] MEDS: LACTULOSE 20 GM/30 ML UDC (FOR ORAL USE ONLY) GT SCH (09:53)
[2019-04-28] MEDS: LANOLIN (EMOLL) 30 GM TUBE TP SCH ×2 (10:41→21:36)
[2019-04-28] MEDS: HYDROCORTISONE 2.5% TOPICAL CREAM 30 GM TUBE RC SCH ×2 (10:41→21:34)
--- NOTE | 2019-04-28 10:43 | PN ---
Progress Note, Physician Chief Complaint: Sepsis History of Present Illness: Previous notes and events reviewed awake and alert non-verbal, tracks with eyes NAD PEG tube feeding BC and UC neg - Current Medication List Current Medications: Active Medications Acetaminophen (Tylenol Oral Solution -) 650 mg GT Q4H PRN PRN Reason: PAIN Last Admin: 04/26/19 22:42 Dose: 650 mg Baclofen (Lioresal -) 10 mg PEG DAILY [facility] Last Admin: 04/28/19 09:23 Dose: 10 mg Emollient Ointment (Lanolin Topical Ointment -) 1 applic TP BID [facility] Last Admin: 04/27/19 21:55 Dose: Not Given Heparin Sodium (Porcine) (Heparin -) 5,000 unit SQ BID [facility] Last Admin: 04/28/19 09:23 Dose: 5,000 unit Hydrocortisone (Anusol 2.5% Hc Cream -) 1 applic RC BID [facility] Last Admin: 04/27/19 21:56 Dose: Not Given Vancomycin HCl (Vancomycin (Pre-Docked)) 1,000 mg in 250 mls @ 166.667 mls/hr IVPB Q24H [facility]; Protocol Last Admin: 04/27/19 17:13 Dose: 166.667 mls/hr Lactulose (Cephulac (Oral Use)) 10 gm GT DAILY [facility] Last Admin: 04/28/19 09:53 Dose: 10 gm Levothyroxine Sodium (Synthroid -) 125 mcg PEG DAILY@0700 [facility] Last Admin: 04/28/19 06:26 Dose: 125 mcg Lisinopril (Prinivil) 2.5 mg NGT DAILY [facility] Last Admin: 04/28/19 09:22 Dose: 2.5 mg Propranolol HCl (Inderal -) 80 mg PO BID [facility] Last Admin: 04/28/19 09:26 Dose: 80 mg Senna (Senna -) 2 tab PO HS [facility] Last Admin: 04/27/19 21:58 Dose: 2 tab - Objective Vital Signs: Vital Signs Temperature 98.9 F 04/28/19 09:00 Pulse Rate 92 H 04/28/19 09:00 Respiratory Rate 18 04/28/19 09:00 Blood Pressure 95/68 04/28/19 09:00 O2 Sat by Pulse Oximetry (%) 98 04/28/19 09:00 Constitutional: Yes: No Distress, Calm Eyes: Yes: Conjunctiva Clear HENT: Yes: Atraumatic Cardiovascular: Yes: Regular Rate and Rhythm Respiratory: Yes: Regular, Diminished, On Nasal O2 Gastrointestinal: Yes: Normal Bowel Sounds, Soft, Other (PEG tube) Musculoskeletal: Yes: WNL Extremities: Yes: Erythema (LUE) Neurological: Yes: Alert, Other (non-verbal) Labs: CBC, BMP 04/26/19 07:25 04/27/19 06:09 INR, PTT INR 1.02 (0.83-1.09) 04/22/19 09:40 Microbiology 04/25/19 18:30 Blood - Peripheral Venous Blood Culture - Preliminary NO GROWTH OBTAINED AFTER 48 HOURS, INCUBATION TO CONTINUE FOR 3 DAYS. 04/25/19 18:30 Blood - Peripheral Venous Blood Culture - Preliminary NO GROWTH OBTAINED AFTER 48 HOURS, INCUBATION TO CONTINUE FOR 3 DAYS. 04/22/19 09:40 Blood - Peripheral Venous Blood Culture - Final NO GROWTH AFTER 5 DAYS INCUBATION 04/22/19 09:40 Blood - Peripheral Venous Blood Culture - Final NO GROWTH AFTER 5 DAYS INCUBATION 04/22/19 09:40 Urine - Urine Adkins Urine Culture - Final NO GROWTH OBTAINED Problem List - Problems (1) Cellulitis Assessment/Plan: -ID on board -Vancomycin -BC neg -afebrile -no leukocytosis Code(s): L03.90 - CELLULITIS, UNSPECIFIED Qualifiers: Site of cellulitis of extremity: upper extremity (2) Elevated LFTs Assessment/Plan: -GI on board -AST 80, ALT 154, Alk Phos 158 -Abd/Pelvic CT scan shows CBD appears slightly dilated 0.7cm, mild focal prominence of the main pancreatic duct within the body vs representing 0.5cm cyst, -Abdomen MRI ordered Code(s): R94.5 - ABNORMAL RESULTS OF LIVER FUNCTION STUDIES (3) Sepsis Assessment/Plan: -ID on board -Vancomycin -no leukocytosis -afebrile -BC neg x 2, UC neg -LA 1.8~1.2 -CXR new bibasilar atelectatic changes Code(s): A41.9 - SEPSIS, UNSPECIFIED ORGANISM (4) UTI (urinary tract infection) Assessment/Plan: -ID on board -Vancomycin -no leukocytosis -afebrile -UA shows 3+ leuks, 1+ blood -UC neg Code(s): N39.0 - URINARY TRACT INFECTION, SITE NOT SPECIFIED (5) Fever Assessment/Plan: -tylenol for temp >100F -no leukocytosis -currently afebrile -Vancomycin Code(s): R50.9 - FEVER, UNSPECIFIED (6) Functional quadriplegia Assessment/Plan: -PT -fall precautions -turn q2h -offloading Code(s): R53.2 - FUNCTIONAL QUADRIPLEGIA (7) HTN (hypertension) Assessment/Plan: -Lisinopril Code(s): I10 - ESSENTIAL (PRIMARY) HYPERTENSION (8) Hypothyroid Assessment/Plan: -Levothyroxine Code(s): E03.9 - HYPOTHYROIDISM, UNSPECIFIED (9) Leukocytosis Assessment/Plan: -ID on board -Vancomycin -no leukocytosis -afebrile -BC neg x 2, UC neg -LA 1.8~1.2 -CXR new bibasilar atelectatic changes Code(s): D72.829 - ELEVATED WHITE BLOOD CELL COUNT, UNSPECIFIED (10) Multiple sclerosis Assessment/Plan: -baclofen -propanolol -fall precaution -PEG tube for nutrition Code(s): G35 - MULTIPLE SCLEROSIS Assessment/Plan see problem list dvt ppx
[2019-04-28] MEDS: VANCOMYCIN 1 GRAM (PRE-DOCKED) 1,000 MG/250 ML BAG IVPB SCH (16:40)
--- NOTE | 2019-04-28 17:32 | PN ---
Progress Note, Physician History of Present Illness: OFFERS NO COMPLAINTS NEW PHLEBITIS NOTED L FOREARM AFEBRILE - Current Medication List Current Medications: Active Medications Acetaminophen (Tylenol Oral Solution -) 650 mg GT Q4H PRN PRN Reason: PAIN Last Admin: 04/26/19 22:42 Dose: 650 mg Baclofen (Lioresal -) 10 mg PEG DAILY [facility] Last Admin: 04/28/19 09:23 Dose: 10 mg Emollient Ointment (Lanolin Topical Ointment -) 1 applic TP BID [facility] Last Admin: 04/28/19 10:41 Dose: 1 applic Heparin Sodium (Porcine) (Heparin -) 5,000 unit SQ BID [facility] Last Admin: 04/28/19 09:23 Dose: 5,000 unit Hydrocortisone (Anusol 2.5% Hc Cream -) 1 applic RC BID [facility] Last Admin: 04/28/19 10:41 Dose: 1 applic Vancomycin HCl (Vancomycin (Pre-Docked)) 1,000 mg in 250 mls @ 166.667 mls/hr IVPB Q24H [facility]; Protocol Last Admin: 04/28/19 16:40 Dose: 166.667 mls/hr Lactulose (Cephulac (Oral Use)) 10 gm GT DAILY [facility] Last Admin: 04/28/19 09:53 Dose: 10 gm Levothyroxine Sodium (Synthroid -) 125 mcg PEG DAILY@0700 [facility] Last Admin: 04/28/19 06:26 Dose: 125 mcg Lisinopril (Prinivil) 2.5 mg NGT DAILY [facility] Last Admin: 04/28/19 09:22 Dose: 2.5 mg Propranolol HCl (Inderal -) 80 mg PO BID [facility] Last Admin: 04/28/19 09:26 Dose: 80 mg Senna (Senna -) 2 tab PO HS [facility] Last Admin: 04/27/19 21:58 Dose: 2 tab - Objective Vital Signs: Vital Signs Temperature 98.9 F 04/28/19 09:00 Pulse Rate 92 H 04/28/19 09:00 Respiratory Rate 18 04/28/19 09:00 Blood Pressure 95/68 04/28/19 09:00 O2 Sat by Pulse Oximetry (%) 98 04/28/19 09:00 Constitutional: Yes: No Distress Eyes: Yes: Conjunctiva Clear Cardiovascular: Yes: Regular Rate and Rhythm, S1, S2 Respiratory: Yes: CTA Bilaterally Gastrointestinal: Yes: Normal Bowel Sounds, Soft Extremities: Yes: Other (RESOLVING PHLEBITIS L UE NEW PHLEBITIS L FOREARM) Labs: CBC, BMP 04/26/19 07:25 04/27/19 06:09 INR, PTT INR 1.02 (0.83-1.09) 04/22/19 09:40 Assessment/Plan PHLEBITIS L UE ANTIBIOTIC ALLERGIES AWAIT C/S CONTINUE VANCOMYCIN
[2019-04-28] MEDS: SENNOSIDES 8.6MG TABLET (FP) PO SCH (21:34)
[2019-04-29] MEDS: LEVOTHYROXINE NA 125 MCG TABLET (FP) PEG SCH (06:25)
[2019-04-29 07:12] LABS: HEMATOCRIT 34.7 % (32.4-45.2); MCH 32.2 pg (25.7-33.7); MCHC 34.5 g/dl (32.0-36.0); MEAN CELL VOLUME 93.2 fl (80-96); MEAN PLT VOLUME 8.3 fl (7.5-11.1); PLATELET COUNT 238 K/MM3 (134-434); RBC 3.72 M/mm3 (3.60-5.2); RDW 12.5 % (11.6-15.6); WHITE BLOOD COUNT 6.6 K/mm3 (4.0-10.0)
[2019-04-29 07:30] LABS: ALBUMIN 2.6 g/dl (3.4-5.0); BILIRUBIN,TOTAL 0.3 mg/dL (0.2-1); BLOOD UREA NITROGEN 13.1 mg/dL (7-18); CALCIUM 9.5 mg/dL (8.5-10.1); CREATININE 0.6 mg/dL (0.55-1.3); POTASSIUM 3.9 mmol/L (3.5-5.1); TOT PROT 6.5 g/dl (6.4-8.2)
[2019-04-29] MEDS: LACTULOSE 20 GM/30 ML UDC (FOR ORAL USE ONLY) GT SCH (09:41)
[2019-04-29] MEDS: BACLOFEN 10 MG TABLET (FP) PEG SCH (09:41)
[2019-04-29] MEDS: HEPARIN NA (PORCINE) 5,000 UNITS/ML 1ML VIAL SQ SCH (09:41)
[2019-04-29] MEDS: HYDROCORTISONE 2.5% TOPICAL CREAM 30 GM TUBE RC SCH ×2 (09:42→21:28)
[2019-04-29] MEDS: LANOLIN (EMOLL) 30 GM TUBE TP SCH ×2 (09:42→21:29)
[2019-04-29] MEDS: LISINOPRIL 5 MG TABLET (FP) NGT SCH (09:46)
--- NOTE | 2019-04-29 10:09 | PN ---
Progress Note, Physician Chief Complaint: Sepsis History of Present Illness: Previous notes and events reviewed awake and alert non-verbal, tracks with eyes NAD PEG tube feeding BC and UC neg LUE erythema noted, tender to palpation - Current Medication List Current Medications: Active Medications Acetaminophen (Tylenol Oral Solution -) 650 mg GT Q4H PRN PRN Reason: PAIN Last Admin: 04/26/19 22:42 Dose: 650 mg Baclofen (Lioresal -) 10 mg PEG DAILY [facility] Last Admin: 04/29/19 09:41 Dose: 10 mg Emollient Ointment (Lanolin Topical Ointment -) 1 applic TP BID [facility] Last Admin: 04/29/19 09:42 Dose: 1 applic Heparin Sodium (Porcine) (Heparin -) 5,000 unit SQ BID [facility] Last Admin: 04/29/19 09:41 Dose: 5,000 unit Hydrocortisone (Anusol 2.5% Hc Cream -) 1 applic RC BID [facility] Last Admin: 04/29/19 09:42 Dose: Not Given Vancomycin HCl (Vancomycin (Pre-Docked)) 1,000 mg in 250 mls @ 166.667 mls/hr IVPB Q24H [facility]; Protocol Last Admin: 04/28/19 16:40 Dose: 166.667 mls/hr Lactulose (Cephulac (Oral Use)) 10 gm GT DAILY [facility] Last Admin: 04/29/19 09:41 Dose: 10 gm Levothyroxine Sodium (Synthroid -) 125 mcg PEG DAILY@0700 [facility] Last Admin: 04/29/19 06:25 Dose: 125 mcg Lisinopril (Prinivil) 2.5 mg NGT DAILY [facility] Last Admin: 04/29/19 09:46 Dose: Not Given Propranolol HCl (Inderal -) 80 mg PO BID [facility] Last Admin: 04/29/19 09:46 Dose: Not Given Senna (Senna -) 2 tab PO HS [facility] Last Admin: 04/28/19 21:34 Dose: 2 tab - Objective Vital Signs: Vital Signs Temperature 98.2 F 04/29/19 05:00 Pulse Rate 101 H 04/29/19 05:00 Respiratory Rate 18 04/29/19 05:00 Blood Pressure 98/55 L 04/29/19 05:00 O2 Sat by Pulse Oximetry (%) 95 04/28/19 21:00 Constitutional: Yes: No Distress, Calm Eyes: Yes: Conjunctiva Clear HENT: Yes: Atraumatic Cardiovascular: Yes: Tachycardia Respiratory: Yes: Regular, CTA Bilaterally Gastrointestinal: Yes: Normal Bowel Sounds, Soft, Other (PEG tube) Genitourinary: Yes: Incontinence Musculoskeletal: Yes: Muscle Weakness, Other (contractures) Extremities: Yes: Erythema (LUE), Other (lower extremities) Edema: Yes (LUE ) Neurological: Yes: Alert, Confusion Psychiatric: Yes: Alert Labs: CBC, BMP 04/29/19 06:50 04/29/19 06:50 INR, PTT INR 1.02 (0.83-1.09) 04/22/19 09:40 Microbiology 04/25/19 18:30 Blood - Peripheral Venous Blood Culture - Preliminary NO GROWTH OBTAINED AFTER 72 HOURS, INCUBATION TO CONTINUE FOR 2 DAYS. 04/25/19 18:30 Blood - Peripheral Venous Blood Culture - Preliminary NO GROWTH OBTAINED AFTER 72 HOURS, INCUBATION TO CONTINUE FOR 2 DAYS. 04/22/19 09:40 Blood - Peripheral Venous Blood Culture - Final NO GROWTH AFTER 5 DAYS INCUBATION 04/22/19 09:40 Blood - Peripheral Venous Blood Culture - Final NO GROWTH AFTER 5 DAYS INCUBATION 04/22/19 09:40 Urine - Urine Adkins Urine Culture - Final NO GROWTH OBTAINED Problem List - Problems (1) Cellulitis Assessment/Plan: -ID on board -Vancomycin -BC neg -afebrile -no leukocytosis Code(s): L03.90 - CELLULITIS, UNSPECIFIED Qualifiers: Site of cellulitis of extremity: upper extremity (2) Elevated LFTs Assessment/Plan: -GI on board -ALT 69 Alk Phos 142 -Abd/Pelvic CT scan shows CBD appears slightly dilated 0.7cm, mild focal prominence of the main pancreatic duct within the body vs representing 0.5cm cyst, -Abdomen MRI ordered Code(s): R94.5 - ABNORMAL RESULTS OF LIVER FUNCTION STUDIES (3) Sepsis Assessment/Plan: -ID on board -Vancomycin -no leukocytosis -afebrile -BC neg x 2, UC neg -LA 1.8~1.2 -CXR new bibasilar atelectatic changes Code(s): A41.9 - SEPSIS, UNSPECIFIED ORGANISM (4) UTI (urinary tract infection) Assessment/Plan: -ID on board -Vancomycin -no leukocytosis -afebrile -UA shows 3+ leuks, 1+ blood -UC neg Code(s): N39.0 - URINARY TRACT INFECTION, SITE NOT SPECIFIED (5) Fever Assessment/Plan: -tylenol for temp >100F -no leukocytosis -currently afebrile -Vancomycin Code(s): R50.9 - FEVER, UNSPECIFIED (6) Functional quadriplegia Assessment/Plan: -PT -fall precautions -turn q2h -offloading Code(s): R53.2 - FUNCTIONAL QUADRIPLEGIA (7) HTN (hypertension) Assessment/Plan: -Lisinopril Code(s): I10 - ESSENTIAL (PRIMARY) HYPERTENSION (8) Hypothyroid Assessment/Plan: -Levothyroxine Code(s): E03.9 - HYPOTHYROIDISM, UNSPECIFIED (9) Leukocytosis Assessment/Plan: -ID on board -Vancomycin -no leukocytosis -afebrile -BC neg x 2, UC neg -LA 1.8~1.2 -CXR new bibasilar atelectatic changes Code(s): D72.829 - ELEVATED WHITE BLOOD CELL COUNT, UNSPECIFIED (10) Multiple sclerosis Assessment/Plan: -baclofen -propanolol -fall precaution -PEG tube for nutrition Code(s): G35 - MULTIPLE SCLEROSIS Assessment/Plan see problem list dvt ppx
[2019-04-29] MEDS: VANCOMYCIN 1 GRAM (PRE-DOCKED) 1,000 MG/250 ML BAG IVPB SCH (17:12)
[2019-04-29] MEDS: ACETAMINOPHEN 650 MG/20.3 ML ORAL SOLUTION (CUPS) GT PRN (21:28)
[2019-04-29] MEDS: SENNOSIDES 8.6MG TABLET (FP) PO SCH (21:29)
[2019-04-30] MEDS: LEVOTHYROXINE NA 125 MCG TABLET (FP) PEG SCH (06:21)
[2019-04-30 07:13] LABS: HEMATOCRIT 32.3 % (32.4-45.2); HEMOGLOBIN 11.3 GM/dL (10.7-15.3); MCH 32.5 pg (25.7-33.7); MCHC 34.8 g/dl (32.0-36.0); MEAN CELL VOLUME 93.3 fl (80-96); MEAN PLT VOLUME 8.5 fl (7.5-11.1); PLATELET COUNT 221 K/MM3 (134-434); RBC 3.47 M/mm3 (3.60-5.2); RDW 12.5 % (11.6-15.6); WHITE BLOOD COUNT 5.2 K/mm3 (4.0-10.0)
[2019-04-30 07:51] LABS: ALBUMIN 2.5 g/dl (3.4-5.0); BILIRUBIN,TOTAL 0.3 mg/dL (0.2-1); BLOOD UREA NITROGEN 13.6 mg/dL (7-18); CREATININE 0.5 mg/dL (0.55-1.3); POTASSIUM 3.8 mmol/L (3.5-5.1); TOT PROT 6.1 g/dl (6.4-8.2)
--- NOTE | 2019-04-30 10:22 | PN ---
Progress Note, Physician History of Present Illness: pulmonary alert,no distress,non-verbal - Current Medication List Current Medications: Active Medications Acetaminophen (Tylenol Oral Solution -) 650 mg GT Q4H PRN PRN Reason: PAIN Last Admin: 04/29/19 21:28 Dose: 650 mg Baclofen (Lioresal -) 10 mg PEG DAILY [facility] Last Admin: 04/29/19 09:41 Dose: 10 mg Emollient Ointment (Lanolin Topical Ointment -) 1 applic TP BID [facility] Last Admin: 04/29/19 21:29 Dose: 1 applic Hydrocortisone (Anusol 2.5% Hc Cream -) 1 applic RC BID [facility] Last Admin: 04/29/19 21:28 Dose: Not Given Vancomycin HCl (Vancomycin (Pre-Docked)) 1,000 mg in 250 mls @ 166.667 mls/hr IVPB Q24H [facility]; Protocol Last Admin: 04/29/19 17:12 Dose: 166.667 mls/hr Lactulose (Cephulac (Oral Use)) 10 gm GT DAILY [facility] Last Admin: 04/29/19 09:41 Dose: 10 gm Levothyroxine Sodium (Synthroid -) 125 mcg PEG DAILY@0700 [facility] Last Admin: 04/30/19 06:21 Dose: 125 mcg Lisinopril (Prinivil) 2.5 mg NGT DAILY [facility] Last Admin: 04/29/19 09:46 Dose: Not Given Propranolol HCl (Inderal -) 80 mg PO BID [facility] Last Admin: 04/29/19 21:29 Dose: Not Given Senna (Senna -) 2 tab PO HS [facility] Last Admin: 04/29/19 21:29 Dose: 2 tab - Objective Vital Signs: Vital Signs Temperature 98.6 F 04/30/19 05:00 Pulse Rate 100 H 04/30/19 05:00 Respiratory Rate 18 04/30/19 05:00 Blood Pressure 88/64 L 04/30/19 05:00 O2 Sat by Pulse Oximetry (%) 99 04/29/19 21:00 Constitutional: Yes: Calm, Thin Eyes: Yes: WNL HENT: Yes: WNL Neck: Yes: WNL Cardiovascular: Yes: Regular Rate and Rhythm, S1, S2 Respiratory: Yes: Diminished Gastrointestinal: Yes: Normal Bowel Sounds, Soft Extremities: Yes: Other (contracted) Edema: No Labs: CBC, BMP 04/30/19 06:06 04/30/19 06:06 INR, PTT INR 1.02 (0.83-1.09) 04/22/19 09:40 Problem List - Problems (1) Sepsis Code(s): A41.9 - SEPSIS, UNSPECIFIED ORGANISM (2) UTI (urinary tract infection) Code(s): N39.0 - URINARY TRACT INFECTION, SITE NOT SPECIFIED (3) Anemia Code(s): D64.9 - ANEMIA, UNSPECIFIED (4) CAD (coronary artery disease) Code(s): I25.10 - ATHSCL HEART DISEASE OF [place] CORONARY ARTERY W/O ANG PCTRS (5) Fever Code(s): R50.9 - FEVER, UNSPECIFIED (6) Functional quadriplegia Code(s): R53.2 - FUNCTIONAL QUADRIPLEGIA (7) HTN (hypertension) Code(s): I10 - ESSENTIAL (PRIMARY) HYPERTENSION (8) Hypothyroid Code(s): E03.9 - HYPOTHYROIDISM, UNSPECIFIED (9) Multiple sclerosis Code(s): G35 - MULTIPLE SCLEROSIS (10) Neurodegenerative cognitive impairment Code(s): G31.9 - DEGENERATIVE DISEASE OF NERVOUS SYSTEM, UNSPECIFIED (11) Tachycardia Code(s): R00.0 - TACHYCARDIA, UNSPECIFIED Assessment/Plan IMP FEVER IMPROVING ADVANCED MS HTN H/O TIA ASHD FUNCTIONAL QUADRIPLEGIA PLAN O2 CONTINUE ABX PER ID MONITOR LYTES,CBC DR CATALAN Problem List - Problems (1) Sepsis Code(s): A41.9 - SEPSIS, UNSPECIFIED ORGANISM (2) UTI (urinary tract infection) Code(s): N39.0 - URINARY TRACT INFECTION, SITE NOT SPECIFIED (3) Anemia Code(s): D64.9 - ANEMIA, UNSPECIFIED (4) CAD (coronary artery disease) Code(s): I25.10 - ATHSCL HEART DISEASE OF [place] CORONARY ARTERY W/O ANG PCTRS (5) Fever Code(s): R50.9 - FEVER, UNSPECIFIED (6) Functional quadriplegia Code(s): R53.2 - FUNCTIONAL QUADRIPLEGIA (7) HTN (hypertension) Code(s): I10 - ESSENTIAL (PRIMARY) HYPERTENSION (8) Hypothyroid Code(s): E03.9 - HYPOTHYROIDISM, UNSPECIFIED (9) Multiple sclerosis Code(s): G35 - MULTIPLE SCLEROSIS (10) Neurodegenerative cognitive impairment Code(s): G31.9 - DEGENERATIVE DISEASE OF NERVOUS SYSTEM, UNSPECIFIED (11) Tachycardia Code(s): R00.0 - TACHYCARDIA, UNSPECIFIED
[2019-04-30] MEDS: HYDROCORTISONE 2.5% TOPICAL CREAM 30 GM TUBE RC SCH ×2 (10:27→21:39)
[2019-04-30] MEDS ORDERED: PT OWN MED DRAWER 7, Y5N ONE (10:29)
[2019-04-30] MEDS: LACTULOSE 20 GM/30 ML UDC (FOR ORAL USE ONLY) GT SCH (10:31)
[2019-04-30] MEDS: BACLOFEN 10 MG TABLET (FP) PEG SCH (10:32)
[2019-04-30] MEDS: LISINOPRIL 5 MG TABLET (FP) NGT SCH (10:34)
[2019-04-30] MEDS: LANOLIN (EMOLL) 30 GM TUBE TP SCH ×2 (10:38→21:38)
--- NOTE | 2019-04-30 13:19 | PN ---
Progress Note, Physician Chief Complaint: patient seen and examined on iv abx for UE cellulitis - Current Medication List Current Medications: Active Medications Acetaminophen (Tylenol Oral Solution -) 650 mg GT Q4H PRN PRN Reason: PAIN Last Admin: 04/29/19 21:28 Dose: 650 mg Baclofen (Lioresal -) 10 mg PEG DAILY [facility] Last Admin: 04/30/19 10:32 Dose: 10 mg Emollient Ointment (Lanolin Topical Ointment -) 1 applic TP BID [facility] Last Admin: 04/30/19 10:38 Dose: 1 applic Hydrocortisone (Anusol 2.5% Hc Cream -) 1 applic RC BID [facility] Last Admin: 04/30/19 10:27 Dose: Not Given Vancomycin HCl (Vancomycin (Pre-Docked)) 1,000 mg in 250 mls @ 166.667 mls/hr IVPB Q24H [facility]; Protocol Last Admin: 04/29/19 17:12 Dose: 166.667 mls/hr Lactulose (Cephulac (Oral Use)) 10 gm GT DAILY [facility] Last Admin: 04/30/19 10:31 Dose: 10 gm Levothyroxine Sodium (Synthroid -) 125 mcg PEG DAILY@0700 [facility] Last Admin: 04/30/19 06:21 Dose: 125 mcg Lisinopril (Prinivil) 2.5 mg NGT DAILY [facility] Last Admin: 04/30/19 10:34 Dose: Not Given Propranolol HCl (Inderal -) 80 mg PO BID [facility] Last Admin: 04/30/19 10:34 Dose: Not Given Senna (Senna -) 2 tab PO HS [facility] Last Admin: 04/29/19 21:29 Dose: 2 tab - Objective Vital Signs: Vital Signs Temperature 98.6 F 04/30/19 05:00 Pulse Rate 100 H 04/30/19 05:00 Respiratory Rate 18 04/30/19 05:00 Blood Pressure 88/64 L 04/30/19 05:00 O2 Sat by Pulse Oximetry (%) 99 04/29/19 21:00 Constitutional: Yes: Calm Cardiovascular: Yes: Regular Rate and Rhythm, S1, S2 Respiratory: Yes: CTA Bilaterally Gastrointestinal: Yes: Normal Bowel Sounds, Soft Extremities: Yes: Erythema (much imprved) Labs: CBC, BMP 04/30/19 06:06 04/30/19 06:06 INR, PTT INR 1.02 (0.83-1.09) 04/22/19 09:40 Problem List - Problems (1) Elevated LFTs Assessment/Plan: ct scan show mild bilary and PD dilatation LFT trending down awaiting abdominal MRI gi consult noted Code(s): R94.5 - ABNORMAL RESULTS OF LIVER FUNCTION STUDIES (2) Sepsis Assessment/Plan: afebrile iv abx MRI of abdomen ordered to look at pancreatic CBD WBC now normal normal lactic acid Microbiology 04/22/19 09:40 Urine - Urine Adkins Urine Culture - Final NO GROWTH OBTAINED 04/22/19 09:40 Blood - Peripheral Venous Blood Culture - Preliminary NO GROWTH OBTAINED AFTER 24 HOURS, INCUBATION TO CONTINUE FOR 4 DAYS. 04/22/19 09:40 Blood - Peripheral Venous Blood Culture - Preliminary NO GROWTH OBTAINED AFTER 24 HOURS, INCUBATION TO CONTINUE FOR 4 DAYS. Microbiology 04/22/19 09:40 Urine - Urine Adkins Urine Culture - Final NO GROWTH OBTAINED 04/22/19 09:40 Blood - Peripheral Venous Blood Culture - Preliminary NO GROWTH OBTAINED AFTER 96 HOURS, INCUBATION TO CONTINUE FOR 1 DAYS. 04/22/19 09:40 Blood - Peripheral Venous Blood Culture - Preliminary NO GROWTH OBTAINED AFTER 96 HOURS, INCUBATION TO CONTINUE FOR 1 DAYS. LUE cellulitis now on iv vancomcyin Code(s): A41.9 - SEPSIS, UNSPECIFIED ORGANISM (3) UTI (urinary tract infection) Assessment/Plan: culture negative meropenem dc Code(s): N39.0 - URINARY TRACT INFECTION, SITE NOT SPECIFIED (4) Functional quadriplegia Assessment/Plan: ferquent turn and position g tube for nutrion dvt ppx Code(s): R53.2 - FUNCTIONAL QUADRIPLEGIA (5) Hypothyroid Assessment/Plan: tsh noted 7 range mello increase the synthroid dose to 125mcg daily Code(s): E03.9 - HYPOTHYROIDISM, UNSPECIFIED (6) Leukocytosis Code(s): D72.829 - ELEVATED WHITE BLOOD CELL COUNT, UNSPECIFIED (7) Neurodegenerative cognitive impairment Code(s): G31.9 - DEGENERATIVE DISEASE OF NERVOUS SYSTEM, UNSPECIFIED (8) Cellulitis Code(s): L03.90 - CELLULITIS, UNSPECIFIED Qualifiers: Site of cellulitis of extremity: upper extremity
--- NOTE | 2019-04-30 16:01 | PN ---
Progress Note (short form) - Note Progress Note: afebrile NAD 2 Vital Signs Period Temp Pulse Resp BP Sys/Ricardo Pulse Ox Last 24 Hr 98.1 F-100 F 92-103 18-20 88-106/64-76 99 cor-rrr lungs clear abd soft, +GT ext erythema resolved LUE CBC, BMP 04/30/19 06:06 04/30/19 06:06 Microbiology 04/25/19 18:30 Blood - Peripheral Venous Blood Culture - Preliminary NO GROWTH OBTAINED AFTER 96 HOURS, INCUBATION TO CONTINUE FOR 1 DAYS. 04/25/19 18:30 Blood - Peripheral Venous Blood Culture - Preliminary NO GROWTH OBTAINED AFTER 96 HOURS, INCUBATION TO CONTINUE FOR 1 DAYS. 04/22/19 09:40 Blood - Peripheral Venous Blood Culture - Final NO GROWTH AFTER 5 DAYS INCUBATION 04/22/19 09:40 Blood - Peripheral Venous Blood Culture - Final NO GROWTH AFTER 5 DAYS INCUBATION 04/22/19 09:40 Urine - Urine Adkins Urine Culture - Final NO GROWTH OBTAINED a/p fevers- cellulitis resolved, d/c vancomycin pen/sulfa allergy cellulitis LUE cultures negative Problem List - Problems (1) Fever Code(s): R50.9 - FEVER, UNSPECIFIED (2) UTI (urinary tract infection) Code(s): N39.0 - URINARY TRACT INFECTION, SITE NOT SPECIFIED (3) Functional quadriplegia Code(s): R53.2 - FUNCTIONAL QUADRIPLEGIA (4) Allergy to multiple antibiotics Code(s): Z88.1 - ALLERGY STATUS TO OTHER ANTIBIOTIC AGENTS STATUS
[2019-04-30] MEDS: VANCOMYCIN 1 GRAM (PRE-DOCKED) 1,000 MG/250 ML BAG IVPB SCH (16:56)
[2019-04-30] MEDS: SENNOSIDES 8.6MG TABLET (FP) PO SCH (21:37)
[2019-05-01] MEDS: LEVOTHYROXINE NA 125 MCG TABLET (FP) PEG SCH (06:44)
--- NOTE | 2019-05-01 09:07 | DS ---
Physical Examination Vital Signs: Vital Signs Temperature 97.5 F L 05/01/19 05:40 Pulse Rate 81 05/01/19 05:40 Respiratory Rate 20 05/01/19 05:40 Blood Pressure 94/60 05/01/19 05:40 O2 Sat by Pulse Oximetry (%) 98 04/30/19 21:00 Cardiovascular: Yes: S1, S2 Respiratory: Yes: Regular, CTA Bilaterally Gastrointestinal: Yes: Normal Bowel Sounds, Soft Labs: CBC, BMP 04/30/19 06:06 04/30/19 06:06 Discharge Summary Problems reviewed: Yes Reason For Visit: SEPSIS Current Active Problems Allergy to multiple antibiotics (Acute) Cellulitis (Acute) Dislodged gastrostomy tube (Acute) Elevated LFTs (Acute) FUO (fever of unknown origin) (Acute) Pancreatic cyst (Acute) Sepsis (Acute) UTI (urinary tract infection) (Acute) Hospital Course: - Problems (1) Elevated LFTs Assessment/Plan: ct scan show mild bilary and PD dilatation LFT trending down cancel abdominal MRI--d/w mom follow up ct scan a s outpatient gi consult noted Code(s): R94.5 - ABNORMAL RESULTS OF LIVER FUNCTION STUDIES (2) Sepsis Assessment/Plan: afebrile off iv abx WBC now normal normal lactic acid Microbiology 04/22/19 09:40 Urine - Urine Adkins Urine Culture - Final NO GROWTH OBTAINED 04/22/19 09:40 Blood - Peripheral Venous Blood Culture - Preliminary NO GROWTH OBTAINED AFTER 24 HOURS, INCUBATION TO CONTINUE FOR 4 DAYS. 04/22/19 09:40 Blood - Peripheral Venous Blood Culture - Preliminary NO GROWTH OBTAINED AFTER 24 HOURS, INCUBATION TO CONTINUE FOR 4 DAYS. Microbiology 04/22/19 09:40 Urine - Urine Adkins Urine Culture - Final NO GROWTH OBTAINED 04/22/19 09:40 Blood - Peripheral Venous Blood Culture - Preliminary NO GROWTH OBTAINED AFTER 96 HOURS, INCUBATION TO CONTINUE FOR 1 DAYS. 04/22/19 09:40 Blood - Peripheral Venous Blood Culture - Preliminary NO GROWTH OBTAINED AFTER 96 HOURS, INCUBATION TO CONTINUE FOR 1 DAYS. LUE cellulitis now on iv vancomcyin Code(s): A41.9 - SEPSIS, UNSPECIFIED ORGANISM (3) UTI (urinary tract infection) Assessment/Plan: culture negative meropenem dc Code(s): N39.0 - URINARY TRACT INFECTION, SITE NOT SPECIFIED (4) Functional quadriplegia Assessment/Plan: ferquent turn and position g tube for nutrion dvt ppx Code(s): R53.2 - FUNCTIONAL QUADRIPLEGIA (5) Hypothyroid Assessment/Plan: tsh noted 7 range mello increase the synthroid dose to 125mcg daily Code(s): E03.9 - HYPOTHYROIDISM, UNSPECIFIED (6) Leukocytosis Code(s): D72.829 - ELEVATED WHITE BLOOD CELL COUNT, UNSPECIFIED (7) Neurodegenerative cognitive impairment Code(s): G31.9 - DEGENERATIVE DISEASE OF NERVOUS SYSTEM, UNSPECIFIED (8) Cellulitis Code(s): L03.90 - CELLULITIS, UNSPECIFIED Qualifiers: Site of cellulitis of extremity: upper extremity Condition: Improved - Instructions Diet, Activity, Other Instructions: cbc cmp tuesday cmp q week x 4 weeks Referrals: Fredo Collier MD [Primary Care Provider] - Disposition: [facility] - Home Medications Comprehensive Discharge Medication List: Ambulatory Orders Propranolol HCl [Propranolol HCl ER] 80 mg GT BID 08/14/18 Heparin - 5,000 unit SQ BID #30 vial 08/17/18 Acetaminophen 650 mg GT Q6H PRN 10/06/18 Vits A and D/White Pet/Lanolin [A and D Ointment] 1 applic TP BID 10/06/18 Zinc Oxide 20% Topical Oint 1 applic TP Q8H 10/09/18 Baclofen [Lioresal -] 10 mg PEG DAILY tablet 10/17/18 Levothyroxine [Synthroid -] 112 mcg PEG DAILY@0700 tablet 10/17/18 Hydrocortisone 2.5% Topical Cr [Anusol-Hc -] 1 applic RC BID 04/22/19 Lactulose (Oral Use) [Cephulac -] 15 ml GT DAILY 04/22/19 Sennosides [Senna] 2 tab GT HS 04/22/19 Lisinopril [Prinivil] 2.5 mg NGT DAILY tablet 05/01/19
--- NOTE | 2019-05-01 11:03 | PN ---
Progress Note, Physician History of Present Illness: PULMONARY ALERT,NO DISTRESS,AFEBRILE,-SOB,-CONGESTION - Current Medication List Current Medications: Active Medications Acetaminophen (Tylenol Oral Solution -) 650 mg GT Q4H PRN PRN Reason: PAIN Last Admin: 04/29/19 21:28 Dose: 650 mg Baclofen (Lioresal -) 10 mg PEG DAILY [facility] Last Admin: 04/30/19 10:32 Dose: 10 mg Emollient Ointment (Lanolin Topical Ointment -) 1 applic TP BID [facility] Last Admin: 04/30/19 21:38 Dose: 1 applic Hydrocortisone (Anusol 2.5% Hc Cream -) 1 applic RC BID [facility] Last Admin: 04/30/19 21:39 Dose: Not Given Lactulose (Cephulac (Oral Use)) 10 gm GT DAILY [facility] Last Admin: 04/30/19 10:31 Dose: 10 gm Levothyroxine Sodium (Synthroid -) 125 mcg PEG DAILY@0700 [facility] Last Admin: 05/01/19 06:44 Dose: 125 mcg Lisinopril (Prinivil) 2.5 mg NGT DAILY [facility] Last Admin: 04/30/19 10:34 Dose: Not Given Propranolol HCl (Inderal -) 80 mg PO BID [facility] Last Admin: 04/30/19 21:37 Dose: 80 mg Senna (Senna -) 2 tab PO HS [facility] Last Admin: 04/30/19 21:37 Dose: 2 tab - Objective Vital Signs: Vital Signs Temperature 98.1 F 05/01/19 10:00 Pulse Rate 80 05/01/19 10:00 Respiratory Rate 21 H 05/01/19 10:00 Blood Pressure 92/65 05/01/19 10:00 O2 Sat by Pulse Oximetry (%) 97 05/01/19 09:00 Constitutional: Yes: Well Nourished, Calm Eyes: Yes: WNL HENT: Yes: WNL Neck: Yes: WNL Cardiovascular: Yes: Regular Rate and Rhythm, S1, S2 Respiratory: Yes: CTA Bilaterally Gastrointestinal: Yes: Normal Bowel Sounds, Soft Extremities: Yes: Other (CONTRACTED) Edema: No Labs: CBC, BMP 04/30/19 06:06 04/30/19 06:06 INR, PTT INR 1.02 (0.83-1.09) 04/22/19 09:40 Problem List - Problems (1) Sepsis Code(s): A41.9 - SEPSIS, UNSPECIFIED ORGANISM (2) UTI (urinary tract infection) Code(s): N39.0 - URINARY TRACT INFECTION, SITE NOT SPECIFIED (3) Anemia Code(s): D64.9 - ANEMIA, UNSPECIFIED (4) CAD (coronary artery disease) Code(s): I25.10 - ATHSCL HEART DISEASE OF [place] CORONARY ARTERY W/O ANG PCTRS (5) Fever Code(s): R50.9 - FEVER, UNSPECIFIED (6) Functional quadriplegia Code(s): R53.2 - FUNCTIONAL QUADRIPLEGIA (7) HTN (hypertension) Code(s): I10 - ESSENTIAL (PRIMARY) HYPERTENSION (8) Hypothyroid Code(s): E03.9 - HYPOTHYROIDISM, UNSPECIFIED (9) Multiple sclerosis Code(s): G35 - MULTIPLE SCLEROSIS (10) Neurodegenerative cognitive impairment Code(s): G31.9 - DEGENERATIVE DISEASE OF NERVOUS SYSTEM, UNSPECIFIED (11) Tachycardia Code(s): R00.0 - TACHYCARDIA, UNSPECIFIED Assessment/Plan IMP FEVER IMPROVING ADVANCED MS HTN H/O TIA ASHD FUNCTIONAL QUADRIPLEGIA PLAN OK FOR DISCHARGE FROM PULMONARY STANDPOINT DR CATALAN Problem List - Problems (1) Sepsis Code(s): A41.9 - SEPSIS, UNSPECIFIED ORGANISM (2) UTI (urinary tract infection) Code(s): N39.0 - URINARY TRACT INFECTION, SITE NOT SPECIFIED (3) Anemia Code(s): D64.9 - ANEMIA, UNSPECIFIED (4) CAD (coronary artery disease) Code(s): I25.10 - ATHSCL HEART DISEASE OF [place] CORONARY ARTERY W/O ANG PCTRS (5) Fever Code(s): R50.9 - FEVER, UNSPECIFIED (6) Functional quadriplegia Code(s): R53.2 - FUNCTIONAL QUADRIPLEGIA (7) HTN (hypertension) Code(s): I10 - ESSENTIAL (PRIMARY) HYPERTENSION (8) Hypothyroid Code(s): E03.9 - HYPOTHYROIDISM, UNSPECIFIED (9) Multiple sclerosis Code(s): G35 - MULTIPLE SCLEROSIS (10) Neurodegenerative cognitive impairment Code(s): G31.9 - DEGENERATIVE DISEASE OF NERVOUS SYSTEM, UNSPECIFIED (11) Tachycardia Code(s): R00.0 - TACHYCARDIA, UNSPECIFIED
[2019-05-01] MEDS: HYDROCORTISONE 2.5% TOPICAL CREAM 30 GM TUBE RC SCH (11:43)
[2019-05-01] MEDS: LACTULOSE 20 GM/30 ML UDC (FOR ORAL USE ONLY) GT SCH (11:44)
[2019-05-01] MEDS: BACLOFEN 10 MG TABLET (FP) PEG SCH (11:45)
[2019-05-01] MEDS: LISINOPRIL 5 MG TABLET (FP) NGT SCH (11:45)
[2019-05-01] MEDS: LANOLIN (EMOLL) 30 GM TUBE TP SCH (11:48)
[2019-05-01 15:48] VITALS: BP 90/70; PULSE 90; TEMP 98.9
== END 2019-05-01 17:30 | DRG 720 ==
LOC: JER 09:09 → JERBED 13:00 → J4W 15:15
PROVIDERS: ADMIT Family Medicine; ATTEND Family Medicine
DX: A41.89 Other specified sepsis (principal); I25.10 Atherosclerotic heart disease of native coronary artery without angina pectoris; I10 Essential (primary) hypertension; E03.9 Hypothyroidism, unspecified; G31.9 Degenerative disease of nervous system, unspecified; N39.0 Urinary tract infection, site not specified; G35 Multiple sclerosis; R53.2 Functional quadriplegia; D72.829 Elevated white blood cell count, unspecified; R00.0 Tachycardia, unspecified; K86.2 Cyst of pancreas; K94.23 Gastrostomy malfunction; Y84.8 Other medical procedures as the cause of abnormal reaction of the patient, or of later complication, without mention of misadventure at the time of the procedure; J98.11 Atelectasis; L03.114 Cellulitis of left upper limb; I80.8 Phlebitis and thrombophlebitis of other sites; Z88.0 Allergy status to penicillin; Z86.73 Personal history of transient ischemic attack (TIA), and cerebral infarction without residual deficits; Z88.1 Allergy status to other antibiotic agents
CPT/HCPCS: 36415; 36600; 71045-TC-FY; 74018-TC-FY; 74177-TC; 80053; 81003; 82140; 82550; 82553; 82803; 83605; 83690; 83735; 84439; 84443; 84484; 85025; 85027; 85610; 85730; 87040; 87086; 87804; 93005; 93010; 97161-GP; 99285-25; G0480; J0475; J1644; J7030; Q2036

== ENCOUNTER 2019-05-17 08:53 | Inpatient (IN) | payer SELFPAY ==
[2019-05-17] MEDS ORDERED: ACETAMINOPHEN 1000 MG/100 ML VIAL (NON FORMULARY) IVPB ONE (09:13)
[2019-05-17] MEDS ORDERED: SODIUM CHLORIDE 0.9% 1000 ML INFUS.BAG IV ONE (09:14)
--- NOTE | 2019-05-17 09:14 | PDOC ---
History of Present Illness - History of Present Illness Initial Comments: 05/17/19 09:28 53y F hx of hypothyroidism, htn, ?neurodegenerative disorder, presnts from [place] for fever, tachypnea and tachycardia. History is limited by the patient due to her clinical status she is awake staring ahead but nonverbal at baseline. On arrival in the Emergency department she was febrile to 102.7 (rectal) and tachycardic to 153. Of note the patient was recently hospitalized and discharged on 05/01, for treatment of LUE cellulitis and UTI. 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) Thyroid Disease: (Yes; HYPOTHYROIDISM) - Immunization History Immunization Up to Date: No - Psycho Social/Smoking Cessation Hx Smoking History: Never smoked Have you smoked in the past 12 months: No If you are a former smoker, when did you quit?: 1985 Hx Alcohol Use: No Drug/Substance Use Hx: No Substance Use Type: None Hx Substance Use Treatment: No <Thelma Damon - Last Filed: 05/17/19 11:04> <Jannie Bee - Last Filed: 05/17/19 11:24> - Past Medical History Allergies/Adverse Reactions: Allergies Allergy/AdvReac Type Severity Reaction Status Date / Time Penicillins Allergy Verified 05/17/19 09:37 sulfur dioxide Allergy Verified 05/17/19 09:37 Home Medications: Ambulatory Orders Propranolol HCl [Propranolol HCl ER] 80 mg GT BID 08/14/18 Heparin - 5,000 unit SQ BID #30 vial 08/17/18 Acetaminophen 650 mg GT Q6H PRN 10/06/18 Vits A and D/White Pet/Lanolin [A and D Ointment] 1 applic TP BID 10/06/18 Zinc Oxide 20% Topical Oint 1 applic TP Q8H 10/09/18 Baclofen [Lioresal -] 10 mg PEG DAILY tablet 10/17/18 Levothyroxine [Synthroid -] 112 mcg PEG DAILY@0700 tablet 10/17/18 Hydrocortisone 2.5% Topical Cr [Anusol-Hc -] 1 applic RC BID 04/22/19 Lactulose (Oral Use) [Cephulac -] 15 ml GT DAILY 04/22/19 Sennosides [Senna] 2 tab GT HS 04/22/19 Lisinopril [Prinivil] 2.5 mg NGT DAILY tablet 05/01/19 Ipratropium/Albuterol Sulfate [Iprat-Albut 0.5-3(2.5) mg/3 ml] 3 ml IH QID 05/17 Review of Systems - Review of Systems Able to Perform ROS?: No (patient is non-verbal) <Thelma Damon - Last Filed: 05/17/19 11:04> *Physical Exam - Physical Exam General Appearance: Yes: Nourished, Appropriately Dressed, Other (looking around room, tracking with eyes, nonverbal (at baseline)). No: Apparent Distress HEENT: positive: EOMI, KIRAN, Other (dry mucous membranes) Neck: positive: Trachea midline, Supple. negative: Tender Respiratory/Chest: positive: Lungs Clear, Normal Breath Sounds. negative: Respiratory Distress, Accessory Muscle Use, Crackles, Rales, Wheezing Cardiovascular: positive: Regular Rhythm, S1, S2, Tachycardia. negative: Murmur Gastrointestinal/Abdominal: positive: Normal Bowel Sounds, Flat, Soft. negative : Tender Musculoskeletal: positive: Other (arms and legs contracted, resisting motion to extend but no obvious cuts, ulcers or skin findings suspicious for cellulitis. No sacral decubitus ulcer. ) Extremity: positive: Normal Capillary Refill, Normal Inspection. negative: Tender Integumentary: positive: Normal Color, Dry, Warm Neurologic: positive: insurance follow up specialist II-XII NML intact, Alert <Thelma Damon - Last Filed: 05/17/19 11:04> - Vital Signs Last Vital Signs Temp Pulse Resp BP Pulse Ox 102.7 F H 153 H 28 H 118/85 95 05/17/19 09:26 05/17/19 09:00 05/17/19 09:00 05/17/19 09:00 05/17/19 09:44 <Jannie Bee - Last Filed: 05/17/19 11:24> ED Treatment Course - LABORATORY CBC & Chemistry Diagram: 05/17/19 09:20 05/17/19 09:20 <Thelma Damon - Last Filed: 05/17/19 11:04> - LABORATORY CBC & Chemistry Diagram: 05/17/19 09:20 05/17/19 09:20 - ADDITIONAL ORDERS Additional order review: Laboratory Results 05/17/19 05/17/19 05/17/19 09:40 09:20 09:20 PT with INR 12.90 INR 1.09 PTT (Actin FS) 30.1 VBG pH 7.44 H POC VBG pCO2 33.4 L POC VBG pO2 82.9 H VBG HCO3 22.5 L VBG O2 Sat (Stan) 96.6 H VBG Base Excess -0.5 Sodium Potassium Chloride Carbon Dioxide Anion Gap BUN Creatinine Est GFR (CKD-EPI)AfAm Est GFR (CKD-EPI)NonAf Random Glucose Calcium Total Bilirubin AST ALT Alkaline Phosphatase Troponin I Total Protein Albumin Urine Color Yellow Urine Appearance Cloudy Urine pH 6.5 Ur Specific Kimberly 1.026 Urine Protein 2+ H Urine Glucose (UA) Negative Urine Ketones Negative Urine Blood 1+ H Urine Nitrite Negative Urine Bilirubin Negative Urine Urobilinogen 1.0 Ur Leukocyte Esterase 3+ H Urine WBC (Auto) 47 Urine Casts (Auto) 103 U Epithel Cells (Auto) >36 Urine Bacteria (Auto) 8.4 05/17/19 09:20 PT with INR INR PTT (Actin FS) VBG pH POC VBG pCO2 POC VBG pO2 VBG HCO3 VBG O2 Sat (Stan) VBG Base Excess Sodium 144 Potassium 4.0 Chloride 112 H Carbon Dioxide 23 Anion Gap 8 BUN 26.4 H Creatinine 0.9 Est GFR (CKD-EPI)AfAm 84.61 Est GFR (CKD-EPI)NonAf 73.00 Random Glucose 167 H Calcium 9.3 Total Bilirubin 0.5 AST 24 ALT 37 Alkaline Phosphatase 102 Troponin I < 0.02 Total Protein 7.8 Albumin 3.1 L Urine Color Urine Appearance Urine pH Ur Specific Kimberly Urine Protein Urine Glucose (UA) Urine Ketones Urine Blood Urine Nitrite Urine Bilirubin Urine Urobilinogen Ur Leukocyte Esterase Urine WBC (Auto) Urine Casts (Auto) U Epithel Cells (Auto) Urine Bacteria (Auto) 05/17/19 09:20 RBC 4.11 MCV 94.4 MCHC 33.8 RDW 13.7 MPV 8.1 Neutrophils % 73.9 Lymphocytes % 12.8 D Monocytes % 13.0 H Eosinophils % 0.0 D Basophils % 0.3 - Medications Given in the ED: ED Medications Discontinued Medications Generic Name Dose Route Start Last Admin Trade Name Gricelda PRN Reason Stop Dose Admin Acetaminophen 1,000 mg 05/17/19 09:13 05/17/19 09:31 Ofirmev Injection - IVPB 05/17/19 09:14 1,000 mg ONCE ONE Administration Sodium Chloride 1,000 ml 05/17/19 09:14 05/17/19 09:18 Normal Saline - IV 05/17/19 09:15 1,000 ml ONCE ONE Administration Sodium Chloride 1,000 ml 05/17/19 09:26 05/17/19 10:00 Normal Saline - IV 05/17/19 09:27 1,000 ml ONCE ONE Administration <Jannie Bee - Last Filed: 05/17/19 11:24> Medical Decision Making - Medical Decision Making 05/17/19 09:40 53y F hx of hypothyroidism, htn, ?neurodegenerative disorder, presnts from [place] for fever, tachypnea and tachycardia. Concern for sepsis, unknown source at this time. Will obtain: - CBC - CMP - Coags - Trop - LA - Influenza A/B - UA - Ucx - Blood cx - 2LNC - CXR Will administer - 2LNS bolus - tylenol for pain and fever 05/17/19 11:04 - CXR with evidence of L sided PNA - UA also consistent with UTI (3+ LE and 47wbc) - EKG with sinus tachycardia (147) QTc 406 - Pt to be admitted to Dr. Madden for treatment of sepsis 2/2 UTI and L sided PNA. Blood and urine cx pending. <Thelma Damon - Last Filed: 05/17/19 11:04> - Critical Care Time Total Critical Care Time (minutes): 45 (severe sepsis/infection) Critical Care Statement: The care of this patient involved high complexity decision making to prevent further life threatening deterioration of the patient 's condition and/or to evaluate & treat vital organ system(s) failure or risk of failure. <Jannie Bee - Last Filed: 05/17/19 11:24> Discharge <NelsonThelma - Last Filed: 05/17/19 11:04> - Discharge Information Problems reviewed: Yes - Admission Yes <CristalJannieabbey Winter - Last Filed: 05/17/19 11:24> - Discharge Information Clinical Impression/Diagnosis: Severe sepsis UTI (urinary tract infection) Qualifiers: Urinary tract infection type: site unspecified Hematuria presence: with hematuria Qualified Code(s): N39.0 - Urinary tract infection, site not specified Pneumonia Qualifiers: Pneumonia type: due to unspecified organism Laterality: left Lung location: unspecified part of lung Qualified Code(s): J18.9 - Pneumonia, unspecified organism Condition: Guarded
[2019-05-17] MEDS ORDERED: ACETAMINOPHEN INJECTION 100 ML IVPB ONE (09:18)
--- NOTE | 2019-05-17 09:25 | PDOC ---
Attending Attestation - Resident Resident Name: Thelma Damon - ED Attending Attestation I have performed the following: I have examined & evaluated the patient, The case was reviewed & discussed with the resident, I agree w/resident's findings & plan - HPI HPI: 05/17/19 09:30 53yo F with PMH of HTN, progressive neurodegenerative disorder, CAD, TIA, and pseudobulbar affect presents to the emergency department from her [place] [facility], with fever and respiratory distress/SOB/tachypnea. Recent admission 04/22 to 05/01 for fever 2/2 UTI/upper extremity cellulitis, placed on vancomycin and meropenem; since resolved Allergies to sulfa and pcn. history limited 2/2 patient's neurodegenerative disorder. nonverbal status, provided by family and [place] [facility] records. 05/17/19 10:24 - Physicial Exam PE: 05/17/19 09:25 Agree with the resident's HPI and PE as documented in the electronic medical record. nonverbal, alert. EOMI, PERRL, nl conjunctiva, anicteric; very dry mucus membranes/cracked lips, neck supple. lungs clear but diminished 2/2 poor inspiratory effort., +tachycardic, abdomen soft nontender. no rebound, guarding. +G tube in place. Back nontender. CORDON x4, increased tone/ +contracted in all extremities. No peripheral edema. normal color for ethnicity, WWP. no rash. 05/17/19 10:23 - Critical Care Time Total Critical Care Time: 45 (severe sepsis, infection) Critical Care Statement: The care of this patient involved high complexity decision making to prevent further life threatening deterioration of the patient 's condition and/or to evaluate & treat vital organ system(s) failure or risk of failure. - Medical Decision Making 05/17/19 09:30 Vital Signs Temp Pulse Resp BP Pulse Ox 102.7 F H 153 H 28 H 118/85 95 05/17/19 09:26 05/17/19 09:00 05/17/19 09:00 05/17/19 09:00 05/17/19 09:44 Vital signs reviewed here febrile and tachycardic. EKG reveals sinus tachycardia 147 bpm secondary to the fever. We will pursue sepsis work-up, including urine and blood cultures, straight cath, lactic, basic labs. IV antibiotics meropenem and vancomycin to empirically cover for MRSA and gram- negative organisms given recent hospitalization and risk factors for severe infection. 2 L IV fluid hydration. prior urine and blood cultures were negative for any organism, has been empirically treated so will do the same for this presentation. UA with +leuk esterase and copious wbc/rbcs, treat as recurrent UTI; no findings to suggest cellulitis blood and urine cultures pending +leukocytosis of 13K. lytes and cr normal lactic_elevated to 3, c/w severe sepsis, empirically covered, IVF, will recheck and trend lactic flu neg cxr_Chest x-ray with normal cardiac silhouette some increased interstitial markings on the left lung field, suspicious for pna. covered for pneumonia with gretel/vancomycin given allergies.. recheck vitals, defervescing, tachy downtrending. admission to Dr Collier/[facility]. dx severe sepsis, UTI and Pneumonia 05/17/19 11:00 Heart Score/ECG Review #1 ECG reviewed & interpreted by me at: 09:20 General ECG Interpretation: Sinus Rhythm, Normal Intervals Compared to previous ECG there are: Changes noted 05/17/19 09:32 Sinus tachycardia 147 bpm, narrow complex QRS, nonspecific T wave abnormalities could be rate related, no ST elevations or depressions, normal intervals
[2019-05-17] MEDS ORDERED: SODIUM CHLORIDE 0.9% 500 ML INFUS.BAG IV ONE (09:26)
[2019-05-17 09:37] VITALS: BMI 19.8
[2019-05-17 09:37] LABS: VENOUS PC02 33.4 mmHg (38-52); VENOUS PH 7.44 (7.31-7.41); VENOUS PO2 82.9 mmHg (28-48)
[2019-05-17 09:39] LABS: BASO % 0.3 % (0-2.0); HEMATOCRIT 38.8 % (32.4-45.2); HEMOGLOBIN 13.1 GM/dL (10.7-15.3); LYMPH % 12.8 % (8-40); MCH 31.9 pg (25.7-33.7); MCHC 33.8 g/dl (32.0-36.0); MEAN CELL VOLUME 94.4 fl (80-96); MEAN PLT VOLUME 8.1 fl (7.5-11.1); NEUT % 73.9 % (42.8-82.8); PLATELET COUNT 248 K/MM3 (134-434); RBC 4.11 M/mm3 (3.60-5.2); RDW 13.7 % (11.6-15.6)
[2019-05-17 09:43] LABS: EPI CELLS >36 /HPF (0-5/HPF); HYALINE CASTS 103 /lpf (0-8); PH,URINE 6.5 (5.0-8.0); URINE APPEARANCE CLOUDY; URINE BACTERIA 8.4 /hpf (NEGATIVE); URINE BILIRUBIN NEGATIVE (NEGATIVE); URINE COLOR YELLOW; URINE GLUCOSE (UA) NEGATIVE (NEGATIVE); URINE KETONE NEGATIVE (NEGATIVE); URINE LEUK ESTERASE 3+ (NEGATIVE); URINE NITRITE NEGATIVE (NEGATIVE); URINE PROTEIN 2+ (NEGATIVE); URINE WBC 47 /hpf (0-5)
[2019-05-17 10:09] LABS: INR 1.09 (0.83-1.09); PROTHROMBIN TIME (PATIENT) 12.9 SEC (9.7-13.0)
[2019-05-17 10:12] LABS: ACTIVATED PTT 30.1 SECONDS (25.2-36.5)
[2019-05-17 10:14] LABS: ALBUMIN 3.1 g/dl (3.4-5.0); ALK PHOS 102 U/L (45-117); ANION GAP 8 MMOL/L (8-16); BILIRUBIN,TOTAL 0.5 mg/dL (0.2-1); BLOOD UREA NITROGEN 26.4 mg/dL (7-18); CALCIUM 9.3 mg/dL (8.5-10.1); CHLORIDE 112 mmol/L (98-107); CO2 23 mmol/L (21-32); CREATININE 0.9 mg/dL (0.55-1.3); GLUCOSE,RANDOM 167 mg/dL (74-106); SGOT/AST 24 U/L (15-37); SGPT/ALT 37 U/L (13-61); SODIUM 144 mmol/L (136-145); TOT PROT 7.8 g/dl (6.4-8.2)
[2019-05-17] MEDS ORDERED: VANCOMYCIN HCL 1,500 MG in DEXTROSE 5%-WATER - 500 ML IVPB ONE (10:22)
[2019-05-17] MEDS ORDERED: MEROPENEM 1 GM in DEXTROSE 5%-WATER 100 ML IVPB ONE (10:22)
[2019-05-17 10:33] LABS: URINE RBC 11.1 /hpf (0-4); YEAST FEW (NEGATIVE)
--- NOTE | 2019-05-17 12:55 | HP ---
Admitting History and Physical - Admission Chief Complaint: sent in from [place] for [place] and [place]achypnea History of Present Illness: patient is non verbal history obtained from ER records 53y F hx of hypothyroidism, htn, ?neurodegenerative disorder, presnts from [place] for [place], tachypnea and tachycardia. her clinical status she is awake staring On arrival in the Emergency department she was febrile to 102.7 (rectal) and tachycardic to 153. Of note the patient was recently hospitalized and discharged on 05/01, for treatment of LUE cellulitis and UTI. 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: Multiple Sclerosis (Questionable), Other (Recurrent falls, Ataxia,) - Smoking History Smoking history: Never smoked Have you smoked in the past 12 months: No If you are a former smoker, when did you quit?: 1985 - Alcohol/Substance Use Hx Alcohol Use: No Home Medications - Allergies Allergies/Adverse Reactions: Allergies Allergy/AdvReac Type Severity Reaction Status Date / Time Penicillins Allergy Verified 05/17/19 09:37 sulfur dioxide Allergy Verified 05/17/19 09:37 - Home Medications Home Medications: Ambulatory Orders Propranolol HCl [Propranolol HCl ER] 80 mg GT BID 08/14/18 Heparin - 5,000 unit SQ BID #30 vial 08/17/18 Acetaminophen 650 mg GT Q6H PRN 10/06/18 Vits A and D/White Pet/Lanolin [A and D Ointment] 1 applic TP BID 10/06/18 Zinc Oxide 20% Topical Oint 1 applic TP Q8H 10/09/18 Baclofen [Lioresal -] 10 mg PEG DAILY tablet 10/17/18 Levothyroxine [Synthroid -] 112 mcg PEG DAILY@0700 tablet 10/17/18 Hydrocortisone 2.5% Topical Cr [Anusol-Hc -] 1 applic RC BID 04/22/19 Lactulose (Oral Use) [Cephulac -] 15 ml GT DAILY 04/22/19 Sennosides [Senna] 2 tab GT HS 04/22/19 Lisinopril [Prinivil] 2.5 mg NGT DAILY tablet 05/01/19 Ipratropium/Albuterol Sulfate [Iprat-Albut 0.5-3(2.5) mg/3 ml] 3 ml IH QID 05/17 Review of Systems Unable to obtain ROS, reason: non verbal Physical Examination Vital Signs: Vital Signs Temperature 100.1 F H 05/17/19 11:07 Pulse Rate 121 H 05/17/19 12:10 Respiratory Rate 28 H 05/17/19 10:33 Blood Pressure 96/83 05/17/19 12:10 O2 Sat by Pulse Oximetry (%) 97 05/17/19 10:33 Constitutional: Yes: Calm, Thin Cardiovascular: Yes: Tachycardia, S1, S2 Respiratory: Yes: Diminished, On Nasal O2 Gastrointestinal: Yes: Normal Bowel Sounds, Soft, Other (g tube) Musculoskeletal: Yes: Other (flexed legs) Edema: No Neurological: Yes: Other (non verbal) Labs: CBC, BMP 05/17/19 09:20 05/17/19 09:20 Imaging - Results X-ray: Report Reviewed (possible underlying fluid or infiltrate) EKG: Report Reviewed (sinus tachy) Problem List - Problems (1) Sepsis Assessment/Plan: lactic acidosis resolved possibly secondary to pneumonia and UTI blood cultures pending tylenol as needed iv abx ID and pulm evaluation monitor BP ivf will hold propanolol Code(s): A41.9 - SEPSIS, UNSPECIFIED ORGANISM Qualifiers: Sepsis type: sepsis due to unspecified organism Sepsis acute organ dysfunction status: unspecified Qualified Code(s): A41.9 - Sepsis, unspecified organism (2) Pneumonia Assessment/Plan: iv abx ID eval Code(s): J18.9 - PNEUMONIA, UNSPECIFIED ORGANISM Qualifiers: Pneumonia type: due to unspecified organism Laterality: left Lung location: unspecified part of lung Qualified Code(s): J18.9 - Pneumonia, unspecified organism (3) Hypothyroid Assessment/Plan: synthroid tsh Code(s): E03.9 - HYPOTHYROIDISM, UNSPECIFIED (4) Functional quadriplegia Assessment/Plan: frequent turn and position peg tube feeds heparin dvt ppx Code(s): R53.2 - FUNCTIONAL QUADRIPLEGIA (5) UTI (urinary tract infection) Assessment/Plan: urine cultures pending iv abx Code(s): N39.0 - URINARY TRACT INFECTION, SITE NOT SPECIFIED Qualifiers: Urinary tract infection type: site unspecified Hematuria presence: with hematuria Qualified Code(s): N39.0 - Urinary tract infection, site not specified; R31.9 - Hematuria, unspecified
[2019-05-17] MEDS ORDERED: LEVOTHYROXINE SODIUM 100 MCG VIAL IVPUSH SCH (13:00)
[2019-05-17] MEDS: SODIUM CHLORIDE 1,000 ML IV SCH (14:25)
[2019-05-17] MEDS ORDERED: ACETAMINOPHEN 650 MG/20.3 ML ORAL SOLUTION (CUPS) ONE (16:14)
[2019-05-17] MEDS: ACETAMINOPHEN 650 MG/20.3 ML ORAL SOLUTION (CUPS) GT PRN (16:22)
--- NOTE | 2019-05-17 16:36 | PN ---
Progress Note (short form) - Note Progress Note: ID CONSULT DICTATED SEPSIS LLL PNEUMONIA UTI R/O SEPSIS SECONDARY TO UTI LACTIC ACIDOSIS PCN/SULFA ALLERGIES NEUROMUSCULAR DISORDER PENDING SEPSIS W/U EMPIRIC VANCO/ AZTREONAM/ ZITHROMAX
[2019-05-17] MEDS: VANCOMYCIN 1 GRAM (PRE-DOCKED) 1,000 MG/250 ML BAG IVPB SCH (17:12)
[2019-05-17] MEDS ORDERED: AZITHROMYCIN IVPB 500 MG/250 ML BAG IVPB ONE (17:22)
[2019-05-17] MEDS: AZITHROMYCIN IVPB 500 MG/250 ML BAG IVPB SCH (17:41)
--- NOTE | 2019-05-17 19:54 | CONS ---
DATE OF CONSULTATION: 05/17/2019 INFECTIOUS DISEASE CONSULTATION HISTORY OF PRESENT ILLNESS: The patient is a 53-year-old female who is evaluated for sepsis. History was obtained from the chart, as she cannot give a history secondary to her mental state. She has a history of neuromuscular disease and is essentially bedbound at the long term. She was transferred to the hospital after she was noted to be febrile, tachypneic, and tachycardic. In the emergency room her temperature was 102.7, heart rate 153. Chest x-ray showed increased markings of the left base suggestive of infiltrate. Urinalysis showed many white cells. She is unable to provide any history, no reports of cough, sputum production, hemoptysis, vomiting, diarrhea. No history of infected decubitus ulcers. PAST MEDICAL HISTORY: Positive for neuromuscular disorder, hypothyroidism, hypertension, coronary artery disease, history of TIA. PAST SURGICAL HISTORY: Status post feeding gastrostomy. ALLERGIES: PENICILLIN and SULFA. Nature of these allergies is not known. MEDICATION: Include vancomycin, meropenem, Tylenol, Synthroid. SOCIAL HISTORY: She [facility] in a [facility] facility, is totally dependent on activities of daily living. No active tobacco or alcohol use. SYSTEMS REVIEW: Neurologic: As per HPI. Cardiac: Positive for tachycardia. Respiratory: As per HPI. Gastrointestinal: Positive feeding gastrostomy. Genitourinary: Positive for urinary tract infection. LABORATORY DATA: White count 13.0, platelets 248, creatinine 0.9. Urinalysis: 47 white cells. Lactic acid 3.0. PHYSICAL EXAMINATION: General: On physical examination, she is awake but not verbally responsive. Contracted on the stretcher. Vital signs: Temperature 101.2, T-max 102.7, blood pressure 103/79, pulse 129, respirations 20 per minute. HEENT: Sclerae anicteric. Cardiovascular: Heart sounds S1, S2. Tachycardic. Lungs: Scattered rhonchi. Abdomen: Soft. Feeding gastrostomy tube is in place. No erythema or tenderness at the site. Extremities: Negative for edema. Positive contractures. No decubitus ulcers noted. IMPRESSION: 1. Sepsis. 2. Urinary tract infection, rule out sepsis secondary to urinary tract infection. 3. Left lower lobe pneumonia. 4. Lactic acidosis. 5. PENICILLIN and SULFA allergies. 6. History of neuromuscular disease. Await cultures. Obtain sputum culture, urine legionella antigen. Empiric antibiotic coverage with vancomycin, Azactam, and Zithromax. Aspiration precautions. Will follow. Thank you for the kind referral. FRANKO JANSEN M.D. [id number]
[2019-05-17] MEDS ORDERED: DEXTROSE 5%-WATER - 50 ML IVPB ONE ×2 (20:43→21:00)
[2019-05-17] MEDS ORDERED: AZTREONAM 1 GM VIAL (RESTRICTED TO ID) ONE ×2 (20:43→21:00)
[2019-05-17] MEDS: AZTREONAM 1 GM in DEXTROSE 5%-WATER - 50 ML IVPB SCH (20:58)
[2019-05-17] MEDS: HEPARIN NA (PORCINE) 5,000 UNITS/ML 1ML VIAL SQ SCH (22:05)
[2019-05-18] MEDS ORDERED: AZTREONAM 1 GM VIAL (RESTRICTED TO ID) ONE ×3 (03:39→18:30)
[2019-05-18] MEDS ORDERED: DEXTROSE 5%-WATER - 50 ML IVPB ONE ×3 (03:39→18:31)
[2019-05-18] MEDS: AZTREONAM 1 GM in DEXTROSE 5%-WATER - 50 ML IVPB SCH ×3 (03:40→20:17)
[2019-05-18] MEDS: VANCOMYCIN 1 GRAM (PRE-DOCKED) 1,000 MG/250 ML BAG IVPB SCH ×2 (06:33→21:17)
[2019-05-18 06:47] LABS: BASO % 0.5 % (0-2.0); EOS % 7.5 % (0-4.5); HEMATOCRIT 31.2 % (32.4-45.2); HEMOGLOBIN 10.7 GM/dL (10.7-15.3); LYMPH % 13.6 % (8-40); MCH 32.5 pg (25.7-33.7); MCHC 34.2 g/dl (32.0-36.0); MEAN CELL VOLUME 94.9 fl (80-96); MEAN PLT VOLUME 8.5 fl (7.5-11.1); MONO % 5.2 % (3.8-10.2); NEUT % 73.2 % (42.8-82.8); PLATELET COUNT 167 K/MM3 (134-434); RBC 3.28 M/mm3 (3.60-5.2); RDW 13.6 % (11.6-15.6); WHITE BLOOD COUNT 9.6 K/mm3 (4.0-10.0)
[2019-05-18 06:58] LABS: INR 1.08 (0.83-1.09); PROTHROMBIN TIME (PATIENT) 12.8 SEC (9.7-13.0)
[2019-05-18 07:00] LABS: ACTIVATED PTT 26.4 SECONDS (25.2-36.5)
[2019-05-18] MEDS ORDERED: LEVOTHYROXINE NA 125 MCG TABLET (FP) GT SCH (07:00)
[2019-05-18 07:30] LABS: ALBUMIN 2.6 g/dl (3.4-5.0); ALK PHOS 73 U/L (45-117); ANION GAP 6 MMOL/L (8-16); BILIRUBIN,TOTAL 0.6 mg/dL (0.2-1); BLOOD UREA NITROGEN 15.1 mg/dL (7-18); CALCIUM 9.4 mg/dL (8.5-10.1); CHLORIDE 113 mmol/L (98-107); CO2 25 mmol/L (21-32); CREATININE 0.5 mg/dL (0.55-1.3); GLUCOSE,RANDOM 103 mg/dL (74-106); MAGNESIUM 2.2 mg/dL (1.8-2.4); N-TERMINAL BNP 263.1 pg/ml (5-125); POTASSIUM 4.4 mmol/L (3.5-5.1); SGOT/AST 32 U/L (15-37); SGPT/ALT 26 U/L (13-61); SODIUM 144 mmol/L (136-145); TOT PROT 6.6 g/dl (6.4-8.2)
[2019-05-18] MEDS: HEPARIN NA (PORCINE) 5,000 UNITS/ML 1ML VIAL SQ SCH ×2 (11:24→22:56)
[2019-05-18] MEDS: AZITHROMYCIN IVPB 500 MG/250 ML BAG IVPB SCH (11:25)
--- NOTE | 2019-05-18 11:43 | PN ---
Progress Note (short form) - Note Progress Note: PULMONARY CONSULTATION DICTATED 05/18/19 IMP RESPIRATORY DISTRESS PNEUMONIA LLL SEPSIS + BLOOD CULTURES ? UTI NEURODEGENERATIVE DISORDER PSEUDOBULBAR ASHD H/O TIA LACTIC ACIDOSIS RESOLVED PLAN IVF ABX PER ID O2 F/U CHEST X-RAYS CULTURES DR CATALAN Problem List - Problems (1) Hypothyroid Code(s): E03.9 - HYPOTHYROIDISM, UNSPECIFIED (2) Pneumonia Code(s): J18.9 - PNEUMONIA, UNSPECIFIED ORGANISM Qualifiers: Pneumonia type: due to unspecified organism Laterality: left Lung location: unspecified part of lung Qualified Code(s): J18.9 - Pneumonia, unspecified organism (3) Sepsis Code(s): A41.9 - SEPSIS, UNSPECIFIED ORGANISM Qualifiers: Sepsis type: sepsis due to unspecified organism Sepsis acute organ dysfunction status: unspecified Qualified Code(s): A41.9 - Sepsis, unspecified organism (4) UTI (urinary tract infection) Code(s): N39.0 - URINARY TRACT INFECTION, SITE NOT SPECIFIED Qualifiers: Urinary tract infection type: site unspecified Hematuria presence: with hematuria Qualified Code(s): N39.0 - Urinary tract infection, site not specified; R31.9 - Hematuria, unspecified (5) CAD (coronary artery disease) Code(s): I25.10 - ATHSCL HEART DISEASE OF [place] CORONARY ARTERY W/O ANG PCTRS (6) Functional quadriplegia Code(s): R53.2 - FUNCTIONAL QUADRIPLEGIA (7) HTN (hypertension) Code(s): I10 - ESSENTIAL (PRIMARY) HYPERTENSION (8) Neurodegenerative cognitive impairment Code(s): G31.9 - DEGENERATIVE DISEASE OF NERVOUS SYSTEM, UNSPECIFIED (9) TIA (transient ischemic attack) Code(s): G45.9 - TRANSIENT CEREBRAL ISCHEMIC ATTACK, UNSPECIFIED (10) Respiratory disease Code(s): J98.9 - RESPIRATORY DISORDER, UNSPECIFIED (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
--- NOTE | 2019-05-18 12:43 | CONS ---
DATE OF CONSULTATION: 05/18/2019 REFERRING PHYSICIAN: Fredo Collier MD HISTORY: Patient is a 53-year-old female with past medical history of progressive neurogenic disorder with functional quadriplegia, hypertension, ASHD, TIA, pseudobulbar affect resident of [facility]. Transferred to [facility] with fever, respiratory distress, and tachypnea. Patient on admission was noted to have a left lower lobe pneumonia. She was also noted to have an elevated lactate. She was started on broad-spectrum antibiotics. Patient was recently hospitalized at [facility] secondary to upper extremity cellulitis. On arrival to ER, the patient was noted to be febrile to a temperature of 102.7 with tachycardia to 153. At that time, she was started on IV fluids as well as antibiotic therapy. PAST MEDICAL HISTORY: Again includes neurodegenerative disorder, questionable MS, recurrent falls, ataxia, functional quadriplegia, pseudobulbar affect, ASHD, TIA, recent cellulitis. REVIEW OF SYSTEMS: Unable to obtain. Patient is nonverbal. CURRENT MEDICATIONS: Include Azactam, vancomycin, heparin, normal saline, and Synthroid. PHYSICAL EXAMINATION: General: Patient is a thin female awake, nonverbal currently in no acute distress. Vital Signs: She is currently afebrile. Temperature 99.2, respiratory rate 20, blood pressure 101/68, respiratory rate is 20, saturation 100% on 2 L nasal cannula. HEENT: Normocephalic, atraumatic. Neck: Supple. Heart: Tachycardic. S1, S2. Chest: Poor inspiratory effort. Few crackles in the left base. Abdomen: Soft. Bowel sounds are positive. Extremities: Bilateral lower extremity contractures. LABORATORIES: BUN 15, creatinine 0.5. Initial BUN 26, creatinine 0.9. Initial lactate 3.0, subsequent 1.4. BNP is 263. WBC is 9.6, hemoglobin 10.6, hematocrit 31.2 with a platelet count of 167,000. There are 73 polys, 13 lymphocytes, 5 monocytes, and 7 eosinophils. Venous blood gas 7.44, PCO2 of 33, PO2 of 82, bicarbonate of 22, and a saturation of 96. INR is 1.08. UA 2+ protein, 1+ Hemoccult, 3+ leukocyte esterase. Blood cultures; Legionella antigen negative, strep antigen negative. Blood cultures positive pending organism. Chest x-ray reveals left lower lobe infiltrate. IMPRESSION: 1. Acute respiratory distress secondary pneumonia, left lower lobe. 2. Sepsis. 3. Bacteremia. 4. Questionable urinary tract infection. 5. Neurodegenerative disorder. 6. Pseudobulbar affect. 7. Arteriosclerotic heart disease. 8. History of transient ischemic attack. 9. Lactic acidosis, resolved. PLAN: IV fluids. Antibiotics as per Infectious Disease. Supplemental O2. Follow chest x-rays, cultures. MASON CATALAN M.D. [id number]
--- NOTE | 2019-05-18 13:21 | EKG ---
Test Reason : Blood Pressure : / mmHG Vent. Rate : 147 BPM Atrial Rate : 147 BPM P-R Int : 122 ms QRS Dur : 068 ms QT Int : 260 ms P-R-T Axes : 074 -63 074 degrees QTc Int : 406 ms SINUS TACHYCARDIA POSSIBLE LEFT ATRIAL ENLARGEMENT LEFT ANTERIOR FASCICULAR BLOCK ANTERIOR INFARCT (CITED ON OR BEFORE 22-APR-2019) ABNORMAL ECG WHEN COMPARED WITH ECG OF 22-APR-2019 09:25, NO SIGNIFICANT CHANGE WAS FOUND Confirmed by FRANKO CARTER MD ([id number]) on 05/18/2019 1:21:10 PM Referred By: Confirmed By:FRANKO CARTER MD
[2019-05-18] MEDS: ACETAMINOPHEN 650 MG/20.3 ML ORAL SOLUTION (CUPS) GT PRN (14:25)
--- NOTE | 2019-05-18 14:38 | PN ---
Progress Note, Physician Chief Complaint: patient seen and examined admitted for fever and leukocytosis - Current Medication List Current Medications: Active Medications Acetaminophen (Tylenol Oral Solution -) 650 mg GT Q6H PRN PRN Reason: FEVER Last Admin: 05/18/19 14:25 Dose: 650 mg Heparin Sodium (Porcine) (Heparin -) 5,000 unit SQ BID [facility] Last Admin: 05/18/19 11:24 Dose: 5,000 unit Vancomycin HCl (Vancomycin (Pre-Docked)) 1,000 mg in 250 mls @ 166.667 mls/hr IVPB Q12H [facility]; Protocol Last Admin: 05/18/19 06:33 Dose: 166.667 mls/hr Aztreonam 1 gm/ Dextrose 50 mls @ 100 mls/hr IVPB Q8H-IV [facility]; Protocol Last Admin: 05/18/19 11:23 Dose: 100 mls/hr Azithromycin (Zithromax 500mg Ivpb (Pre-Docked)) 500 mg in 250 mls @ 250 mls/ hr IVPB DAILY [facility] Last Admin: 05/18/19 11:25 Dose: 250 mls/hr Levothyroxine Sodium (Synthroid -) 150 mcg GT DAILY@0700 [facility] - Objective Vital Signs: Vital Signs Temperature 99.2 F 05/18/19 06:00 Pulse Rate 111 H 05/18/19 06:00 Respiratory Rate 20 05/18/19 06:00 Blood Pressure 101/68 05/18/19 06:00 O2 Sat by Pulse Oximetry (%) 100 05/18/19 06:00 Constitutional: Yes: Calm Cardiovascular: Yes: Regular Rate and Rhythm, S1, S2 Respiratory: Yes: CTA Bilaterally Gastrointestinal: Yes: Normal Bowel Sounds, Soft, Other (g tube) Extremities: Yes: Other (contracted) Edema: No Neurological: Yes: Other (non verbal) Labs: CBC, BMP 05/18/19 05:50 05/18/19 05:50 INR, PTT INR 1.08 (0.83-1.09) 05/18/19 05:50 Problem List - Problems (1) Sepsis Assessment/Plan: lactic acidosis resolved possibly secondary to pneumonia and UTI blood cultures pending tylenol as needed iv abx monitor BP ivf will hold propanolol Code(s): A41.9 - SEPSIS, UNSPECIFIED ORGANISM Qualifiers: Sepsis type: sepsis due to unspecified organism Sepsis acute organ dysfunction status: unspecified Qualified Code(s): A41.9 - Sepsis, unspecified organism (2) Pneumonia Assessment/Plan: iv abx ID on board wbc trending down afebrile Code(s): J18.9 - PNEUMONIA, UNSPECIFIED ORGANISM Qualifiers: Pneumonia type: due to unspecified organism Laterality: left Lung location: unspecified part of lung Qualified Code(s): J18.9 - Pneumonia, unspecified organism (3) Hypothyroid Assessment/Plan: synthroid dose adjusted tsh elevated Code(s): E03.9 - HYPOTHYROIDISM, UNSPECIFIED (4) Functional quadriplegia Assessment/Plan: frequent turn and position peg tube feeds heparin dvt ppx Code(s): R53.2 - FUNCTIONAL QUADRIPLEGIA (5) UTI (urinary tract infection) Assessment/Plan: urine cultures pending iv abx Code(s): N39.0 - URINARY TRACT INFECTION, SITE NOT SPECIFIED Qualifiers: Urinary tract infection type: site unspecified Hematuria presence: with hematuria Qualified Code(s): N39.0 - Urinary tract infection, site not specified; R31.9 - Hematuria, unspecified
[2019-05-18] MEDS ORDERED: PNEUMOC 13-VAL CONJ-DIP CRM/PF 0.5 ML DISP.SYRIN IM ONE (16:00)
[2019-05-18] MEDS: SODIUM CHLORIDE 1,000 ML IV SCH (22:17)
[2019-05-19] MEDS ORDERED: DEXTROSE 5%-WATER - 50 ML IVPB ONE ×3 (00:31→18:05)
[2019-05-19] MEDS ORDERED: AZTREONAM 1 GM VIAL (RESTRICTED TO ID) ONE ×3 (00:31→18:05)
[2019-05-19] MEDS: ACETAMINOPHEN 650 MG/20.3 ML ORAL SOLUTION (CUPS) GT PRN (01:08)
[2019-05-19] MEDS: AZTREONAM 1 GM in DEXTROSE 5%-WATER - 50 ML IVPB SCH ×3 (02:57→21:15)
[2019-05-19] MEDS: LEVOTHYROXINE NA 150 MCG TABLET GT SCH (06:18)
[2019-05-19] MEDS: VANCOMYCIN 1 GRAM (PRE-DOCKED) 1,000 MG/250 ML BAG IVPB SCH ×2 (06:18→17:36)
[2019-05-19] MEDS: HEPARIN NA (PORCINE) 5,000 UNITS/ML 1ML VIAL SQ SCH ×2 (09:12→21:15)
[2019-05-19] MEDS: AZITHROMYCIN IVPB 500 MG/250 ML BAG IVPB SCH (09:12)
--- NOTE | 2019-05-19 09:37 | PN ---
Progress Note, Physician History of Present Illness: MORE AWAKE NOT VERBALLY RESPONSIVE LOW GRADE TEMPS NOTED BREATHING NON LABORED BC SCN ?CONTAMINANT - Current Medication List Current Medications: Active Medications Acetaminophen (Tylenol Oral Solution -) 650 mg GT Q6H PRN PRN Reason: FEVER Last Admin: 05/19/19 01:08 Dose: 650 mg Heparin Sodium (Porcine) (Heparin -) 5,000 unit SQ BID [facility] Last Admin: 05/19/19 09:12 Dose: 5,000 unit Vancomycin HCl (Vancomycin (Pre-Docked)) 1,000 mg in 250 mls @ 166.667 mls/hr IVPB Q12H [facility]; Protocol Last Admin: 05/19/19 06:18 Dose: 166.667 mls/hr Aztreonam 1 gm/ Dextrose 50 mls @ 100 mls/hr IVPB Q8H-IV [facility]; Protocol Last Admin: 05/19/19 02:57 Dose: 100 mls/hr Levothyroxine Sodium (Synthroid -) 150 mcg GT DAILY@0700 [facility] Last Admin: 05/19/19 06:18 Dose: 150 mcg - Objective Vital Signs: Vital Signs Temperature 99.3 F 05/19/19 06:42 Pulse Rate 97 H 05/19/19 06:42 Respiratory Rate 20 05/19/19 08:50 Blood Pressure 86/56 L 05/19/19 06:42 O2 Sat by Pulse Oximetry (%) 97 05/19/19 08:50 Constitutional: Yes: No Distress Eyes: Yes: Conjunctiva Clear Cardiovascular: Yes: Regular Rate and Rhythm, S1, S2 Respiratory: Yes: Diminished Gastrointestinal: Yes: Normal Bowel Sounds, Soft Edema: No Labs: CBC, BMP 05/18/19 05:50 05/18/19 05:50 INR, PTT INR 1.08 (0.83-1.09) 05/18/19 05:50 Assessment/Plan SEPSIS LLL PNEUMONIA UTI + BC SCN ?SIGNIFICANCE NO OBVIOUS SKIN SOURCE LACTIC ACIDOSIS PCN/ SULFA ALLERGIES REPEAT BC CONTINUE EMPIRIC VANCOMCIN/ AZTREONAM
--- NOTE | 2019-05-19 10:21 | PN ---
Progress Note, Physician History of Present Illness: pulmonary awake,crying,-resp distress,vomiting,hypotensive - Current Medication List Current Medications: Active Medications Acetaminophen (Tylenol Oral Solution -) 650 mg GT Q6H PRN PRN Reason: FEVER Last Admin: 05/19/19 01:08 Dose: 650 mg Heparin Sodium (Porcine) (Heparin -) 5,000 unit SQ BID [facility] Last Admin: 05/19/19 09:12 Dose: 5,000 unit Vancomycin HCl (Vancomycin (Pre-Docked)) 1,000 mg in 250 mls @ 166.667 mls/hr IVPB Q12H [facility]; Protocol Last Admin: 05/19/19 06:18 Dose: 166.667 mls/hr Aztreonam 1 gm/ Dextrose 50 mls @ 100 mls/hr IVPB Q8H-IV [facility]; Protocol Last Admin: 05/19/19 02:57 Dose: 100 mls/hr Levothyroxine Sodium (Synthroid -) 150 mcg GT DAILY@0700 [facility] Last Admin: 05/19/19 06:18 Dose: 150 mcg - Objective Vital Signs: Vital Signs Temperature 99.3 F 05/19/19 06:42 Pulse Rate 97 H 05/19/19 06:42 Respiratory Rate 20 05/19/19 08:50 Blood Pressure 86/56 L 05/19/19 06:42 O2 Sat by Pulse Oximetry (%) 97 05/19/19 08:50 Labs: CBC, BMP 05/18/19 05:50 05/18/19 05:50 INR, PTT INR 1.08 (0.83-1.09) 05/18/19 05:50 Problem List - Problems (1) Hypothyroid Code(s): E03.9 - HYPOTHYROIDISM, UNSPECIFIED (2) Pneumonia Code(s): J18.9 - PNEUMONIA, UNSPECIFIED ORGANISM Qualifiers: Pneumonia type: due to unspecified organism Laterality: left Lung location: unspecified part of lung Qualified Code(s): J18.9 - Pneumonia, unspecified organism (3) Sepsis Code(s): A41.9 - SEPSIS, UNSPECIFIED ORGANISM Qualifiers: Sepsis type: sepsis due to unspecified organism Sepsis acute organ dysfunction status: unspecified Qualified Code(s): A41.9 - Sepsis, unspecified organism (4) UTI (urinary tract infection) Code(s): N39.0 - URINARY TRACT INFECTION, SITE NOT SPECIFIED Qualifiers: Urinary tract infection type: site unspecified Hematuria presence: with hematuria Qualified Code(s): N39.0 - Urinary tract infection, site not specified; R31.9 - Hematuria, unspecified (5) CAD (coronary artery disease) Code(s): I25.10 - ATHSCL HEART DISEASE OF [place] CORONARY ARTERY W/O ANG PCTRS (6) Functional quadriplegia Code(s): R53.2 - FUNCTIONAL QUADRIPLEGIA (7) HTN (hypertension) Code(s): I10 - ESSENTIAL (PRIMARY) HYPERTENSION (8) Neurodegenerative cognitive impairment Code(s): G31.9 - DEGENERATIVE DISEASE OF NERVOUS SYSTEM, UNSPECIFIED (9) TIA (transient ischemic attack) Code(s): G45.9 - TRANSIENT CEREBRAL ISCHEMIC ATTACK, UNSPECIFIED (10) Respiratory disease Code(s): J98.9 - RESPIRATORY DISORDER, UNSPECIFIED (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 UTI NEURODEGENERATIVE DISORDER PSEUDOBULBAR ASHD H/O TIA LACTIC ACIDOSIS RESOLVED PLAN IVF ABX PER ID O2 F/U CHEST X-RAYS DR CATALAN Problem List - Problems (1) Hypothyroid Code(s): E03.9 - HYPOTHYROIDISM, UNSPECIFIED (2) Pneumonia Code(s): J18.9 - PNEUMONIA, UNSPECIFIED ORGANISM Qualifiers: Pneumonia type: due to unspecified organism Laterality: left Lung location: unspecified part of lung Qualified Code(s): J18.9 - Pneumonia, unspecified organism (3) Sepsis Code(s): A41.9 - SEPSIS, UNSPECIFIED ORGANISM Qualifiers: Sepsis type: sepsis due to unspecified organism Sepsis acute organ dysfunction status: unspecified Qualified Code(s): A41.9 - Sepsis, unspecified organism (4) UTI (urinary tract infection) Code(s): N39.0 - URINARY TRACT INFECTION, SITE NOT SPECIFIED Qualifiers: Urinary tract infection type: site unspecified Hematuria presence: with hematuria Qualified Code(s): N39.0 - Urinary tract infection, site not specified; R31.9 - Hematuria, unspecified (5) CAD (coronary artery disease) Code(s): I25.10 - ATHSCL HEART DISEASE OF [place] CORONARY ARTERY W/O ANG PCTRS (6) Functional quadriplegia Code(s): R53.2 - FUNCTIONAL QUADRIPLEGIA (7) HTN (hypertension) Code(s): I10 - ESSENTIAL (PRIMARY) HYPERTENSION (8) Neurodegenerative cognitive impairment Code(s): G31.9 - DEGENERATIVE DISEASE OF NERVOUS SYSTEM, UNSPECIFIED (9) TIA (transient ischemic attack) Code(s): G45.9 - TRANSIENT CEREBRAL ISCHEMIC ATTACK, UNSPECIFIED (10) Respiratory disease Code(s): J98.9 - RESPIRATORY DISORDER, UNSPECIFIED (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
--- NOTE | 2019-05-19 10:21 | PN ---
Progress Note, Physician - Current Medication List Current Medications: Active Medications Acetaminophen (Tylenol Oral Solution -) 650 mg GT Q6H PRN PRN Reason: FEVER Last Admin: 05/19/19 01:08 Dose: 650 mg Heparin Sodium (Porcine) (Heparin -) 5,000 unit SQ BID [facility] Last Admin: 05/19/19 09:12 Dose: 5,000 unit Vancomycin HCl (Vancomycin (Pre-Docked)) 1,000 mg in 250 mls @ 166.667 mls/hr IVPB Q12H [facility]; Protocol Last Admin: 05/19/19 06:18 Dose: 166.667 mls/hr Aztreonam 1 gm/ Dextrose 50 mls @ 100 mls/hr IVPB Q8H-IV [facility]; Protocol Last Admin: 05/19/19 02:57 Dose: 100 mls/hr Levothyroxine Sodium (Synthroid -) 150 mcg GT DAILY@0700 [facility] Last Admin: 05/19/19 06:18 Dose: 150 mcg - Objective Vital Signs: Vital Signs Temperature 99.3 F 05/19/19 06:42 Pulse Rate 97 H 05/19/19 06:42 Respiratory Rate 20 05/19/19 08:50 Blood Pressure 86/56 L 05/19/19 06:42 O2 Sat by Pulse Oximetry (%) 97 05/19/19 08:50 Cardiovascular: Yes: S1, S2 Respiratory: Yes: On Nasal O2, Rhonchi Gastrointestinal: Yes: Normal Bowel Sounds, Soft Labs: CBC, BMP 05/18/19 05:50 05/18/19 05:50 INR, PTT INR 1.08 (0.83-1.09) 05/18/19 05:50 Assessment/Plan - Problems (1) Sepsis Assessment/Plan: lactic acidosis resolved possibly secondary to pneumonia and UTI blood cultures pending tylenol as needed iv abx monitor BP ivf will hold propanolol Code(s): A41.9 - SEPSIS, UNSPECIFIED ORGANISM Qualifiers: Sepsis type: sepsis due to unspecified organism Sepsis acute organ dysfunction status: unspecified Qualified Code(s): A41.9 - Sepsis, unspecified organism (2) Pneumonia Assessment/Plan: iv abx ID on board wbc trending down febrile id on case MBS Code(s): J18.9 - PNEUMONIA, UNSPECIFIED ORGANISM Qualifiers: Pneumonia type: due to unspecified organism Laterality: left Lung location: unspecified part of lung Qualified Code(s): J18.9 - Pneumonia, unspecified organism (3) Hypothyroid Assessment/Plan: synthroid dose adjusted tsh elevated Code(s): E03.9 - HYPOTHYROIDISM, UNSPECIFIED (4) Functional quadriplegia Assessment/Plan: frequent turn and position peg tube feeds heparin dvt ppx Code(s): R53.2 - FUNCTIONAL QUADRIPLEGIA (5) UTI (urinary tract infection) Assessment/Plan: urine cultures pending iv abx Code(s): N39.0 - URINARY TRACT INFECTION, SITE NOT SPECIFIED Qualifiers: Urinary tract infection type: site unspecified Hematuria presence: with hematuria Qualified Code(s): N39.0 - Urinary tract infection, site not specified; R31.9 - Hematuria, unspecified
[2019-05-19 10:58] LABS: BASO % 0.2 % (0-2.0); EOS % 5.6 % (0-4.5); HEMATOCRIT 31.9 % (32.4-45.2); HEMOGLOBIN 10.7 GM/dL (10.7-15.3); LYMPH % 13.5 % (8-40); MCH 32.1 pg (25.7-33.7); MCHC 33.5 g/dl (32.0-36.0); MEAN CELL VOLUME 95.7 fl (80-96); MEAN PLT VOLUME 8.4 fl (7.5-11.1); MONO % 8.1 % (3.8-10.2); NEUT % 72.6 % (42.8-82.8); PLATELET COUNT 153 K/MM3 (134-434); RBC 3.33 M/mm3 (3.60-5.2); RDW 13.7 % (11.6-15.6); WHITE BLOOD COUNT 6.3 K/mm3 (4.0-10.0)
[2019-05-19 11:24] LABS: ALBUMIN 2.6 g/dl (3.4-5.0); BILIRUBIN,TOTAL 0.3 mg/dL (0.2-1); BLOOD UREA NITROGEN 12.9 mg/dL (7-18); CALCIUM 8.8 mg/dL (8.5-10.1); CREATININE 0.5 mg/dL (0.55-1.3); POTASSIUM 3.6 mmol/L (3.5-5.1); TOT PROT 6.4 g/dl (6.4-8.2)
[2019-05-20] MEDS ORDERED: ONDANSETRON 4 MG/2 ML VIAL IVPUSH ONE (02:42)
[2019-05-20] MEDS ORDERED: AZTREONAM 1 GM VIAL (RESTRICTED TO ID) ONE ×3 (02:45→21:24)
[2019-05-20] MEDS ORDERED: DEXTROSE 5%-WATER - 50 ML IVPB ONE ×3 (02:45→21:24)
[2019-05-20] MEDS: AZTREONAM 1 GM in DEXTROSE 5%-WATER - 50 ML IVPB SCH ×3 (02:56→21:00)
[2019-05-20] MEDS: LEVOTHYROXINE NA 150 MCG TABLET GT SCH (06:36)
[2019-05-20] MEDS: VANCOMYCIN 1 GRAM (PRE-DOCKED) 1,000 MG/250 ML BAG IVPB SCH ×2 (06:37→17:39)
[2019-05-20] MEDS: HEPARIN NA (PORCINE) 5,000 UNITS/ML 1ML VIAL SQ SCH ×2 (09:13→23:09)
--- NOTE | 2019-05-20 10:59 | PN ---
Progress Note, Physician - Current Medication List Current Medications: Active Medications Acetaminophen (Tylenol Oral Solution -) 650 mg GT Q6H PRN PRN Reason: FEVER Last Admin: 05/19/19 01:08 Dose: 650 mg Heparin Sodium (Porcine) (Heparin -) 5,000 unit SQ BID [facility] Last Admin: 05/20/19 09:13 Dose: 5,000 unit Vancomycin HCl (Vancomycin (Pre-Docked)) 1,000 mg in 250 mls @ 166.667 mls/hr IVPB Q12H [facility]; Protocol Last Admin: 05/20/19 06:37 Dose: 166.667 mls/hr Aztreonam 1 gm/ Dextrose 50 mls @ 100 mls/hr IVPB Q8H-IV [facility]; Protocol Last Admin: 05/20/19 09:13 Dose: 100 mls/hr Levothyroxine Sodium (Synthroid -) 150 mcg GT DAILY@0700 [facility] Last Admin: 05/20/19 06:36 Dose: Not Given - Objective Vital Signs: Vital Signs Temperature 98 F 05/20/19 03:49 Pulse Rate 95 H 05/20/19 06:00 Respiratory Rate 20 05/20/19 08:34 Blood Pressure 107/61 05/20/19 06:00 O2 Sat by Pulse Oximetry (%) 96 05/20/19 08:34 Cardiovascular: Yes: S1, S2 Respiratory: Yes: Regular, CTA Bilaterally Gastrointestinal: Yes: Normal Bowel Sounds, Soft Labs: CBC, BMP 05/19/19 10:42 05/19/19 10:42 INR, PTT INR 1.08 (0.83-1.09) 05/18/19 05:50 Assessment/Plan - Problems (1) Sepsis Assessment/Plan: lactic acidosis resolved possibly secondary to pneumonia and UTI blood cultures Microbiology 05/19/19 10:45 Blood - Peripheral Venous Blood Culture - Preliminary NO GROWTH OBTAINED AFTER 24 HOURS, INCUBATION TO CONTINUE FOR 4 DAYS. 05/19/19 10:42 Blood - Peripheral Venous Blood Culture - Preliminary NO GROWTH OBTAINED AFTER 24 HOURS, INCUBATION TO CONTINUE FOR 4 DAYS. 05/17/19 09:40 Blood - Peripheral Venous Blood Culture - Final Staphylococcus Epidermidis 05/17/19 09:20 Blood - Peripheral Venous Blood Culture - Preliminary Staphylococcus Coagulase Neg 05/18/19 06:49 Urine - Urine Clean Catch Legionella Antigen - Final 05/18/19 06:49 Urine - Urine Clean Catch Streptococcus pneumoniae Antigen ( M - Final 05/17/19 09:20 Urine - Urine - Catheterized Urine Culture - Final Yeast Like Organism tylenol as needed iv abx monitor BP ivf will hold propanolol Code(s): A41.9 - SEPSIS, UNSPECIFIED ORGANISM Qualifiers: Sepsis type: sepsis due to unspecified organism Sepsis acute organ dysfunction status: unspecified Qualified Code(s): A41.9 - Sepsis, unspecified organism (2) Pneumonia Assessment/Plan: iv abx ID on board wbc trending down febrile id on case MBS Code(s): J18.9 - PNEUMONIA, UNSPECIFIED ORGANISM Qualifiers: Pneumonia type: due to unspecified organism Laterality: left Lung location: unspecified part of lung Qualified Code(s): J18.9 - Pneumonia, unspecified organism (3) Hypothyroid Assessment/Plan: synthroid dose adjusted tsh elevated Code(s): E03.9 - HYPOTHYROIDISM, UNSPECIFIED (4) Functional quadriplegia Assessment/Plan: frequent turn and position peg tube feeds heparin dvt ppx Code(s): R53.2 - FUNCTIONAL QUADRIPLEGIA (5) UTI (urinary tract infection) Assessment/Plan: urine cultures iv abx Code(s): N39.0 - URINARY TRACT INFECTION, SITE NOT SPECIFIED Qualifiers: Urinary tract infection type: site unspecified Hematuria presence: with hematuria Qualified Code(s): N39.0 - Urinary tract infection, site not specified; R31.9 - Hematuria, unspecified
--- NOTE | 2019-05-20 11:07 | PN ---
Progress Note, Physician History of Present Illness: PULMONARY AWAKE,NON-VERBAL,-RESP DISTRESS - Current Medication List Current Medications: Active Medications Acetaminophen (Tylenol Oral Solution -) 650 mg GT Q6H PRN PRN Reason: FEVER Last Admin: 05/19/19 01:08 Dose: 650 mg Heparin Sodium (Porcine) (Heparin -) 5,000 unit SQ BID [facility] Last Admin: 05/20/19 09:13 Dose: 5,000 unit Vancomycin HCl (Vancomycin (Pre-Docked)) 1,000 mg in 250 mls @ 166.667 mls/hr IVPB Q12H [facility]; Protocol Last Admin: 05/20/19 06:37 Dose: 166.667 mls/hr Aztreonam 1 gm/ Dextrose 50 mls @ 100 mls/hr IVPB Q8H-IV [facility]; Protocol Last Admin: 05/20/19 09:13 Dose: 100 mls/hr Levothyroxine Sodium (Synthroid -) 150 mcg GT DAILY@0700 [facility] Last Admin: 05/20/19 06:36 Dose: Not Given - Objective Vital Signs: Vital Signs Temperature 98 F 05/20/19 03:49 Pulse Rate 95 H 05/20/19 06:00 Respiratory Rate 20 05/20/19 08:34 Blood Pressure 107/61 05/20/19 06:00 O2 Sat by Pulse Oximetry (%) 96 05/20/19 08:34 Constitutional: Yes: Calm, Thin Eyes: Yes: WNL HENT: Yes: WNL Neck: Yes: WNL Cardiovascular: Yes: Regular Rate and Rhythm, S1, S2 Respiratory: Yes: Diminished (POOR INSPIRATORY EFFORT) Gastrointestinal: Yes: Normal Bowel Sounds, Soft Extremities: Yes: Other (CONTRACTED FRIEDA LOWER EXT) Labs: CBC, BMP 05/19/19 10:42 05/19/19 10:42 INR, PTT INR 1.08 (0.83-1.09) 05/18/19 05:50 Problem List - Problems (1) Hypothyroid Code(s): E03.9 - HYPOTHYROIDISM, UNSPECIFIED (2) Pneumonia Code(s): J18.9 - PNEUMONIA, UNSPECIFIED ORGANISM Qualifiers: Pneumonia type: due to unspecified organism Laterality: left Lung location: unspecified part of lung Qualified Code(s): J18.9 - Pneumonia, unspecified organism (3) Sepsis Code(s): A41.9 - SEPSIS, UNSPECIFIED ORGANISM Qualifiers: Sepsis type: sepsis due to unspecified organism Sepsis acute organ dysfunction status: unspecified Qualified Code(s): A41.9 - Sepsis, unspecified organism (4) UTI (urinary tract infection) Code(s): N39.0 - URINARY TRACT INFECTION, SITE NOT SPECIFIED Qualifiers: Urinary tract infection type: site unspecified Hematuria presence: with hematuria Qualified Code(s): N39.0 - Urinary tract infection, site not specified; R31.9 - Hematuria, unspecified (5) CAD (coronary artery disease) Code(s): I25.10 - ATHSCL HEART DISEASE OF [place] CORONARY ARTERY W/O ANG PCTRS (6) Functional quadriplegia Code(s): R53.2 - FUNCTIONAL QUADRIPLEGIA (7) HTN (hypertension) Code(s): I10 - ESSENTIAL (PRIMARY) HYPERTENSION (8) Neurodegenerative cognitive impairment Code(s): G31.9 - DEGENERATIVE DISEASE OF NERVOUS SYSTEM, UNSPECIFIED (9) TIA (transient ischemic attack) Code(s): G45.9 - TRANSIENT CEREBRAL ISCHEMIC ATTACK, UNSPECIFIED (10) Respiratory disease Code(s): J98.9 - RESPIRATORY DISORDER, UNSPECIFIED (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 UTI NEURODEGENERATIVE DISORDER PSEUDOBULBAR ASHD H/O TIA LACTIC ACIDOSIS RESOLVED PLAN IVF ABX PER ID O2 F/U CHEST X-RAYS DR CATALAN Problem List - Problems (1) Hypothyroid Code(s): E03.9 - HYPOTHYROIDISM, UNSPECIFIED (2) Pneumonia Code(s): J18.9 - PNEUMONIA, UNSPECIFIED ORGANISM Qualifiers: Pneumonia type: due to unspecified organism Laterality: left Lung location: unspecified part of lung Qualified Code(s): J18.9 - Pneumonia, unspecified organism (3) Sepsis Code(s): A41.9 - SEPSIS, UNSPECIFIED ORGANISM Qualifiers: Sepsis type: sepsis due to unspecified organism Sepsis acute organ dysfunction status: unspecified Qualified Code(s): A41.9 - Sepsis, unspecified organism (4) UTI (urinary tract infection) Code(s): N39.0 - URINARY TRACT INFECTION, SITE NOT SPECIFIED Qualifiers: Urinary tract infection type: site unspecified Hematuria presence: with hematuria Qualified Code(s): N39.0 - Urinary tract infection, site not specified; R31.9 - Hematuria, unspecified (5) CAD (coronary artery disease) Code(s): I25.10 - ATHSCL HEART DISEASE OF [place] CORONARY ARTERY W/O ANG PCTRS (6) Functional quadriplegia Code(s): R53.2 - FUNCTIONAL QUADRIPLEGIA (7) HTN (hypertension) Code(s): I10 - ESSENTIAL (PRIMARY) HYPERTENSION (8) Neurodegenerative cognitive impairment Code(s): G31.9 - DEGENERATIVE DISEASE OF NERVOUS SYSTEM, UNSPECIFIED (9) TIA (transient ischemic attack) Code(s): G45.9 - TRANSIENT CEREBRAL ISCHEMIC ATTACK, UNSPECIFIED (10) Respiratory disease Code(s): J98.9 - RESPIRATORY DISORDER, UNSPECIFIED (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
[2019-05-21] MEDS ORDERED: AZTREONAM 1 GM VIAL (RESTRICTED TO ID) ONE ×3 (00:29→17:34)
[2019-05-21] MEDS ORDERED: DEXTROSE 5%-WATER - 50 ML IVPB ONE ×3 (00:29→17:34)
[2019-05-21] MEDS: AZTREONAM 1 GM in DEXTROSE 5%-WATER - 50 ML IVPB SCH ×3 (03:33→17:38)
[2019-05-21] MEDS: VANCOMYCIN 1 GRAM (PRE-DOCKED) 1,000 MG/250 ML BAG IVPB SCH ×2 (04:47→17:40)
[2019-05-21] MEDS: LEVOTHYROXINE NA 150 MCG TABLET GT SCH (06:02)
[2019-05-21] MEDS: ACETAMINOPHEN 650 MG/20.3 ML ORAL SOLUTION (CUPS) GT PRN (10:54)
[2019-05-21] MEDS: HEPARIN NA (PORCINE) 5,000 UNITS/ML 1ML VIAL SQ SCH ×2 (10:55→22:30)
--- NOTE | 2019-05-21 14:18 | CONSULT ---
Admitting History and Physical - Primary Care Physician PCP: Fredo Collier - Admission History of Present Illness: Per EMR note- 53y F hx of hypothyroidism, htn, ?neurodegenerative disorder, presnts from [facility] for fever, tachypnea and tachycardia. her clinical status she is awake staring On arrival in the Emergency department she was febrile to 102.7 (rectal) and tachycardic to 153. Of note the patient was recently hospitalized and discharged on 05/01, for treatment of LUE cellulitis and UTI. found to have lactic acid 3.4 and wbc 13.2 lactic acidosis resolved possibly secondary to pneumonia and UTI blood cultures PT NPO/PEG feedings at [facility]. Last MBS 08/2018 with anticipated good potential for PO intake. Dys puree/nectar recommended. Pt's mother reports PO trials were unsuccessful and she is now only recieving TF. History Source: Family Member, Medical Record Limitations to Obtaining History: Clinical Condition - Past Medical History [employer]: Yes: Multiple Sclerosis (Questionable), Other (Recurrent falls, Ataxia,) ...: No - Smoking History Smoking history: Never smoked Have you smoked in the past 12 months: No If you are a former smoker, when did you quit?: 1985 - Alcohol/Substance Use Hx Alcohol Use: No History - Admission Reason For Visit: UTI,SEPSIS,PNEUMONIA - Diagnostics X-ray: Report Reviewed - General Mental Status: Awake and Alert, Anxious (labile) Attention: Mild Impairment Head/Neck Control: Needs Assist - Hearing Hearing: Normal Hearing Aide: No With Patient: No Speech Evaluation - Communication Primary Language: [place]IN[place] Communication: Yes: Non-Communicable (rare, single word verbalization, difficult to understand) - Speech Production Dysarthria: Yes: Mixed Able to Make Needs Known: Yes: WNL, Severely Impaired Intelligibility: Yes: Severely Impaired - Speech Characteristics Voice Loudness: Mildly Soft/Quiet Voice Pitch: Yes: Moderately High Voice Phonatory-based Quality: Yes: Dysphonia Speech Pattern: Impaired Speech Clarity: < 25% Nasal Resonance: Normal Articulation: Yes: Imprecise Rate of Speech: Too Fast - Language/Auditory Comprehension Observation: Comprehends Conversational Speech: Yes - Language/Verbal Expression Functional Communication Status: Yes: Severely Impaired - Swallow Evaluation/Bedside Assessment Current Nutritional Intake: NPO, G Tube Oral Secretions: Yes: WFL Dentition: Yes: Adequate Facial Symmetry at Rest: Symmetrical Laryngeal Elevation: WFL Laryngeal Movement: Able to Palpate (brisk, once triggered with trials of puree. ) Rate of Intake: Slow/Holding (intermittent) Oral Prep Time: Increased Timing of Swallow: Delayed Coughing/Throat Clear: No (puree trial only) Change in Voice: No Recommendations - Speech Evaluation, Impression/Plan Impression: Overtly able to tolerate puree. Last mbs 08/2018 with fair po tolerance but was reportedly unable to tolerate at NH, per pt's mother. - Disposition Discharge to: Nursing Home Facility - Dysphagia Impressions/Plan Swallowing Skills: Impaired Dysphagia Impressions: Too Lethargic to Assess *Silent aspiration: cannot be R/O at bedside Recommendations: Modified Barium Swallow
--- NOTE | 2019-05-21 14:22 | PN ---
Progress Note, Physician History of Present Illness: MORE AWAKE NOT VERBALLY RESPONSIVE TEMPS DOWN BREATHING NON LABORED BC SCN X 2 REPEAT BC (-) - Current Medication List Current Medications: Active Medications Acetaminophen (Tylenol Oral Solution -) 650 mg GT Q6H PRN PRN Reason: FEVER Last Admin: 05/21/19 10:54 Dose: 650 mg Heparin Sodium (Porcine) (Heparin -) 5,000 unit SQ BID KIMO Last Admin: 05/21/19 10:55 Dose: 5,000 unit Vancomycin HCl (Vancomycin (Pre-Docked)) 1,000 mg in 250 mls @ 166.667 mls/hr IVPB Q12H KIMO; Protocol Last Admin: 05/21/19 04:47 Dose: 166.667 mls/hr Aztreonam 1 gm/ Dextrose 50 mls @ 100 mls/hr IVPB Q8H-IV KIMO; Protocol Last Admin: 05/21/19 10:54 Dose: 100 mls/hr Levothyroxine Sodium (Synthroid -) 150 mcg GT DAILY@0700 KIMO Last Admin: 05/21/19 06:02 Dose: 150 mcg - Objective Vital Signs: Vital Signs Temperature 98.2 F 05/21/19 04:42 Pulse Rate 80 05/21/19 04:42 Respiratory Rate 20 05/21/19 04:42 Blood Pressure 112/70 05/21/19 04:42 O2 Sat by Pulse Oximetry (%) 98 05/21/19 09:00 Constitutional: Yes: No Distress Eyes: Yes: Conjunctiva Clear Cardiovascular: Yes: Regular Rate and Rhythm, S1, S2 Respiratory: Yes: CTA Bilaterally Gastrointestinal: Yes: Normal Bowel Sounds, Soft. No: Tenderness Edema: No Labs: CBC, BMP 05/19/19 10:42 05/19/19 10:42 INR, PTT INR 1.08 (0.83-1.09) 05/18/19 05:50 Assessment/Plan SEPSIS LLL PNEUMONIA UTI + BC SCN X2 PROBABLE CONTAMINANTS NO OBVIOUS SKIN SOURCE LACTIC ACIDOSIS PCN/ SULFA ALLERGIES REPEAT BC NO GROWTH CONTINUE EMPIRIC VANCOMCIN/ AZTREONAM
--- NOTE | 2019-05-21 15:41 | PN ---
Progress Note, Physician Chief Complaint: patient seen and examined went for MBS trest today - Current Medication List Current Medications: Active Medications Acetaminophen (Tylenol Oral Solution -) 650 mg GT Q6H PRN PRN Reason: FEVER Last Admin: 05/21/19 10:54 Dose: 650 mg Heparin Sodium (Porcine) (Heparin -) 5,000 unit SQ BID KIMO Last Admin: 05/21/19 10:55 Dose: 5,000 unit Vancomycin HCl (Vancomycin (Pre-Docked)) 1,000 mg in 250 mls @ 166.667 mls/hr IVPB Q12H KIMO; Protocol Last Admin: 05/21/19 04:47 Dose: 166.667 mls/hr Aztreonam 1 gm/ Dextrose 50 mls @ 100 mls/hr IVPB Q8H-IV KIMO; Protocol Last Admin: 05/21/19 10:54 Dose: 100 mls/hr Levothyroxine Sodium (Synthroid -) 150 mcg GT DAILY@0700 KIMO Last Admin: 05/21/19 06:02 Dose: 150 mcg - Objective Vital Signs: Vital Signs Temperature 98.2 F 05/21/19 04:42 Pulse Rate 80 05/21/19 04:42 Respiratory Rate 20 05/21/19 04:42 Blood Pressure 112/70 05/21/19 04:42 O2 Sat by Pulse Oximetry (%) 98 05/21/19 09:00 Constitutional: Yes: Calm Cardiovascular: Yes: Regular Rate and Rhythm, S1, S2 Respiratory: Yes: Diminished Gastrointestinal: Yes: Normal Bowel Sounds, Soft, Other ( g tube) Extremities: Yes: Other (flexed extremities) Edema: No Neurological: Yes: Alert Labs: CBC, BMP 05/19/19 10:42 05/19/19 10:42 INR, PTT INR 1.08 (0.83-1.09) 05/18/19 05:50 Problem List - Problems (1) Sepsis Assessment/Plan: lactic acidosis resolved continue iv abx per ID repeat blood cultures negative leukocytosis resolved Code(s): A41.9 - SEPSIS, UNSPECIFIED ORGANISM Qualifiers: Sepsis type: sepsis due to unspecified organism Sepsis acute organ dysfunction status: unspecified Qualified Code(s): A41.9 - Sepsis, unspecified organism (2) Pneumonia Assessment/Plan: iv abx ID on board wbc trending down afebrile MBS test done today Code(s): J18.9 - PNEUMONIA, UNSPECIFIED ORGANISM Qualifiers: Pneumonia type: due to unspecified organism Laterality: left Lung location: unspecified part of lung Qualified Code(s): J18.9 - Pneumonia, unspecified organism (3) Hypothyroid Assessment/Plan: synthroid dose adjusted tsh elevated Code(s): E03.9 - HYPOTHYROIDISM, UNSPECIFIED (4) Functional quadriplegia Assessment/Plan: frequent turn and position peg tube feeds heparin dvt ppx Code(s): R53.2 - FUNCTIONAL QUADRIPLEGIA (5) UTI (urinary tract infection) Assessment/Plan: Microbiology 05/17/19 09:20 Urine - Urine - Catheterized Urine Culture - Final Yeast Like Organism Code(s): N39.0 - URINARY TRACT INFECTION, SITE NOT SPECIFIED Qualifiers: Urinary tract infection type: site unspecified Hematuria presence: with hematuria Qualified Code(s): N39.0 - Urinary tract infection, site not specified; R31.9 - Hematuria, unspecified
[2019-05-22] MEDS ORDERED: AZTREONAM 1 GM VIAL (RESTRICTED TO ID) ONE ×3 (01:20→16:24)
[2019-05-22] MEDS ORDERED: DEXTROSE 5%-WATER - 50 ML IVPB ONE ×3 (01:20→16:25)
[2019-05-22] MEDS: AZTREONAM 1 GM in DEXTROSE 5%-WATER - 50 ML IVPB SCH ×3 (01:26→17:21)
--- NOTE | 2019-05-22 01:28 | HOSP ---
Subjective - Review of Symptoms Events since last encounter: 53y F hx of hypothyroidism, htn, ?neurodegenerative disorder, presnts from [place] for fever, tachypnea and tachycardia. Currently being treated for sepsis, pneumonia. RN noted patient vomited greenish liquid x1 and no recent Bm noted. Feeding was held, KUB STAT ordered. KUB:nonobstructive pattern, large amount stool noted. K K Physical Examination Vital Signs: Vital Signs Temperature 98.0 F 05/21/19 20:45 Pulse Rate 92 H 05/21/19 20:45 Respiratory Rate 20 05/21/19 20:45 Blood Pressure 108/61 05/21/19 20:45 O2 Sat by Pulse Oximetry (%) 90 L 05/21/19 21:00 Constitutional: Yes: Mild Distress Eyes: Yes: Conjunctiva Clear, EOM Intact HENT: Yes: Atraumatic, Normocephalic Neck: Yes: Supple, Trachea Midline Cardiovascular: Yes: Regular Rate and Rhythm Respiratory: Yes: Regular, CTA Bilaterally Gastrointestinal: Yes: Normal Bowel Sounds, Distention, Vomiting Labs: CBC, BMP 05/19/19 10:42 05/19/19 10:42 Hospitalist Encounter Assessment: #Constipation KUB: no sign of obtruction, large stool give fleet enema monitor for BM hold feeds for now, until moves BM
[2019-05-22] MEDS: VANCOMYCIN 1 GRAM (PRE-DOCKED) 1,000 MG/250 ML BAG IVPB SCH ×2 (05:47→16:26)
[2019-05-22] MEDS: LEVOTHYROXINE NA 150 MCG TABLET GT SCH (06:52)
--- NOTE | 2019-05-22 08:17 | PN ---
Progress Note, Physician Chief Complaint: IN BED NONVERBAL EVENTS AND NOTES REVIEWED - Current Medication List Current Medications: Active Medications Acetaminophen (Tylenol Oral Solution -) 650 mg GT Q6H PRN PRN Reason: FEVER Last Admin: 05/21/19 10:54 Dose: 650 mg Heparin Sodium (Porcine) (Heparin -) 5,000 unit SQ BID KIMO Last Admin: 05/21/19 22:30 Dose: 5,000 unit Vancomycin HCl (Vancomycin (Pre-Docked)) 1,000 mg in 250 mls @ 166.667 mls/hr IVPB Q12H KIMO; Protocol Last Admin: 05/22/19 05:47 Dose: 166.667 mls/hr Aztreonam 1 gm/ Dextrose 50 mls @ 100 mls/hr IVPB Q8H-IV KIMO; Protocol Last Admin: 05/22/19 01:26 Dose: 100 mls/hr Levothyroxine Sodium (Synthroid -) 150 mcg GT DAILY@0700 KIMO Last Admin: 05/22/19 06:52 Dose: 150 mcg - Objective Vital Signs: Vital Signs Temperature 98.0 F 05/22/19 06:00 Pulse Rate 96 H 05/22/19 06:00 Respiratory Rate 20 05/22/19 06:00 Blood Pressure 133/79 05/22/19 06:00 O2 Sat by Pulse Oximetry (%) 90 L 05/21/19 21:00 Constitutional: Yes: Other Cardiovascular: Yes: Regular Rate and Rhythm Respiratory: Yes: Diminished Gastrointestinal: Yes: Other (GTUBE) Genitourinary: Yes: Incontinence Neurological: Yes: Pre-Existing Deficit Labs: CBC, BMP 05/19/19 10:42 05/19/19 10:42 INR, PTT INR 1.08 (0.83-1.09) 05/18/19 05:50 Problem List - Problems (1) Hypothyroid Code(s): E03.9 - HYPOTHYROIDISM, UNSPECIFIED (2) Pneumonia Code(s): J18.9 - PNEUMONIA, UNSPECIFIED ORGANISM Qualifiers: Pneumonia type: due to unspecified organism Laterality: left Lung location: unspecified part of lung Qualified Code(s): J18.9 - Pneumonia, unspecified organism (3) Respiratory disease Code(s): J98.9 - RESPIRATORY DISORDER, UNSPECIFIED (4) Severe sepsis Code(s): A41.9 - SEPSIS, UNSPECIFIED ORGANISM; R65.20 - SEVERE SEPSIS WITHOUT SEPTIC SHOCK (5) UTI (urinary tract infection) Code(s): N39.0 - URINARY TRACT INFECTION, SITE NOT SPECIFIED Qualifiers: Urinary tract infection type: site unspecified Hematuria presence: with hematuria Qualified Code(s): N39.0 - Urinary tract infection, site not specified; R31.9 - Hematuria, unspecified (6) Dysphagia Code(s): R13.10 - DYSPHAGIA, UNSPECIFIED (7) Neurodegenerative cognitive impairment Code(s): G31.9 - DEGENERATIVE DISEASE OF NERVOUS SYSTEM, UNSPECIFIED Assessment/Plan IV ABX F/U WITH ID [id number] FEEDINGS CHANGE TO PO ABX ONCE STABLE DC PLANNING
[2019-05-22] MEDS: HEPARIN NA (PORCINE) 5,000 UNITS/ML 1ML VIAL SQ SCH ×2 (10:07→22:32)
--- NOTE | 2019-05-22 12:46 | PN ---
Progress Note (short form) - Note Progress Note: PULMONARY Pt nonverbal. No fevers recorded. Vital Signs Period Temp Pulse Resp BP Sys/Ricardo Pulse Ox Last 24 Hr 97.5 F-98.0 F 84-106 18-20 102-133/61-79 90 Gen: NAD at rest Heart: RRR Lung: decreased breath sounds at the bases Abd: soft, nontender Ext: no edema CBC, BMP 05/19/19 10:42 05/19/19 10:42 Active Medications Acetaminophen (Tylenol Oral Solution -) 650 mg GT Q6H PRN PRN Reason: FEVER Last Admin: 05/21/19 10:54 Dose: 650 mg Heparin Sodium (Porcine) (Heparin -) 5,000 unit SQ BID KIMO Last Admin: 05/22/19 10:07 Dose: 5,000 unit Vancomycin HCl (Vancomycin (Pre-Docked)) 1,000 mg in 250 mls @ 166.667 mls/hr IVPB Q12H KIMO; Protocol Last Admin: 05/22/19 05:47 Dose: 166.667 mls/hr Aztreonam 1 gm/ Dextrose 50 mls @ 100 mls/hr IVPB Q8H-IV KIMO; Protocol Last Admin: 05/22/19 10:07 Dose: 100 mls/hr Levothyroxine Sodium (Synthroid -) 150 mcg GT DAILY@0700 KIMO Last Admin: 05/22/19 06:52 Dose: 150 mcg A/P Pneumonia Sepsis Bacteremia Lactic Acidosis CAD Neurodegenerative Disorder - continue antibiotics - aspiration precautions - O2 to keep SpO2 >90% - IVF - DVT prophylaxis
--- NOTE | 2019-05-22 15:25 | PN ---
Progress Note, Physician History of Present Illness: AWAKE IN BED NOT VERBALLY RESPONSIVE TEMPS DOWN BREATHING NON LABORED BC SCN X 2 REPEAT BC (-) - Current Medication List Current Medications: Active Medications Acetaminophen (Tylenol Oral Solution -) 650 mg GT Q6H PRN PRN Reason: FEVER Last Admin: 05/21/19 10:54 Dose: 650 mg Heparin Sodium (Porcine) (Heparin -) 5,000 unit SQ BID KIMO Last Admin: 05/22/19 10:07 Dose: 5,000 unit Vancomycin HCl (Vancomycin (Pre-Docked)) 1,000 mg in 250 mls @ 166.667 mls/hr IVPB Q12H KIMO; Protocol Last Admin: 05/22/19 05:47 Dose: 166.667 mls/hr Aztreonam 1 gm/ Dextrose 50 mls @ 100 mls/hr IVPB Q8H-IV KIMO; Protocol Last Admin: 05/22/19 10:07 Dose: 100 mls/hr Levothyroxine Sodium (Synthroid -) 150 mcg GT DAILY@0700 KIMO Last Admin: 05/22/19 06:52 Dose: 150 mcg - Objective Vital Signs: Vital Signs Temperature 97.9 F 05/22/19 10:00 Pulse Rate 103 H 05/22/19 10:00 Respiratory Rate 18 05/22/19 10:00 Blood Pressure 110/67 05/22/19 10:00 O2 Sat by Pulse Oximetry (%) 90 L 05/21/19 21:00 Constitutional: Yes: No Distress Cardiovascular: Yes: Regular Rate and Rhythm, S1, S2 Respiratory: Yes: Diminished Gastrointestinal: Yes: Normal Bowel Sounds, Soft Edema: No Labs: CBC, BMP 05/19/19 10:42 05/19/19 10:42 INR, PTT INR 1.08 (0.83-1.09) 05/18/19 05:50 Assessment/Plan SEPSIS LLL PNEUMONIA UTI + BC SCN X2 PROBABLE CONTAMINANTS NO OBVIOUS SKIN SOURCE LACTIC ACIDOSIS PCN/ SULFA ALLERGIES REPEAT BC NO GROWTH DAY#5 EMPIRIC VANCOMCIN/ AZTREONAM CONTINUE ADDITIONAL 48HR
[2019-05-23] MEDS ORDERED: AZTREONAM 1 GM VIAL (RESTRICTED TO ID) ONE ×3 (01:27→17:32)
[2019-05-23] MEDS ORDERED: DEXTROSE 5%-WATER - 50 ML IVPB ONE ×3 (01:28→17:33)
[2019-05-23] MEDS: AZTREONAM 1 GM in DEXTROSE 5%-WATER - 50 ML IVPB SCH ×3 (01:36→17:34)
[2019-05-23] MEDS: VANCOMYCIN 1 GRAM (PRE-DOCKED) 1,000 MG/250 ML BAG IVPB SCH ×2 (05:44→17:34)
[2019-05-23] MEDS: LEVOTHYROXINE NA 150 MCG TABLET GT SCH (07:05)
[2019-05-23] MEDS: HEPARIN NA (PORCINE) 5,000 UNITS/ML 1ML VIAL SQ SCH ×2 (09:48→21:18)
--- NOTE | 2019-05-23 10:36 | PN ---
Progress Note, RN CALL CENTER - Note Progress Note: Selected Entries 05/22/19 05/22/19 05/22/19 02:00 06:00 10:00 Breakfast Temperature 97.8 F 98.0 F 97.9 F 05/22/19 05/22/19 05/23/19 15:36 18:00 02:00 Breakfast Temperature 99.2 F 98.8 F 98.2 F 05/23/19 10:06 Breakfast NPO Temperature MBS completed. Swallowing is functional with aspiration risk. REC: Dys puree/ nectar TL on tsp rec. Pt had vomiting of green substance with large amount of stool noted on xray. GT feedings were held. For PO trials when medically stable, maybe once at [facility]. Please send results of MBS and compensatory feeding recommendation to [facility] for follow up by speech pathology at [facility].
--- NOTE | 2019-05-23 11:15 | PN ---
Progress Note, Physician Chief Complaint: AWAKE TODAY MORE ALERT NO FEVERS TOLERATING GTUBE FEEDS OVERNIGHT - Current Medication List Current Medications: Active Medications Acetaminophen (Tylenol Oral Solution -) 650 mg GT Q6H PRN PRN Reason: FEVER Last Admin: 05/21/19 10:54 Dose: 650 mg Heparin Sodium (Porcine) (Heparin -) 5,000 unit SQ BID KIMO Last Admin: 05/23/19 09:48 Dose: 5,000 unit Vancomycin HCl (Vancomycin (Pre-Docked)) 1,000 mg in 250 mls @ 166.667 mls/hr IVPB Q12H KIMO; Protocol Last Admin: 05/23/19 05:44 Dose: 166.667 mls/hr Aztreonam 1 gm/ Dextrose 50 mls @ 100 mls/hr IVPB Q8H-IV KIMO; Protocol Last Admin: 05/23/19 09:48 Dose: 100 mls/hr Levothyroxine Sodium (Synthroid -) 150 mcg GT DAILY@0700 KIMO Last Admin: 05/23/19 07:05 Dose: 150 mcg - Objective Vital Signs: Vital Signs Temperature 98.2 F 05/23/19 02:00 Pulse Rate 88 05/23/19 02:00 Respiratory Rate 20 05/23/19 02:00 Blood Pressure 113/67 05/23/19 02:00 O2 Sat by Pulse Oximetry (%) 90 L 05/21/19 21:00 Constitutional: Yes: Mild Distress Cardiovascular: Yes: Regular Rate and Rhythm Respiratory: Yes: Diminished Gastrointestinal: Yes: Other (GTUBE SOFT ABD) Genitourinary: Yes: Incontinence Neurological: Yes: Pre-Existing Deficit Labs: CBC, BMP 05/19/19 10:42 05/19/19 10:42 INR, PTT INR 1.08 (0.83-1.09) 05/18/19 05:50 Problem List - Problems (1) Hypothyroid Code(s): E03.9 - HYPOTHYROIDISM, UNSPECIFIED (2) Pneumonia Code(s): J18.9 - PNEUMONIA, UNSPECIFIED ORGANISM Qualifiers: Pneumonia type: due to unspecified organism Laterality: left Lung location: unspecified part of lung Qualified Code(s): J18.9 - Pneumonia, unspecified organism (3) Respiratory disease Code(s): J98.9 - RESPIRATORY DISORDER, UNSPECIFIED (4) Severe sepsis Code(s): A41.9 - SEPSIS, UNSPECIFIED ORGANISM; R65.20 - SEVERE SEPSIS WITHOUT SEPTIC SHOCK (5) UTI (urinary tract infection) Code(s): N39.0 - URINARY TRACT INFECTION, SITE NOT SPECIFIED Qualifiers: Urinary tract infection type: site unspecified Hematuria presence: with hematuria Qualified Code(s): N39.0 - Urinary tract infection, site not specified; R31.9 - Hematuria, unspecified (6) Dysphagia Code(s): R13.10 - DYSPHAGIA, UNSPECIFIED (7) Neurodegenerative cognitive impairment Code(s): G31.9 - DEGENERATIVE DISEASE OF NERVOUS SYSTEM, UNSPECIFIED Assessment/Plan IV ABX FOR TODAY AND TOMORROW EEDINGS TOLERATED F/U WITH ID APPRECIATED CHANGE TO PO ABX ONCE STABLE DC PLANNING
--- NOTE | 2019-05-23 12:06 | PN ---
Progress Note, Physician History of Present Illness: PULMONARY ALERT,COMFORTABLE,-RESP DISTRESS - Current Medication List Current Medications: Active Medications Acetaminophen (Tylenol Oral Solution -) 650 mg GT Q6H PRN PRN Reason: FEVER Last Admin: 05/21/19 10:54 Dose: 650 mg Heparin Sodium (Porcine) (Heparin -) 5,000 unit SQ BID KIMO Last Admin: 05/23/19 09:48 Dose: 5,000 unit Vancomycin HCl (Vancomycin (Pre-Docked)) 1,000 mg in 250 mls @ 166.667 mls/hr IVPB Q12H KIMO; Protocol Last Admin: 05/23/19 05:44 Dose: 166.667 mls/hr Aztreonam 1 gm/ Dextrose 50 mls @ 100 mls/hr IVPB Q8H-IV KIMO; Protocol Last Admin: 05/23/19 09:48 Dose: 100 mls/hr Levothyroxine Sodium (Synthroid -) 150 mcg GT DAILY@0700 KIMO Last Admin: 05/23/19 07:05 Dose: 150 mcg - Objective Vital Signs: Vital Signs Temperature 98.8 F 05/23/19 10:00 Pulse Rate 88 05/23/19 10:00 Respiratory Rate 20 05/23/19 10:00 Blood Pressure 130/65 05/23/19 10:00 O2 Sat by Pulse Oximetry (%) 98 05/23/19 09:00 Constitutional: Yes: Calm, Thin Eyes: Yes: WNL HENT: Yes: WNL Neck: Yes: WNL Cardiovascular: Yes: Regular Rate and Rhythm, S1, S2 Respiratory: Yes: Diminished (POOR INSPIRATORY EFFORT) Gastrointestinal: Yes: Normal Bowel Sounds, Soft Extremities: Yes: WNL Edema: No Labs: CBC, BMP Problem List - Problems (1) Hypothyroid Code(s): E03.9 - HYPOTHYROIDISM, UNSPECIFIED (2) Pneumonia Code(s): J18.9 - PNEUMONIA, UNSPECIFIED ORGANISM Qualifiers: Pneumonia type: due to unspecified organism Laterality: left Lung location: unspecified part of lung Qualified Code(s): J18.9 - Pneumonia, unspecified organism (3) Sepsis Code(s): A41.9 - SEPSIS, UNSPECIFIED ORGANISM Qualifiers: Sepsis type: sepsis due to unspecified organism Sepsis acute organ dysfunction status: unspecified Qualified Code(s): A41.9 - Sepsis, unspecified organism (4) UTI (urinary tract infection) Code(s): N39.0 - URINARY TRACT INFECTION, SITE NOT SPECIFIED Qualifiers: Urinary tract infection type: site unspecified Hematuria presence: with hematuria Qualified Code(s): N39.0 - Urinary tract infection, site not specified; R31.9 - Hematuria, unspecified (5) CAD (coronary artery disease) Code(s): I25.10 - ATHSCL HEART DISEASE OF [place] CORONARY ARTERY W/O ANG PCTRS (6) Functional quadriplegia Code(s): R53.2 - FUNCTIONAL QUADRIPLEGIA (7) HTN (hypertension) Code(s): I10 - ESSENTIAL (PRIMARY) HYPERTENSION (8) Neurodegenerative cognitive impairment Code(s): G31.9 - DEGENERATIVE DISEASE OF NERVOUS SYSTEM, UNSPECIFIED (9) TIA (transient ischemic attack) Code(s): G45.9 - TRANSIENT CEREBRAL ISCHEMIC ATTACK, UNSPECIFIED (10) Respiratory disease Code(s): J98.9 - RESPIRATORY DISORDER, UNSPECIFIED (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 UTI NEURODEGENERATIVE DISORDER PSEUDOBULBAR ASHD H/O TIA LACTIC ACIDOSIS RESOLVED PLAN ABX PER ID O2 F/U CHEST X-RAYS DR CATALAN Problem List - Problems (1) Hypothyroid Code(s): E03.9 - HYPOTHYROIDISM, UNSPECIFIED (2) Pneumonia Code(s): J18.9 - PNEUMONIA, UNSPECIFIED ORGANISM Qualifiers: Pneumonia type: due to unspecified organism Laterality: left Lung location: unspecified part of lung Qualified Code(s): J18.9 - Pneumonia, unspecified organism (3) Sepsis Code(s): A41.9 - SEPSIS, UNSPECIFIED ORGANISM Qualifiers: Sepsis type: sepsis due to unspecified organism Sepsis acute organ dysfunction status: unspecified Qualified Code(s): A41.9 - Sepsis, unspecified organism (4) UTI (urinary tract infection) Code(s): N39.0 - URINARY TRACT INFECTION, SITE NOT SPECIFIED Qualifiers: Urinary tract infection type: site unspecified Hematuria presence: with hematuria Qualified Code(s): N39.0 - Urinary tract infection, site not specified; R31.9 - Hematuria, unspecified (5) CAD (coronary artery disease) Code(s): I25.10 - ATHSCL HEART DISEASE OF [place] CORONARY ARTERY W/O ANG PCTRS (6) Functional quadriplegia Code(s): R53.2 - FUNCTIONAL QUADRIPLEGIA (7) HTN (hypertension) Code(s): I10 - ESSENTIAL (PRIMARY) HYPERTENSION (8) Neurodegenerative cognitive impairment Code(s): G31.9 - DEGENERATIVE DISEASE OF NERVOUS SYSTEM, UNSPECIFIED (9) TIA (transient ischemic attack) Code(s): G45.9 - TRANSIENT CEREBRAL ISCHEMIC ATTACK, UNSPECIFIED (10) Respiratory disease Code(s): J98.9 - RESPIRATORY DISORDER, UNSPECIFIED (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
[2019-05-24] MEDS ORDERED: AZTREONAM 1 GM VIAL (RESTRICTED TO ID) ONE (01:55)
[2019-05-24] MEDS ORDERED: DEXTROSE 5%-WATER - 50 ML IVPB ONE (01:55)
[2019-05-24] MEDS: AZTREONAM 1 GM in DEXTROSE 5%-WATER - 50 ML IVPB SCH ×2 (01:57→09:28)
[2019-05-24] MEDS: VANCOMYCIN 1 GRAM (PRE-DOCKED) 1,000 MG/250 ML BAG IVPB SCH (05:17)
[2019-05-24] MEDS: LEVOTHYROXINE NA 150 MCG TABLET GT SCH (06:22)
[2019-05-24] MEDS: HEPARIN NA (PORCINE) 5,000 UNITS/ML 1ML VIAL SQ SCH (09:09)
[2019-05-24 09:12] VITALS: TEMP 98.7
--- NOTE | 2019-05-24 11:09 | DS ---
Physical Examination Vital Signs: Vital Signs Temperature 98.7 F 05/24/19 09:10 Pulse Rate 86 05/24/19 09:10 Respiratory Rate 18 05/24/19 09:10 Blood Pressure 108/64 05/24/19 09:10 O2 Sat by Pulse Oximetry (%) 98 05/24/19 09:00 Constitutional: Yes: Mild Distress Respiratory: Yes: Diminished Gastrointestinal: Yes: Soft (gtube functioning) Musculoskeletal: Yes: Muscle Weakness Extremities: Yes: Deformity Integumentary: Yes: Rash, Other Neurological: Yes: Pre-Existing Deficit Labs: CBC, BMP 05/19/19 10:42 05/19/19 10:42 Discharge Summary Problems reviewed: Yes Reason For Visit: UTI,SEPSIS,PNEUMONIA Current Active Problems Hypothyroid (Acute) Pneumonia (Acute) Pneumonia (Acute) Respiratory disease (Acute) Sepsis (Acute) Severe sepsis (Acute) UTI (urinary tract infection) (Acute) Hospital Course: admitted iv abx completed, transfer back to [facility], check labs weekly Condition: Fair - Instructions Diet, Activity, Other Instructions: cbc/bmp weekly gtube feeds as tolerated Referrals: Fredo Collier MD [Primary Care Provider] - [facility] - Home Medications Comprehensive Discharge Medication List: Ambulatory Orders Propranolol HCl [Propranolol HCl ER] 80 mg GT BID 08/14/18 Heparin - 5,000 unit SQ BID #30 vial 08/17/18 Acetaminophen 650 mg GT Q6H PRN 10/06/18 Vits A and D/White Pet/Lanolin [A and D Ointment] 1 applic TP BID 10/06/18 Zinc Oxide 20% Topical Oint 1 applic TP Q8H 10/09/18 Baclofen [Lioresal -] 10 mg PEG DAILY tablet 10/17/18 Hydrocortisone 2.5% Topical Cr [Anusol-Hc -] 1 applic RC BID 04/22/19 Lactulose (Oral Use) [Cephulac -] 15 ml GT DAILY 04/22/19 Sennosides [Senna] 2 tab GT HS 04/22/19 Lisinopril [Prinivil] 2.5 mg NGT DAILY tablet 05/01/19 Ipratropium/Albuterol Sulfate [Iprat-Albut 0.5-3(2.5) mg/3 ml] 3 ml IH QID 05/17 Acetaminophen Oral Solution [Tylenol Oral Solution -] 650 mg GT Q6H PRN soln.oral 05/24/19 Heparin - 5,000 unit SQ BID vial 05/24/19 Levothyroxine [Synthroid -] 150 mcg GT DAILY@0700 tablet 05/24/19 Prescription Drug Monitoring Program (I-STOP) results: I-STOP not reviewed
--- NOTE | 2019-05-24 12:47 | PN ---
Progress Note (short form) - Note Progress Note: PULMONARY Pt awake, nonverbal. No fevers recorded. Vital Signs Period Temp Pulse Resp BP Sys/Ricardo Pulse Ox Last 24 Hr 98.7 F-99.4 F 86-102 18-20 91-108/61-68 96-98 Gen: NAD at rest Heart: RRR Lung: decreased breath sounds at the bases Abd: soft, nontender Ext: no edema CBC, BMP 05/19/19 10:42 05/19/19 10:42 Active Medications Acetaminophen (Tylenol Oral Solution -) 650 mg GT Q6H PRN PRN Reason: FEVER Last Admin: 05/21/19 10:54 Dose: 650 mg Heparin Sodium (Porcine) (Heparin -) 5,000 unit SQ BID KIMO Last Admin: 05/24/19 09:09 Dose: 5,000 unit Vancomycin HCl (Vancomycin (Pre-Docked)) 1,000 mg in 250 mls @ 166.667 mls/hr IVPB Q12H KIMO; Protocol Last Admin: 05/24/19 05:17 Dose: 166.667 mls/hr Aztreonam 1 gm/ Dextrose 50 mls @ 100 mls/hr IVPB Q8H-IV KIMO; Protocol Last Admin: 05/24/19 09:28 Dose: 100 mls/hr Levothyroxine Sodium (Synthroid -) 150 mcg GT DAILY@0700 KIMO Last Admin: 05/24/19 06:22 Dose: 150 mcg A/P Pneumonia Sepsis Bacteremia Lactic Acidosis CAD Neurodegenerative Disorder Hypothyroidism - complete antibiotics - aspiration precautions - O2 to keep SpO2 >90% - DVT prophylaxis
[2019-05-24 16:26] VITALS: BP 108/73; PULSE 20
[2019-05-24] MEDS ORDERED: PT OWN MED DRAWER 7, Y5N ONE (16:48)
== END 2019-05-24 18:39 | DRG 720 ==
LOC: JER 08:53 → JERBED 11:01 → J4W 18:24
PROVIDERS: ADMIT Student in an Organized Health Care Education/Training Program; ATTEND Student in an Organized Health Care Education/Training Program
PROC: 0D20XUZ Change Feeding Device in Upper Intestinal Tract, External Approach (ICD-10-PCS; principal; 2019-05-24)
DX: A41.9 Sepsis, unspecified organism (principal); J18.9 Pneumonia, unspecified organism; E87.2 Acidosis; I25.10 Atherosclerotic heart disease of native coronary artery without angina pectoris; E03.9 Hypothyroidism, unspecified; N39.0 Urinary tract infection, site not specified; R53.2 Functional quadriplegia; G31.9 Degenerative disease of nervous system, unspecified; K59.00 Constipation, unspecified; I95.9 Hypotension, unspecified; D72.829 Elevated white blood cell count, unspecified; R13.10 Dysphagia, unspecified; Z93.1 Gastrostomy status; R06.03 Acute respiratory distress; R00.0 Tachycardia, unspecified
CPT/HCPCS: 36415; 49450; 71045-TC-FY; 74018-TC-FY; 74230-TC-FY; 76000-TC-FY; 80053; 81003; 82803; 83605; 83735; 83880; 84443; 84484; 85025; 85027; 85610; 85730; 87040; 87077; 87086; 87186; 87804; 87899; 90670; 92611-GN; 93005; 93010; 99285-25; G0480; J0131; J1644; J7030

== ENCOUNTER 2019-05-31 03:14 | Inpatient (IN) | payer SELFPAY ==
--- NOTE | 2019-05-31 03:35 | PDOC ---
History of Present Illness - General Stated Complaint: SEPSIS Time Seen by Provider: 05/31/19 03:35 - History of Present Illness Initial Comments: HPI: 54yo F with PMH of hypothyroidism, htn, ?neurodegenerative disorder, presents from [facility] for fever, tachypnea and tachycardia. On arrival in the Emergency department she was febrile to 102.4 (rectal) and tachycardic to 120 Of note the patient was recently hospitalized and discharged on 05/26 for treatment of pneumonia and UTI. History is limited by the patient due to her clinical status she is awake staring ahead but nonverbal at baseline. ROS: not able to complete (patient nonverbal) PE: General: Awake, diaphoretic Head: No signs of trauma Eyes: EOMI, sclera anicteric ENT: Dry mucus membranes Neck: Normal ROM, supple Lungs: Lungs clear but with poor inspiratory effort Cardio: Tachycardic, Regular rhythm, S1 and S2 present Abdomen: Soft, no grimacing appreciated upon palpation Extremities: Contracted in all extremities, Distal pulses present SKIN: Warm, Dry, normal turgor Neurologic: Nonverbal, not able to follow commands ED Course/MDM: DDX including but not limited to SIRS, sepsis due to PNA, UTI, bacteremia VS significant for fever and tachycardia Sepsis workup initiated Fluids 30cc/kg Ofirmev 05/31/19 03:35 CBC WBC 12.2 K/mm3 (4.0-10.0) H 05/31/19 03:54 RBC 4.10 M/mm3 (3.60-5.2) 05/31/19 03:54 Hgb 12.9 GM/dL (10.7-15.3) 05/31/19 03:54 Hct 39.5 % (32.4-45.2) D 05/31/19 03:54 MCV 96.2 fl (80-96) H 05/31/19 03:54 MCH 31.4 pg (25.7-33.7) 05/31/19 03:54 MCHC 32.6 g/dl (32.0-36.0) 05/31/19 03:54 RDW 13.8 % (11.6-15.6) 05/31/19 03:54 Plt Count 354 K/MM3 (134-434) D 05/31/19 03:54 MPV 8.8 fl (7.5-11.1) 05/31/19 03:54 Absolute Neuts (auto) 8.6 K/mm3 (1.5-8.0) H 05/31/19 03:54 Neutrophils % 70.7 % (42.8-82.8) 05/31/19 03:54 Lymphocytes % 16.0 % (8-40) 05/31/19 03:54 Monocytes % 10.5 % (3.8-10.2) H 05/31/19 03:54 Eosinophils % 1.9 % (0-4.5) 05/31/19 03:54 Basophils % 0.9 % (0-2.0) D 05/31/19 03:54 Nucleated RBC % 0 % (0-0) 05/31/19 03:54 Leukocytosis CMP Sodium 145 mmol/L (136-145) 05/31/19 03:54 Potassium 4.8 mmol/L (3.5-5.1) 05/31/19 03:54 Chloride 113 mmol/L (98-107) H 05/31/19 03:54 Carbon Dioxide 28 mmol/L (21-32) 05/31/19 03:54 Anion Gap 4 MMOL/L (8-16) L 05/31/19 03:54 BUN 28.3 mg/dL (7-18) H 05/31/19 03:54 Creatinine 0.8 mg/dL (0.55-1.3) 05/31/19 03:54 Est GFR (CKD-EPI)AfAm 96.87 05/31/19 03:54 Est GFR (CKD-EPI)NonAf 83.58 05/31/19 03:54 Random Glucose 147 mg/dL (74-106) H 05/31/19 03:54 Lactic Acid 1.7 mmol/L (0.4-2.0) 05/31/19 03:54 Calcium 10.2 mg/dL (8.5-10.1) H 05/31/19 03:54 Total Bilirubin 0.3 mg/dL (0.2-1) 05/31/19 03:54 AST 27 U/L (15-37) 05/31/19 03:54 ALT 38 U/L (13-61) 05/31/19 03:54 Alkaline Phosphatase 109 U/L (45-117) 05/31/19 03:54 Troponin I < 0.02 ng/ml (0.00-0.05) 05/31/19 03:54 Total Protein 8.3 g/dl (6.4-8.2) H 05/31/19 03:54 Albumin 3.1 g/dl (3.4-5.0) L 05/31/19 03:54 Electrolytes unremarkable Tpn undetectable No transaminitis EKG: rate 107, Qtc 432, sinus tachycardic UA with infection CXR suspicious for pneumonia, my impression Ordered vancomycin and cefepime [employer] sent, awaiting callback 05/31/19 05:[address] Mazariegos who accepted patient for admission under Dr. Madrigal 05/31/19 05:41 Past History - Past Medical History Allergies/Adverse Reactions: Allergies Allergy/AdvReac Type Severity Reaction Status Date / Time Penicillins Allergy Verified 05/31/19 03:41 sulfur dioxide Allergy Verified 05/31/19 03:41 Home Medications: Ambulatory Orders Propranolol HCl [Propranolol HCl ER] 80 mg GT BID 08/14/18 Heparin - 5,000 unit SQ BID #30 vial 08/17/18 Acetaminophen 650 mg GT Q6H PRN 10/06/18 Vits A and D/White Pet/Lanolin [A and D Ointment] 1 applic TP BID 10/06/18 Zinc Oxide 20% Topical Oint 1 applic TP Q8H 10/09/18 Baclofen [Lioresal -] 10 mg PEG DAILY tablet 10/17/18 Hydrocortisone 2.5% Topical Cr [Anusol-Hc -] 1 applic RC BID 04/22/19 Lactulose (Oral Use) [Cephulac -] 15 ml GT DAILY 04/22/19 Sennosides [Senna] 2 tab GT HS 04/22/19 Lisinopril [Prinivil] 2.5 mg NGT DAILY tablet 05/01/19 Ipratropium/Albuterol Sulfate [Iprat-Albut 0.5-3(2.5) mg/3 ml] 3 ml IH QID 05/17 Acetaminophen Oral Solution [Tylenol Oral Solution -] 650 mg GT Q6H PRN soln.oral 05/24/19 Heparin - 5,000 unit SQ BID vial 05/24/19 Levothyroxine [Synthroid -] 150 mcg GT DAILY@0700 tablet 05/24/19 Anemia: No Asthma: No Cancer: No CVA: Yes COPD: No GI Disorders: Yes (peg tube) Disorders: No HTN: Yes Hypercholesterolemia: No 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) Thyroid Disease: (Yes; HYPOTHYROIDISM) - Immunization History Immunization Up to Date: No - Psycho Social/Smoking Cessation Hx Smoking History: Never smoked Have you smoked in the past 12 months: No If you are a former smoker, when did you quit?: 1985 Hx Alcohol Use: No Drug/Substance Use Hx: No Substance Use Type: None Hx Substance Use Treatment: No ED Treatment Course - LABORATORY CBC & Chemistry Diagram: 05/31/19 03:54 05/31/19 03:54 Discharge - Discharge Information Problems reviewed: Yes Clinical Impression/Diagnosis: UTI (urinary tract infection) Qualifiers: Urinary tract infection type: site unspecified Hematuria presence: with hematuria Qualified Code(s): N39.0 - Urinary tract infection, site not specified Sepsis Qualifiers: Sepsis type: sepsis due to unspecified organism Sepsis acute organ dysfunction status: unspecified Qualified Code(s): A41.9 - Sepsis, unspecified organism Pneumonia Qualifiers: Pneumonia type: due to unspecified organism Laterality: right Lung location: lower lobe of lung Qualified Code(s): J18.9 - Pneumonia, unspecified organism Condition: Guarded - Admission Yes - Follow up/Referral - Patient Discharge Instructions - Post Discharge Activity
[2019-05-31] MEDS ORDERED: ACETAMINOPHEN INJECTION 100 ML IVPB ONE (03:57)
[2019-05-31] MEDS ORDERED: ACETAMINOPHEN 1000 MG/100 ML VIAL (NON FORMULARY) IVPB ONE (03:59)
[2019-05-31] MEDS ORDERED: SODIUM CHLORIDE IV STA (03:59)
[2019-05-31 04:06] LABS: HEMOGLOBIN 12.9 GM/dL (10.7-15.3); WHITE BLOOD COUNT 12.2 K/mm3 (4.0-10.0)
[2019-05-31 04:07] LABS: BASO % 0.9 % (0-2.0); EOS % 1.9 % (0-4.5); HEMATOCRIT 39.5 % (32.4-45.2); MCH 31.4 pg (25.7-33.7); MCHC 32.6 g/dl (32.0-36.0); MEAN CELL VOLUME 96.2 fl (80-96); MEAN PLT VOLUME 8.8 fl (7.5-11.1); MONO % 10.5 % (3.8-10.2); NEUT % 70.7 % (42.8-82.8); PLATELET COUNT 354 K/MM3 (134-434); RDW 13.8 % (11.6-15.6); VENOUS PC02 39.6 mmHg (38-52); VENOUS PH 7.44 (7.31-7.41); VENOUS PO2 56.6 mmHg (28-48)
--- NOTE | 2019-05-31 04:09 | PDOC ---
Attending Attestation - Resident Resident Name: Boston Matath - ED Attending Attestation I have performed the following: I have examined & evaluated the patient, The case was reviewed & discussed with the resident, I agree w/resident's findings & plan - HPI HPI: 05/31/19 05:34 see resident hpi - Physicial Exam PE: 05/31/19 05:34 agree with resident exam - Medical Decision Making 05/31/19 05:34 54-year-old female sent from long-term facility with fever labs consistent with urinary tract infection, residual infiltrates appear bilaterally on chest x-ray Cefepime and vancomycin ordered We will admit for further evaluation and culture follow-up
[2019-05-31 04:19] LABS: INR 0.99 (0.83-1.09); PROTHROMBIN TIME (PATIENT) 11.7 SEC (9.7-13.0)
[2019-05-31 04:22] LABS: ACTIVATED PTT 26.1 SECONDS (25.2-36.5)
[2019-05-31 04:24] LABS: EPI CELLS 8.6 /HPF (0-5/HPF); HYALINE CASTS 232 /lpf (0-8); URINE APPEARANCE TURBID; URINE BILIRUBIN NEGATIVE (NEGATIVE); URINE COLOR DK YELLOW; URINE GLUCOSE (UA) NEGATIVE (NEGATIVE); URINE KETONE NEGATIVE (NEGATIVE); URINE LEUK ESTERASE 3+ (NEGATIVE); URINE NITRITE NEGATIVE (NEGATIVE); URINE PROTEIN 1+ (NEGATIVE); URINE WBC 459 /hpf (0-5)
[2019-05-31 04:31] LABS: ALBUMIN 3.1 g/dl (3.4-5.0); BILIRUBIN,TOTAL 0.3 mg/dL (0.2-1); BLOOD UREA NITROGEN 28.3 mg/dL (7-18); CALCIUM 10.2 mg/dL (8.5-10.1); CREATININE 0.8 mg/dL (0.55-1.3); POTASSIUM 4.8 mmol/L (3.5-5.1); TOT PROT 8.3 g/dl (6.4-8.2)
[2019-05-31] MEDS ORDERED: VANCOMYCIN 1,000 MG in DEXTROSE 5%-WATER - 250 ML IVPB ONE (05:30)
[2019-05-31] MEDS ORDERED: CEFEPIME HCL/D5W 2 GM/50 ML BAG IVPB ONE (05:33)
[2019-05-31] MEDS ORDERED: CEFEPIME 2 GM/100 ML BAG IVPB ONE (05:44)
[2019-05-31] MEDS ORDERED: VANCOMYCIN 1 GRAM (PRE-DOCKED) 1,000 MG/250 ML BAG IVPB ONE (05:44)
--- NOTE | 2019-05-31 06:19 | HP ---
CHIEF COMPLAINT: recurrent fever, chills, tachypnea, tachycardia PCP: [facility] HISTORY OF PRESENT ILLNESS: 54yo non verbal and paralyzed F with PMH of hypothyroidism, htn, progressive neurodegenerative disorder ( per Dr Phan old notes), presents from [facility] for fever, tachypnea and tachycardia. On arrival in the Emergency department she was febrile to 102.4 (rectal) and tachycardic to 120. Of note the patient was recently hospitalized and discharged on 05/26 for same. History is limited by the patient due to her clinical status she is awake staring ahead but nonverbal at baseline. ER course was notable for: (1) VS 102.4, 120, 97/78 mmHg, 28, 93%. CBC leukocytosis 12.9, cmp with Ca 10.2 , t protein 8.3, alb 3.1 (2) EKG sinus tachy (3) UA positive and CXR signs of PNA Recent Travel: none PAST MEDICAL HISTORY: as above PAST SURGICAL HISTORY: unknown Social History: unknown Smoking: Alcohol: Drugs: Allergies Penicillins Allergy (Verified 05/31/19 03:41) sulfur dioxide Allergy (Verified 05/31/19 03:41) HOME MEDICATIONS: Home Medications Medication Instructions Recorded Propranolol HCl [Propranolol HCl 80 mg GT BID 08/14/18 ER] Heparin - 5,000 unit SQ BID #30 vial 08/17/18 Acetaminophen 650 mg GT Q6H PRN 10/06/18 Vits A and D/White Pet/Lanolin [A 1 applic TP BID 10/06/18 and D Ointment] Zinc Oxide 20% Topical Oint 1 applic TP Q8H 10/09/18 Baclofen [Lioresal -] 10 mg PEG DAILY tablet 10/17/18 Hydrocortisone 2.5% Topical Cr 1 applic RC BID 04/22/19 [Anusol-Hc -] Lactulose (Oral Use) [Cephulac -] 15 ml GT DAILY 04/22/19 Sennosides [Senna] 2 tab GT HS 04/22/19 Lisinopril [Prinivil] 2.5 mg NGT DAILY tablet 05/01/19 Ipratropium/Albuterol Sulfate 3 ml IH QID 05/17/19 [Iprat-Albut 0.5-3(2.5) mg/3 ml] Acetaminophen Oral Solution 650 mg GT Q6H PRN soln.oral 05/24/19 [Tylenol Oral Solution -] Heparin - 5,000 unit SQ BID vial 05/24/19 Levothyroxine [Synthroid -] 150 mcg GT DAILY@0700 tablet 05/24/19 REVIEW OF SYSTEMS unobtainable PHYSICAL EXAMINATION Vital Signs - 24 hr 05/31/19 03:38 Temperature 102.4 F H Pulse Rate 120 H Respiratory 28 H Rate Blood Pressure 97/78 O2 Sat by Pulse 93 L Oximetry (%) GENERAL: Awake, non verbal with oral secretions HEAD: Normal with no signs of trauma. EYES: Pupils equal, round and reactive to light, extraocular movements intact, sclera anicteric, conjunctiva clear. No lid lag. EARS, NOSE, THROAT: oropharynx clear with excessive green/purulent secretions. NECK: No lymphadenopathy, JVD, or masses. LUNGS: Breath sounds equal but muffled by excessive oral secretions HEART: tachy Regular rate and rhythm, normal S1 and S2 without murmur, rub or gallop. ABDOMEN: Soft, nontender, not distended, normoactive bowel sounds, no guarding, no rebound, no masses. No hepatomegaly or splenomegaly. MUSCULOSKELETAL: contracted in all extremities UPPER EXTREMITIES: 2+ pulses, warm, well-perfused. No cyanosis. No clubbing. No peripheral edema. LOWER EXTREMITIES: 2+ pulses, warm, well-perfused. No calf tenderness. No peripheral edema. NEUROLOGICAL: unable to assess SKIN: Warm, dry, fungal rash on abdomen mainly Laboratory Results - last 24 hr 05/31/19 05/31/19 05/31/19 03:54 03:54 03:54 WBC RBC Hgb Hct MCV MCH MCHC RDW Plt Count MPV Absolute Neuts (auto) Neutrophils % Lymphocytes % Monocytes % Eosinophils % Basophils % Nucleated RBC % PT with INR 11.70 INR 0.99 PTT (Actin FS) 26.1 VBG pH 7.44 H POC VBG pCO2 39.6 POC VBG pO2 56.6 H VBG HCO3 26.8 VBG O2 Sat (Stan) 90.1 H VBG Base Excess 3.0 H Sodium Potassium Chloride Carbon Dioxide Anion Gap BUN Creatinine Est GFR (CKD-EPI)AfAm Est GFR (CKD-EPI)NonAf Random Glucose Lactic Acid Calcium Total Bilirubin AST ALT Alkaline Phosphatase Troponin I < 0.02 Total Protein Albumin Urine Color Urine Appearance Urine pH Ur Specific [place] Urine Protein Urine Glucose (UA) Urine Ketones Urine Blood Urine Nitrite Urine Bilirubin Urine Urobilinogen Ur Leukocyte Esterase Urine WBC (Auto) Urine Casts (Auto) U Epithel Cells (Auto) Urine Bacteria (Auto) 05/31/19 05/31/19 05/31/19 03:54 03:54 03:54 WBC 12.2 H RBC 4.10 Hgb 12.9 Hct 39.5 D MCV 96.2 H MCH 31.4 MCHC 32.6 RDW 13.8 Plt Count 354 D MPV 8.8 Absolute Neuts (auto) 8.6 H Neutrophils % 70.7 Lymphocytes % 16.0 Monocytes % 10.5 H Eosinophils % 1.9 Basophils % 0.9 D Nucleated RBC % 0 PT with INR INR PTT (Actin FS) VBG pH POC VBG pCO2 POC VBG pO2 VBG HCO3 VBG O2 Sat (Stan) VBG Base Excess Sodium 145 Potassium 4.8 Chloride 113 H Carbon Dioxide 28 Anion Gap 4 L BUN 28.3 H Creatinine 0.8 Est GFR (CKD-EPI)AfAm 96.87 Est GFR (CKD-EPI)NonAf 83.58 Random Glucose 147 H Lactic Acid 1.7 Calcium 10.2 H Total Bilirubin 0.3 AST 27 ALT 38 Alkaline Phosphatase 109 Troponin I Total Protein 8.3 H Albumin 3.1 L Urine Color Urine Appearance Urine pH Ur Specific Qu[place] Urine Protein Urine Glucose (UA) Urine Ketones Urine Blood Urine Nitrite Urine Bilirubin Urine Urobilinogen Ur Leukocyte Esterase Urine WBC (Auto) Urine Casts (Auto) U Epithel Cells (Auto) Urine Bacteria (Auto) 05/31/19 04:15 WBC RBC Hgb Hct MCV MCH MCHC RDW Plt Count MPV Absolute Neuts (auto) Neutrophils % Lymphocytes % Monocytes % Eosinophils % Basophils % Nucleated RBC % PT with INR INR PTT (Actin FS) VBG pH POC VBG pCO2 POC VBG pO2 VBG HCO3 VBG O2 Sat (Stan) VBG Base Excess Sodium Potassium Chloride Carbon Dioxide Anion Gap BUN Creatinine Est GFR (CKD-EPI)AfAm Est GFR (CKD-EPI)NonAf Random Glucose Lactic Acid Calcium Total Bilirubin AST ALT Alkaline Phosphatase Troponin I Total Protein Albumin Urine Color Dk yellow Urine Appearance Turbid Urine pH 7.0 Ur Specific Quinton 1.026 Urine Protein 1+ H Urine Glucose (UA) Negative Urine Ketones Negative Urine Blood 2+ H Urine Nitrite Negative Urine Bilirubin Negative Urine Urobilinogen 1.0 Ur Leukocyte Esterase 3+ H Urine WBC (Auto) 459 Urine Casts (Auto) 232 U Epithel Cells (Auto) 8.6 Urine Bacteria (Auto) 12.0 ASSESSMENT/PLAN: 54yo non verbal and paralyzed F with PMH of hypothyroidism, htn, progressive neurodegenerative disorder ( per Dr Phan old notes), presents from [facility] for fever, tachypnea and tachycardia. Admitted for recurrent sepsis 2/2 UTI and PNA Sepsis 2/2 UTI and Right sided PNa MOST LIKELY DUE TO ASPIRATION leukocytosis, tachypnea, tachycardia, soft BP at 97/78 will continue with vanc, aztreonam and doxicycline for broad coverage procalcitonin, urine antigen for legionella and strep urine, sputum, blood cultures sent NS @125 cc/hr for fluid resuscitation from sepsis oropharyngeal suction chest physiotherapy HOB elevated @ 30-45 fall and aspiration precautions echo to assess for endocarditis lactic acid result pending Hypothyroidism synthroid 150 mcg in the morning HTN hold meds in the setting on hypotension 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 - New Patient This patient is new to me today: Yes Date on this admission: 05/31/19 - Critical Care Critical Care patient: No ATTENDING PHYSICIAN STATEMENT I saw and evaluated the patient. I reviewed the resident's note and discussed the case with the resident. I agree with the resident's findings and plan as documented. SUBJECTIVE: OBJECTIVE: ASSESSMENT AND PLAN:
[2019-05-31] MEDS ORDERED: HEPARIN NA (PORCINE) 5,000 UNITS/ML 1ML VIAL ONE (07:06)
[2019-05-31] MEDS: HEPARIN NA (PORCINE) 5,000 UNITS/ML 1ML VIAL SQ SCH ×3 (07:20→22:00)
[2019-05-31] MEDS: SODIUM CHLORIDE 1,000 ML IV SCH ×2 (07:20→21:27)
[2019-05-31] MEDS ORDERED: LEVOTHYROXINE NA 150 MCG TABLET GT SCH (07:30)
[2019-05-31] MEDS ORDERED: DEXTROSE 5%-WATER 100 ML IVPB ONE (09:15)
[2019-05-31] MEDS ORDERED: AZTREONAM 1 GM VIAL (RESTRICTED TO ID) ONE ×2 (09:15→17:25)
[2019-05-31] MEDS ORDERED: DOXYCYCLINE HYCLATE 100 MG VIAL ONE (09:15)
[2019-05-31] MEDS ORDERED: DEXTROSE 5%-WATER - 50 ML IVPB ONE ×2 (09:16→17:25)
--- NOTE | 2019-05-31 09:45 | PN ---
Progress Note, Physician - Current Medication List Current Medications: Active Medications Acetaminophen (Tylenol -) 650 mg PO Q4H PRN PRN Reason: PAIN LEVEL 6-10 Heparin Sodium (Porcine) (Heparin -) 5,000 unit SQ TID KIMO Last Admin: 05/31/19 07:20 Dose: 5,000 unit Sodium Chloride (Normal Saline -) 1,000 mls @ 125 mls/hr IV ASDIR KIMO Last Admin: 05/31/19 07:20 Dose: 125 mls/hr Aztreonam 1 gm/ Dextrose 50 mls @ 100 mls/hr IVPB Q8H-IV KIMO; Protocol Stop: 06/01/19 02:29 Vancomycin HCl 1,000 mg/ (Dextrose) 250 mls @ 200 mls/hr IVPB Q24H KIMO; Protocol Doxycycline Hyclate 100 mg/ (Dextrose) 100 mls @ 100 mls/hr IVPB BID KIMO Aztreonam 1 gm/ Dextrose 50 mls @ 100 mls/hr IVPB Q8H-IV KIMO; Protocol Levothyroxine Sodium (Synthroid -) 150 mcg GT DAILY@0700 [facility] - Objective Vital Signs: Vital Signs Temperature 98.7 F 05/31/19 07:20 Pulse Rate 104 H 05/31/19 07:20 Respiratory Rate 14 05/31/19 07:20 Blood Pressure 100/71 05/31/19 07:20 O2 Sat by Pulse Oximetry (%) 99 05/31/19 07:20 Cardiovascular: Yes: S1, S2 Respiratory: Yes: Regular, On Nasal O2, Rhonchi Gastrointestinal: Yes: Normal Bowel Sounds, Soft Edema: No Labs: CBC, BMP 05/31/19 03:54 05/31/19 03:54 INR, PTT INR 0.99 (0.83-1.09) 05/31/19 03:54 Problem List - Problems (1) Sepsis Assessment/Plan: R/O recurrent pna R/O UTI will continue with vanc, aztreonam procalcitonin, urine antigen for legionella and strep urine, sputum, blood cultures sent NS @125 cc/hr for fluid resuscitation from sepsis oropharyngeal suction chest physiotherapy HOB elevated @ 30-45 fall and aspiration precautions echo to assess for endocarditis ID consult Code(s): A41.9 - SEPSIS, UNSPECIFIED ORGANISM Qualifiers: Sepsis type: sepsis due to unspecified organism Sepsis acute organ dysfunction status: unspecified Qualified Code(s): A41.9 - Sepsis, unspecified organism (2) Fever Assessment/Plan: as above Code(s): R50.9 - FEVER, UNSPECIFIED (3) UTI (urinary tract infection) Assessment/Plan: await cultures abx per id Code(s): N39.0 - URINARY TRACT INFECTION, SITE NOT SPECIFIED Qualifiers: Urinary tract infection type: site unspecified Hematuria presence: with hematuria Qualified Code(s): N39.0 - Urinary tract infection, site not specified; R31.9 - Hematuria, unspecified (4) Functional quadriplegia Code(s): R53.2 - FUNCTIONAL QUADRIPLEGIA (5) Neurodegenerative cognitive impairment Assessment/Plan: neuro Code(s): G31.9 - DEGENERATIVE DISEASE OF NERVOUS SYSTEM, UNSPECIFIED
[2019-05-31] MEDS ORDERED: DOXYCYCLINE INJECTION 100 MG in DEXTROSE 5%-WATER 100 ML IVPB SCH (10:00)
[2019-05-31] MEDS ORDERED: AZTREONAM 1 GM in DEXTROSE 5%-WATER - 50 ML IVPB SCH (10:00)
--- NOTE | 2019-05-31 10:28 | EKG ---
Test Reason : Blood Pressure : / mmHG Vent. Rate : 107 BPM Atrial Rate : 107 BPM P-R Int : 120 ms QRS Dur : 074 ms QT Int : 324 ms P-R-T Axes : 048 -49 029 degrees QTc Int : 432 ms POOR DATA QUALITY, INTERPRETATION MAY BE ADVERSELY AFFECTED SINUS TACHYCARDIA LEFT ANTERIOR FASCICULAR BLOCK ABNORMAL ECG WHEN COMPARED WITH ECG OF 17-MAY-2019 09:18, NO SIGNIFICANT CHANGE WAS FOUND Confirmed by STEPHAN SANABRIA, SALEEM ([id number]) on 05/31/2019 10:28:03 AM Referred By: Confirmed By:SALEEM ROTHMAN MD
--- NOTE | 2019-05-31 12:08 | PN ---
Progress Note (short form) - Note Progress Note: ID CONSULT DICTATED FEVER/TACHYPNEA/ TACHYCARDIA R/O RECURRENT PNEUMONIA PCN ALLERGY NEUROMUSCULAR DISORDER AWAIT SEPSIS W/U EMPIRIC VANCONYCIN / AZTREONAM
[2019-05-31] MEDS ORDERED: LEVOTHYROXINE NA 100 MCG TABLET (FP) ONE (14:40)
[2019-05-31] MEDS ORDERED: LEVOTHYROXINE NA 50 MCG TABLET (FP) ONE (14:40)
[2019-05-31] MEDS: LEVOTHYROXINE 100 MCG, LEVOTHYROXINE 50 MCG PO SCH (14:55)
[2019-05-31] MEDS ORDERED: ACETAMINOPHEN 1000 MG/100 ML VIAL (NON FORMULARY) IVPB PRN (15:23)
--- NOTE | 2019-05-31 15:27 | ECHO ---
Name: CAMILLE EARL Exam:Adult Echocardiogram Study Date: 05/31/2019 01:46 PM Age: 54 yrs Reason For Study: R/O Endocarditis Height: 62 in Weight: 100 lb BSA: 1.4 m2 MMode/2D Measurements & Calculations IVSd: 0.71 cm Ao root diam: 3.4 cm LVIDd: 4.6 cm LA dimension: 2.4 cm LVIDs: 2.6 cm ACS: 2.1 cm LVPWd: 0.66 cm IVSs: 0.88 cm LVPWs: 0.96 cm EDV(Teich): 95.5 ml ESV(Teich): 25.7 ml Doppler Measurements & Calculations MV E max guy: 64.7 cm/sec Ao V2 max: 134.7 cm/sec MV A max guy: 95.3 cm/sec Ao max P.3 mmHg MV E/A: 0.68 Ao V2 mean: 101.6 cm/sec Ao mean P.7 mmHg Ao V2 VTI: 20.7 cm TR max guy: 180.5 cm/sec PI end-d guy: 115.4 cm/sec TR max P.1 mmHg Med Peak E' Guy: 9.6 cm/sec Med E/e': 6.8 Lat Peak E' Guy: 6.8 cm/sec Lat E/e': 9.5 Procedure A complete two-dimensional transthoracic echocardiogram was performed (2D, M-mode, Doppler and color flow Doppler). Left Ventricle The left ventricular size, thickness and function are normal. The left ventricular ejection fraction is normal. Ejection Fraction = 60-65%. The left ventricular wall motion is normal. Right Ventricle The right ventricle is normal in size and function. Atria Normal left and right atrial size and function. Mitral Valve There is no mitral regurgitation noted. Tricuspid Valve There is trace tricuspid regurgitation. There was insufficient TR detected to calculate RV systolic p ressure. Aortic Valve No hemodynamically significant valvular aortic stenosis. No aortic regurgitation is present. Pulmonic Valve There is no pulmonic valvular regurgitation. Great Vessels The aortic root is normal size. Pericardium/Pleura There is no pericardial effusion. Interpretation Summary The left ventricular size, thickness and function are normal The right ventricle is normal in size and function. There is trace tricuspid regurgitation. MD Kennedy Wiseman 05/31/2019 03:26 PM
[2019-05-31] MEDS: AZTREONAM 1 GM in DEXTROSE 5%-WATER - 50 ML IVPB SCH (17:28)
[2019-05-31] MEDS: VANCOMYCIN 1 GRAM (PRE-DOCKED) 1,000 MG/250 ML BAG IVPB SCH (18:04)
--- NOTE | 2019-05-31 18:40 | CON.NEURO ---
Consult Consult Specialty:: Tamara Referred by:: PCP - History of Present Illness History of Present Illness: 54 years sold woman a patient of mine was last seen 01/2018 with ?? diagnosis of MS came in to the hospital with fever from [place] Patient is off IMD The history is that patient used to live in [facility] she fell and saw neruologist in [place] and was diagnosed with MS and placed on Avenox I started seeing [facility] patient in 2015 when she moved with her mother to [place] patient was on wheelchair Patient was noted with last MRI brain done in 2016 and 2017 with no MS? patient was stopped off the Avenox - History Source History Provided By: Family Member, Medical Record Limitations to Obtaining History: Clinical Condition - Past Medical History [employer]: Yes: Multiple Sclerosis (Questionable), Other (Recurrent falls, Ataxia,) - Alcohol/Substance Use Hx Alcohol Use: No - Smoking History Smoking history: Never smoked Have you smoked in the past 12 months: No If you are a former smoker, when did you quit?: 1985 Home Medications - Allergies Allergies/Adverse Reactions: Allergies Allergy/AdvReac Type Severity Reaction Status Date / Time Penicillins Allergy Verified 05/31/19 03:41 sulfur dioxide Allergy Verified 05/31/19 03:41 - Home Medications Home Medications: Ambulatory Orders Propranolol HCl [Propranolol HCl ER] 80 mg GT BID 08/14/18 Heparin - 5,000 unit SQ BID #30 vial 08/17/18 Acetaminophen 650 mg GT Q6H PRN 10/06/18 Vits A and D/White Pet/Lanolin [A and D Ointment] 1 applic TP BID 10/06/18 Zinc Oxide 20% Topical Oint 1 applic TP Q8H 10/09/18 Baclofen [Lioresal -] 10 mg PEG DAILY tablet 10/17/18 Hydrocortisone 2.5% Topical Cr [Anusol-Hc -] 1 applic RC BID 04/22/19 Lactulose (Oral Use) [Cephulac -] 15 ml GT DAILY 04/22/19 Sennosides [Senna] 2 tab GT HS 04/22/19 Lisinopril [Prinivil] 2.5 mg NGT DAILY tablet 05/01/19 Ipratropium/Albuterol Sulfate [Iprat-Albut 0.5-3(2.5) mg/3 ml] 3 ml IH QID 05/17 Acetaminophen Oral Solution [Tylenol Oral Solution -] 650 mg GT Q6H PRN soln.oral 05/24/19 Heparin - 5,000 unit SQ BID vial 05/24/19 Levothyroxine [Synthroid -] 150 mcg GT DAILY@0700 tablet 05/24/19 Family Medical History Family History: Unable to Obtain Physical Exam-Neuro Vital Signs: Vital Signs Temperature 101.3 F H 05/31/19 15:22 Pulse Rate 118 H 05/31/19 15:22 Respiratory Rate 20 05/31/19 15:22 Blood Pressure 107/70 05/31/19 15:22 O2 Sat by Pulse Oximetry (%) 99 05/31/19 07:20 Constitutional: Yes: Well Nourished Neck: Yes: WNL Labs: CBC, BMP 05/31/19 03:54 05/31/19 03:54 INR, PTT INR 0.99 (0.83-1.09) 05/31/19 03:54 - Neuro Exam Level Of Consciousness: Yes: Alert Eyes: Yes: PERRLA Speech: Incomprehensible Dominant Hand: Right Cranial Nerves II-XII Intact: No Gag: Present DTR's: 2+ Left Bicep, 2+ Right Bicep, 2+ Right Tricep, 2+ Left Brachioradialis, 2+ Right Brachioradialis Babinski: Present Motor Strength: 1/5: Right Leg (incaresed tone allover ) Problem List - Problems (1) Neuro-degenerative disorders Assessment/Plan: 1. will discuss [facility] case with Dr Phan regarding what was done so far 2. Continue [facility] Baclofen 3. will obatin new MRI brain Dao Mcdonald MD Code(s): G31.9 - DEGENERATIVE DISEASE OF NERVOUS SYSTEM, UNSPECIFIED
[2019-05-31] MEDS: ALBUTEROL SO4 2.5/IPRATROPIUM 0.5 INH SOL 3 ML VIAL.NEB. NEB SCH ×2 (20:16)
[2019-05-31] MEDS: SENNOSIDES 8.8 MG/5 ML BULK BOTTLE GT SCH (21:32)
[2019-06-01] MEDS ORDERED: DEXTROSE 5%-WATER - 50 ML IVPB ONE ×3 (00:52→16:57)
[2019-06-01] MEDS ORDERED: AZTREONAM 1 GM VIAL (RESTRICTED TO ID) ONE ×3 (00:52→16:57)
[2019-06-01] MEDS: AZTREONAM 1 GM in DEXTROSE 5%-WATER - 50 ML IVPB SCH ×3 (01:16→17:41)
[2019-06-01] MEDS ORDERED: LEVOTHYROXINE NA 100 MCG TABLET (FP) ONE (05:04)
[2019-06-01] MEDS ORDERED: LEVOTHYROXINE NA 50 MCG TABLET (FP) ONE (05:04)
[2019-06-01] MEDS: HEPARIN NA (PORCINE) 5,000 UNITS/ML 1ML VIAL SQ SCH ×3 (06:15→21:35)
[2019-06-01] MEDS: VANCOMYCIN 1 GRAM (PRE-DOCKED) 1,000 MG/250 ML BAG IVPB SCH ×2 (06:16→18:30)
[2019-06-01] MEDS: SODIUM CHLORIDE 1,000 ML IV SCH (06:17)
[2019-06-01] MEDS: LEVOTHYROXINE 100 MCG, LEVOTHYROXINE 50 MCG PO SCH (06:18)
[2019-06-01] MEDS: ACETAMINOPHEN 325 MG TABLET (FP) PO PRN ×2 (06:33→11:07)
[2019-06-01] MEDS ORDERED: VANCOMYCIN 1,000 MG in DEXTROSE 5%-WATER - 250 ML IVPB SCH (06:45)
[2019-06-01] MEDS ORDERED: LEVOTHYROXINE NA 150 MCG TABLET GT SCH (07:00)
[2019-06-01] MEDS: ALBUTEROL SO4 2.5/IPRATROPIUM 0.5 INH SOL 3 ML VIAL.NEB. NEB SCH ×4 (07:45→21:45)
--- NOTE | 2019-06-01 09:40 | PN ---
Progress Note, Physician - Current Medication List Current Medications: Active Medications Acetaminophen (Tylenol -) 650 mg PO Q4H PRN PRN Reason: PAIN LEVEL 6-10 Last Admin: 06/01/19 06:33 Dose: 650 mg Acetaminophen (Ofirmev Injection -) 1,000 mg IVPB Q6H PRN PRN Reason: FEVER Last Admin: 05/31/19 15:49 Dose: 1,000 mg Albuterol/Ipratropium (Duoneb -) 1 amp NEB RQID [facility] Last Admin: 06/01/19 07:45 Dose: 1 amp Baclofen (Lioresal -) 10 mg PEG DAILY [facility] Heparin Sodium (Porcine) (Heparin -) 5,000 unit SQ TID [facility] Last Admin: 06/01/19 06:15 Dose: 5,000 unit Sodium Chloride (Normal Saline -) 1,000 mls @ 125 mls/hr IV ASDIR [facility] Last Admin: 06/01/19 06:17 Dose: 125 mls/hr Vancomycin HCl (Vancomycin (Pre-Docked)) 1,000 mg in 250 mls @ 166.667 mls/hr IVPB Q12H [facility]; Protocol Last Admin: 06/01/19 06:16 Dose: 166.667 mls/hr Aztreonam 1 gm/ Dextrose 50 mls @ 100 mls/hr IVPB Q8H-IV [facility]; Protocol Last Admin: 06/01/19 01:16 Dose: 100 mls/hr Lactulose (Cephulac (Oral Use)) 10 gm GT DAILY [facility] Levothyroxine Sodium 100 mcg/ (Levothyroxine Sodium 50 mcg) 150 mcg PO DAILY@ 0700 [facility] Last Admin: 06/01/19 06:18 Dose: 150 mcg Lisinopril (Prinivil) 2.5 mg NGT DAILY [facility] Propranolol HCl (Inderal -) 80 mg PO BID [facility] Last Admin: 05/31/19 21:34 Dose: 80 mg Senna (Senna Oral Solution -) 17.6 mg GT HS [facility] Last Admin: 05/31/19 21:32 Dose: 17.6 mg - Objective Vital Signs: Vital Signs Temperature 99.7 F H 06/01/19 06:09 Pulse Rate 84 06/01/19 06:09 Respiratory Rate 18 06/01/19 06:09 Blood Pressure 91/58 L 06/01/19 06:09 O2 Sat by Pulse Oximetry (%) 99 05/31/19 07:20 Cardiovascular: Yes: S1, S2 Respiratory: Yes: On Nasal O2, Rhonchi Gastrointestinal: Yes: Normal Bowel Sounds, Soft Labs: CBC, BMP 05/31/19 03:54 05/31/19 03:54 INR, PTT INR 0.99 (0.83-1.09) 05/31/19 03:54 Problem List - Problems (1) Sepsis Assessment/Plan: R/O recurrent pna R/O UTI will continue with vanc, aztreonam procalcitonin, urine antigen for legionella and strep urine, sputum, blood cultures sent NS @125 cc/hr for fluid resuscitation from sepsis oropharyngeal suction chest physiotherapy HOB elevated @ 30-45 fall and aspiration precautions echo to assess for endocarditis ID consult Code(s): A41.9 - SEPSIS, UNSPECIFIED ORGANISM Qualifiers: Sepsis type: sepsis due to unspecified organism Sepsis acute organ dysfunction status: unspecified Qualified Code(s): A41.9 - Sepsis, unspecified organism (2) Fever Assessment/Plan: as above Code(s): R50.9 - FEVER, UNSPECIFIED (3) UTI (urinary tract infection) Assessment/Plan: await cultures abx per id Code(s): N39.0 - URINARY TRACT INFECTION, SITE NOT SPECIFIED Qualifiers: Urinary tract infection type: site unspecified Hematuria presence: with hematuria Qualified Code(s): N39.0 - Urinary tract infection, site not specified; R31.9 - Hematuria, unspecified (4) Functional quadriplegia Code(s): R53.2 - FUNCTIONAL QUADRIPLEGIA (5) Neurodegenerative cognitive impairment Assessment/Plan: neuro Code(s): G31.9 - DEGENERATIVE DISEASE OF NERVOUS SYSTEM, UNSPECIFIED
[2019-06-01] MEDS ORDERED: LISINOPRIL 5 MG TABLET (FP) NGT SCH (10:00)
[2019-06-01] MEDS ORDERED: AZTREONAM 1 GM in DEXTROSE 5%-WATER - 50 ML IVPB SCH (10:00)
[2019-06-01] MEDS: LACTULOSE 20 GM/30 ML UDC (FOR ORAL USE ONLY) GT SCH (10:13)
[2019-06-01] MEDS: BACLOFEN 10 MG TABLET (FP) PEG SCH (10:13)
[2019-06-01 12:56] LABS: BASO % 0.9 % (0-2.0); EOS % 7.6 % (0-4.5); HEMATOCRIT 29.3 % (32.4-45.2); HEMOGLOBIN 9.8 GM/dL (10.7-15.3); LYMPH % 13.9 % (8-40); MCH 32.1 pg (25.7-33.7); MCHC 33.5 g/dl (32.0-36.0); MEAN CELL VOLUME 95.9 fl (80-96); MEAN PLT VOLUME 10.6 fl (7.5-11.1); MONO % 5.6 % (3.8-10.2); PLATELET COUNT 182 K/MM3 (134-434); RBC 3.06 M/mm3 (3.60-5.2); RDW 13.9 % (11.6-15.6); WHITE BLOOD COUNT 5.9 K/mm3 (4.0-10.0)
[2019-06-01 13:16] LABS: ALBUMIN 2.3 g/dl (3.4-5.0); BILIRUBIN,TOTAL 0.3 mg/dL (0.2-1); BLOOD UREA NITROGEN 15.9 mg/dL (7-18); CALCIUM 8.5 mg/dL (8.5-10.1); CREATININE 0.4 mg/dL (0.55-1.3); POTASSIUM 3.8 mmol/L (3.5-5.1); TOT PROT 5.9 g/dl (6.4-8.2)
[2019-06-01] MEDS ORDERED: LACTATED RINGERS SOLUTION 1000 ML INFUS.BAG IV ONE (13:18)
--- NOTE | 2019-06-01 13:20 | CONSULT ---
Consultation: REQUESTING PROVIDER: Dr Collier CONSULT REQUEST: We have been asked to medically evaluate this patient for hypotension. HISTORY OF PRESENT ILLNESS: Pt is a 54yo F with PMHx of hypothyroidism, htn, progressive neurodegenerative disorder, recent discharge for sepsis 05/26, presenting from [facility] for fever , tachypnea and tachycardia, noted today to be hypotensive despite being on 125ml/hr of fluid. Pt presented with a temp of 102.4 (rectal) and tachycardia to 120. Per primary team, they were concerned about fluid overload. Pt is non verbal since 07/25 when her prior diagnosis of possible MS was changed to neurodegenerative disorder with ataxia per Dr Phan, and pt has been contracted, bedbound and non verbal (per pt's mother). Pt has been in [facility] since and has had mx for recurrent infections. REVIEW OF SYSTEMS: Unable to elicit PHYSICAL EXAMINATION Vital Signs - 24 hr 05/31/19 05/31/19 05/31/19 15:22 21:00 22:00 Temperature 101.3 F H 99 F Pulse Rate 118 H 105 H Respiratory 20 16 16 Rate Blood Pressure 107/70 125/77 06/01/19 06/01/19 06/01/19 02:16 06:09 09:30 Temperature 99.8 F H 99.7 F H 98.1 F Pulse Rate 84 89 Respiratory 18 18 Rate Blood Pressure 91/58 L 92/54 L 06/01/19 06/01/19 11:45 12:05 Temperature Pulse Rate 93 H 83 Respiratory 20 20 Rate Blood Pressure 85/45 L 88/61 L GENERAL: Awake, non verbal, cried during the physical exam (per mother pt cries frequently when touched). EYES: Pupils equal, round and reactive to light EARS, NOSE, THROAT:Dry mucous membranes. NC off her nose LUNGS: Reduced breath sounds, no wheezes, no crackles HEART: Regular rate and rhythm, normal S1 and S2 ABDOMEN: GT in place, clean base, Soft, normoactive bowel sounds MUSCULOSKELETAL: Contracted, all limbs more RUE LOWER EXTREMITIES: Contracted. No peripheral edema. NEUROLOGICAL: Awake, alert, non verbal CBC, BMP 06/01/19 10:50 06/01/19 10:50 Laboratory Results - last 24 hr 06/01/19 06/01/19 06/01/19 10:50 10:50 10:50 WBC 5.9 RBC 3.06 L Hgb 9.8 L Hct 29.3 L D MCV 95.9 MCH 32.1 MCHC 33.5 RDW 13.9 Plt Count 182 D MPV 10.6 D Absolute Neuts (auto) 4.2 Neutrophils % 72.0 Lymphocytes % 13.9 Monocytes % 5.6 Eosinophils % 7.6 H D Basophils % 0.9 Nucleated RBC % 0 Sodium 142 Potassium 3.8 Chloride 113 H Carbon Dioxide 24 Anion Gap 5 L BUN 15.9 Creatinine 0.4 L Est GFR (CKD-EPI)AfAm 136.86 Est GFR (CKD-EPI)NonAf 118.08 Random Glucose 109 H Lactic Acid 1.2 Calcium 8.5 Total Bilirubin 0.3 AST 17 ALT 25 Alkaline Phosphatase 87 Total Protein 5.9 L Albumin 2.3 L Active Medications Generic Name Dose Route Start Last Admin Trade Name Freq PRN Reason Stop Dose Admin Acetaminophen 650 mg 05/31/19 06:20 06/01/19 11:07 Tylenol - PO 650 mg Q4H PRN Administration PAIN LEVEL 6-10 Acetaminophen 1,000 mg 05/31/19 15:23 05/31/19 15:49 Ofirmev Injection - IVPB 1,000 mg Q6H PRN Administration FEVER Albuterol/Ipratropium 1 amp 05/31/19 18:00 06/01/19 11:47 Duoneb - NEB 1 amp RQID [facility] Administration Baclofen 10 mg 06/01/19 10:00 06/01/19 10:13 Lioresal - PEG 10 mg DAILY [facility] Administration Heparin Sodium (Porcine) 5,000 unit 05/31/19 06:45 06/01/19 06:15 Heparin - SQ 5,000 unit TID [facility] Administration Sodium Chloride 1,000 mls @ 125 mls/hr 05/31/19 06:30 06/01/19 06:17 Normal Saline - IV 125 mls/hr ASDIR [facility] Administration Vancomycin HCl 1,000 mg in 250 mls @ 166.667 mls/hr 05/31/19 18:00 06/01/19 06:16 Vancomycin (Pre-Docked) IVPB 166.667 mls/hr Q12H [facility] Administration Protocol Aztreonam 1 gm/ Dextrose 50 mls @ 100 mls/hr 05/31/19 18:00 06/01/19 10:12 IVPB 100 mls/hr Q8H-IV [facility] Administration Protocol Lactated Ringer's 500 ml 06/01/19 13:18 Lactated Ringers Solution IV 06/01/19 13:19 ONCE ONE Lactulose 10 gm 06/01/19 10:00 06/01/19 10:13 Cephulac (Oral Use) GT 10 gm DAILY [facility] Administration Levothyroxine Sodium 100 mcg/ 150 mcg 05/31/19 14:45 06/01/19 06:18 Levothyroxine Sodium 50 mcg PO 150 mcg DAILY@0700 [facility] Administration Lisinopril 2.5 mg 06/01/19 10:00 06/01/19 10:12 Prinivil NGT Not Given DAILY [facility] Propranolol HCl 80 mg 05/31/19 22:00 05/31/19 21:34 Inderal - PO 80 mg BID [facility] Administration Senna 17.6 mg 05/31/19 22:00 05/31/19 21:32 Senna Oral Solution - GT 17.6 mg HS [facility] Administration ASSESSMENT/PLAN: Pt is a 54yo F with PMHx of hypothyroidism, htn, progressive neurodegenerative disorder, recent discharge for sepsis 05/26, presenting from [facility] for fever , tachypnea and tachycardia, admitted for recurrent sepsis 2/2 UTI and PNA and noted today to be hypotensive despite being on 125ml/hr of fluid. Neuro: Awake and alert but non verbal Pt quadriplegic, with ataxia/neurodegen disorder DDr Dickoff following Pulm: Possible Aspiration PNA vs HAP Recent treatment for PNA and UTI Pt with pen allergy on vanc, cefepime and aztreonam, ID following cont Pt off supplemental oxygen at time seen Not in respiratory distress Cont supplemental O2 as needed to maintain sats over 90% Cardio HTN hx, now hypotensive, will give fluid boluses meds on hold in the setting on hypotension ID: Sepsis 2/2 UTI and Right sided PNA, Possible Aspiration PNA will continue with vanc, aztreonam and doxicycline for broad coverage procalcitonin, urine antigen for legionella and strep LR Bolus - will start with 500ml and evaluate for response Change LR oropharyngeal suction chest physiotherapy Elevate HOB fall and aspiration precautions Renal: UTI treatment on going, positive UA Endo: Hypothyroidism synthroid 150 mcg in the morning DVT hep subQ Dispo: Pt with health care proxy, documented as full code for now Will reassess for fluid responsiveness after boluses We will continue to follow the patient. Thank you for this consultative opportunity. Visit type - Emergency Visit Emergency Visit: Yes ED Registration Date: 05/31/19 Care time: The patient presented to the Emergency Department on the above date and was hospitalized for further evaluation of their emergent condition. - New Patient This patient is new to me today: Yes Date on this admission: 06/01/19 - Critical Care Critical Care patient: No ATTENDING PHYSICIAN STATEMENT I saw and evaluated the patient. I reviewed the resident's note and discussed the case with the resident. I agree with the resident's findings and plan as documented. SUBJECTIVE: OBJECTIVE: ASSESSMENT AND PLAN:
[2019-06-01] MEDS ORDERED: LACTATED RINGERS SOLUTION 1,000 ML/1,000 ML INFUS.BAG IV SCH ×2 (14:15→18:24)
[2019-06-01] MEDS ORDERED: SODIUM CHLORIDE 500 ML IV STA (14:55)
--- NOTE | 2019-06-01 15:31 | PN ---
Progress Note, Physician History of Present Illness: AWAKE, NON VERBAL BREATHING NON-LABORED TEMPS DOWN LOW GRADE WBC IMPROVED WNL BC (-) URINE C/S YLO - Current Medication List Current Medications: Active Medications Acetaminophen (Tylenol -) 650 mg PO Q4H PRN PRN Reason: PAIN LEVEL 6-10 Last Admin: 06/01/19 11:07 Dose: 650 mg Acetaminophen (Ofirmev Injection -) 1,000 mg IVPB Q6H PRN PRN Reason: FEVER Last Admin: 05/31/19 15:49 Dose: 1,000 mg Albuterol/Ipratropium (Duoneb -) 1 amp NEB RQID [facility] Last Admin: 06/01/19 11:47 Dose: 1 amp Baclofen (Lioresal -) 10 mg PEG DAILY [facility] Last Admin: 06/01/19 10:13 Dose: 10 mg Heparin Sodium (Porcine) (Heparin -) 5,000 unit SQ TID [facility] Last Admin: 06/01/19 13:36 Dose: 5,000 unit Sodium Chloride (Normal Saline -) 1,000 mls @ 125 mls/hr IV ASDIR [facility] Last Admin: 06/01/19 06:17 Dose: 125 mls/hr Vancomycin HCl (Vancomycin (Pre-Docked)) 1,000 mg in 250 mls @ 166.667 mls/hr IVPB Q12H [facility]; Protocol Last Admin: 06/01/19 06:16 Dose: 166.667 mls/hr Aztreonam 1 gm/ Dextrose 50 mls @ 100 mls/hr IVPB Q8H-IV [facility]; Protocol Last Admin: 06/01/19 10:12 Dose: 100 mls/hr Lactated Ringer's (Lactated Ringers Solution) 1,000 ml in 1,000 mls @ 150 mls/ hr IV ASDIR [facility] Sodium Chloride (Normal Saline -) 500 mls @ 500 mls/hr IV ASDIR [facility] Stop: 06/01/19 15:54 Lactulose (Cephulac (Oral Use)) 10 gm GT DAILY [facility] Last Admin: 06/01/19 10:13 Dose: 10 gm Levothyroxine Sodium 100 mcg/ (Levothyroxine Sodium 50 mcg) 150 mcg PO DAILY@ 0700 [facility] Last Admin: 06/01/19 06:18 Dose: 150 mcg Lisinopril (Prinivil) 2.5 mg NGT DAILY [facility] Last Admin: 06/01/19 10:12 Dose: Not Given Propranolol HCl (Inderal -) 80 mg PO BID [facility] Last Admin: 06/01/19 13:36 Dose: Not Given Senna (Senna Oral Solution -) 17.6 mg GT HS [facility] Last Admin: 05/31/19 21:32 Dose: 17.6 mg - Objective Vital Signs: Vital Signs Temperature 98.1 F 06/01/19 09:30 Pulse Rate 86 06/01/19 14:56 Respiratory Rate 20 06/01/19 14:56 Blood Pressure 90/59 L 06/01/19 14:56 O2 Sat by Pulse Oximetry (%) 96 06/01/19 09:00 Constitutional: Yes: No Distress Eyes: Yes: Conjunctiva Clear Cardiovascular: Yes: Regular Rate and Rhythm, S1, S2 Respiratory: Yes: Diminished Gastrointestinal: Yes: Normal Bowel Sounds, Soft. No: Tenderness Extremities: Yes: Other (+ CONTRACTURES) Labs: CBC, BMP 06/01/19 10:50 06/01/19 10:50 INR, PTT INR 0.99 (0.83-1.09) 05/31/19 03:54 Assessment/Plan R/O RECURRENT ASP PNEUMONIA FEVER/ LEUKOCYTOSIS IMPROVED PCN ALLERGY NEUROMUSCULAR DISORDER + URINE C/S YEAST= CONTAMINANT CONTINUE EMPIRIC VANCOMYCIN/ AZTREONAM
--- NOTE | 2019-06-01 16:12 | CON.CARD ---
Consult Consult Specialty:: Cardiology Reason for Consultation:: Tachycardia - History of Present Illness Chief Complaint: Non verbal History of Present Illness: This is a 54 year old female who is non verbals, NHR, PMH of HTN and hypothyroidism. Here with fever to 102.4 and noted to have tachycardia. Echocardiogram 05/31/19 Normal LV size and function Normal RV size and funciton Trace TR EKG sinus tachycardia ar 107 BPM with LAD, PRWP across the anterior precordial leads, and NSSTTW changes. - Past Medical History [employer]: Yes: Multiple Sclerosis (Questionable), Other (Recurrent falls, Ataxia,) - Alcohol/Substance Use Hx Alcohol Use: No - Smoking History Smoking history: Never smoked Have you smoked in the past 12 months: No If you are a former smoker, when did you quit?: 1985 Home Medications - Allergies Allergies/Adverse Reactions: Allergies Allergy/AdvReac Type Severity Reaction Status Date / Time Penicillins Allergy Verified 05/31/19 03:41 sulfur dioxide Allergy Verified 05/31/19 03:41 - Home Medications Home Medications: Ambulatory Orders Propranolol HCl [Propranolol HCl ER] 80 mg GT BID 08/14/18 Heparin - 5,000 unit SQ BID #30 vial 08/17/18 Acetaminophen 650 mg GT Q6H PRN 10/06/18 Vits A and D/White Pet/Lanolin [A and D Ointment] 1 applic TP BID 10/06/18 Zinc Oxide 20% Topical Oint 1 applic TP Q8H 10/09/18 Baclofen [Lioresal -] 10 mg PEG DAILY tablet 10/17/18 Hydrocortisone 2.5% Topical Cr [Anusol-Hc -] 1 applic RC BID 04/22/19 Lactulose (Oral Use) [Cephulac -] 15 ml GT DAILY 04/22/19 Sennosides [Senna] 2 tab GT HS 04/22/19 Lisinopril [Prinivil] 2.5 mg NGT DAILY tablet 05/01/19 Ipratropium/Albuterol Sulfate [Iprat-Albut 0.5-3(2.5) mg/3 ml] 3 ml IH QID 05/17 Acetaminophen Oral Solution [Tylenol Oral Solution -] 650 mg GT Q6H PRN soln.oral 05/24/19 Heparin - 5,000 unit SQ BID vial 05/24/19 Levothyroxine [Synthroid -] 150 mcg GT DAILY@0700 tablet 05/24/19 Vital Signs: Vital Signs Temperature 98.1 F 06/01/19 09:30 Pulse Rate 86 06/01/19 14:56 Respiratory Rate 20 06/01/19 14:56 Blood Pressure 90/59 L 06/01/19 14:56 O2 Sat by Pulse Oximetry (%) 96 06/01/19 09:00 Constitutional: Yes: No Distress Eyes: Yes: WNL HENT: Yes: WNL Neck: Yes: WNL Respiratory: Yes: CTA Bilaterally Gastrointestinal: Yes: Soft Cardiovascular: Yes: Regular Rate and Rhythm Heart Sounds: Yes: S1, S2 Edema: LLE: Trace, RLE: Trace Neurological: Yes: Other (Non Verbal) - Other Data Labs, Other Data: CBC, BMP 06/01/19 10:50 06/01/19 10:50 INR, PTT INR 0.99 (0.83-1.09) 05/31/19 03:54 Assessment/Plan 54 year old female who is non verbals, NHR, PMH of HTN and hypothyroidism. Here with fever to 102.4 and noted to have tachycardia. Echocardiogram 05/31/19 Normal LV size and function Normal RV size and funciton Trace TR EKG sinus tachycardia ar 107 BPM with LAD, PRWP across the anterior precordial leads, and NSSTTW changes. Sinus Tachycardia is likely secondary to fevers. No further cardiac evaluation needed at this time. Call prn
--- NOTE | 2019-06-01 18:58 | CONS ---
INFECTIOUS DISEASE CONSULTATION DATE OF CONSULTATION: DATE OF DICTATION: 05/31/2019 HISTORY: The patient is a 54-year-old female who was evaluated for possible recurrent pneumonia. She was recently hospitalized at [facility] from May 17 to May 24 with a left lower lobe pneumonia and urinary tract infection. She has a history of allergies to PENICILLIN and SULFA. She clinically improved on an empiric course of vancomycin and Azactam. She completed a 7-day course and [facility] She now returns with recurrent fever, tachypnea, and tachycardia. In the emergency room, her temperature was noted to be 102.4. Cultures were obtained. She was empirically treated with vancomycin and Azactam. Chest x-ray shows some atelectatic changes at the bases. PAST MEDICAL HISTORY: Positive for neuromuscular disorder, hypothyroidism, hypertension. PAST SURGICAL HISTORY: Status post feeding gastrostomy. ALLERGIES: PENICILLIN and SULFA. MEDICATIONS: Include vancomycin, Azactam. Also include Tylenol, Synthroid. SOCIAL HISTORY: She resides in a correction facility and is dependent in activities of daily living. No active tobacco or alcohol use. SYSTEMS REVIEW: Neurologic: Positive for neuromuscular disorder and functional quadriplegia. Cardiac: Positive for tachycardia. Respiratory: As per HPI. Gastrointestinal: Feeding gastrostomy tube in place. Genitourinary: Positive for urinary tract infections in the past. LABORATORY DATA: White count 12.2, hematocrit 39.5, platelets 354, creatinine 0.8. Blood and urine cultures are pending. PHYSICAL EXAMINATION: General: She is awake, however, she is not verbally responsive. She is slightly short of breath at rest on nasal cannula oxygen. Vital Signs: Temperature 98.2, maximum temperature 102.4, blood pressure 135/55, pulse 104 regular, respirations 14 per minute. HEENT: Sclerae anicteric. Heart: Sounds S1, S2. Lungs: Diminished breath sounds bilaterally. Abdomen: Soft. No tenderness elicited. Feeding gastrostomy tube is in place. No erythema or drainage at the site. Extremities: Negative for edema. Positive contractures. IMPRESSION: 1. Fever. 2. Tachycardia. 3. Tachypnea, rule out recurrent aspiration pneumonia. 4. Rule out sepsis secondary to pneumonia. 5. History of neuromuscular disorder. 6. Antibiotic allergies. PLAN: Await cultures. Obtain urine Legionella and pneumococcal antigen. Empiric antibiotic coverage with vancomycin 1 g IV piggyback every 12 hours, Azactam 1 g IV piggyback every 8 hours. Aspiration precautions. We will follow. Thank you for the kind referral. FRANKO JANSEN M.D. [id number]
[2019-06-01] MEDS ORDERED: PT OWN MED DRAWER 7, Y5N ONE (20:01)
[2019-06-01] MEDS: SENNOSIDES 8.8 MG/5 ML BULK BOTTLE GT SCH (21:36)
[2019-06-02] MEDS ORDERED: AZTREONAM 1 GM VIAL (RESTRICTED TO ID) ONE ×4 (00:30→20:55)
[2019-06-02] MEDS ORDERED: DEXTROSE 5%-WATER - 50 ML IVPB ONE ×3 (00:30→20:56)
[2019-06-02] MEDS: AZTREONAM 1 GM in DEXTROSE 5%-WATER - 50 ML IVPB SCH ×3 (01:02→17:14)
--- NOTE | 2019-06-02 02:22 | PN ---
Progress Note (short form) - Note Progress Note: was called to re-evaluate the patient as patient was hypotensive again to 80's/ 80's and was not responding to fluids. brought patient down to ICU- when she arrived her BP was 93/66 with a MAP of 72 and HR of 86. patient responding well to fluids; will reevaluate need for central line PE: GEN; NAD Cardio; RRR s1 s2 no murmurs; gallops Lungs: decreased breath sounds at the bases B/L Abdomen: g tube in place no surrounding erythema; soft/NT/ND +BS Extremities: contracted; no LE edema currently on maintenance fluids LR @100mls/hr reassessed patient this AM- current vitals: HR 75 BP 95/63 (MAP 74) Sp02 97 - no need for central line at this juncture.
[2019-06-02] MEDS: HEPARIN NA (PORCINE) 5,000 UNITS/ML 1ML VIAL SQ SCH ×3 (06:21→21:18)
[2019-06-02] MEDS: LEVOTHYROXINE 100 MCG, LEVOTHYROXINE 50 MCG PO SCH (06:21)
[2019-06-02] MEDS: VANCOMYCIN 1 GRAM (PRE-DOCKED) 1,000 MG/250 ML BAG IVPB SCH (06:21)
--- NOTE | 2019-06-02 07:46 | CONSULT ---
Consult Consult Specialty:: PULM/CCM Referred by:: Dr. Fredo Collier Reason for Consultation:: Hypotension - History of Present Illness Chief Complaint: Sepsis History of Present Illness: Ms. Salinas is a 54 yo woman w/ HTN, hypothyroid, & functional quadriplagia 2/2 neurodegenerative disorder w/ ataxia (a/p Dr Phan old notes), - (bedbound - nonverbal at baseline). The pt is brought in to the ED on 05/31 from [facility] for fever --> 102 & tachycardia to 120. (Of note the patient was recently hospitalized and discharged on 05/26 for treatment of pneumonia and UTI). In ED on this admit: UA most c/w recurrent UTI & CXR reveals persistent residual b/l infiltrates. Thus, the pt is admitted to the floor for IV abx & IVFs. The pt is moved to the ICU O/N for reported hypotension i/s/o PNA/UTI, multiple anti-HTN medications, & ???c/f possible V/O w/ aggressive IVF resuscitation. - History Source History Provided By: Medical Record, Transfer Record Limitations to Obtaining History: Clinical Condition - Past Medical History [employer]: Yes: Multiple Sclerosis (Questionable), Other (Recurrent falls, Ataxia,) Cardio/Vascular: Yes: HTN Musculoskeletal: Yes: Paraplegia - Past Surgical History Additional Surgical History: G Tube - Alcohol/Substance Use Hx Alcohol Use: No - Smoking History Smoking history: Never smoked Have you smoked in the past 12 months: No If you are a former smoker, when did you quit?: 1985 - Social History Usual Living Arrangement: With Parent Home Medications - Allergies Allergies/Adverse Reactions: Allergies Allergy/AdvReac Type Severity Reaction Status Date / Time Penicillins Allergy Verified 05/31/19 03:41 sulfur dioxide Allergy Verified 05/31/19 03:41 - Home Medications Home Medications: Ambulatory Orders Propranolol HCl [Propranolol HCl ER] 80 mg GT BID 08/14/18 Heparin - 5,000 unit SQ BID #30 vial 08/17/18 Acetaminophen 650 mg GT Q6H PRN 10/06/18 Vits A and D/White Pet/Lanolin [A and D Ointment] 1 applic TP BID 10/06/18 Zinc Oxide 20% Topical Oint 1 applic TP Q8H 10/09/18 Baclofen [Lioresal -] 10 mg PEG DAILY tablet 10/17/18 Hydrocortisone 2.5% Topical Cr [Anusol-Hc -] 1 applic RC BID 04/22/19 Lactulose (Oral Use) [Cephulac -] 15 ml GT DAILY 04/22/19 Sennosides [Senna] 2 tab GT HS 04/22/19 Lisinopril [Prinivil] 2.5 mg NGT DAILY tablet 05/01/19 Ipratropium/Albuterol Sulfate [Iprat-Albut 0.5-3(2.5) mg/3 ml] 3 ml IH QID 05/17 Acetaminophen Oral Solution [Tylenol Oral Solution -] 650 mg GT Q6H PRN soln.oral 05/24/19 Heparin - 5,000 unit SQ BID vial 05/24/19 Levothyroxine [Synthroid -] 150 mcg GT DAILY@0700 tablet 05/24/19 Family Medical History Family History: Unable to Obtain (Pt is non-verbal) Review of Systems Unable to obtain ROS, reason: Pt is non-verbal Physical Exam Vital Signs: Vital Signs Temperature 98.9 F 06/02/19 06:00 Pulse Rate 76 06/02/19 06:00 Respiratory Rate 19 06/02/19 06:00 Blood Pressure 84/59 L 06/02/19 06:00 O2 Sat by Pulse Oximetry (%) 96 06/02/19 04:19 Constitutional: Yes: No Distress Eyes: Yes: WNL, Conjunctiva Clear HENT: Yes: WNL, Atraumatic, Normocephalic, Other Neck: Yes: WNL, Supple Cardiovascular: Yes: WNL, Regular Rate and Rhythm Respiratory: Yes: WNL, Regular, CTA Bilaterally Gastrointestinal: Yes: WNL, Normal Bowel Sounds, Soft, Other (G-Tube) ...Rectal Exam: Yes: Deferred Renal/: Yes: WNL Breast(s): Yes: WNL Musculoskeletal: Yes: Joint Stiffness, Muscle Weakness Extremities: Yes: Other (Contracted) Edema: No Peripheral Pulses WNL: Yes Integumentary: Yes: Rash (Fungal rash on abd & in folds.) Neurological: Yes: Ataxia, Other (Functional Quad) ...Motor Strength: WNL Psychiatric: Yes: WNL, Alert Labs: CBC, BMP 06/01/19 10:50 06/01/19 10:50 Urine Test Results Urine Color Dk yellow 05/31/19 04:15 Urine Appearance Turbid 05/31/19 04:15 Urine pH 7.0 (5.0-8.0) 05/31/19 04:15 Ur Specific [place] 1.026 (1.010-1.035) 05/31/19 04:15 Urine Protein 1+ (NEGATIVE) H 05/31/19 04:15 Urine Glucose (UA) Negative (NEGATIVE) 05/31/19 04:15 Urine Ketones Negative (NEGATIVE) 05/31/19 04:15 Urine Blood 2+ (NEGATIVE) H 05/31/19 04:15 Urine Nitrite Negative (NEGATIVE) 05/31/19 04:15 Urine Bilirubin Negative (NEGATIVE) 05/31/19 04:15 Ur Leukocyte Esterase 3+ (NEGATIVE) H 05/31/19 04:15 Microbiology 05/31/19 03:54 Blood - Peripheral Venous Blood Culture - Preliminary NO GROWTH OBTAINED AFTER 48 HOURS, INCUBATION TO CONTINUE FOR 3 DAYS. 05/31/19 03:54 Blood - Peripheral Venous Blood Culture - Preliminary NO GROWTH OBTAINED AFTER 48 HOURS, INCUBATION TO CONTINUE FOR 3 DAYS. 05/31/19 04:15 Urine - Urine Clean Catch Urine Culture - Final Yeast Like Organism Imaging - Results Chest X-ray: Image Reviewed (05/31: A single view of the chest is submitted. Since the prior study of 05/19/2019 again noted is a weak inspiration and there is some progressive bibasilar atelectatic changes with pleural reaction. The findings are more prevalent on the left than the right. Correlation recommended.) Ultrasound: Image Reviewed (TTE 05/31: Normal LV size and function. Normal RV size and funciton. Trace TR) EKG: Image Reviewed (05/31: S-Tach @ 107 BPM w/ LAD, PRWP across the anterior precordial leads, and NSSTTW changes. QTc = 432ms, no acute process, (My Read).) Problem List - Problems (1) Neuro-degenerative disorders Code(s): G31.9 - DEGENERATIVE DISEASE OF NERVOUS SYSTEM, UNSPECIFIED (2) Pneumonia Code(s): J18.9 - PNEUMONIA, UNSPECIFIED ORGANISM Qualifiers: Pneumonia type: due to unspecified organism Laterality: right Lung location: lower lobe of lung Qualified Code(s): J18.9 - Pneumonia, unspecified organism (3) Sepsis Code(s): A41.9 - SEPSIS, UNSPECIFIED ORGANISM Qualifiers: Sepsis type: sepsis due to unspecified organism Sepsis acute organ dysfunction status: unspecified Qualified Code(s): A41.9 - Sepsis, unspecified organism (4) UTI (urinary tract infection) Code(s): N39.0 - URINARY TRACT INFECTION, SITE NOT SPECIFIED Qualifiers: Urinary tract infection type: site unspecified Hematuria presence: with hematuria Qualified Code(s): N39.0 - Urinary tract infection, site not specified; R31.9 - Hematuria, unspecified (5) Allergy to multiple antibiotics Code(s): Z88.1 - ALLERGY STATUS TO OTHER ANTIBIOTIC AGENTS STATUS (6) Ataxia due to cerebrovascular disease Code(s): I67.9 - CEREBROVASCULAR DISEASE, UNSPECIFIED; R27.0 - ATAXIA, UNSPECIFIED Assessment/Plan ASSESS: -UTI -PNA -DEHYDRATION -HTN -HYPOTHYROID -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 [facility] ICU PULM/CCM [id number]
[2019-06-02] MEDS: ACETAMINOPHEN 325 MG TABLET (FP) PO PRN (08:10)
[2019-06-02] MEDS: ALBUTEROL SO4 2.5/IPRATROPIUM 0.5 INH SOL 3 ML VIAL.NEB. NEB SCH ×4 (08:27→20:55)
--- NOTE | 2019-06-02 09:16 | PN ---
Progress Note, Physician Chief Complaint: EVENTS AND NOTES REVIEWED IN ICU SEPSIS TREATMENT NON-VERBAL - Current Medication List Current Medications: Active Medications Acetaminophen (Tylenol -) 650 mg PO Q4H PRN PRN Reason: PAIN LEVEL 6-10 Last Admin: 06/02/19 08:10 Dose: 650 mg Acetaminophen (Ofirmev Injection -) 1,000 mg IVPB Q6H PRN PRN Reason: FEVER Last Admin: 05/31/19 15:49 Dose: 1,000 mg Albuterol/Ipratropium (Duoneb -) 1 amp NEB RQID [facility] Last Admin: 06/02/19 08:27 Dose: 1 amp Baclofen (Lioresal -) 10 mg PEG DAILY [facility] Last Admin: 06/01/19 10:13 Dose: 10 mg Chlorhexidine Gluconate (Hibiclens For Decolonization -) 1 applic TP HS [facility] Heparin Sodium (Porcine) (Heparin -) 5,000 unit SQ TID [facility] Last Admin: 06/02/19 06:21 Dose: 5,000 unit Vancomycin HCl (Vancomycin (Pre-Docked)) 1,000 mg in 250 mls @ 166.667 mls/hr IVPB Q12H [facility]; Protocol Last Admin: 06/02/19 06:21 Dose: 166.667 mls/hr Aztreonam 1 gm/ Dextrose 50 mls @ 100 mls/hr IVPB Q8H-IV [facility]; Protocol Last Admin: 06/02/19 01:02 Dose: 100 mls/hr Lactated Ringer's (Lactated Ringers Solution) 1,000 ml in 1,000 mls @ 100 mls/ hr IV ASDIR [facility] Last Admin: 06/02/19 03:42 Dose: 100 mls/hr Lactulose (Cephulac (Oral Use)) 10 gm GT DAILY [facility] Last Admin: 06/01/19 10:13 Dose: 10 gm Levothyroxine Sodium 100 mcg/ (Levothyroxine Sodium 50 mcg) 150 mcg PO DAILY@ 0700 [facility] Last Admin: 06/02/19 06:21 Dose: 150 mcg Mupirocin (Bactroban Ointment (For Decolonization) -) 1 applic NS BID [facility] Stop: 06/07/19 09:59 Nystatin (Nystop Powder -) 1 applic TP TID [facility] Senna (Senna Oral Solution -) 17.6 mg GT HS [facility] Last Admin: 06/01/19 21:36 Dose: 17.6 mg - Objective Vital Signs: Vital Signs Temperature 98.9 F 06/02/19 06:00 Pulse Rate 76 06/02/19 06:00 Respiratory Rate 19 06/02/19 06:00 Blood Pressure 84/59 L 06/02/19 06:00 O2 Sat by Pulse Oximetry (%) 96 06/02/19 04:19 Constitutional: Yes: Mild Distress Cardiovascular: Yes: Pulse Irregular Respiratory: Yes: Diminished Gastrointestinal: Yes: Soft Genitourinary: Yes: Incontinence Neurological: Yes: Pre-Existing Deficit, Weakness Labs: CBC, BMP 06/01/19 10:50 06/01/19 10:50 INR, PTT INR 0.99 (0.83-1.09) 05/31/19 03:54 Problem List - Problems (1) Neuro-degenerative disorders Code(s): G31.9 - DEGENERATIVE DISEASE OF NERVOUS SYSTEM, UNSPECIFIED (2) Pneumonia Code(s): J18.9 - PNEUMONIA, UNSPECIFIED ORGANISM Qualifiers: Pneumonia type: due to unspecified organism Laterality: right Lung location: lower lobe of lung Qualified Code(s): J18.9 - Pneumonia, unspecified organism (3) Sepsis Code(s): A41.9 - SEPSIS, UNSPECIFIED ORGANISM Qualifiers: Sepsis type: sepsis due to unspecified organism Sepsis acute organ dysfunction status: unspecified Qualified Code(s): A41.9 - Sepsis, unspecified organism (4) UTI (urinary tract infection) Code(s): N39.0 - URINARY TRACT INFECTION, SITE NOT SPECIFIED Qualifiers: Urinary tract infection type: site unspecified Hematuria presence: with hematuria Qualified Code(s): N39.0 - Urinary tract infection, site not specified; R31.9 - Hematuria, unspecified (5) Allergy to multiple antibiotics Code(s): Z88.1 - ALLERGY STATUS TO OTHER ANTIBIOTIC AGENTS STATUS (6) Ataxia due to cerebrovascular disease Code(s): I67.9 - CEREBROVASCULAR DISEASE, UNSPECIFIED; R27.0 - ATAXIA, UNSPECIFIED (7) CAD (coronary artery disease) Code(s): I25.10 - ATHSCL HEART DISEASE OF [place] CORONARY ARTERY W/O ANG PCTRS Assessment/Plan IV ANTIBIOTICS PER ID PULMONARY F/U ON 02 SUPPORT CULTURES AND SENSITIVITY PENDING NEBS/PAIN CONTROL BLOOD PRESSURE SUPPORT ON PRESSORS FOR BP CONTROL. IVF FOR RESUSCITATION PATIENT IS A FULL CODE
--- NOTE | 2019-06-02 10:03 | PN ---
Progress Note (short form) - Note Progress Note: transferred to ICU for hypotension no pressors NAD Vital Signs Period Temp Pulse Resp BP Sys/Ricardo Pulse Ox Last 24 Hr 98.1 F-98.9 F 72-93 15-20 84-107/45-77 96-96 cor-rrr lungs decreased bs at bases abd soft,nt ext contracted CBC, BMP 06/01/19 10:50 06/01/19 10:50 Laboratory Tests 06/01/19 17:00 Vancomycin Pre-Dose 23.9 Microbiology 05/31/19 03:54 Blood - Peripheral Venous Blood Culture - Preliminary NO GROWTH OBTAINED AFTER 48 HOURS, INCUBATION TO CONTINUE FOR 3 DAYS. 05/31/19 03:54 Blood - Peripheral Venous Blood Culture - Preliminary NO GROWTH OBTAINED AFTER 48 HOURS, INCUBATION TO CONTINUE FOR 3 DAYS. 05/31/19 04:15 Urine - Urine Clean Catch Urine Culture - Final Yeast Like Organism Current Medications Acetaminophen (Tylenol -) 650 mg PO Q4H PRN PRN Reason: PAIN LEVEL 6-10 Last Admin: 06/02/19 08:10 Dose: 650 mg Acetaminophen (Ofirmev Injection -) 1,000 mg IVPB Q6H PRN PRN Reason: FEVER Last Admin: 05/31/19 15:49 Dose: 1,000 mg Albuterol/Ipratropium (Duoneb -) 1 amp NEB RQID [facility] Last Admin: 06/02/19 08:27 Dose: 1 amp Baclofen (Lioresal -) 10 mg PEG DAILY [facility] Last Admin: 06/01/19 10:13 Dose: 10 mg Chlorhexidine Gluconate (Hibiclens For Decolonization -) 1 applic TP HS [facility] Heparin Sodium (Porcine) (Heparin -) 5,000 unit SQ TID [facility] Last Admin: 06/02/19 06:21 Dose: 5,000 unit Vancomycin HCl (Vancomycin (Pre-Docked)) 1,000 mg in 250 mls @ 166.667 mls/hr IVPB Q12H [facility]; Protocol Last Admin: 06/02/19 06:21 Dose: 166.667 mls/hr Aztreonam 1 gm/ Dextrose 50 mls @ 100 mls/hr IVPB Q8H-IV [facility]; Protocol Last Admin: 06/02/19 09:39 Dose: 100 mls/hr Lactated Ringer's (Lactated Ringers Solution) 1,000 ml in 1,000 mls @ 100 mls/ hr IV ASDIR [facility] Last Admin: 06/02/19 03:42 Dose: 100 mls/hr Lactulose (Cephulac (Oral Use)) 10 gm GT DAILY [facility] Last Admin: 06/01/19 10:13 Dose: 10 gm Levothyroxine Sodium 100 mcg/ (Levothyroxine Sodium 50 mcg) 150 mcg PO DAILY@ 0700 [facility] Last Admin: 06/02/19 06:21 Dose: 150 mcg Mupirocin (Bactroban Ointment (For Decolonization) -) 1 applic NS BID [facility] Stop: 06/07/19 09:59 Nystatin (Nystop Powder -) 1 applic TP TID [facility] Senna (Senna Oral Solution -) 17.6 mg GT HS [facility] Last Admin: 06/01/19 21:36 Dose: 17.6 mg a/p probable aspiration pneumonia pen allergy funcitonal quadraplegia redose vancomycin to daily dosing repeat trough on Tuesday continue azactam
[2019-06-02] MEDS: MUPIROCIN 2% TOPICAL OINTMENT FOR DECOLONIZATION NS SCH ×2 (11:00→21:20)
[2019-06-02] MEDS: LACTULOSE 20 GM/30 ML UDC (FOR ORAL USE ONLY) GT SCH (11:30)
[2019-06-02] MEDS: BACLOFEN 10 MG TABLET (FP) PEG SCH (11:31)
[2019-06-02] MEDS: NYSTATIN POWDER 100,000 UNITS/GM - 15 GM TOPICAL POWDER TP SCH ×2 (14:00→21:19)
[2019-06-02] MEDS ORDERED: DEXTROSE 5%-WATER - 100 ML IVPB ONE (17:05)
[2019-06-02] MEDS ORDERED: PT OWN MED DRAWER 7, Y5N ONE (20:56)
[2019-06-02] MEDS: CHLORHEXIDINE GLUCONATE 4% CLEANSER FOR DECOLONIZATION TP SCH (21:20)
[2019-06-02] MEDS: SENNOSIDES 8.8 MG/5 ML BULK BOTTLE GT SCH (21:20)
[2019-06-03] MEDS: AZTREONAM 1 GM in DEXTROSE 5%-WATER - 50 ML IVPB SCH ×3 (02:10→17:14)
[2019-06-03] MEDS: NYSTATIN POWDER 100,000 UNITS/GM - 15 GM TOPICAL POWDER TP SCH ×3 (06:00→22:12)
[2019-06-03] MEDS: HEPARIN NA (PORCINE) 5,000 UNITS/ML 1ML VIAL SQ SCH ×3 (06:00→22:08)
[2019-06-03] MEDS: LEVOTHYROXINE NA 150 MCG TABLET PO SCH (06:00)
[2019-06-03 06:05] LABS: HEMATOCRIT 29.6 % (32.4-45.2); HEMOGLOBIN 10.1 GM/dL (10.7-15.3); MCH 32.2 pg (25.7-33.7); MCHC 34.2 g/dl (32.0-36.0); MEAN CELL VOLUME 94.2 fl (80-96); MEAN PLT VOLUME 8.8 fl (7.5-11.1); PLATELET COUNT 202 K/MM3 (134-434); RBC 3.15 M/mm3 (3.60-5.2); RDW 14.1 % (11.6-15.6); WHITE BLOOD COUNT 3.9 K/mm3 (4.0-10.0)
[2019-06-03 06:25] LABS: ALBUMIN 2.2 g/dl (3.4-5.0); BILIRUBIN,TOTAL 0.2 mg/dL (0.2-1); BLOOD UREA NITROGEN 9.2 mg/dL (7-18); CALCIUM 9.1 mg/dL (8.5-10.1); CREATININE 0.4 mg/dL (0.55-1.3); POTASSIUM 3.6 mmol/L (3.5-5.1); TOT PROT 5.6 g/dl (6.4-8.2)
--- NOTE | 2019-06-03 08:01 | PN ---
Progress Note (short form) - Note Progress Note: PULM/CCM Pt Seen & Examined in the ICU. C & A. At Baseline. BP Stable. Awaiting Bed on Floor. Active Medications Acetaminophen (Tylenol -) 650 mg PO Q4H PRN PRN Reason: PAIN LEVEL 6-10 Last Admin: 06/02/19 08:10 Dose: 650 mg Acetaminophen (Ofirmev Injection -) 1,000 mg IVPB Q6H PRN PRN Reason: FEVER Last Admin: 05/31/19 15:49 Dose: 1,000 mg Albuterol/Ipratropium (Duoneb -) 1 amp NEB RQID [facility] Last Admin: 06/03/19 08:17 Dose: 1 amp Baclofen (Lioresal -) 10 mg PEG DAILY [facility] Last Admin: 06/02/19 11:31 Dose: 10 mg Chlorhexidine Gluconate (Hibiclens For Decolonization -) 1 applic TP HS [facility] Last Admin: 06/02/19 21:20 Dose: 1 applic Heparin Sodium (Porcine) (Heparin -) 5,000 unit SQ TID [facility] Last Admin: 06/03/19 06:00 Dose: 5,000 unit Aztreonam 1 gm/ Dextrose 50 mls @ 100 mls/hr IVPB Q8H-IV [facility]; Protocol Last Admin: 06/03/19 02:10 Dose: 100 mls/hr Lactated Ringer's (Lactated Ringers Solution) 1,000 ml in 1,000 mls @ 100 mls/ hr IV ASDIR [facility] Last Admin: 06/02/19 03:42 Dose: 100 mls/hr Vancomycin HCl (Vancomycin (Pre-Docked)) 1,000 mg in 250 mls @ 200 mls/hr IVPB Q24H [facility]; Protocol Lactulose (Cephulac (Oral Use)) 10 gm GT DAILY [facility] Last Admin: 06/02/19 11:30 Dose: 10 gm Levothyroxine Sodium (Synthroid -) 150 mcg PO DAILY@0700 [facility] Last Admin: 06/03/19 06:00 Dose: 150 mcg Mupirocin (Bactroban Ointment (For Decolonization) -) 1 applic NS BID [facility] Stop: 06/07/19 09:59 Last Admin: 06/02/19 21:20 Dose: 1 applic Nystatin (Nystop Powder -) 1 applic TP TID [facility] Last Admin: 06/03/19 06:00 Dose: 1 applic Senna (Senna Oral Solution -) 17.6 mg GT HS [facility] Last Admin: 06/02/19 21:20 Dose: Not Given Vital Signs Period Temp Pulse Resp BP Sys/Ricardo Pulse Ox Last 24 Hr 97.6 F-99.0 F 76-98 15-24 88-110/61-70 97-97 Intake & Output 05/31/19 06/01/19 06/02/19 06/03/19 23:59 23:59 23:59 23:59 Intake Total 2074 3625 400 1674 Balance 2074 3624 400 1674 Weight 54.159 kg 50.802 kg GEN: Debilitated middle aged woman whom appears much older than her stated age, obviously chronically ill HEENT: NCAT, PERRL, an-icteric, dry MM PULM: Diminished at the bases, otherwise CTAB CV: nml S1 S2, RR ABD: + BS, S/S N/T N/D X4, GT EXT: Contracted, + Pulses, WWP X4, (-) edema SKIN: Rash (Fungal rash on abd & in folds.) CBC, BMP 06/03/19 05:25 06/03/19 05:25 Microbiology 05/31/19 03:54 Blood - Peripheral Venous Blood Culture - Preliminary NO GROWTH OBTAINED AFTER 72 HOURS, INCUBATION TO CONTINUE FOR 2 DAYS. 05/31/19 03:54 Blood - Peripheral Venous Blood Culture - Preliminary NO GROWTH OBTAINED AFTER 72 HOURS, INCUBATION TO CONTINUE FOR 2 DAYS. 05/31/19 04:15 Urine - Urine Clean Catch Urine Culture - Final Yeast Like Organism RECENT STUDIES TO NOTE: CXR 05/31: Image Reviewed: A single view of the chest is submitted. Since the prior study of 05/19/2019 again noted is a weak inspiration and there is some progressive bibasilar atelectatic changes with pleural reaction. The findings are more prevalent on the left than the right. Correlation recommended.) TTE 05/31: Image Reviewed: Normal LV size and function. Normal RV size and funciton. Trace TR) EKG 05/31: Image Reviewed: S-Tach @ 107 BPM w/ LAD, PRWP across the anterior precordial leads, and NSSTTW changes. 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 [facility] ICU PULM/CCM [id number] Problem List - Problems (1) Neuro-degenerative disorders Code(s): G31.9 - DEGENERATIVE DISEASE OF NERVOUS SYSTEM, UNSPECIFIED (2) Pneumonia Code(s): J18.9 - PNEUMONIA, UNSPECIFIED ORGANISM Qualifiers: Pneumonia type: due to unspecified organism Laterality: right Lung location: lower lobe of lung Qualified Code(s): J18.9 - Pneumonia, unspecified organism (3) Sepsis Code(s): A41.9 - SEPSIS, UNSPECIFIED ORGANISM Qualifiers: Sepsis type: sepsis due to unspecified organism Sepsis acute organ dysfunction status: unspecified Qualified Code(s): A41.9 - Sepsis, unspecified organism (4) UTI (urinary tract infection) Code(s): N39.0 - URINARY TRACT INFECTION, SITE NOT SPECIFIED Qualifiers: Urinary tract infection type: site unspecified Hematuria presence: with hematuria Qualified Code(s): N39.0 - Urinary tract infection, site not specified; R31.9 - Hematuria, unspecified (5) Allergy to multiple antibiotics Code(s): Z88.1 - ALLERGY STATUS TO OTHER ANTIBIOTIC AGENTS STATUS (6) Ataxia due to cerebrovascular disease Code(s): I67.9 - CEREBROVASCULAR DISEASE, UNSPECIFIED; R27.0 - ATAXIA, UNSPECIFIED
[2019-06-03] MEDS: ALBUTEROL SO4 2.5/IPRATROPIUM 0.5 INH SOL 3 ML VIAL.NEB. NEB SCH ×4 (08:17→20:16)
[2019-06-03] MEDS ORDERED: AZTREONAM 1 GM VIAL (RESTRICTED TO ID) ONE ×2 (09:20→16:44)
[2019-06-03] MEDS ORDERED: DEXTROSE 5%-WATER - 50 ML IVPB ONE ×2 (09:21→16:44)
[2019-06-03] MEDS: LACTULOSE 20 GM/30 ML UDC (FOR ORAL USE ONLY) GT SCH (09:38)
--- NOTE | 2019-06-03 09:43 | PN ---
Progress Note, Physician Chief Complaint: AWAKE CONFUSED BASLINE - Current Medication List Current Medications: Active Medications Acetaminophen (Tylenol -) 650 mg PO Q4H PRN PRN Reason: PAIN LEVEL 6-10 Last Admin: 06/02/19 08:10 Dose: 650 mg Acetaminophen (Ofirmev Injection -) 1,000 mg IVPB Q6H PRN PRN Reason: FEVER Last Admin: 05/31/19 15:49 Dose: 1,000 mg Albuterol/Ipratropium (Duoneb -) 1 amp NEB RQID [facility] Last Admin: 06/03/19 08:17 Dose: 1 amp Baclofen (Lioresal -) 10 mg PEG DAILY [facility] Last Admin: 06/02/19 11:31 Dose: 10 mg Chlorhexidine Gluconate (Hibiclens For Decolonization -) 1 applic TP HS [facility] Last Admin: 06/02/19 21:20 Dose: 1 applic Heparin Sodium (Porcine) (Heparin -) 5,000 unit SQ TID [facility] Last Admin: 06/03/19 06:00 Dose: 5,000 unit Aztreonam 1 gm/ Dextrose 50 mls @ 100 mls/hr IVPB Q8H-IV [facility]; Protocol Last Admin: 06/03/19 02:10 Dose: 100 mls/hr Lactated Ringer's (Lactated Ringers Solution) 1,000 ml in 1,000 mls @ 100 mls/ hr IV ASDIR [facility] Last Admin: 06/02/19 03:42 Dose: 100 mls/hr Vancomycin HCl (Vancomycin (Pre-Docked)) 1,000 mg in 250 mls @ 200 mls/hr IVPB Q24H [facility]; Protocol Lactulose (Cephulac (Oral Use)) 10 gm GT DAILY [facility] Last Admin: 06/02/19 11:30 Dose: 10 gm Levothyroxine Sodium (Synthroid -) 150 mcg PO DAILY@0700 [facility] Last Admin: 06/03/19 06:00 Dose: 150 mcg Mupirocin (Bactroban Ointment (For Decolonization) -) 1 applic NS BID [facility] Stop: 06/07/19 09:59 Last Admin: 06/02/19 21:20 Dose: 1 applic Nystatin (Nystop Powder -) 1 applic TP TID [facility] Last Admin: 06/03/19 06:00 Dose: 1 applic Senna (Senna Oral Solution -) 17.6 mg GT HS [facility] Last Admin: 06/02/19 21:20 Dose: Not Given - Objective Vital Signs: Vital Signs Temperature 98 F 06/03/19 06:00 Pulse Rate 100 H 06/03/19 08:00 Respiratory Rate 22 H 06/03/19 08:00 Blood Pressure 90/66 06/03/19 08:00 O2 Sat by Pulse Oximetry (%) 97 06/02/19 19:55 Constitutional: Yes: Mild Distress Cardiovascular: Yes: Regular Rate and Rhythm Respiratory: Yes: Diminished Gastrointestinal: Yes: Soft Genitourinary: Yes: Incontinence Musculoskeletal: Yes: Muscle Weakness Neurological: Yes: Pre-Existing Deficit, Weakness ...Motor Strength: LLE, RLE Labs: CBC, BMP 06/03/19 05:25 06/03/19 05:25 INR, PTT INR 0.99 (0.83-1.09) 05/31/19 03:54 Problem List - Problems (1) Neuro-degenerative disorders Code(s): G31.9 - DEGENERATIVE DISEASE OF NERVOUS SYSTEM, UNSPECIFIED (2) Pneumonia Code(s): J18.9 - PNEUMONIA, UNSPECIFIED ORGANISM Qualifiers: Pneumonia type: due to unspecified organism Laterality: right Lung location: lower lobe of lung Qualified Code(s): J18.9 - Pneumonia, unspecified organism (3) Sepsis Code(s): A41.9 - SEPSIS, UNSPECIFIED ORGANISM Qualifiers: Sepsis type: sepsis due to unspecified organism Sepsis acute organ dysfunction status: unspecified Qualified Code(s): A41.9 - Sepsis, unspecified organism (4) UTI (urinary tract infection) Code(s): N39.0 - URINARY TRACT INFECTION, SITE NOT SPECIFIED Qualifiers: Urinary tract infection type: site unspecified Hematuria presence: with hematuria Qualified Code(s): N39.0 - Urinary tract infection, site not specified; R31.9 - Hematuria, unspecified (5) Allergy to multiple antibiotics Code(s): Z88.1 - ALLERGY STATUS TO OTHER ANTIBIOTIC AGENTS STATUS (6) Ataxia due to cerebrovascular disease Code(s): I67.9 - CEREBROVASCULAR DISEASE, UNSPECIFIED; R27.0 - ATAXIA, UNSPECIFIED (7) CAD (coronary artery disease) Code(s): I25.10 - ATHSCL HEART DISEASE OF [place] CORONARY ARTERY W/O ANG PCTRS Assessment/Plan IV ANTIBIOTICS PER ID PULMONARY F/U ON 02 SUPPORT CULTURES AND SENSITIVITY PENDING NEBS/PAIN CONTROL BLOOD PRESSURE SUPPORT ON PRESSORS FOR BP CONTROL. IVF FOR RESUSCITATION PATIENT IS A FULL CODE
[2019-06-03] MEDS ORDERED: ACETAMINOPHEN 325 MG TABLET (FP) PO PRN (09:55)
[2019-06-03] MEDS ORDERED: ACETAMINOPHEN 1000 MG/100 ML VIAL (NON FORMULARY) IVPB PRN (09:55)
[2019-06-03] MEDS ORDERED: LACTATED RINGERS SOLUTION 1,000 ML/1,000 ML INFUS.BAG IV SCH (09:55)
[2019-06-03] MEDS: VANCOMYCIN 1 GRAM (PRE-DOCKED) 1,000 MG/250 ML BAG IVPB SCH (10:00)
[2019-06-03] MEDS: LACTATED RINGERS SOLUTION 1,000 ML/1,000 ML INFUS.BAG IV SCH (11:00)
[2019-06-03] MEDS: BACLOFEN 10 MG TABLET (FP) PEG SCH (11:42)
[2019-06-03] MEDS: MUPIROCIN 2% TOPICAL OINTMENT FOR DECOLONIZATION NS SCH ×2 (11:44→22:12)
[2019-06-03] MEDS ORDERED: SENNOSIDES 8.8 MG/5 ML BULK BOTTLE GT SCH (22:00)
[2019-06-03] MEDS ORDERED: PT OWN MED DRAWER 7, Y5N ONE (22:05)
[2019-06-03] MEDS: CHLORHEXIDINE GLUCONATE 4% CLEANSER FOR DECOLONIZATION TP SCH (22:11)
[2019-06-04] MEDS ORDERED: DEXTROSE 5%-WATER - 50 ML IVPB ONE ×3 (01:59→17:45)
[2019-06-04] MEDS ORDERED: AZTREONAM 1 GM VIAL (RESTRICTED TO ID) ONE ×3 (01:59→17:45)
[2019-06-04] MEDS: AZTREONAM 1 GM in DEXTROSE 5%-WATER - 50 ML IVPB SCH ×3 (02:23→18:02)
[2019-06-04] MEDS ORDERED: PT OWN MED DRAWER 7, Y5N ONE ×2 (05:29→11:36)
[2019-06-04] MEDS: NYSTATIN POWDER 100,000 UNITS/GM - 15 GM TOPICAL POWDER TP SCH ×3 (06:03→22:07)
[2019-06-04] MEDS: HEPARIN NA (PORCINE) 5,000 UNITS/ML 1ML VIAL SQ SCH ×3 (06:03→22:07)
[2019-06-04] MEDS: LEVOTHYROXINE NA 150 MCG TABLET PO SCH (06:03)
[2019-06-04] MEDS: ALBUTEROL SO4 2.5/IPRATROPIUM 0.5 INH SOL 3 ML VIAL.NEB. NEB SCH ×4 (08:30→21:48)
[2019-06-04 09:05] LABS: BASO % 0.6 % (0-2.0); EOS % 8.9 % (0-4.5); HEMATOCRIT 32.1 % (32.4-45.2); HEMOGLOBIN 10.8 GM/dL (10.7-15.3); LYMPH % 26.8 % (8-40); MCHC 33.6 g/dl (32.0-36.0); MEAN CELL VOLUME 95.3 fl (80-96); MEAN PLT VOLUME 8.6 fl (7.5-11.1); MONO % 8.2 % (3.8-10.2); NEUT % 55.5 % (42.8-82.8); PLATELET COUNT 214 K/MM3 (134-434); RBC 3.37 M/mm3 (3.60-5.2); RDW 14.1 % (11.6-15.6); WHITE BLOOD COUNT 4.1 K/mm3 (4.0-10.0)
[2019-06-04] MEDS: LACTATED RINGERS SOLUTION 1,000 ML/1,000 ML INFUS.BAG IV SCH ×2 (09:08→18:02)
[2019-06-04 09:42] LABS: ALBUMIN 2.2 g/dl (3.4-5.0); BILIRUBIN,TOTAL 0.3 mg/dL (0.2-1); BLOOD UREA NITROGEN 6.9 mg/dL (7-18); CALCIUM 9.4 mg/dL (8.5-10.1); CREATININE 0.4 mg/dL (0.55-1.3); MAGNESIUM 2.3 mg/dL (1.8-2.4); PHOSPHOROUS 3.2 mg/dL (2.5-4.9)
[2019-06-04] MEDS ORDERED: LACTULOSE 20 GM/30 ML UDC (FOR ORAL USE ONLY) GT SCH (10:00)
--- NOTE | 2019-06-04 11:38 | CONSULT ---
Admitting History and Physical - Primary Care Physician PCP: Fredo Collier - Admission History of Present Illness: Pt is a 54yo F with PMHx of hypothyroidism, htn, progressive neurodegenerative disorder, recent discharge for sepsis 05/26, presenting from [facility] for fever , tachypnea and tachycardia, admitted for recurrent sepsis 2/2 UTI and PNA and noted today to be hypotensive despite being on 125ml/hr of fluid. Pt quadriplegic, with ataxia/neurodegenerative disorder Possible Aspiration PNA vs HAP Recent treatment for PNA and UTI Seen last admission, with mbs revealing possible trace aspiration on nectar from a cup. REC- continued GT feedings possibly nocturnally, trial of puree/ nectar on tsp only for pleasure feedings. Pt has received GT feedings continuously and pleasure feedings, quantity and tolerance? 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 REC- continued GT feedings possibly nocturnally , trial of puree/nectar on tsp only for pleasure feedings) - General Mental Status: Awake and Alert, Able to Follow Commands, Confused Attention: Distractible Ability to Follow Directions: Fair Head/Neck Control: Needs Assist - Hearing Hearing: Functional Hearing: Normal Speech Evaluation - Communication Primary Language: SPANISH Communication: Yes: Simple Responses Oral Expression Ability: Yes: Moderate Impairment - Speech Production Dysarthria: Yes: Ataxic - Speech Characteristics Voice Loudness: Excessive Variation Voice Pitch: Yes: Excessive Variation, Pitch Breaks Voice Phonatory-based Quality: Yes: Dysphonia (bursts of speech sec to ataxia) Speech Pattern: Impaired Speech Clarity: < 25% Articulation: Yes: Imprecise Voice, Other Observations: Yes: Progressively Weak Voice, Disordered Intonation , Inadequate Breath Support - Language/Auditory Comprehension Follows: Yes: 1 Stage Simple Commands Observation: Comprehends Conversational Speech: Yes - Language/Verbal Expression Functional Communication Status: Yes: Moderately Impaired - Swallow Evaluation/Bedside Assessment Current Nutritional Intake: NPO, G Tube Dentition: Yes: Adequate Facial Symmetry at Rest: Symmetrical Facial Symmetry on Retraction: Symmetrical Pucker Lips: Normal Smile: Normal Lingual Movement: Symmetric Laryngeal Movement: Labored,delay initiation (brisk once triggered) Rate of Intake: Impulsive (sucks in bolus of spoon rapidly) Bolus Size: WFL A-P Transit: Impaired Pocketing: None Timing of Swallow: Delayed Coughing/Throat Clear: No Change in Voice: No Recommendations - Speech Evaluation, Impression/Plan Impression: Risk of aspiration, especially from cup drinking. (My note is missing from last admission. Private egg breaker was educated on eliminating cup drinking with signs of aspiration demonstrated.This was confirmed during MBS). Pt overtly tolerates puree/nectar on tsn. Aspiration suspected on cup drinking. - Disposition Discharge to: Intermediate Facility - Dysphagia Impressions/Plan Swallowing Skills: Impaired Dysphagia Impressions: Mild Impairment *Silent aspiration: cannot be R/O at bedside Dysphagia Treatment Plan: Small Bites, Chin Tuck/Down, Clear Pocket Food, Trial Feedings, Facilitative Feeding, Safe Rate, 1/2 tsp. at a time, Elevate HOB during feed, Other (PO as desired and tolerated) - Recommendations Diet Consistency: Dysphagia Pureed, Other (Trial PO diet. If tolerates, trial of PEG feeding nocturnally, PO during day) Liquids: [place] Thick (ON TSP ONLY) Supplement: Magic Cup, Other (Ensure pudding)
[2019-06-04] MEDS: BACLOFEN 10 MG TABLET (FP) PEG SCH (11:50)
[2019-06-04] MEDS: VANCOMYCIN 1 GRAM (PRE-DOCKED) 1,000 MG/250 ML BAG IVPB SCH (11:55)
--- NOTE | 2019-06-04 11:56 | PN ---
Progress Note, Physician Chief Complaint: Sepsis History of Present Illness: NAD Alert Bedside swallow to be performed - Current Medication List Current Medications: Active Medications Acetaminophen (Tylenol -) 650 mg PO Q4H PRN PRN Reason: PAIN LEVEL 6-10 Acetaminophen (Ofirmev Injection -) 1,000 mg IVPB Q6H PRN PRN Reason: FEVER Last Admin: 06/04/19 01:46 Dose: 1,000 mg Albuterol/Ipratropium (Duoneb -) 1 amp NEB RQID [facility] Last Admin: 06/04/19 08:30 Dose: 1 amp Baclofen (Lioresal -) 10 mg PEG DAILY [facility] Last Admin: 06/03/19 11:42 Dose: 10 mg Chlorhexidine Gluconate (Hibiclens For Decolonization -) 1 applic TP HS [facility] Last Admin: 06/03/19 22:11 Dose: 1 applic Heparin Sodium (Porcine) (Heparin -) 5,000 unit SQ TID [facility] Last Admin: 06/04/19 06:03 Dose: 5,000 unit Vancomycin HCl (Vancomycin (Pre-Docked)) 1,000 mg in 250 mls @ 200 mls/hr IVPB Q24H [facility]; Protocol Last Admin: 06/03/19 10:00 Dose: 200 mls/hr Aztreonam 1 gm/ Dextrose 50 mls @ 100 mls/hr IVPB Q8H-IV [facility]; Protocol Last Admin: 06/04/19 09:08 Dose: 100 mls/hr Lactated Ringer's (Lactated Ringers Solution) 1,000 ml in 1,000 mls @ 75 mls/ hr IV ASDIR [facility] Last Admin: 06/04/19 09:08 Dose: 75 mls/hr Lactulose (Cephulac (Oral Use)) 10 gm GT DAILY [facility] Levothyroxine Sodium (Synthroid -) 150 mcg PO DAILY@0700 [facility] Last Admin: 06/04/19 06:03 Dose: 150 mcg Mupirocin (Bactroban Ointment (For Decolonization) -) 1 applic NS BID [facility] Stop: 06/07/19 09:59 Last Admin: 06/03/19 22:12 Dose: 1 applic Nystatin (Nystop Powder -) 1 applic TP TID [facility] Last Admin: 06/04/19 06:03 Dose: 1 applic Senna (Senna Oral Solution -) 17.6 mg GT HS [facility] Last Admin: 06/03/19 22:09 Dose: 17.6 mg - Objective Vital Signs: Vital Signs Temperature 97.5 F L 06/03/19 22:00 Pulse Rate 94 H 06/04/19 10:00 Respiratory Rate 18 06/04/19 10:00 Blood Pressure 102/75 06/04/19 10:00 O2 Sat by Pulse Oximetry (%) 96 06/04/19 09:00 Constitutional: Yes: No Distress, Calm, Thin Cardiovascular: Yes: Regular Rate and Rhythm Respiratory: Yes: Regular Gastrointestinal: Yes: Normal Bowel Sounds, Soft Genitourinary: Yes: Incontinence Musculoskeletal: Yes: Muscle Weakness Extremities: Yes: Other Edema: No Peripheral Pulses WNL: Yes Neurological: Yes: Alert, Pre-Existing Deficit Psychiatric: Yes: Alert Labs: CBC, BMP 06/04/19 08:35 06/04/19 08:35 INR, PTT INR 0.99 (0.83-1.09) 05/31/19 03:54 Problem List - Problems (1) Neuro-degenerative disorders Problems reviewed: Yes Code(s): G31.9 - DEGENERATIVE DISEASE OF NERVOUS SYSTEM, UNSPECIFIED (2) Pneumonia Problems reviewed: Yes Code(s): J18.9 - PNEUMONIA, UNSPECIFIED ORGANISM Qualifiers: Pneumonia type: due to unspecified organism Laterality: right Lung location: lower lobe of lung Qualified Code(s): J18.9 - Pneumonia, unspecified organism (3) Sepsis Problems reviewed: Yes Code(s): A41.9 - SEPSIS, UNSPECIFIED ORGANISM Qualifiers: Sepsis type: sepsis due to unspecified organism Sepsis acute organ dysfunction status: unspecified Qualified Code(s): A41.9 - Sepsis, unspecified organism (4) Functional quadriplegia Problems reviewed: Yes Code(s): R53.2 - FUNCTIONAL QUADRIPLEGIA (5) Malnutrition Code(s): E46 - UNSPECIFIED PROTEIN-CALORIE MALNUTRITION
[2019-06-04] MEDS: MUPIROCIN 2% TOPICAL OINTMENT FOR DECOLONIZATION NS SCH (12:05)
--- NOTE | 2019-06-04 12:38 | PN ---
Teaching Attending Note Name of Resident: Shira Flanagan ATTENDING PHYSICIAN STATEMENT I saw and evaluated the patient. I reviewed the resident's note and discussed the case with the resident. I agree with the resident's findings and plan as documented. SUBJECTIVE: Patient seen and examined in the ICU. Awake but confused. Not able to answer questions appropriately. Intake & Output 06/01/19 06/02/19 06/03/19 06/04/19 23:59 23:59 23:59 23:59 Intake Total 3625 400 3756 1288 Output Total 300 Balance 3625 400 3456 1288 Weight 112 lb 119 lb 11.376 oz Last Vital Signs Temp Pulse Resp BP Pulse Ox 97.5 F L 97 H 18 81/48 L 96 06/03/19 22:00 06/04/19 12:00 06/04/19 12:00 06/04/19 12:00 06/04/19 09:00 Active Medications Acetaminophen (Tylenol -) 650 mg PO Q4H PRN PRN Reason: PAIN LEVEL 6-10 Acetaminophen (Ofirmev Injection -) 1,000 mg IVPB Q6H PRN PRN Reason: FEVER Last Admin: 06/04/19 01:46 Dose: 1,000 mg Albuterol/Ipratropium (Duoneb -) 1 amp NEB RQID [facility] Last Admin: 06/04/19 08:30 Dose: 1 amp Baclofen (Lioresal -) 10 mg PEG DAILY [facility] Last Admin: 06/04/19 11:50 Dose: 10 mg Chlorhexidine Gluconate (Hibiclens For Decolonization -) 1 applic TP HS [facility] Last Admin: 06/03/19 22:11 Dose: 1 applic Heparin Sodium (Porcine) (Heparin -) 5,000 unit SQ TID [facility] Last Admin: 06/04/19 06:03 Dose: 5,000 unit Vancomycin HCl (Vancomycin (Pre-Docked)) 1,000 mg in 250 mls @ 200 mls/hr IVPB Q24H [facility]; Protocol Last Admin: 06/04/19 11:55 Dose: 200 mls/hr Aztreonam 1 gm/ Dextrose 50 mls @ 100 mls/hr IVPB Q8H-IV [facility]; Protocol Last Admin: 06/04/19 09:08 Dose: 100 mls/hr Lactated Ringer's (Lactated Ringers Solution) 1,000 ml in 1,000 mls @ 75 mls/ hr IV ASDIR [facility] Last Admin: 06/04/19 09:08 Dose: 75 mls/hr Lactulose (Cephulac (Oral Use)) 10 gm GT DAILY [facility] Last Admin: 06/04/19 11:50 Dose: 10 gm Levothyroxine Sodium (Synthroid -) 150 mcg PO DAILY@0700 [facility] Last Admin: 06/04/19 06:03 Dose: 150 mcg Mupirocin (Bactroban Ointment (For Decolonization) -) 1 applic NS BID [facility] Stop: 06/07/19 09:59 Last Admin: 06/04/19 12:05 Dose: 1 applic Nystatin (Nystop Powder -) 1 applic TP TID [facility] Last Admin: 06/04/19 06:03 Dose: 1 applic Senna (Senna Oral Solution -) 17.6 mg GT HS [facility] Last Admin: 06/03/19 22:09 Dose: 17.6 mg GEN: Awake, chronically ill appearing HEENT: NCAT, PERRL, anicteric, dry MM PULM: Diminished at the bases CV: nml S1 S2, RR ABD: + BS, S/S N/T N/D X4, GT EXT: Contracted, + Pulses, WWP X4, (-) edema SKIN: Rash (Fungal rash on abd & in folds.) Laboratory Results - last 24 hr 06/04/19 06/04/19 06/04/19 08:35 08:35 08:35 WBC 4.1 RBC 3.37 L Hgb 10.8 Hct 32.1 L MCV 95.3 MCH 32.0 MCHC 33.6 RDW 14.1 Plt Count 214 MPV 8.6 Absolute Neuts (auto) 2.3 Neutrophils % 55.5 D Lymphocytes % 26.8 D Monocytes % 8.2 Eosinophils % 8.9 H Basophils % 0.6 Nucleated RBC % 0 Sodium 140 Potassium 4.0 Chloride 109 H Carbon Dioxide 27 Anion Gap 4 L BUN 6.9 L Creatinine 0.4 L Est GFR (CKD-EPI)AfAm 136.86 Est GFR (CKD-EPI)NonAf 118.08 Random Glucose 103 Calcium 9.4 Phosphorus 3.2 Magnesium 2.3 Total Bilirubin 0.3 AST 13 L ALT 20 Alkaline Phosphatase 91 Total Protein 6.0 L Albumin 2.2 L Vancomycin Pre-Dose 16.7 L Problem List - Problems (1) Neuro-degenerative disorders Code(s): G31.9 - DEGENERATIVE DISEASE OF NERVOUS SYSTEM, UNSPECIFIED (2) Pneumonia Code(s): J18.9 - PNEUMONIA, UNSPECIFIED ORGANISM Qualifiers: Pneumonia type: due to unspecified organism Laterality: right Lung location: lower lobe of lung Qualified Code(s): J18.9 - Pneumonia, unspecified organism (3) Sepsis Code(s): A41.9 - SEPSIS, UNSPECIFIED ORGANISM Qualifiers: Sepsis type: sepsis due to unspecified organism Sepsis acute organ dysfunction status: unspecified Qualified Code(s): A41.9 - Sepsis, unspecified organism (4) UTI (urinary tract infection) Code(s): N39.0 - URINARY TRACT INFECTION, SITE NOT SPECIFIED Qualifiers: Urinary tract infection type: site unspecified Hematuria presence: with hematuria Qualified Code(s): N39.0 - Urinary tract infection, site not specified; R31.9 - Hematuria, unspecified (5) Allergy to multiple antibiotics Code(s): Z88.1 - ALLERGY STATUS TO OTHER ANTIBIOTIC AGENTS STATUS (6) Ataxia due to cerebrovascular disease Code(s): I67.9 - CEREBROVASCULAR DISEASE, UNSPECIFIED; R27.0 - ATAXIA, UNSPECIFIED ASSESS: UTI R/O ASPIRATION PNA DEHYDRATION HTN HYPOTHYROID 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
--- NOTE | 2019-06-04 13:41 | PN ---
Physical Exam: SUBJECTIVE: Patient seen and examined alert. unintelligible speech no acute events overnight OBJECTIVE: Vital Signs Period Temp Pulse Resp BP Sys/Ricardo Pulse Ox Last 24 Hr 97.5 F-97.7 F 84-115 16-26 81-102/48-75 96-98 O GEN: alert and awake. HEENT: NC/AT, EOMI, PERRLA. No facial asymmetry. Moist mucous membranes. CV: S1/S2, RRR, no m/r/g LUNG: CTAB, no wheezes, crackles, rales, rhonchi. GI: soft, ndnt, +BS, no guarding, no rebound. Neg CVAT b/l. No masses. EXTREMITIES: 2+ distal pulses. extremities flexed at rest upper and lower. SKIN: warm, dry, normal turgor PSYCH: normal mood and affect NEURO: Moving all extremities well. Laboratory Results - last 24 hr 06/04/19 06/04/19 06/04/19 08:35 08:35 08:35 WBC 4.1 RBC 3.37 L Hgb 10.8 Hct 32.1 L MCV 95.3 MCH 32.0 MCHC 33.6 RDW 14.1 Plt Count 214 MPV 8.6 Absolute Neuts (auto) 2.3 Neutrophils % 55.5 D Lymphocytes % 26.8 D Monocytes % 8.2 Eosinophils % 8.9 H Basophils % 0.6 Nucleated RBC % 0 Sodium 140 Potassium 4.0 Chloride 109 H Carbon Dioxide 27 Anion Gap 4 L BUN 6.9 L Creatinine 0.4 L Est GFR (CKD-EPI)AfAm 136.86 Est GFR (CKD-EPI)NonAf 118.08 Random Glucose 103 Calcium 9.4 Phosphorus 3.2 Magnesium 2.3 Total Bilirubin 0.3 AST 13 L ALT 20 Alkaline Phosphatase 91 Total Protein 6.0 L Albumin 2.2 L Vancomycin Pre-Dose 16.7 L Active Medications Generic Name Dose Route Start Last Admin Trade Name Freq PRN Reason Stop Dose Admin Acetaminophen 650 mg 06/03/19 09:55 Tylenol - PO Q4H PRN PAIN LEVEL 6-10 Acetaminophen 1,000 mg 06/03/19 09:55 06/04/19 01:46 Ofirmev Injection - IVPB 1,000 mg Q6H PRN Administration FEVER Albuterol/Ipratropium 1 amp 06/03/19 12:00 06/04/19 08:30 Duoneb - NEB 1 amp RQID [facility] Administration Baclofen 10 mg 06/03/19 10:00 06/04/19 11:50 Lioresal - PEG 10 mg DAILY [facility] Administration Chlorhexidine Gluconate 1 applic 06/02/19 22:00 06/03/19 22:11 Hibiclens For Decolonization - TP 1 applic HS [facility] Administration Heparin Sodium (Porcine) 5,000 unit 06/03/19 14:00 06/04/19 06:03 Heparin - SQ 5,000 unit TID [facility] Administration Vancomycin HCl 1,000 mg in 250 mls @ 200 mls/hr 06/03/19 10:00 06/04/19 11:55 Vancomycin (Pre-Docked) IVPB 200 mls/hr Q24H [facility] Administration Protocol Aztreonam 1 gm/ Dextrose 50 mls @ 100 mls/hr 06/03/19 18:00 06/04/19 09:08 IVPB 100 mls/hr Q8H-IV [facility] Administration Protocol Lactated Ringer's 1,000 ml in 1,000 mls @ 75 mls/hr 06/03/19 09:57 06/04/19 09:08 Lactated Ringers Solution IV 75 mls/hr ASDIR [facility] Administration Lactulose 10 gm 06/04/19 10:00 06/04/19 11:50 Cephulac (Oral Use) GT 10 gm DAILY [facility] Administration Levothyroxine Sodium 150 mcg 06/03/19 07:00 06/04/19 06:03 Synthroid - PO 150 mcg DAILY@0700 [facility] Administration Mupirocin 1 applic 06/02/19 10:00 06/04/19 12:05 Bactroban Ointment (For Decolonization) - NS 06/07/19 09:59 1 applic BID [facility] Administration Nystatin 1 applic 06/02/19 14:00 06/04/19 06:03 Nystop Powder - TP 1 applic TID [facility] Administration Senna 17.6 mg 06/03/19 22:00 06/03/19 22:09 Senna Oral Solution - GT 17.6 mg HS [facility] Administration ASSESSMENT/PLAN: 54y/o F hx of HTN, hypothyroidism, neurodegenerative disorder, quadriplegia, recently discharged for sepsis 05/26 admitted to ICU from floor with persistent hypotension Neuro alert. unitelligible speech Pt quadriplegic Pulm: Possible Aspiration PNA vs HAP Recent treatment for PNA and UTI Pt with pen allergy on vanc, cefepime and aztreonam, ID following cont Cont supplemental O2 as needed to maintain sats over 90% Cardio HTN hx, now hypotensive, will give fluid boluses meds on hold in the setting on hypotension ID: Sepsis 2/2 UTI and Right sided PNA, Possible Aspiration PNA will continue with vanc, aztreonam and doxicycline for broad coverage procalcitonin, urine antigen for legionella and strep LR Bolus - will start with 500ml and evaluate for response Change LR oropharyngeal suction chest physiotherapy Elevate HOB fall and aspiration precautions Renal: UTI treatment on going, positive UA Endo: Hypothyroidism synthroid 150 mcg in the morning Dispo: transfer to med-surg Visit type - Emergency Visit Emergency Visit: Yes ED Registration Date: 05/31/19 Care time: The patient presented to the Emergency Department on the above date and was hospitalized for further evaluation of their emergent condition. - New Patient This patient is new to me today: No - Critical Care Critical Care patient: No - Discharge Referral Referred to [facility] No ATTENDING PHYSICIAN STATEMENT I saw and evaluated the patient. I reviewed the resident's note and discussed the case with the resident. I agree with the resident's findings and plan as documented. SUBJECTIVE: OBJECTIVE: ASSESSMENT AND PLAN:
[2019-06-04] MEDS ORDERED: CHLORHEXIDINE GLUCONATE 4% CLEANSER FOR DECOLONIZATION TP SCH (22:00)
[2019-06-04] MEDS: SENNOSIDES 8.8 MG/5 ML BULK BOTTLE GT SCH (22:08)
--- NOTE | 2019-06-04 23:24 | PN ---
Progress Note, Physician History of Present Illness: AWAKE, NON VERBAL WEEPY BREATHING NON-LABORED AFEBRILE WBC WNL BC (-) URINE C/S YLO - Current Medication List Current Medications: Active Medications Acetaminophen (Tylenol -) 650 mg PO Q4H PRN PRN Reason: PAIN LEVEL 6-10 Acetaminophen (Ofirmev Injection -) 1,000 mg IVPB Q6H PRN PRN Reason: FEVER Albuterol/Ipratropium (Duoneb -) 1 amp NEB RQID [facility] Last Admin: 06/04/19 21:48 Dose: Not Given Baclofen (Lioresal -) 10 mg PEG DAILY [facility] Chlorhexidine Gluconate (Hibiclens For Decolonization -) 1 applic TP HS [facility] Heparin Sodium (Porcine) (Heparin -) 5,000 unit SQ TID [facility] Last Admin: 06/04/19 22:07 Dose: 5,000 unit Aztreonam 1 gm/ Dextrose 50 mls @ 100 mls/hr IVPB Q8H-IV [facility]; Protocol Last Admin: 06/04/19 18:02 Dose: 100 mls/hr Lactated Ringer's (Lactated Ringers Solution) 1,000 ml in 1,000 mls @ 75 mls/ hr IV ASDIR [facility] Last Admin: 06/04/19 18:02 Dose: 75 mls/hr Vancomycin HCl (Vancomycin (Pre-Docked)) 1,000 mg in 250 mls @ 200 mls/hr IVPB Q24H [facility]; Protocol Lactulose (Cephulac (Oral Use)) 10 gm GT DAILY [facility] Levothyroxine Sodium (Synthroid -) 150 mcg PO DAILY@0700 [facility] Mupirocin (Bactroban Ointment (For Decolonization) -) 1 applic NS BID [facility] Stop: 06/07/19 09:59 Nystatin (Nystop Powder -) 1 applic TP TID [facility] Last Admin: 06/04/19 22:07 Dose: 1 applic Senna (Senna Oral Solution -) 17.6 mg GT HS [facility] Last Admin: 06/04/19 22:08 Dose: 17.6 mg - Objective Vital Signs: Vital Signs Temperature 98.3 F 06/04/19 22:00 Pulse Rate 111 H 06/04/19 22:00 Respiratory Rate 20 06/04/19 22:00 Blood Pressure 110/69 06/04/19 22:00 O2 Sat by Pulse Oximetry (%) 94 L 06/04/19 21:00 Constitutional: Yes: No Distress Cardiovascular: Yes: Regular Rate and Rhythm, S1, S2 Respiratory: Yes: CTA Bilaterally Gastrointestinal: Yes: Normal Bowel Sounds Extremities: Yes: Other (+CONTRACTURES) Edema: No Labs: CBC, BMP 06/04/19 08:35 06/04/19 08:35 INR, PTT INR 0.99 (0.83-1.09) 05/31/19 03:54 Assessment/Plan R/O RECURRENT ASP PNEUMONIA FEVER/ LEUKOCYTOSIS IMPROVED PCN ALLERGY NEUROMUSCULAR DISORDER + URINE C/S YEAST= CONTAMINANT CONTINUE EMPIRIC VANCOMYCIN/ AZTREONAM
[2019-06-05] MEDS ORDERED: AZTREONAM 1 GM VIAL (RESTRICTED TO ID) ONE ×2 (01:08→09:26)
[2019-06-05] MEDS ORDERED: DEXTROSE 5%-WATER - 50 ML IVPB ONE ×2 (01:09→09:26)
[2019-06-05] MEDS: AZTREONAM 1 GM in DEXTROSE 5%-WATER - 50 ML IVPB SCH ×3 (01:14→23:19)
[2019-06-05] MEDS: NYSTATIN POWDER 100,000 UNITS/GM - 15 GM TOPICAL POWDER TP SCH ×3 (06:11→23:20)
[2019-06-05] MEDS: HEPARIN NA (PORCINE) 5,000 UNITS/ML 1ML VIAL SQ SCH ×3 (06:11→23:20)
[2019-06-05] MEDS: LEVOTHYROXINE NA 150 MCG TABLET PO SCH (06:11)
[2019-06-05] MEDS: LACTATED RINGERS SOLUTION 1,000 ML/1,000 ML INFUS.BAG IV SCH ×2 (06:14→23:21)
[2019-06-05] MEDS: ALBUTEROL SO4 2.5/IPRATROPIUM 0.5 INH SOL 3 ML VIAL.NEB. NEB SCH ×4 (08:01→20:30)
[2019-06-05] MEDS ORDERED: SODIUM CHLORIDE 250 ML IV STA (09:40)
[2019-06-05] MEDS: BACLOFEN 10 MG TABLET (FP) PEG SCH (09:49)
[2019-06-05] MEDS: LACTULOSE 20 GM/30 ML UDC (FOR ORAL USE ONLY) GT SCH (09:49)
--- NOTE | 2019-06-05 10:23 | PN ---
Progress Note, Physician Chief Complaint: Sepsis History of Present Illness: Previous notes and events reviewed awake, non-verbal NAD noted to be hypotensive with BP 87/69, NS 250cc bolus ordered tachycardic - Current Medication List Current Medications: Active Medications Acetaminophen (Tylenol -) 650 mg PO Q4H PRN PRN Reason: PAIN LEVEL 6-10 Acetaminophen (Ofirmev Injection -) 1,000 mg IVPB Q6H PRN PRN Reason: FEVER Albuterol/Ipratropium (Duoneb -) 1 amp NEB RQID [facility] Last Admin: 06/05/19 08:01 Dose: 1 amp Baclofen (Lioresal -) 10 mg PEG DAILY [facility] Last Admin: 06/05/19 09:49 Dose: 10 mg Chlorhexidine Gluconate (Hibiclens For Decolonization -) 1 applic TP HS [facility] Heparin Sodium (Porcine) (Heparin -) 5,000 unit SQ TID [facility] Last Admin: 06/05/19 06:11 Dose: 5,000 unit Aztreonam 1 gm/ Dextrose 50 mls @ 100 mls/hr IVPB Q8H-IV [facility]; Protocol Last Admin: 06/05/19 09:48 Dose: 100 mls/hr Lactated Ringer's (Lactated Ringers Solution) 1,000 ml in 1,000 mls @ 75 mls/ hr IV ASDIR [facility] Last Admin: 06/05/19 06:14 Dose: 75 mls/hr Vancomycin HCl (Vancomycin (Pre-Docked)) 1,000 mg in 250 mls @ 200 mls/hr IVPB Q24H [facility]; Protocol Sodium Chloride (Normal Saline -) 250 mls @ 250 mls/hr IV ASDIR STA Stop: 06/05/19 10:39 Lactulose (Cephulac (Oral Use)) 10 gm GT DAILY [facility] Last Admin: 06/05/19 09:49 Dose: 10 gm Levothyroxine Sodium (Synthroid -) 150 mcg PO DAILY@0700 [facility] Last Admin: 06/05/19 06:11 Dose: 150 mcg Mupirocin (Bactroban Ointment (For Decolonization) -) 1 applic NS BID [facility] Stop: 06/07/19 09:59 Nystatin (Nystop Powder -) 1 applic TP TID [facility] Last Admin: 06/05/19 06:11 Dose: 1 applic Senna (Senna Oral Solution -) 17.6 mg GT HS [facility] Last Admin: 06/04/19 22:08 Dose: 17.6 mg - Objective Vital Signs: Vital Signs Temperature 98.4 F 06/05/19 06:00 Pulse Rate 131 H 06/05/19 06:00 Respiratory Rate 20 06/05/19 06:00 Blood Pressure 96/45 L 06/05/19 06:00 O2 Sat by Pulse Oximetry (%) 94 L 06/04/19 21:00 Constitutional: Yes: No Distress, Calm Eyes: Yes: Conjunctiva Clear HENT: Yes: Atraumatic Cardiovascular: Yes: Tachycardia Respiratory: Yes: Regular, Diminished Gastrointestinal: Yes: Soft, Other (Gtube) Genitourinary: Yes: Incontinence Musculoskeletal: Yes: Muscle Weakness Extremities: Yes: Other (Contractures to b/l upper and lower extremity) Edema: No Neurological: Yes: Alert, Pre-Existing Deficit Psychiatric: Yes: Alert Labs: CBC, BMP 06/04/19 08:35 06/04/19 08:35 INR, PTT INR 0.99 (0.83-1.09) 05/31/19 03:54 Microbiology 05/31/19 03:54 Blood - Peripheral Venous Blood Culture - Final NO GROWTH AFTER 5 DAYS INCUBATION 05/31/19 03:54 Blood - Peripheral Venous Blood Culture - Final NO GROWTH AFTER 5 DAYS INCUBATION 05/31/19 04:15 Urine - Urine Clean Catch Urine Culture - Final Yeast Like Organism Problem List - Problems (1) Pneumonia Assessment/Plan: -Pulm on board -ID on board -no leukocytosis -BC neg -CXR shows progressive bibasilar atelectactic changes with pleural reaction -O2 via NC -Azactam, Vancomycin Code(s): J18.9 - PNEUMONIA, UNSPECIFIED ORGANISM Qualifiers: Pneumonia type: due to unspecified organism Laterality: right Lung location: lower lobe of lung Qualified Code(s): J18.9 - Pneumonia, unspecified organism (2) Sepsis Assessment/Plan: -Pulm on board -ID on board -no leukocytosis -BC neg -CXR shows progressive bibasilar atelectactic changes with pleural reaction -O2 via NC -Azactam, Vancomycin -LA 1.2 -UC positive Code(s): A41.9 - SEPSIS, UNSPECIFIED ORGANISM Qualifiers: Sepsis type: sepsis due to unspecified organism Sepsis acute organ dysfunction status: unspecified Qualified Code(s): A41.9 - Sepsis, unspecified organism (3) UTI (urinary tract infection) Assessment/Plan: -Pulm on board -ID on board -no leukocytosis -BC neg -CXR shows progressive bibasilar atelectactic changes with pleural reaction -O2 via NC -Azactam, Vancomycin -LA 1.2 -UC positive -UA shows 3+ leuks, 2+ blood Code(s): N39.0 - URINARY TRACT INFECTION, SITE NOT SPECIFIED Qualifiers: Urinary tract infection type: site unspecified Hematuria presence: with hematuria Qualified Code(s): N39.0 - Urinary tract infection, site not specified; R31.9 - Hematuria, unspecified (4) Dysphagia Assessment/Plan: -Eval by CLINICAL SERVICES CONSULTANT -Aspiration risk with cup drinking -HOB elevation 30 degrees -dysphagia puree, nectar thick liquids Code(s): R13.10 - DYSPHAGIA, UNSPECIFIED (5) Functional quadriplegia Assessment/Plan: -PT -fall precaution Code(s): R53.2 - FUNCTIONAL QUADRIPLEGIA (6) Hypotension Assessment/Plan: -monitor BP q6h -NS 250cc bolus x 1 -Cardiology on board Code(s): I95.9 - HYPOTENSION, UNSPECIFIED (7) Hypothyroid Assessment/Plan: -Levothyroxine Code(s): E03.9 - HYPOTHYROIDISM, UNSPECIFIED Assessment/Plan see problem list dvt ppx
[2019-06-05] MEDS: VANCOMYCIN 1 GRAM (PRE-DOCKED) 1,000 MG/250 ML BAG IVPB SCH (10:26)
--- NOTE | 2019-06-05 12:07 | PN ---
Progress Note, [employer] SUPERVISOR - Note Progress Note: Discussed with RD/PRESS TENDER Recommendations Trial PO diet.Small Bites, Chin Tuck/Down, Clear Pocket Food, Trial Feedings, Facilitative Feeding, Safe Rate, 1/2 tsp. at a time, Elevate HOB during feed Diet Consistency: Dysphagia Pureed, Other Liquids: [place] Thick -ON TSP ONLY- NO CUP DRINKING Supplement: Magic Cup, Other (Ensure pudding) If tolerates, trial of PEG feeding nocturnally, PO during day
--- NOTE | 2019-06-05 17:31 | PN ---
Progress Note, Physician History of Present Illness: AWAKE, ATTEMPTS TO VERBALIZE WEEPY BREATHING NON-LABORED AFEBRILE WBC WNL BC (-) URINE C/S YLO - Current Medication List Current Medications: Active Medications Acetaminophen (Tylenol -) 650 mg PO Q4H PRN PRN Reason: PAIN LEVEL 6-10 Acetaminophen (Ofirmev Injection -) 1,000 mg IVPB Q6H PRN PRN Reason: FEVER Albuterol/Ipratropium (Duoneb -) 1 amp NEB RQID [facility] Last Admin: 06/05/19 15:26 Dose: 1 amp Baclofen (Lioresal -) 10 mg PEG DAILY [facility] Last Admin: 06/05/19 09:49 Dose: 10 mg Heparin Sodium (Porcine) (Heparin -) 5,000 unit SQ TID [facility] Last Admin: 06/05/19 14:21 Dose: 5,000 unit Aztreonam 1 gm/ Dextrose 50 mls @ 100 mls/hr IVPB Q8H-IV [facility]; Protocol Last Admin: 06/05/19 09:48 Dose: 100 mls/hr Lactated Ringer's (Lactated Ringers Solution) 1,000 ml in 1,000 mls @ 75 mls/ hr IV ASDIR [facility] Last Admin: 06/05/19 06:14 Dose: 75 mls/hr Vancomycin HCl (Vancomycin (Pre-Docked)) 1,000 mg in 250 mls @ 200 mls/hr IVPB Q24H [facility]; Protocol Last Admin: 06/05/19 10:26 Dose: 200 mls/hr Lactulose (Cephulac (Oral Use)) 10 gm GT DAILY [facility] Last Admin: 06/05/19 09:49 Dose: 10 gm Levothyroxine Sodium (Synthroid -) 150 mcg PO DAILY@0700 [facility] Last Admin: 06/05/19 06:11 Dose: 150 mcg Nystatin (Nystop Powder -) 1 applic TP TID [facility] Last Admin: 06/05/19 14:21 Dose: 1 applic Senna (Senna Oral Solution -) 17.6 mg GT HS [facility] Last Admin: 06/04/19 22:08 Dose: 17.6 mg - Objective Vital Signs: Vital Signs Temperature 98.6 F 06/05/19 14:00 Pulse Rate 113 H 06/05/19 14:00 Respiratory Rate 20 06/05/19 14:00 Blood Pressure 112/57 L 06/05/19 14:00 O2 Sat by Pulse Oximetry (%) 94 L 06/05/19 11:00 Constitutional: Yes: No Distress Cardiovascular: Yes: Regular Rate and Rhythm, S1, S2 Respiratory: Yes: CTA Bilaterally, Diminished Gastrointestinal: Yes: Normal Bowel Sounds, Soft Edema: No Labs: CBC, BMP 06/04/19 08:35 06/04/19 08:35 INR, PTT INR 0.99 (0.83-1.09) 05/31/19 03:54 Assessment/Plan R/O RECURRENT ASP PNEUMONIA FEVER/ LEUKOCYTOSIS IMPROVED PCN ALLERGY NEUROMUSCULAR DISORDER + URINE C/S YEAST= CONTAMINANT CONTINUE EMPIRIC VANCOMYCIN/ AZTREONAM
[2019-06-05] MEDS: SENNOSIDES 8.8 MG/5 ML BULK BOTTLE GT SCH (23:20)
[2019-06-05] MEDS: MUPIROCIN 2% TOPICAL OINTMENT FOR DECOLONIZATION NS SCH (23:58)
[2019-06-06] MEDS: MUPIROCIN 2% TOPICAL OINTMENT FOR DECOLONIZATION NS SCH (00:08)
[2019-06-06] MEDS ORDERED: DEXTROSE 5%-WATER - 50 ML IVPB ONE ×3 (01:52→17:34)
[2019-06-06] MEDS ORDERED: AZTREONAM 1 GM VIAL (RESTRICTED TO ID) ONE ×3 (01:52→17:34)
[2019-06-06] MEDS: AZTREONAM 1 GM in DEXTROSE 5%-WATER - 50 ML IVPB SCH ×3 (02:01→18:08)
[2019-06-06] MEDS: NYSTATIN POWDER 100,000 UNITS/GM - 15 GM TOPICAL POWDER TP SCH ×3 (06:49→22:00)
[2019-06-06] MEDS: HEPARIN NA (PORCINE) 5,000 UNITS/ML 1ML VIAL SQ SCH ×3 (06:49→22:01)
[2019-06-06] MEDS: LEVOTHYROXINE NA 150 MCG TABLET PO SCH (06:49)
[2019-06-06] MEDS: ALBUTEROL SO4 2.5/IPRATROPIUM 0.5 INH SOL 3 ML VIAL.NEB. NEB SCH ×4 (07:41→19:59)
[2019-06-06 08:03] LABS: HEMATOCRIT 31.6 % (32.4-45.2); HEMOGLOBIN 10.6 GM/dL (10.7-15.3); MCHC 33.7 g/dl (32.0-36.0); MEAN PLT VOLUME 8.4 fl (7.5-11.1); PLATELET COUNT 271 K/MM3 (134-434); RBC 3.33 M/mm3 (3.60-5.2); RDW 14.2 % (11.6-15.6); WHITE BLOOD COUNT 5.8 K/mm3 (4.0-10.0)
[2019-06-06 08:39] LABS: ALBUMIN 2.5 g/dl (3.4-5.0); BILIRUBIN,TOTAL 0.6 mg/dL (0.2-1); BLOOD UREA NITROGEN 7.4 mg/dL (7-18); CALCIUM 9.9 mg/dL (8.5-10.1); CREATININE 0.5 mg/dL (0.55-1.3); POTASSIUM 4.2 mmol/L (3.5-5.1); TOT PROT 6.6 g/dl (6.4-8.2)
--- NOTE | 2019-06-06 09:42 | PN ---
Progress Note, Physician Chief Complaint: NO ACUTE CHANGES OVERNIGHT - Current Medication List Current Medications: Active Medications Acetaminophen (Tylenol -) 650 mg PO Q4H PRN PRN Reason: PAIN LEVEL 6-10 Acetaminophen (Ofirmev Injection -) 1,000 mg IVPB Q6H PRN PRN Reason: FEVER Albuterol/Ipratropium (Duoneb -) 1 amp NEB RQID [facility] Last Admin: 06/06/19 07:41 Dose: Not Given Baclofen (Lioresal -) 10 mg PEG DAILY [facility] Last Admin: 06/05/19 09:49 Dose: 10 mg Heparin Sodium (Porcine) (Heparin -) 5,000 unit SQ TID [facility] Last Admin: 06/06/19 06:49 Dose: 5,000 unit Aztreonam 1 gm/ Dextrose 50 mls @ 100 mls/hr IVPB Q8H-IV [facility]; Protocol Last Admin: 06/06/19 02:01 Dose: 100 mls/hr Lactated Ringer's (Lactated Ringers Solution) 1,000 ml in 1,000 mls @ 75 mls/ hr IV ASDIR [facility] Last Admin: 06/05/19 23:21 Dose: Not Given Vancomycin HCl (Vancomycin (Pre-Docked)) 1,000 mg in 250 mls @ 200 mls/hr IVPB Q24H [facility]; Protocol Last Admin: 06/05/19 10:26 Dose: 200 mls/hr Lactulose (Cephulac (Oral Use)) 10 gm GT DAILY [facility] Last Admin: 06/05/19 09:49 Dose: 10 gm Levothyroxine Sodium (Synthroid -) 150 mcg PO DAILY@0700 [facility] Last Admin: 06/06/19 06:49 Dose: 150 mcg Nystatin (Nystop Powder -) 1 applic TP TID [facility] Last Admin: 06/06/19 06:49 Dose: 1 applic Senna (Senna Oral Solution -) 17.6 mg GT HS [facility] Last Admin: 06/05/19 23:20 Dose: 17.6 mg - Objective Vital Signs: Vital Signs Temperature 97.8 F 06/06/19 07:22 Pulse Rate 115 H 06/06/19 07:22 Respiratory Rate 20 06/06/19 07:22 Blood Pressure 101/70 06/06/19 07:22 O2 Sat by Pulse Oximetry (%) 95 06/05/19 21:00 Constitutional: Yes: No Distress Cardiovascular: Yes: Regular Rate and Rhythm Respiratory: Yes: WNL Genitourinary: Yes: Incontinence Neurological: Yes: Pre-Existing Deficit Labs: CBC, BMP 06/06/19 07:00 06/06/19 07:00 INR, PTT INR 0.99 (0.83-1.09) 05/31/19 03:54 Problem List - Problems (1) Neuro-degenerative disorders Code(s): G31.9 - DEGENERATIVE DISEASE OF NERVOUS SYSTEM, UNSPECIFIED (2) Pneumonia Code(s): J18.9 - PNEUMONIA, UNSPECIFIED ORGANISM Qualifiers: Pneumonia type: due to unspecified organism Laterality: right Lung location: lower lobe of lung Qualified Code(s): J18.9 - Pneumonia, unspecified organism (3) Sepsis Code(s): A41.9 - SEPSIS, UNSPECIFIED ORGANISM Qualifiers: Sepsis type: sepsis due to unspecified organism Sepsis acute organ dysfunction status: unspecified Qualified Code(s): A41.9 - Sepsis, unspecified organism (4) UTI (urinary tract infection) Code(s): N39.0 - URINARY TRACT INFECTION, SITE NOT SPECIFIED Qualifiers: Urinary tract infection type: site unspecified Hematuria presence: with hematuria Qualified Code(s): N39.0 - Urinary tract infection, site not specified; R31.9 - Hematuria, unspecified (5) Allergy to multiple antibiotics Code(s): Z88.1 - ALLERGY STATUS TO OTHER ANTIBIOTIC AGENTS STATUS (6) Ataxia due to cerebrovascular disease Code(s): I67.9 - CEREBROVASCULAR DISEASE, UNSPECIFIED; R27.0 - ATAXIA, UNSPECIFIED (7) CAD (coronary artery disease) Code(s): I25.10 - ATHSCL HEART DISEASE OF [place] CORONARY ARTERY W/O ANG PCTRS Assessment/Plan IV ANTIBIOTICS PER ID PULMONARY F/U ON 02 SUPPORT CULTURES AND SENSITIVITY NEGATIVE NEBS/PAIN CONTROL PATIENT IS A FULL CODE DC PLANNING
[2019-06-06] MEDS: BACLOFEN 10 MG TABLET (FP) PEG SCH (10:10)
[2019-06-06] MEDS: LACTULOSE 20 GM/30 ML UDC (FOR ORAL USE ONLY) GT SCH (10:10)
[2019-06-06] MEDS: VANCOMYCIN 1 GRAM (PRE-DOCKED) 1,000 MG/250 ML BAG IVPB SCH (11:09)
[2019-06-06] MEDS: LACTATED RINGERS SOLUTION 1,000 ML/1,000 ML INFUS.BAG IV SCH (14:26)
[2019-06-06] MEDS: ACETAMINOPHEN 1000 MG/100 ML VIAL (NON FORMULARY) IVPB PRN (17:38)
[2019-06-06] MEDS: SENNOSIDES 8.8 MG/5 ML BULK BOTTLE GT SCH (22:00)
[2019-06-07] MEDS ORDERED: DEXTROSE 5%-WATER - 50 ML IVPB ONE ×3 (02:55→17:50)
[2019-06-07] MEDS ORDERED: AZTREONAM 1 GM VIAL (RESTRICTED TO ID) ONE ×3 (02:55→17:50)
[2019-06-07] MEDS: AZTREONAM 1 GM in DEXTROSE 5%-WATER - 50 ML IVPB SCH ×3 (02:59→18:16)
[2019-06-07] MEDS: ACETAMINOPHEN 325 MG TABLET (FP) PO PRN ×2 (03:00→10:03)
[2019-06-07] MEDS: LACTATED RINGERS SOLUTION 1,000 ML/1,000 ML INFUS.BAG IV SCH ×3 (05:30→23:08)
[2019-06-07] MEDS: HEPARIN NA (PORCINE) 5,000 UNITS/ML 1ML VIAL SQ SCH ×3 (05:33→21:27)
[2019-06-07] MEDS: NYSTATIN POWDER 100,000 UNITS/GM - 15 GM TOPICAL POWDER TP SCH ×3 (05:34→21:32)
[2019-06-07] MEDS: LEVOTHYROXINE NA 150 MCG TABLET PO SCH (06:10)
[2019-06-07] MEDS: ALBUTEROL SO4 2.5/IPRATROPIUM 0.5 INH SOL 3 ML VIAL.NEB. NEB SCH ×4 (07:56→20:25)
[2019-06-07] MEDS ORDERED: PT OWN MED DRAWER 7, Y5N ONE (09:49)
[2019-06-07] MEDS: LACTULOSE 20 GM/30 ML UDC (FOR ORAL USE ONLY) GT SCH (10:02)
[2019-06-07] MEDS: BACLOFEN 10 MG TABLET (FP) PEG SCH (10:03)
--- NOTE | 2019-06-07 10:59 | PN ---
Progress Note, Physician Chief Complaint: AWAKE ALERT NURSES CHANGING HER NEW FUNGAL RASH TO ABDOMEN/BREAST AREA - Current Medication List Current Medications: Active Medications Acetaminophen (Tylenol -) 650 mg PO Q4H PRN PRN Reason: PAIN LEVEL 6-10 Last Admin: 06/07/19 10:03 Dose: 650 mg Acetaminophen (Ofirmev Injection -) 1,000 mg IVPB Q6H PRN PRN Reason: FEVER Last Admin: 06/06/19 17:38 Dose: 1,000 mg Albuterol/Ipratropium (Duoneb -) 1 amp NEB RQID [facility] Last Admin: 06/07/19 07:56 Dose: 1 amp Baclofen (Lioresal -) 10 mg PEG DAILY [facility] Last Admin: 06/07/19 10:03 Dose: 10 mg Heparin Sodium (Porcine) (Heparin -) 5,000 unit SQ TID [facility] Last Admin: 06/07/19 05:33 Dose: 5,000 unit Aztreonam 1 gm/ Dextrose 50 mls @ 100 mls/hr IVPB Q8H-IV [facility]; Protocol Last Admin: 06/07/19 10:02 Dose: 100 mls/hr Lactated Ringer's (Lactated Ringers Solution) 1,000 ml in 1,000 mls @ 75 mls/ hr IV ASDIR [facility] Last Admin: 06/07/19 05:30 Dose: 75 mls/hr Vancomycin HCl (Vancomycin (Pre-Docked)) 1,000 mg in 250 mls @ 200 mls/hr IVPB Q24H [facility]; Protocol Last Admin: 06/06/19 11:09 Dose: 200 mls/hr Lactulose (Cephulac (Oral Use)) 10 gm GT DAILY [facility] Last Admin: 06/07/19 10:02 Dose: 10 gm Levothyroxine Sodium (Synthroid -) 150 mcg PO DAILY@0700 [facility] Last Admin: 06/07/19 06:10 Dose: 150 mcg Nystatin (Nystop Powder -) 1 applic TP TID [facility] Last Admin: 06/07/19 05:34 Dose: 1 applic Senna (Senna Oral Solution -) 17.6 mg GT HS [facility] Last Admin: 06/06/19 22:00 Dose: 17.6 mg - Objective Vital Signs: Vital Signs Temperature 97.5 F L 06/07/19 07:05 Pulse Rate 99 H 06/07/19 07:05 Respiratory Rate 06/07/19 07:05 Blood Pressure 123/56 L 06/07/19 07:05 O2 Sat by Pulse Oximetry (%) 95 06/06/19 21:00 Constitutional: Yes: Mild Distress Cardiovascular: Yes: Regular Rate and Rhythm Respiratory: Yes: WNL Gastrointestinal: Yes: Other (GTUBE WITH FUNGAL RASH) Genitourinary: Yes: Incontinence Musculoskeletal: Yes: Muscle Weakness Integumentary: Yes: Rash Neurological: Yes: Pre-Existing Deficit Labs: CBC, BMP 06/06/19 07:00 06/06/19 07:00 INR, PTT INR 0.99 (0.83-1.09) 05/31/19 03:54 Problem List - Problems (1) Neuro-degenerative disorders Code(s): G31.9 - DEGENERATIVE DISEASE OF NERVOUS SYSTEM, UNSPECIFIED (2) Pneumonia Code(s): J18.9 - PNEUMONIA, UNSPECIFIED ORGANISM Qualifiers: Pneumonia type: due to unspecified organism Laterality: right Lung location: lower lobe of lung Qualified Code(s): J18.9 - Pneumonia, unspecified organism (3) Sepsis Code(s): A41.9 - SEPSIS, UNSPECIFIED ORGANISM Qualifiers: Sepsis type: sepsis due to unspecified organism Sepsis acute organ dysfunction status: unspecified Qualified Code(s): A41.9 - Sepsis, unspecified organism (4) UTI (urinary tract infection) Code(s): N39.0 - URINARY TRACT INFECTION, SITE NOT SPECIFIED Qualifiers: Urinary tract infection type: site unspecified Hematuria presence: with hematuria Qualified Code(s): N39.0 - Urinary tract infection, site not specified; R31.9 - Hematuria, unspecified (5) Allergy to multiple antibiotics Code(s): Z88.1 - ALLERGY STATUS TO OTHER ANTIBIOTIC AGENTS STATUS (6) Ataxia due to cerebrovascular disease Code(s): I67.9 - CEREBROVASCULAR DISEASE, UNSPECIFIED; R27.0 - ATAXIA, UNSPECIFIED (7) CAD (coronary artery disease) Code(s): I25.10 - ATHSCL HEART DISEASE OF [place] CORONARY ARTERY W/O ANG PCTRS Assessment/Plan LOTRISONE ADDED TO RASH FUNGAL AREAS NYSTATIN TO SKIN EMPERIC ABX PER ID DC PLANNNG WHEN ID CLEARS PATIENT DYSPHAGIA DIET NOCTURNAL FEEDS SWALOOW/SPEECH F/U
[2019-06-07] MEDS: VANCOMYCIN 1 GRAM (PRE-DOCKED) 1,000 MG/250 ML BAG IVPB SCH (11:09)
[2019-06-07 14:04] VITALS: BMI 18.6
--- NOTE | 2019-06-07 15:14 | PN ---
Progress Note, FISHER MUSSEL - Note Progress Note: Selected Entries 06/07/19 06/07/19 06/07/19 07:05 10:00 11:11 Breakfast 0 Temperature 97.5 F L 98.6 F 06/07/19 14:55 Breakfast 0 Temperature 98.7 F Laboratory Tests 06/06/19 07:00 WBC 5.8 Puree/nectar on tsp only ordered. Recommendations Trial PO diet.Small Bites, Chin Tuck/Down, Clear Pocket Food, Trial Feedings, Facilitative Feeding, Safe Rate, 1/2 tsp. at a time, Elevate HOB during feed Diet Consistency: Dysphagia Pureed, Other Liquids: [place] Thick -ON TSP ONLY- NO CUP DRINKING Supplement: Magic Cup, Other (Ensure pudding) If tolerates, trial of PEG feeding nocturnally, PO during day
[2019-06-07] MEDS: BACITRACIN 15 GM TUBE TOPICAL OINTMENT TP SCH ×2 (18:29→21:33)
[2019-06-07] MEDS: ACETAMINOPHEN 1000 MG/100 ML VIAL (NON FORMULARY) IVPB PRN (20:30)
[2019-06-07] MEDS: CLOTRIMAZOLE/BETAMET DIPROP 15 GM TUBE TP SCH (21:30)
[2019-06-07] MEDS: SENNOSIDES 8.8 MG/5 ML BULK BOTTLE GT SCH (21:32)
[2019-06-08] MEDS ORDERED: DEXTROSE 5%-WATER - 50 ML IVPB ONE ×2 (01:08→09:30)
[2019-06-08] MEDS ORDERED: AZTREONAM 1 GM VIAL (RESTRICTED TO ID) ONE ×2 (01:08→09:30)
[2019-06-08] MEDS: AZTREONAM 1 GM in DEXTROSE 5%-WATER - 50 ML IVPB SCH ×2 (01:18→09:43)
[2019-06-08] MEDS ORDERED: PT OWN MED DRAWER 7, Y5N ONE ×4 (04:27→10:14)
[2019-06-08] MEDS: LEVOTHYROXINE NA 150 MCG TABLET PO SCH (06:11)
[2019-06-08] MEDS: NYSTATIN POWDER 100,000 UNITS/GM - 15 GM TOPICAL POWDER TP SCH ×2 (06:11→14:54)
[2019-06-08] MEDS: HEPARIN NA (PORCINE) 5,000 UNITS/ML 1ML VIAL SQ SCH ×2 (06:11→14:53)
[2019-06-08] MEDS: ALBUTEROL SO4 2.5/IPRATROPIUM 0.5 INH SOL 3 ML VIAL.NEB. NEB SCH ×3 (08:25→15:54)
[2019-06-08] MEDS: LACTULOSE 20 GM/30 ML UDC (FOR ORAL USE ONLY) GT SCH (09:43)
[2019-06-08] MEDS: VANCOMYCIN 1 GRAM (PRE-DOCKED) 1,000 MG/250 ML BAG IVPB SCH (09:44)
[2019-06-08] MEDS: BACLOFEN 10 MG TABLET (FP) PEG SCH (09:44)
--- NOTE | 2019-06-08 09:45 | PN ---
Progress Note, Physician - Current Medication List Current Medications: Active Medications Acetaminophen (Tylenol -) 650 mg PO Q4H PRN PRN Reason: PAIN LEVEL 6-10 Last Admin: 06/07/19 10:03 Dose: 650 mg Albuterol/Ipratropium (Duoneb -) 1 amp NEB RQID [facility] Last Admin: 06/08/19 08:25 Dose: 1 amp Bacitracin (Bacitracin -) 1 applic TP BID [facility] Last Admin: 06/07/19 21:33 Dose: 1 applic Baclofen (Lioresal -) 10 mg PEG DAILY [facility] Last Admin: 06/07/19 10:03 Dose: 10 mg Clotrimazole (Lotrisone Cream (Small Tube)) 1 applic TP BID [facility] Last Admin: 06/07/19 21:30 Dose: 1 applic Heparin Sodium (Porcine) (Heparin -) 5,000 unit SQ TID [facility] Last Admin: 06/08/19 06:11 Dose: 5,000 unit Aztreonam 1 gm/ Dextrose 50 mls @ 100 mls/hr IVPB Q8H-IV [facility]; Protocol Last Admin: 06/08/19 01:18 Dose: 100 mls/hr Lactated Ringer's (Lactated Ringers Solution) 1,000 ml in 1,000 mls @ 75 mls/ hr IV ASDIR [facility] Last Admin: 06/07/19 23:08 Dose: 75 mls/hr Vancomycin HCl (Vancomycin (Pre-Docked)) 1,000 mg in 250 mls @ 200 mls/hr IVPB Q24H [facility]; Protocol Last Admin: 06/07/19 11:09 Dose: 200 mls/hr Lactulose (Cephulac (Oral Use)) 10 gm GT DAILY [facility] Last Admin: 06/07/19 10:02 Dose: 10 gm Levothyroxine Sodium (Synthroid -) 150 mcg PO DAILY@0700 [facility] Last Admin: 06/08/19 06:11 Dose: 150 mcg Nystatin (Nystop Powder -) 1 applic TP TID [facility] Last Admin: 06/08/19 06:11 Dose: 1 applic Senna (Senna Oral Solution -) 17.6 mg GT HS [facility] Last Admin: 06/07/19 21:32 Dose: 17.6 mg - Objective Vital Signs: Vital Signs Temperature 97.9 F 01/02/20 22:00 Pulse Rate 119 H 06/07/19 22:00 Respiratory Rate 18 06/07/19 22:00 Blood Pressure 105/77 06/07/19 22:00 O2 Sat by Pulse Oximetry (%) 99 06/07/19 20:58 Labs: CBC, BMP 06/06/19 07:00 06/06/19 07:00 INR, PTT INR 0.99 (0.83-1.09) 05/31/19 03:54 Problem List - Problems (1) Neuro-degenerative disorders Code(s): G31.9 - DEGENERATIVE DISEASE OF NERVOUS SYSTEM, UNSPECIFIED (2) Pneumonia Code(s): J18.9 - PNEUMONIA, UNSPECIFIED ORGANISM Qualifiers: Pneumonia type: due to unspecified organism Laterality: right Lung location: lower lobe of lung Qualified Code(s): J18.9 - Pneumonia, unspecified organism (3) Sepsis Code(s): A41.9 - SEPSIS, UNSPECIFIED ORGANISM Qualifiers: Sepsis type: sepsis due to unspecified organism Sepsis acute organ dysfunction status: unspecified Qualified Code(s): A41.9 - Sepsis, unspecified organism (4) UTI (urinary tract infection) Code(s): N39.0 - URINARY TRACT INFECTION, SITE NOT SPECIFIED Qualifiers: Urinary tract infection type: site unspecified Hematuria presence: with hematuria Qualified Code(s): N39.0 - Urinary tract infection, site not specified; R31.9 - Hematuria, unspecified (5) Allergy to multiple antibiotics Code(s): Z88.1 - ALLERGY STATUS TO OTHER ANTIBIOTIC AGENTS STATUS (6) Ataxia due to cerebrovascular disease Code(s): I67.9 - CEREBROVASCULAR DISEASE, UNSPECIFIED; R27.0 - ATAXIA, UNSPECIFIED (7) CAD (coronary artery disease) Code(s): I25.10 - ATHSCL HEART DISEASE OF [place] CORONARY ARTERY W/O ANG PCTRS
[2019-06-08] MEDS: CLOTRIMAZOLE/BETAMET DIPROP 15 GM TUBE TP SCH (09:49)
[2019-06-08] MEDS: BACITRACIN 15 GM TUBE TOPICAL OINTMENT TP SCH (09:50)
--- NOTE | 2019-06-08 10:27 | DS ---
Physical Examination Vital Signs: Vital Signs Temperature 97.9 F 06/07/19 22:00 Pulse Rate 119 H 06/07/19 22:00 Respiratory Rate 18 06/07/19 22:00 Blood Pressure 105/77 06/07/19 22:00 O2 Sat by Pulse Oximetry (%) 99 06/07/19 20:58 Findings/Remarks: COMPLETED ANTIBIOTICS, CULTURES NEGATIVE, NO LEUKOCYTOSIS Constitutional: Yes: Mild Distress Cardiovascular: Yes: Regular Rate and Rhythm Respiratory: Yes: Cough, Diminished Gastrointestinal: Yes: Soft (GT) Musculoskeletal: Yes: Muscle Weakness Neurological: Yes: Confusion, Pre-Existing Deficit ...Motor Strength: LLE, RLE Labs: CBC, BMP 06/06/19 07:00 06/06/19 07:00 Discharge Summary Problems reviewed: Yes Reason For Visit: URINARY TRACT INFECTION, SEPSIS, PNEUMONIA Current Active Problems Malnutrition (Acute) Neuro-degenerative disorders (Acute) Pneumonia (Acute) Sepsis (Acute) UTI (urinary tract infection) (Acute) Procedures: Principal: CT SCANS/XRAYS Health Concerns: ADMITTED FOR SEPSIS WORKUP/HYPOTENSION SEPSIS WITH SHOCK GIVEN IV FLUIDS AND ANTIBIOTICS. 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 OVERALL QUALITY OF LIFE IS VERY POOR AND PATIENT IS SUFFERING. Disposition: [facility] - Home Medications Comprehensive Discharge Medication List: Ambulatory Orders Propranolol HCl [Propranolol HCl ER] 80 mg GT BID 08/14/18 Heparin - 5,000 unit SQ BID #30 vial 08/17/18 Acetaminophen 650 mg GT Q6H PRN 10/06/18 Vits A and D/White Pet/Lanolin [A and D Ointment] 1 applic TP BID 10/06/18 Zinc Oxide 20% Topical Oint 1 applic TP Q8H 10/09/18 Baclofen [Lioresal -] 10 mg PEG DAILY tablet 10/17/18 Hydrocortisone 2.5% Topical Cr [Anusol-Hc -] 1 applic RC BID 04/22/19 Lactulose (Oral Use) [Cephulac -] 15 ml GT DAILY 04/22/19 Sennosides [Senna] 2 tab GT HS 04/22/19 Lisinopril [Prinivil] 2.5 mg NGT DAILY tablet 05/01/19 Ipratropium/Albuterol Sulfate [Iprat-Albut 0.5-3(2.5) mg/3 ml] 3 ml IH QID 05/17 Acetaminophen Oral Solution [Tylenol Oral Solution -] 650 mg GT Q6H PRN soln.oral 05/24/19 Heparin - 5,000 unit SQ BID vial 05/24/19 Levothyroxine [Synthroid -] 150 mcg GT DAILY@0700 tablet 05/24/19 Acetaminophen [Tylenol .Regular Strength -] 650 mg PO Q4H PRN tablet 06/08/19 Bacitracin - [Bacitracin Topical Ointment -] 1 applic TP BID tube 06/08/19 Clotrimazole/Betamet Diprop [Lotrisone -] 1 applic TP BID tube 06/08/19 Heparin - 5,000 unit SQ TID vial 06/08/19 Levothyroxine [Synthroid -] 150 mcg PO DAILY@0700 tablet 06/08/19 Nystatin Powder [Nystop Powder -] 1 applic TP TID applic 06/08/19 Prescription Drug Monitoring Program (I-STOP) results: I-STOP not reviewed
--- NOTE | 2019-06-08 10:49 | PN ---
Progress Note, Physician History of Present Illness: AWAKE, ATTEMPTS TO VERBALIZE BREATHING NON-LABORED AFEBRILE WBC WNL BC (-) URINE C/S YLO - Current Medication List Current Medications: Active Medications Acetaminophen (Tylenol -) 650 mg PO Q4H PRN PRN Reason: PAIN LEVEL 6-10 Last Admin: 06/07/19 10:03 Dose: 650 mg Albuterol/Ipratropium (Duoneb -) 1 amp NEB RQID [facility] Last Admin: 06/08/19 08:25 Dose: 1 amp Bacitracin (Bacitracin -) 1 applic TP BID [facility] Last Admin: 06/08/19 09:50 Dose: 1 applic Baclofen (Lioresal -) 10 mg PEG DAILY [facility] Last Admin: 06/08/19 09:44 Dose: 10 mg Clotrimazole (Lotrisone Cream (Small Tube)) 1 applic TP BID [facility] Last Admin: 06/08/19 09:49 Dose: 1 applic Heparin Sodium (Porcine) (Heparin -) 5,000 unit SQ TID [facility] Last Admin: 06/08/19 06:11 Dose: 5,000 unit Aztreonam 1 gm/ Dextrose 50 mls @ 100 mls/hr IVPB Q8H-IV [facility]; Protocol Last Admin: 06/08/19 09:43 Dose: 100 mls/hr Lactated Ringer's (Lactated Ringers Solution) 1,000 ml in 1,000 mls @ 75 mls/ hr IV ASDIR [facility] Last Admin: 06/07/19 23:08 Dose: 75 mls/hr Vancomycin HCl (Vancomycin (Pre-Docked)) 1,000 mg in 250 mls @ 200 mls/hr IVPB Q24H [facility]; Protocol Last Admin: 06/08/19 09:44 Dose: 200 mls/hr Lactulose (Cephulac (Oral Use)) 10 gm GT DAILY [facility] Last Admin: 06/08/19 09:43 Dose: 10 gm Levothyroxine Sodium (Synthroid -) 150 mcg PO DAILY@0700 [facility] Last Admin: 06/08/19 06:11 Dose: 150 mcg Nystatin (Nystop Powder -) 1 applic TP TID [facility] Last Admin: 06/08/19 06:11 Dose: 1 applic Senna (Senna Oral Solution -) 17.6 mg GT HS KIMO Last Admin: 06/07/19 21:32 Dose: 17.6 mg - Objective Vital Signs: Vital Signs Temperature 97.9 F 06/07/19 22:00 Pulse Rate 119 H 06/07/19 22:00 Respiratory Rate 18 06/07/19 22:00 Blood Pressure 105/77 06/07/19 22:00 O2 Sat by Pulse Oximetry (%) 99 06/07/19 20:58 Constitutional: Yes: No Distress Cardiovascular: Yes: Regular Rate and Rhythm, S1, S2 Respiratory: Yes: CTA Bilaterally Gastrointestinal: Yes: Normal Bowel Sounds, Soft. No: Tenderness Edema: No Labs: CBC, BMP 06/06/19 07:00 06/06/19 07:00 INR, PTT INR 0.99 (0.83-1.09) 05/31/19 03:54 Assessment/Plan R/O RECURRENT ASP PNEUMONIA IMPROVED FEVER/ LEUKOCYTOSIS IMPROVED PCN ALLERGY NEUROMUSCULAR DISORDER + URINE C/S YEAST= CONTAMINANT COMPLETED COURSE OF VANCOMYCIN/ AZTREONAM D/C ANTIBIOTICS, OBSERVE
[2019-06-08 16:05] VITALS: PULSE 113; TEMP 98.8
[2019-06-08 16:16] VITALS: BP 122/80
== END 2019-06-08 17:01 | DRG 720 ==
LOC: JER 03:14 → JERBED 05:43 → J6W 07:53 → J7W 07:56 → JICU 06-02 02:32 → J8W 06-04 13:18
PROVIDERS: ADMIT Internal Medicine; ATTEND Family Medicine
DX: A41.9 Sepsis, unspecified organism (principal); E03.9 Hypothyroidism, unspecified; N39.0 Urinary tract infection, site not specified; I10 Essential (primary) hypertension; J69.0 Pneumonitis due to inhalation of food and vomit; D72.829 Elevated white blood cell count, unspecified; E46 Unspecified protein-calorie malnutrition; Z68.1 Body mass index [BMI] 19.9 or less, adult; I95.9 Hypotension, unspecified; I25.10 Atherosclerotic heart disease of native coronary artery without angina pectoris; R13.10 Dysphagia, unspecified; E86.0 Dehydration; R53.2 Functional quadriplegia; Z88.0 Allergy status to penicillin; G31.9 Degenerative disease of nervous system, unspecified; R27.0 Ataxia, unspecified; Z93.1 Gastrostomy status
CPT/HCPCS: 36415; 71045-TC-FY; 80053; 81003; 82308; 82803; 82962; 83605; 83735; 84100; 84484; 85025; 85027; 85610; 85730; 87040; 87077; 87086; 87804; 93005; 93010; 93306-TC; 94640; 97116-GP; 97161-GP; 99285-25; G0480; J0131; J0475; J1644; J7030

== ENCOUNTER 2019-06-19 17:33 | Inpatient (IN) | payer SELFPAY ==
--- NOTE | 2019-06-19 18:55 | PDOC ---
History of Present Illness - General Chief Complaint: SIRS, Suspected/Possible Stated Complaint: LETHARGIC - History of Present Illness Initial Comments: The pt is a 54F who presents from [place] for evaluation of AMS. Per reports, pt is more lethargic than usual. Pt is unable to provide a history. At baseline the pt reportedly opens her eyes and tracks movement but would not open her eyes today. 06/19/19 19:50 Past History - Past Medical History Allergies/Adverse Reactions: Allergies Allergy/AdvReac Type Severity Reaction Status Date / Time Penicillins Allergy Verified 05/31/19 03:41 sulfur dioxide Allergy Verified 05/31/19 03:41 Home Medications: Ambulatory Orders Propranolol HCl [Propranolol HCl ER] 80 mg GT BID 08/14/18 Acetaminophen 650 mg GT Q6H PRN 10/06/18 Vits A and D/White Pet/Lanolin [A and D Ointment] 1 applic TP BID 10/06/18 Zinc Oxide 20% Topical Oint 1 applic TP Q8H 10/09/18 Baclofen [Lioresal -] 10 mg PEG DAILY tablet 10/17/18 Hydrocortisone 2.5% Topical Cr [Anusol-Hc -] 1 applic RC BID 04/22/19 Lactulose (Oral Use) [Cephulac -] 15 ml GT DAILY 04/22/19 Sennosides [Senna] 2 tab GT HS 04/22/19 Lisinopril [Prinivil] 2.5 mg NGT DAILY tablet 05/01/19 Ipratropium/Albuterol Sulfate [Iprat-Albut 0.5-3(2.5) mg/3 ml] 3 ml IH QID 05/17 Heparin - 5,000 unit SQ BID vial 05/24/19 Levothyroxine [Synthroid -] 150 mcg GT DAILY@0700 tablet 05/24/19 Bacitracin - [Bacitracin Topical Ointment -] 1 applic TP BID tube 06/08/19 Clotrimazole/Betamet Diprop [Lotrisone -] 1 applic TP BID tube 06/08/19 Nystatin Powder [Nystop Powder -] 1 applic TP TID applic 06/08/19 Anemia: No Asthma: No Cancer: No CVA: Yes COPD: No GI Disorders: Yes (peg tube) Disorders: No HTN: Yes Hypercholesterolemia: No 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) Thyroid Disease: (Yes; HYPOTHYROIDISM) - Immunization History Immunization Up to Date: No - Psycho Social/Smoking Cessation Hx Smoking History: Smoker current status UNK Have you smoked in the past 12 months: No If you are a former smoker, when did you quit?: 1985 Information on smoking cessation initiated: No Hx Alcohol Use: No Drug/Substance Use Hx: No Substance Use Type: None Hx Substance Use Treatment: No Review of Systems - Review of Systems Able to Perform ROS?: No (2/2 medical condition) *Physical Exam - Vital Signs Last Vital Signs Temp Pulse Resp BP Pulse Ox 100.8 F H 88 18 97/72 94 L 06/19/19 18:20 06/19/19 18:20 06/19/19 18:20 06/19/19 18:20 06/19/19 18:20 - Physical Exam GENERAL: Awake HEAD: No signs of trauma, normoc ephalic, atraumatic EYES: PERRLA, sclera anicteric, conjunctiva clear ENT: Hearing grossly normal, nares patent, oropharynx clear without exudates. Moist mucosa LUNGS: No distress, speaks in full sentences, clear to auscultation bilaterally HEART: Regular rate and rhythm, normal S1 and S2, no murmurs appreciated, peripheral pulses normal and equal bilaterally ABDOMEN: Soft, PEG tube in place w/o signs of infection, normoactive bowel sounds. No guarding, no rebound EXTREMITIES: No wounds seen on extremities, no contractures NEUROLOGICAL: Withdraws to pain, does not follow commands, open eyes to voice SKIN: Warm, Dry 06/19/19 18:55 ED Treatment Course - LABORATORY CBC & Chemistry Diagram: 06/19/19 19:44 06/19/19 19:44 - RADIOLOGY Radiograph Interpretation: RAD/CHEST X-RAY PORTABLE The heart size is slightly enlarged. There is some increased density in the retrocardiac portion of the left lower lobe suspicious for consolidation/ atelectasis. The right lung is clear. IMPRESSION: Left basilar consolidation 06/19/19 23:00 Medical Decision Making - Medical Decision Making The pt is a 54F w/ a history of MS, CAD, HTN, is non-verbal who presents from [place] for evaluation of AMS likely 2/2 infection ED Course Sepsis labs sent ECG CXR IVF Abx ECG w/ NSR; HR 85; QTc 430; left axis deviation; no KERRI CXR w/ LLL PNA Will treat as HCAP 06/19/19 22:01 No leukocytosis No anemia Lytes unremarkable LA wnl Trop I neg Pt signed out to admitting service 06/19/19 22:06 Discharge - Discharge Information Problems reviewed: Yes Clinical Impression/Diagnosis: HCAP (healthcare-associated pneumonia), Multiple sclerosis CAD (coronary artery disease) Qualifiers: Coronary Disease-Associated Artery/Lesion type: unspecified vessel or lesion type [place] vs. transplanted heart: [place] heart Associated angina: angina presence unspecified Qualified Code(s): I25.10 - Atherosclerotic heart disease of [place] coronary artery without angina pectoris Condition: Guarded - Admission Yes - Follow up/Referral - Patient Discharge Instructions - Post Discharge Activity
--- NOTE | 2019-06-19 19:49 | PDOC ---
Attending Attestation - Resident Resident Name: AndreeJosue hill - ED Attending Attestation I have performed the following: I have examined & evaluated the patient, The case was reviewed & discussed with the resident, I agree w/resident's findings & plan - HPI HPI: 06/19/19 23:53 see resident hpi - Physicial Exam PE: 06/19/19 23:53 agree with resident exam - Medical Decision Making 06/19/19 23:54 54-year-old female sent for fever and change in mental status Exam consistent with pneumonia Severe sepsis criteria not met Plan for antibiotics and admission to medical service
[2019-06-19] MEDS ORDERED: SODIUM CHLORIDE 0.9% 500 ML INFUS.BAG IV ONE (19:56)
[2019-06-19] MEDS ORDERED: CEFEPIME HCL/D5W 2 GM/50 ML BAG IVPB ONE (19:57)
[2019-06-19] MEDS ORDERED: CEFEPIME 2 GM/100 ML BAG IVPB ONE (20:07)
[2019-06-19 20:18] LABS: BASO % 0.7 % (0-2.0); EOS % 1.3 % (0-4.5); HEMATOCRIT 38.2 % (32.4-45.2); LYMPH % 18.8 % (8-40); MCH 32.7 pg (25.7-33.7); MCHC 34.1 g/dl (32.0-36.0); MEAN CELL VOLUME 95.9 fl (80-96); MEAN PLT VOLUME 8.6 fl (7.5-11.1); NEUT % 70.2 % (42.8-82.8); PLATELET COUNT 278 K/MM3 (134-434); RBC 3.99 M/mm3 (3.60-5.2); RDW 14.1 % (11.6-15.6)
[2019-06-19 20:20] LABS: VENOUS PC02 37.1 mmHg (38-52); VENOUS PH 7.42 (7.31-7.41); VENOUS PO2 79.4 mmHg (28-48)
[2019-06-19 20:36] LABS: INR 1.01 (0.83-1.09); PROTHROMBIN TIME (PATIENT) 11.9 SEC (9.7-13.0)
[2019-06-19 20:39] LABS: ACTIVATED PTT 26.7 SECONDS (25.2-36.5)
[2019-06-19 20:55] LABS: ALBUMIN 3.3 g/dl (3.4-5.0); BILIRUBIN,TOTAL 0.5 mg/dL (0.2-1); BLOOD UREA NITROGEN 26.3 mg/dL (7-18); CREATININE 0.8 mg/dL (0.55-1.3); POTASSIUM 4.4 mmol/L (3.5-5.1); TOT PROT 8.5 g/dl (6.4-8.2)
--- NOTE | 2019-06-20 00:33 | HP ---
Admitting History and Physical - Primary Care Physician PCP: Dr. Collier - Admission Chief Complaint: AMS, lethargic History of Present Illness: 54 year old female with CVA ( non-verbal), HTN, hypothyroidism, functional quad with peg tube arrived to Emergency room from [place] for evaluation of AMS. Per reports, pt is more lethargic than usual. Pt is unable to provide a history. At baseline the pt reportedly opens her eyes and tracks movement but would not open her eyes today. 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: Multiple Sclerosis (Questionable), Other (Recurrent falls, Ataxia,) Cardiovascular: Yes: CAD, HTN Musculoskeletal: Yes: Paraplegia - Past Surgical History Additional Past Surgical History: Peg tube - Smoking History Smoking history: Smoker current status UNK Have you smoked in the past 12 months: No If you are a former smoker, when did you quit?: 1985 - Alcohol/Substance Use Hx Alcohol Use: No History of Substance Use: reports: None - Social History Usual Living Arrangement: Yes: Alf ADL: Support Services History of Recent Travel: No Home Medications - Allergies Allergies/Adverse Reactions: Allergies Allergy/AdvReac Type Severity Reaction Status Date / Time Penicillins Allergy Verified 05/31/19 03:41 sulfur dioxide Allergy Verified 05/31/19 03:41 - Home Medications Home Medications: Ambulatory Orders Propranolol HCl [Propranolol HCl ER] 80 mg GT BID 08/14/18 Acetaminophen 650 mg GT Q6H PRN 10/06/18 Vits A and D/White Pet/Lanolin [A and D Ointment] 1 applic TP BID 10/06/18 Zinc Oxide 20% Topical Oint 1 applic TP Q8H 10/09/18 Baclofen [Lioresal -] 10 mg PEG DAILY tablet 10/17/18 Hydrocortisone 2.5% Topical Cr [Anusol-Hc -] 1 applic RC BID 04/22/19 Lactulose (Oral Use) [Cephulac -] 15 ml GT DAILY 04/22/19 Sennosides [Senna] 2 tab GT HS 04/22/19 Lisinopril [Prinivil] 2.5 mg NGT DAILY tablet 05/01/19 Ipratropium/Albuterol Sulfate [Iprat-Albut 0.5-3(2.5) mg/3 ml] 3 ml IH QID 05/17 Heparin - 5,000 unit SQ BID vial 05/24/19 Levothyroxine [Synthroid -] 150 mcg GT DAILY@0700 tablet 05/24/19 Bacitracin - [Bacitracin Topical Ointment -] 1 applic TP BID tube 06/08/19 Clotrimazole/Betamet Diprop [Lotrisone -] 1 applic TP BID tube 06/08/19 Nystatin Powder [Nystop Powder -] 1 applic TP TID applic 06/08/19 Family Medical History Family History: Unable to Obtain Review of Systems Unable to obtain ROS, reason: AMS Physical Examination Vital Signs: Vital Signs Temperature 100.8 F H 06/19/19 18:20 Pulse Rate 88 06/19/19 18:20 Respiratory Rate 18 06/19/19 18:20 Blood Pressure 97/72 06/19/19 18:20 O2 Sat by Pulse Oximetry (%) 94 L 06/19/19 18:20 Constitutional: Yes: No Distress Eyes: Yes: Conjunctiva Clear, EOM Intact HENT: Yes: Atraumatic, Normocephalic Neck: Yes: Supple, Trachea Midline Cardiovascular: Yes: S1, S2 Respiratory: Yes: Regular, Rales Gastrointestinal: Yes: Normal Bowel Sounds, Soft, Other (+PEG) Musculoskeletal: Yes: WNL Edema: No Peripheral Pulses WNL: Yes Integumentary: Yes: WNL Neurological: Yes: Other (does not follow commands) Labs: CBC, BMP 06/19/19 19:44 06/19/19 19:44 Imaging - Results Chest X-ray: Report Reviewed (CXR: LLL PNA) EKG: Report Reviewed (ECG: NSR; HR 85; QTc 430; left axis deviation; no KERRI) Problem List - Problems (1) HCAP (healthcare-associated pneumonia) Code(s): J18.9 - PNEUMONIA, UNSPECIFIED ORGANISM (2) CAD (coronary artery disease) Code(s): I25.10 - ATHSCL HEART DISEASE OF [place] CORONARY ARTERY W/O ANG PCTRS Qualifiers: Coronary Disease-Associated Artery/Lesion type: unspecified vessel or lesion type [place] vs. transplanted heart: [place] heart Associated angina: angina presence unspecified Qualified Code(s): I25.10 - Atherosclerotic heart disease of [place] coronary artery without angina pectoris (3) Multiple sclerosis Code(s): G35 - MULTIPLE SCLEROSIS (4) Functional quadriplegia Code(s): R53.2 - FUNCTIONAL QUADRIPLEGIA (5) HTN (hypertension) Code(s): I10 - ESSENTIAL (PRIMARY) HYPERTENSION (6) Hypothyroid Code(s): E03.9 - HYPOTHYROIDISM, UNSPECIFIED Assessment/Plan 54F who presents from [place] for evaluation of AMS. Per reports, pt is more lethargic than usual. Pt is unable to provide a history. # AMS # Hospital acquired pneumonia - cxr: left basilar consolidation - Tmax: 100.8, wbc, lactic acid: wnl - In ED given 1LNs, cefepimex1 - continue with cefepime iv abx - continue with ivf - tylenol as needed - nebs prn, o2 via NC - blood, urine cultures pending - ID evaluation - cbc in am # Pre-renal Azotemia - bun/cr: 26.3/0.8 - continue with ivf - bmp in am #htn - bp low - hold home meds #Hypothyroid -synthroid -tsh # constipation - senna, lactulose # MS - continue with baclofen #Functional quadriplegia -frequent turn and position -peg tube feeds Diet: peg tube VTE: heparin SQ Dispo: med-surg Visit type - Emergency Visit Emergency Visit: Yes ED Registration Date: 06/19/19 Care time: The patient presented to the Emergency Department on the above date and was hospitalized for further evaluation of their emergent condition. - New Patient This patient is new to me today: Yes Date on this admission: 06/20/19 - Critical Care Critical Care patient: No
[2019-06-20] MEDS ORDERED: IPRATROPIUM BR 0.02% 0.5 MG/2.5 ML VIAL.NEB. NEB PRN (00:46)
[2019-06-20] MEDS ORDERED: ALBUTEROL SO4 0.083% IH SOL 2.5 MG/3 ML VIAL.NEB. NEB PRN (00:46)
[2019-06-20] MEDS ORDERED: SODIUM CHLORIDE 0.45% 1,000 ML IV SCH (01:00)
[2019-06-20] MEDS ORDERED: CEFEPIME 1 GM in DEXTROSE 5%-WATER - 50 ML IVPB SCH (02:00)
[2019-06-20] MEDS ORDERED: CEFEPIME HCL/D5W 1 GM/50 ML BAG IVPB SCH (02:00)
[2019-06-20] MEDS ORDERED: CEFEPIME 1 GM/100 ML BAG IVPB ONE (02:24)
[2019-06-20 03:09] LABS: EPI CELLS 21.4 /HPF (0-5/HPF); HYALINE CASTS 161 /lpf (0-8); URINE APPEARANCE TURBID; URINE BILIRUBIN NEGATIVE (NEGATIVE); URINE COLOR YELLOW; URINE GLUCOSE (UA) NEGATIVE (NEGATIVE); URINE KETONE NEGATIVE (NEGATIVE); URINE LEUK ESTERASE 3+ (NEGATIVE); URINE NITRITE NEGATIVE (NEGATIVE); URINE PROTEIN 1+ (NEGATIVE); URINE UROBILINOGEN 0.2 mg/dL (0.2-1.0); URINE WBC 638 /hpf (0-5)
[2019-06-20 06:43] LABS: HEMATOCRIT 35.1 % (32.4-45.2); HEMOGLOBIN 12.1 GM/dL (10.7-15.3); MCH 33.4 pg (25.7-33.7); MCHC 34.4 g/dl (32.0-36.0); MEAN PLT VOLUME 8.5 fl (7.5-11.1); PLATELET COUNT 196 K/MM3 (134-434); RBC 3.61 M/mm3 (3.60-5.2); RDW 14.4 % (11.6-15.6); WHITE BLOOD COUNT 9.8 K/mm3 (4.0-10.0)
[2019-06-20 07:17] LABS: BLOOD UREA NITROGEN 22.6 mg/dL (7-18); CALCIUM 9.5 mg/dL (8.5-10.1); CREATININE 0.7 mg/dL (0.55-1.3)
[2019-06-20] MEDS: LEVOTHYROXINE NA 150 MCG TABLET GT SCH (08:00)
--- NOTE | 2019-06-20 09:20 | PN ---
Progress Note (short form) - Note Progress Note: ID CONSULT DICTATED UTI R/O SEPSIS SECNDARY TO UTI ?RECURRENT PNEUMONIA TOXIC METABOLIC ENCEPHALOPATHY HX NEUROMUSCULAR DISEASE PCN ALLERGY AWAIT C/S EMPIRIC VANCOMYCIN / AZTREONAM
[2019-06-20] MEDS ORDERED: AZTREONAM 1 GM VIAL (RESTRICTED TO ID) ONE ×2 (09:34→18:20)
[2019-06-20] MEDS ORDERED: VANCOMYCIN 1 GRAM (PRE-DOCKED) 1,000 MG/250 ML BAG IVPB ONE (09:34)
[2019-06-20] MEDS: AZTREONAM 1 GM in DEXTROSE 5%-WATER - 50 ML IVPB SCH ×2 (09:50→18:36)
[2019-06-20] MEDS ORDERED: ACETAMINOPHEN 325 MG TABLET (FP) ONE ×2 (09:52→17:40)
--- NOTE | 2019-06-20 09:55 | EKG ---
Test Reason : Blood Pressure : / mmHG Vent. Rate : 086 BPM Atrial Rate : 086 BPM P-R Int : 128 ms QRS Dur : 074 ms QT Int : 358 ms P-R-T Axes : 063 -52 027 degrees QTc Int : 428 ms NORMAL SINUS RHYTHM LEFT ANTERIOR FASCICULAR BLOCK ANTERIOR INFARCT , AGE UNDETERMINED ABNORMAL ECG WHEN COMPARED WITH ECG OF 31-MAY-2019 05:04, NO SIGNIFICANT CHANGE WAS FOUND Confirmed by ANDREW GONZALEZ MD ([id number]) on 06/20/2019 9:55:10 AM Referred By: Confirmed By:ANDREW GONZALEZ MD
[2019-06-20] MEDS: HYDROCORTISONE 2.5% TOPICAL CREAM 30 GM TUBE RC SCH ×2 (10:00→22:27)
--- NOTE | 2019-06-20 10:04 | CONS ---
DATE OF CONSULTATION: DATE OF DICTATION: 06/20/2019 INFECTIOUS DISEASE CONSULTATION HISTORY OF PRESENT ILLNESS: The patient is a 54-year-old female who suffers from neuromuscular disorder with recent hospital admissions now evaluated for possible sepsis. History was obtained from the chart as she cannot give a history secondary to her mental status. As noted she has had at least 3 admissions in the last 2 months for sepsis secondary to pneumonia and urinary tract infection. She is now admitted from the skilled nursing after she was noted to be more lethargic and less interactive. Normally the patient is awake; however, not verbally responsive. She is able to follow with her eyes; however, at the skilled nursing she was noted to be more lethargic and would not open her eyes. She was transferred to the emergency room where she was noted to have a fever of 100.8. Chest x-ray showed possible retrocardiac infiltrate. Urinalysis showed many white cells. She was treated with IV fluids and empiric cefepime. No reports of shaking chills, labored breathing, cough, vomiting, diarrhea or infected decubitus ulcers. PAST MEDICAL HISTORY: Positive for neuromuscular disorder, hypothyroidism, hypertension. ALLERGIES: PENICILLIN and SULFA. MEDICATIONS: Include Tylenol, albuterol, baclofen, Synthroid. SOCIAL HISTORY: She resides in a half-way facility. Is dependent in activities of daily living. Multiple recent hospitalizations. No tobacco or alcohol use. LABORATORY DATA: White count 9.8, hematocrit 35.1, platelet count 196. Creatinine 0.7. Urinalysis 638 white cells. Blood and urine cultures are pending. Chest x-ray shows possible retrocardiac infiltrate. PHYSICAL EXAMINATION: General: The patient is in a position on the stretcher in the emergency room. She is in no acute distress. Breathing is nonlabored. Vital Signs: Temperature 99.6, T-max 100.8, blood pressure 98/62, pulse 70 per minute, respirations 18 per minute. HEENT: Sclerae anicteric. Cardiac: Heart sounds S1, S2. Lungs: Grossly clear. Poor respiratory effort. Abdomen: Soft. No tenderness elicited. Feeding gastrostomy tube is in place. No erythema or drainage. Extremities: Negative for edema. IMPRESSION: 1. Urinary tract infection, possible sepsis secondary to urinary tract infection. 2. Rule out recurrent pneumonia. 3. Toxic metabolic encephalopathy. 4. History of neuromuscular disorder. 5. PENICILLIN allergy. RECOMMENDATIONS: Await sepsis workup. Obtain influenza swab. Empiric antibiotic coverage in this PENICILLIN allergic patient with vancomycin and Azactam. Thank you for the kind referral. FRANKO JANSEN M.D. [id number]
[2019-06-20] MEDS: ACETAMINOPHEN 325 MG TABLET (FP) NR PRN ×2 (10:15→17:43)
[2019-06-20] MEDS: LACTULOSE 20 GM/30 ML UDC (FOR ORAL USE ONLY) GT SCH (10:16)
[2019-06-20] MEDS: BACLOFEN 10 MG TABLET (FP) PEG SCH (10:17)
[2019-06-20] MEDS: HEPARIN NA (PORCINE) 5,000 UNITS/ML 1ML VIAL SQ SCH ×2 (10:17→22:27)
[2019-06-20] MEDS: VANCOMYCIN 1 GRAM (PRE-DOCKED) 1,000 MG/250 ML BAG IVPB SCH ×2 (10:17→22:28)
--- NOTE | 2019-06-20 10:40 | PN ---
Progress Note, Physician Chief Complaint: UTI AMS Pneumonia History of Present Illness: Previous notes and events reviewed awake, alert, nonverbal NAD patient had episode of vomitus after receiving meds via Gtube, no residual from Gtube reported no leukocytosis afebrile currently BC pending - Current Medication List Current Medications: Active Medications Acetaminophen (Tylenol -) 650 mg NR Q6H PRN PRN Reason: FEVER Last Admin: 06/20/19 10:15 Dose: 650 mg Albuterol Sulfate (Ventolin 0.083% Nebulizer Soln -) 1 amp NEB RQID PRN PRN Reason: SHORT OF BREATH/WHEEZING Baclofen (Lioresal -) 10 mg PEG DAILY KIMO Last Admin: 06/20/19 10:17 Dose: 10 mg Heparin Sodium (Porcine) (Heparin -) 5,000 unit SQ BID KIMO Last Admin: 06/20/19 10:17 Dose: 5,000 unit Hydrocortisone (Anusol 2.5% Hc Cream -) 1 applic RC BID KIMO Sodium Chloride (1/2 Normal Saline) 1,000 mls @ 50 mls/hr IV ASDIR KIMO Stop: 06/21/19 00:49 Last Admin: 06/20/19 02:20 Dose: 50 mls/hr Vancomycin HCl (Vancomycin (Pre-Docked)) 1,000 mg in 250 mls @ 166.667 mls/hr IVPB BID KIMO; Protocol Last Admin: 06/20/19 10:17 Dose: 166.667 mls/hr Aztreonam 1 gm/ Dextrose 50 mls @ 100 mls/hr IVPB Q8H-IV KIMO; Protocol Last Admin: 06/20/19 09:50 Dose: 100 mls/hr Ipratropium Lindsay (Atrovent 0.02% Nebulizer -) 1 amp NEB RQID PRN PRN Reason: WHEEZING Lactulose (Cephulac (Oral Use)) 10 gm GT DAILY KIMO Last Admin: 06/20/19 10:16 Dose: 10 gm Levothyroxine Sodium (Synthroid -) 150 mcg GT DAILY@0700 KIMO Last Admin: 06/20/19 08:00 Dose: 150 mcg Senna (Senna -) 2 tab PO HS KIMO - Objective Vital Signs: Vital Signs Temperature 99.6 F 06/20/19 07:06 Pulse Rate 88 06/20/19 01:00 Respiratory Rate 18 06/20/19 01:00 Blood Pressure 98/62 06/20/19 01:00 O2 Sat by Pulse Oximetry (%) 97 06/20/19 01:00 Constitutional: Yes: No Distress, Calm Eyes: Yes: Conjunctiva Clear HENT: Yes: Atraumatic Neck: Yes: Supple Cardiovascular: Yes: Regular Rate and Rhythm Respiratory: Yes: Regular, Diminished, On Nasal O2 Gastrointestinal: Yes: Normal Bowel Sounds, Soft, Other (Gtube) Genitourinary: Yes: Incontinence Musculoskeletal: Yes: Muscle Weakness Extremities: Yes: WNL, Other (lower extremity contracture) Edema: No Neurological: Yes: Alert, Pre-Existing Deficit Psychiatric: Yes: Alert Labs: CBC, BMP 06/20/19 06:00 06/20/19 06:00 INR, PTT INR 1.01 (0.83-1.09) 06/19/19 19:44 Problem List - Problems (1) HCAP (healthcare-associated pneumonia) Assessment/Plan: -CXR shows Left basilar consolidation -ID on board -no leukocytosis -afebrile -Vancomycin and Azactam -BC pending -Pulm consult -Bronchodilators -keep SpO2 >90% -O2 via NC -tylenol prn for temp >100F Code(s): J18.9 - PNEUMONIA, UNSPECIFIED ORGANISM (2) Multiple sclerosis Assessment/Plan: -PT -fall precautions -Baclofen Code(s): G35 - MULTIPLE SCLEROSIS (3) Functional quadriplegia Assessment/Plan: -PT -fall precautions -Baclofen Code(s): R53.2 - FUNCTIONAL QUADRIPLEGIA (4) Hypotension Assessment/Plan: -BP meds currently on hold -IV hydration -Cardiology consult Code(s): I95.9 - HYPOTENSION, UNSPECIFIED (5) Hypothyroid Assessment/Plan: -Levothyroxine -TSH 3.36 Code(s): E03.9 - HYPOTHYROIDISM, UNSPECIFIED (6) UTI (urinary tract infection) Assessment/Plan: -ID on board -UA shows 3+ leuks, 2+ blood, 1+ protein -UC pending -no leukocytosis -afebrile -Vancomycin and Azactam Code(s): N39.0 - URINARY TRACT INFECTION, SITE NOT SPECIFIED Qualifiers: Urinary tract infection type: site unspecified Hematuria presence: with hematuria Qualified Code(s): N39.0 - Urinary tract infection, site not specified; R31.9 - Hematuria, unspecified Assessment/Plan see problem list dvt ppx
[2019-06-20] MEDS: DEXTROSE 5%-NORMAL SALINE 1,000 ML IV SCH (11:02)
--- NOTE | 2019-06-20 13:38 | CON.CARD ---
Consult Consult Specialty:: Cardiology Referred by:: Dr. Castillo Reason for Consultation:: Hypotension - History of Present Illness Chief Complaint: Altered mental status History of Present Illness: 54 year old woman with a PMHx of CVA, non-verbal, HTN, hypothyroidism, functional quad with peg tube brought from [place] for altered mental status. Per reports, pt is more lethargic than usual. Pt is unable to provide a history. At baseline the pt reportedly opens her eyes and tracks movement but would not open her eyes today. The patient was seen by ID for UTI, LLL pneumonia and possible sepsis. BP is relatively low 100/68 and 96/62. Heart rate is within normal range. ECG shows sinus rhythm with LAFB. Previous echocardiogram on 05/25/19 showed normal LV size, wall motion and systolic function. LVEF = 60-65%. Normal RV. Normal LA and RA in size. No significant valvular abnormalities. 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), Other (Recurrent falls, Ataxia ,) Cardio/Vascular: Yes: CAD, HTN Musculoskeletal: Yes: Paraplegia - Alcohol/Substance Use Hx Alcohol Use: No History of Substance Use: reports: None - Smoking History Smoking history: Smoker current status UNK Have you smoked in the past 12 months: No If you are a former smoker, when did you quit?: 1985 - Social History Usual Living Arrangement: With Parent ADL: Support Services History of Recent Travel: No Home Medications - Allergies Allergies/Adverse Reactions: Allergies Allergy/AdvReac Type Severity Reaction Status Date / Time Penicillins Allergy Verified 05/31/19 03:41 sulfur dioxide Allergy Verified 05/31/19 03:41 - Home Medications Home Medications: Ambulatory Orders Propranolol HCl [Propranolol HCl ER] 80 mg GT BID 08/14/18 Acetaminophen 650 mg GT Q6H PRN 10/06/18 Vits A and D/White Pet/Lanolin [A and D Ointment] 1 applic TP BID 10/06/18 Zinc Oxide 20% Topical Oint 1 applic TP Q8H 10/09/18 Baclofen [Lioresal -] 10 mg PEG DAILY tablet 10/17/18 Hydrocortisone 2.5% Topical Cr [Anusol-Hc -] 1 applic RC BID 04/22/19 Lactulose (Oral Use) [Cephulac -] 15 ml GT DAILY 04/22/19 Sennosides [Senna] 2 tab GT HS 04/22/19 Lisinopril [Prinivil] 2.5 mg NGT DAILY tablet 05/01/19 Ipratropium/Albuterol Sulfate [Iprat-Albut 0.5-3(2.5) mg/3 ml] 3 ml IH QID 05/17 Heparin - 5,000 unit SQ BID vial 05/24/19 Levothyroxine [Synthroid -] 150 mcg GT DAILY@0700 tablet 05/24/19 Bacitracin - [Bacitracin Topical Ointment -] 1 applic TP BID tube 06/08/19 Clotrimazole/Betamet Diprop [Lotrisone -] 1 applic TP BID tube 06/08/19 Nystatin Powder [Nystop Powder -] 1 applic TP TID applic 06/08/19 Vital Signs: Vital Signs Temperature 99.6 F 06/20/19 07:06 Pulse Rate 88 06/20/19 01:00 Respiratory Rate 18 06/20/19 01:00 Blood Pressure 98/62 06/20/19 01:00 O2 Sat by Pulse Oximetry (%) 97 06/20/19 01:00 General: Well developed. Chronic ill. No acute distress. Head: Normocephalic. Atraumatic, Eyes: PERRLA, EOMI. Sclerae anicteric. Conjunctivae clear. Neck: Supple. No JVD. No bruits. Heart: Normal S1, S2: Regular rhythm and rate. Lungs: Symmetrical air entry. Coarse BS. Abdomen: Soft. Bowel sound positive. Extremities: No edema. No clubbing or cyanosis. - Other Data Labs, Other Data: CBC, BMP 06/20/19 06:00 06/20/19 06:00 INR, PTT INR 1.01 (0.83-1.09) 06/19/19 19:44 Troponin, BNP 06/19/19 19:44 Troponin I < 0.02 Troponin, BNP 06/19/19 19:44 Troponin I < 0.02 Imaging - Results EKG: Image Reviewed (ECG shows sinus rhythm with LAFB.) Assessment/Plan 54 year old woman with a PMHx of CVA, non-verbal, HTN, hypothyroidism, functional quad with peg tube brought from [place] for altered mental status. Per reports, pt is more lethargic than usual. Pt is unable to provide a history. At baseline the pt reportedly opens her eyes and tracks movement but would not open her eyes today. The patient was seen by ID for UTI, LLL pneumonia and possible sepsis. BP is relatively low 100/68 and 96/62. Heart rate is within normal range. ECG shows sinus rhythm with LAFB. Previous echocardiogram on 05/25/19 showed normal LV size, wall motion and systolic function. LVEF = 60-65%. Normal RV. Normal LA and RA in size. No significant valvular abnormalities. Hypotension: Low normal BP is the setting of possible sepsis. 1) May hold lisinopril and propranolol. 2) Hydration via peg. 3) IV hydration as needed. Please do not hesitate to call us for reconsult at any time if any further questions or additional issue arises regarding this patient.
--- NOTE | 2019-06-20 14:23 | CON.PULM ---
Consult Consult Specialty:: PULMONARY Referred by:: Dr Collier Reason for Consultation:: pneumonia - History of Present Illness Chief Complaint: lethargy History of Present Illness: 54yo female with h/o progressive neurodegenerative disorder, HTN, hypothyroidism , functional quadriplegia s/p PEG tube who was admitted from the longterm for increasing lethargy. Pt currently unable to provide further history at this time. Febrile to 100.8 on admission and urinalysis suggestive of UTI. CXR showing a left basilar consolidation. Started on IV antibiotics. 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 (Questionable), Other (Recurrent falls, Ataxia ,) Cardio/Vascular: Yes: CAD, HTN Musculoskeletal: Yes: Paraplegia - Alcohol/Substance Use Hx Alcohol Use: No History of Substance Use: reports: None - Smoking History Smoking history: Smoker current status UNK Have you smoked in the past 12 months: No If you are a former smoker, when did you quit?: 1985 - Social History Usual Living Arrangement: With Parent ADL: Support Services History of Recent Travel: No Home Medications - Allergies Allergies/Adverse Reactions: Allergies Allergy/AdvReac Type Severity Reaction Status Date / Time Penicillins Allergy Verified 05/31/19 03:41 sulfur dioxide Allergy Verified 05/31/19 03:41 - Home Medications Home Medications: Ambulatory Orders Propranolol HCl [Propranolol HCl ER] 80 mg GT BID 08/14/18 Acetaminophen 650 mg GT Q6H PRN 10/06/18 Vits A and D/White Pet/Lanolin [A and D Ointment] 1 applic TP BID 10/06/18 Zinc Oxide 20% Topical Oint 1 applic TP Q8H 10/09/18 Baclofen [Lioresal -] 10 mg PEG DAILY tablet 10/17/18 Hydrocortisone 2.5% Topical Cr [Anusol-Hc -] 1 applic RC BID 04/22/19 Lactulose (Oral Use) [Cephulac -] 15 ml GT DAILY 04/22/19 Sennosides [Senna] 2 tab GT HS 04/22/19 Lisinopril [Prinivil] 2.5 mg NGT DAILY tablet 05/01/19 Ipratropium/Albuterol Sulfate [Iprat-Albut 0.5-3(2.5) mg/3 ml] 3 ml IH QID 05/17 Heparin - 5,000 unit SQ BID vial 05/24/19 Levothyroxine [Synthroid -] 150 mcg GT DAILY@0700 tablet 05/24/19 Bacitracin - [Bacitracin Topical Ointment -] 1 applic TP BID tube 06/08/19 Clotrimazole/Betamet Diprop [Lotrisone -] 1 applic TP BID tube 06/08/19 Nystatin Powder [Nystop Powder -] 1 applic TP TID applic 06/08/19 Review of Systems Unable to obtain ROS, reason: pt nonverbal Physical Exam Vital Sings: Vital Signs Temperature 99.6 F 06/20/19 07:06 Pulse Rate 98 H 06/20/19 14:17 Respiratory Rate 22 H 06/20/19 14:17 Blood Pressure 97/72 06/20/19 14:17 O2 Sat by Pulse Oximetry (%) 99 06/20/19 14:17 Constitutional: Yes: Calm, Diaphoresis Eyes: Yes: Conjunctiva Clear, EOM Intact HENT: Yes: Atraumatic, Normocephalic Neck: Yes: Supple, Trachea Midline Cardiovascular: Yes: Regular Rate and Rhythm Respiratory: Yes: Diminished (decreased breath sounds at the bases) ...Clubbing: No Gastrointestinal: Yes: Normal Bowel Sounds, Soft. No: Tenderness Edema: No Neurological: Yes: Lethargy Labs: CBC, BMP 06/20/19 06:00 06/20/19 06:00 Imaging - Results Chest X-ray: Report Reviewed, Image Reviewed (left basilar consolidation) Problem List - Problems (1) Pneumonia Code(s): J18.9 - PNEUMONIA, UNSPECIFIED ORGANISM Qualifiers: Pneumonia type: due to unspecified organism Laterality: left Lung location: unspecified part of lung Qualified Code(s): J18.9 - Pneumonia, unspecified organism (2) UTI (urinary tract infection) Code(s): N39.0 - URINARY TRACT INFECTION, SITE NOT SPECIFIED Qualifiers: Urinary tract infection type: site unspecified Hematuria presence: with hematuria Qualified Code(s): N39.0 - Urinary tract infection, site not specified; R31.9 - Hematuria, unspecified Assessment/Plan UTI Pneumonia Sepsis Progressive Neurodegerative Disease Functional Quadriplegia HTN Hypothyroidism - IV antibiotics - f/u cultures - IVF - O2 to keep spO2 >90% - aspiration precautions - DVT prophylaxis Thank you for this consult Michael Carmen MD
[2019-06-20] MEDS ORDERED: DEXTROSE 5%-WATER - 50 ML IVPB ONE (18:20)
[2019-06-20 18:35] VITALS: BMI 20.2
[2019-06-20] MEDS ORDERED: SENNOSIDES GT SCH (22:00)
[2019-06-20] MEDS: SENNOSIDES 8.6MG TABLET (FP) PO SCH (22:28)
[2019-06-21] MEDS ORDERED: AZTREONAM 1 GM VIAL (RESTRICTED TO ID) ONE ×3 (01:17→17:01)
[2019-06-21] MEDS ORDERED: DEXTROSE 5%-WATER - 50 ML IVPB ONE ×3 (01:18→17:01)
[2019-06-21] MEDS: AZTREONAM 1 GM in DEXTROSE 5%-WATER - 50 ML IVPB SCH ×3 (01:31→17:11)
[2019-06-21] MEDS: LEVOTHYROXINE NA 150 MCG TABLET GT SCH (06:34)
--- NOTE | 2019-06-21 07:52 | PN ---
Progress Note, Physician - Current Medication List Current Medications: Active Medications Acetaminophen (Tylenol -) 650 mg NR Q6H PRN PRN Reason: FEVER Last Admin: 06/20/19 17:43 Dose: 650 mg Albuterol Sulfate (Ventolin 0.083% Nebulizer Soln -) 1 amp NEB RQID PRN PRN Reason: SHORT OF BREATH/WHEEZING Baclofen (Lioresal -) 10 mg PEG DAILY [facility] Last Admin: 06/20/19 10:17 Dose: 10 mg Heparin Sodium (Porcine) (Heparin -) 5,000 unit SQ BID [facility] Last Admin: 06/20/19 22:27 Dose: 5,000 unit Hydrocortisone (Anusol 2.5% Hc Cream -) 1 applic RC BID [facility] Last Admin: 06/20/19 22:27 Dose: 1 applic Vancomycin HCl (Vancomycin (Pre-Docked)) 1,000 mg in 250 mls @ 166.667 mls/hr IVPB BID [facility]; Protocol Last Admin: 06/20/19 22:28 Dose: 166.667 mls/hr Aztreonam 1 gm/ Dextrose 50 mls @ 100 mls/hr IVPB Q8H-IV [facility]; Protocol Last Admin: 06/21/19 01:31 Dose: 100 mls/hr Dextrose/Sodium Chloride (D5-Ns -) 1,000 mls @ 42 mls/hr IV ASDIR [facility] Last Admin: 06/20/19 11:02 Dose: 42 mls/hr Ipratropium [place] (Atrovent 0.02% Nebulizer -) 1 amp NEB RQID PRN PRN Reason: WHEEZING Lactulose (Cephulac (Oral Use)) 10 gm GT DAILY [facility] Last Admin: 06/20/19 10:16 Dose: 10 gm Levothyroxine Sodium (Synthroid -) 150 mcg GT DAILY@0700 [facility] Last Admin: 06/21/19 06:34 Dose: 150 mcg Senna (Senna -) 2 tab PO HS [facility] Last Admin: 06/20/19 22:28 Dose: Not Given - Objective Vital Signs: Vital Signs Temperature 97.7 F 06/21/19 05:25 Pulse Rate 91 H 06/21/19 05:25 Respiratory Rate 18 06/21/19 05:25 Blood Pressure 95/64 06/21/19 05:25 O2 Sat by Pulse Oximetry (%) 94 L 06/21/19 00:29 Cardiovascular: Yes: S1, S2 Respiratory: Yes: On Nasal O2, Rhonchi Gastrointestinal: Yes: Normal Bowel Sounds, Soft Labs: CBC, BMP 06/20/19 06:00 06/20/19 06:00 INR, PTT INR 1.01 (0.83-1.09) 06/19/19 19:44 Problem List - Problems (1) HCAP (healthcare-associated pneumonia) Assessment/Plan: -CXR shows Left basilar consolidation -ID on board -no leukocytosis -afebrile -Vancomycin and Azactam -BC pending Microbiology 06/19/19 19:44 Blood - Peripheral Venous Blood Culture - Preliminary NO GROWTH OBTAINED AFTER 24 HOURS, INCUBATION TO CONTINUE FOR 4 DAYS. 06/19/19 19:44 Blood - Peripheral Venous Blood Culture - Preliminary Pending Organism -Pulm consult -Bronchodilators -keep SpO2 >90% -O2 via NC -tylenol prn for temp >100F Code(s): J18.9 - PNEUMONIA, UNSPECIFIED ORGANISM (2) Dysphagia Code(s): R13.10 - DYSPHAGIA, UNSPECIFIED (3) Functional quadriplegia Assessment/Plan: -PT -fall precautions -Baclofen Code(s): R53.2 - FUNCTIONAL QUADRIPLEGIA (4) Neuro-degenerative disorders Assessment/Plan: -PT -fall precautions -Baclofen -Neuro Code(s): G31.9 - DEGENERATIVE DISEASE OF NERVOUS SYSTEM, UNSPECIFIED (5) UTI (urinary tract infection) Assessment/Plan: -ID on board -UA shows 3+ leuks, 2+ blood, 1+ protein -UC pending -no leukocytosis -afebrile -Vancomycin and Azactam Code(s): N39.0 - URINARY TRACT INFECTION, SITE NOT SPECIFIED Qualifiers: Urinary tract infection type: site unspecified Hematuria presence: with hematuria Qualified Code(s): N39.0 - Urinary tract infection, site not specified; R31.9 - Hematuria, unspecified (6) Bacteremia Assessment/Plan: Microbiology 06/19/19 19:44 Blood - Peripheral Venous Blood Culture - Preliminary NO GROWTH OBTAINED AFTER 24 HOURS, INCUBATION TO CONTINUE FOR 4 DAYS. 06/19/19 19:44 Blood - Peripheral Venous Blood Culture - Preliminary Pending Organism Repeat Code(s): R78.81 - BACTEREMIA
[2019-06-21 08:57] LABS: HEMATOCRIT 32.3 % (32.4-45.2); HEMOGLOBIN 11.2 GM/dL (10.7-15.3); MCH 33.1 pg (25.7-33.7); MCHC 34.6 g/dl (32.0-36.0); MEAN CELL VOLUME 95.9 fl (80-96); MEAN PLT VOLUME 8.6 fl (7.5-11.1); PLATELET COUNT 144 K/MM3 (134-434); RBC 3.37 M/mm3 (3.60-5.2); WHITE BLOOD COUNT 4.5 K/mm3 (4.0-10.0)
[2019-06-21] MEDS: HYDROCORTISONE 2.5% TOPICAL CREAM 30 GM TUBE RC SCH ×2 (09:22→22:19)
[2019-06-21] MEDS: HEPARIN NA (PORCINE) 5,000 UNITS/ML 1ML VIAL SQ SCH ×2 (09:22→22:20)
[2019-06-21] MEDS: BACLOFEN 10 MG TABLET (FP) PEG SCH (09:22)
[2019-06-21] MEDS: LACTULOSE 20 GM/30 ML UDC (FOR ORAL USE ONLY) GT SCH (09:22)
[2019-06-21 09:25] LABS: ALBUMIN 2.7 g/dl (3.4-5.0); BILIRUBIN,TOTAL 0.6 mg/dL (0.2-1); BLOOD UREA NITROGEN 13.6 mg/dL (7-18); CALCIUM 9.1 mg/dL (8.5-10.1); CREATININE 0.5 mg/dL (0.55-1.3); POTASSIUM 3.5 mmol/L (3.5-5.1); TOT PROT 6.6 g/dl (6.4-8.2)
--- NOTE | 2019-06-21 10:06 | PN ---
Progress Note (short form) - Note Progress Note: PULMONARY More awake today. Fever curve trending down. Blood culture positive for gram positive cocci. Vital Signs Period Temp Pulse Resp BP Sys/Ricardo Pulse Ox Last 24 Hr 97.7 F-100.2 F 91-102 18-22 94-99/60-78 94-99 Gen: more awake Heart: RRR Lung: decreased breath sounds at the bases Abd: soft, nontender Ext: no edema, contracted CBC, BMP 06/21/19 08:30 06/21/19 08:30 Active Medications Acetaminophen (Tylenol -) 650 mg NR Q6H PRN PRN Reason: FEVER Last Admin: 06/20/19 17:43 Dose: 650 mg Albuterol Sulfate (Ventolin 0.083% Nebulizer Soln -) 1 amp NEB RQID PRN PRN Reason: SHORT OF BREATH/WHEEZING Baclofen (Lioresal -) 10 mg PEG DAILY [facility] Last Admin: 06/21/19 09:22 Dose: 10 mg Heparin Sodium (Porcine) (Heparin -) 5,000 unit SQ BID [facility] Last Admin: 06/21/19 09:22 Dose: 5,000 unit Hydrocortisone (Anusol 2.5% Hc Cream -) 1 applic RC BID [facility] Last Admin: 06/21/19 09:22 Dose: 1 applic Vancomycin HCl (Vancomycin (Pre-Docked)) 1,000 mg in 250 mls @ 166.667 mls/hr IVPB BID [facility]; Protocol Last Admin: 06/20/19 22:28 Dose: 166.667 mls/hr Aztreonam 1 gm/ Dextrose 50 mls @ 100 mls/hr IVPB Q8H-IV [facility]; Protocol Last Admin: 06/21/19 09:21 Dose: 100 mls/hr Dextrose/Sodium Chloride (D5-Ns -) 1,000 mls @ 42 mls/hr IV ASDIR [facility] Last Admin: 06/20/19 11:02 Dose: 42 mls/hr Ipratropium [place] (Atrovent 0.02% Nebulizer -) 1 amp NEB RQID PRN PRN Reason: WHEEZING Lactulose (Cephulac (Oral Use)) 10 gm GT DAILY [facility] Last Admin: 06/21/19 09:22 Dose: 10 gm Levothyroxine Sodium (Synthroid -) 150 mcg GT DAILY@0700 [facility] Last Admin: 06/21/19 06:34 Dose: 150 mcg Senna (Senna -) 2 tab PO HS [facility] Last Admin: 06/20/19 22:28 Dose: Not Given A/P UTI Pneumonia Sepsis Progressive Neurodegerative Disease Functional Quadriplegia HTN Hypothyroidism - continue antibiotics - f/u cultures - IVF - O2 to keep spO2 >90% - aspiration precautions - DVT prophylaxis Problem List - Problems (1) Pneumonia Code(s): J18.9 - PNEUMONIA, UNSPECIFIED ORGANISM Qualifiers: Pneumonia type: due to unspecified organism Laterality: left Lung location: unspecified part of lung Qualified Code(s): J18.9 - Pneumonia, unspecified organism (2) UTI (urinary tract infection) Code(s): N39.0 - URINARY TRACT INFECTION, SITE NOT SPECIFIED Qualifiers: Urinary tract infection type: site unspecified Hematuria presence: with hematuria Qualified Code(s): N39.0 - Urinary tract infection, site not specified; R31.9 - Hematuria, unspecified
[2019-06-21] MEDS: VANCOMYCIN 1 GRAM (PRE-DOCKED) 1,000 MG/250 ML BAG IVPB SCH ×2 (10:43→22:20)
[2019-06-21] MEDS: DEXTROSE 5%-NORMAL SALINE 1,000 ML IV SCH (10:43)
--- NOTE | 2019-06-21 12:22 | PN ---
Progress Note, Physician History of Present Illness: AWAKE, ALERT NO ACUTE DISTRESS BREATHING NON LABORED LOW GRADE TEMPS BC STAPH SP - Current Medication List Current Medications: Active Medications Acetaminophen (Tylenol -) 650 mg NR Q6H PRN PRN Reason: FEVER Last Admin: 06/20/19 17:43 Dose: 650 mg Albuterol Sulfate (Ventolin 0.083% Nebulizer Soln -) 1 amp NEB RQID PRN PRN Reason: SHORT OF BREATH/WHEEZING Baclofen (Lioresal -) 10 mg PEG DAILY [facility] Last Admin: 06/21/19 09:22 Dose: 10 mg Heparin Sodium (Porcine) (Heparin -) 5,000 unit SQ BID [facility] Last Admin: 06/21/19 09:22 Dose: 5,000 unit Hydrocortisone (Anusol 2.5% Hc Cream -) 1 applic RC BID [facility] Last Admin: 06/21/19 09:22 Dose: 1 applic Vancomycin HCl (Vancomycin (Pre-Docked)) 1,000 mg in 250 mls @ 166.667 mls/hr IVPB BID [facility]; Protocol Last Admin: 06/21/19 10:43 Dose: 166.667 mls/hr Aztreonam 1 gm/ Dextrose 50 mls @ 100 mls/hr IVPB Q8H-IV [facility]; Protocol Last Admin: 06/21/19 09:21 Dose: 100 mls/hr Dextrose/Sodium Chloride (D5-Ns -) 1,000 mls @ 42 mls/hr IV ASDIR [facility] Last Admin: 06/21/19 10:43 Dose: Not Given Ipratropium [place] (Atrovent 0.02% Nebulizer -) 1 amp NEB RQID PRN PRN Reason: WHEEZING Lactulose (Cephulac (Oral Use)) 10 gm GT DAILY [facility] Last Admin: 06/21/19 09:22 Dose: 10 gm Levothyroxine Sodium (Synthroid -) 150 mcg GT DAILY@0700 [facility] Last Admin: 06/21/19 06:34 Dose: 150 mcg Senna (Senna -) 2 tab PO HS [facility] Last Admin: 06/20/19 22:28 Dose: Not Given - Objective Vital Signs: Vital Signs Temperature 100.1 F H 06/21/19 09:00 Pulse Rate 93 H 06/21/19 09:00 Respiratory Rate 18 06/21/19 09:00 Blood Pressure 95/60 06/21/19 09:00 O2 Sat by Pulse Oximetry (%) 96 06/21/19 09:00 Constitutional: Yes: No Distress Eyes: Yes: Conjunctiva Clear Cardiovascular: Yes: Regular Rate and Rhythm, S1, S2 Respiratory: Yes: CTA Bilaterally Gastrointestinal: Yes: Normal Bowel Sounds, Soft. No: Tenderness Edema: No Labs: CBC, BMP 06/21/19 08:30 06/21/19 08:30 INR, PTT INR 1.01 (0.83-1.09) 06/19/19 19:44 Assessment/Plan + BC R/O STAPH SEPSIS FEVER UTI ?RECURRENT PNEUMONIA TOXIC METABOLIC ENCEPHALOPATHY IMPROVED NEUROMUSCULAR DISORDER PCN ALLERGY AWAIT C/S REPEAT BC OBTAINED CONTINUE EMPIRIC VANCOMYCIN/ AZTREONAM
[2019-06-21] MEDS: ACETAMINOPHEN 325 MG TABLET (FP) NR PRN (13:07)
--- NOTE | 2019-06-21 20:03 | CONSULT ---
Consult - text type - Consultation Consultation Note: NEUROLOGICAL CONSULTATION is greatly appreciated: This 54 yo woman has a progressive neurodegenerative disease beginning with progrssive spastic gait dysfunction before the age of 40. Carried as "Multiple Sclerosis" but multiple brain and spinal MRI's (last here on 01/24/17) show progressive, severe atrophy but no demyelinating lesions. In W/ C 4-5 years years then progressive dysarthria, dysphagia (S/P PEG last year) and pseudobulbar affect. Now admitted with decreased responsiveness and UTI (Urine WBC= 638) and low- grade temps. Now on Aztreonam and Vancomicin. Meds include: Propranolol ER 80; Acetaminophen; Baclofen 10 mg qd; Lactulose; Lisinopril; Albuterol; SQ Heparin; Synthroid; Bacitracin.Nystatin. SARA: Neck rigid in all directions. Neg Kernig's. In diaper. S/P PEG NEURO: Severe dysarthric speech (unintelligible). Follows simple commands ++Glabella, snout, grasps. Near constant pseudobulbar affective expression Full figueredo to threat and full EOM's. severely depressed tongue and gag. Rigid tone with severe contractures both knees. Brisk reflexes. Bilateral Babinskis. Feels pinch all fours. IMP: Severe B/L cerebral dysfunction characterized by relentlessly progressive upper motor neuron degeneration. 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 D/C Baclofen. Thank you very much, Rush Phan MD
[2019-06-21] MEDS: SENNOSIDES 8.6MG TABLET (FP) PO SCH (22:20)
[2019-06-22] MEDS ORDERED: AZTREONAM 1 GM VIAL (RESTRICTED TO ID) ONE ×3 (02:17→17:33)
[2019-06-22] MEDS ORDERED: DEXTROSE 5%-WATER - 50 ML IVPB ONE ×3 (02:17→17:33)
[2019-06-22] MEDS: AZTREONAM 1 GM in DEXTROSE 5%-WATER - 50 ML IVPB SCH ×3 (02:22→17:35)
[2019-06-22] MEDS: LEVOTHYROXINE NA 150 MCG TABLET GT SCH (06:25)
[2019-06-22 09:17] LABS: BASO % 0.5 % (0-2.0); EOS % 12.1 % (0-4.5); HEMATOCRIT 30.5 % (32.4-45.2); HEMOGLOBIN 10.6 GM/dL (10.7-15.3); LYMPH % 14.9 % (8-40); MCHC 34.7 g/dl (32.0-36.0); MEAN CELL VOLUME 94.9 fl (80-96); MEAN PLT VOLUME 8.7 fl (7.5-11.1); MONO % 9.3 % (3.8-10.2); NEUT % 63.2 % (42.8-82.8); PLATELET COUNT 169 K/MM3 (134-434); RBC 3.21 M/mm3 (3.60-5.2); RDW 13.6 % (11.6-15.6); WHITE BLOOD COUNT 4.1 K/mm3 (4.0-10.0)
--- NOTE | 2019-06-22 09:42 | PN ---
Progress Note, Physician - Current Medication List Current Medications: Active Medications Acetaminophen (Tylenol -) 650 mg NR Q6H PRN PRN Reason: FEVER Last Admin: 06/21/19 13:07 Dose: 650 mg Albuterol Sulfate (Ventolin 0.083% Nebulizer Soln -) 1 amp NEB RQID PRN PRN Reason: SHORT OF BREATH/WHEEZING Baclofen (Lioresal -) 10 mg PEG DAILY [facility] Last Admin: 06/21/19 09:22 Dose: 10 mg Heparin Sodium (Porcine) (Heparin -) 5,000 unit SQ BID [facility] Last Admin: 06/21/19 22:20 Dose: 5,000 unit Hydrocortisone (Anusol 2.5% Hc Cream -) 1 applic RC BID [facility] Last Admin: 06/21/19 22:19 Dose: 1 applic Vancomycin HCl (Vancomycin (Pre-Docked)) 1,000 mg in 250 mls @ 166.667 mls/hr IVPB BID [facility]; Protocol Last Admin: 06/21/19 22:20 Dose: 166.667 mls/hr Aztreonam 1 gm/ Dextrose 50 mls @ 100 mls/hr IVPB Q8H-IV [facility]; Protocol Last Admin: 06/22/19 02:22 Dose: 100 mls/hr Dextrose/Sodium Chloride (D5-Ns -) 1,000 mls @ 42 mls/hr IV ASDIR [facility] Last Admin: 06/21/19 10:43 Dose: Not Given Ipratropium [place] (Atrovent 0.02% Nebulizer -) 1 amp NEB RQID PRN PRN Reason: WHEEZING Lactulose (Cephulac (Oral Use)) 10 gm GT DAILY [facility] Last Admin: 06/21/19 09:22 Dose: 10 gm Levothyroxine Sodium (Synthroid -) 150 mcg GT DAILY@0700 [facility] Last Admin: 06/22/19 06:25 Dose: 150 mcg Senna (Senna -) 2 tab PO HS [facility] Last Admin: 06/21/19 22:20 Dose: 2 tab - Objective Vital Signs: Vital Signs Temperature 98.1 F 06/22/19 05:59 Pulse Rate 94 H 06/22/19 05:59 Respiratory Rate 18 06/22/19 05:59 Blood Pressure 100/68 06/22/19 05:59 O2 Sat by Pulse Oximetry (%) 96 06/22/19 03:58 Cardiovascular: Yes: S1, S2 Respiratory: Yes: Regular, CTA Bilaterally Gastrointestinal: Yes: Normal Bowel Sounds, Soft. No: Tenderness Edema: No Labs: CBC, BMP 06/22/19 08:26 INR, PTT INR 1.01 (0.83-1.09) 06/19/19 19:44 Problem List - Problems (1) HCAP (healthcare-associated pneumonia) Assessment/Plan: -CXR shows Left basilar consolidation -ID on board -no leukocytosis -afebrile -Vancomycin and Azactam -BC pending Microbiology 06/19/19 19:44 Blood Culture - Final Blood - Peripheral Venous Mr S Aureus Staphylococcus Haemolyticus 06/21/19 08:40 Blood Culture - Preliminary Blood - Peripheral Venous NO GROWTH OBTAINED AFTER 24 HOURS, INCUBATION TO CONTINUE FOR 4 DAYS. 06/21/19 08:45 Blood Culture - Preliminary Blood - Peripheral Venous NO GROWTH OBTAINED AFTER 24 HOURS, INCUBATION TO CONTINUE FOR 4 DAYS. 06/19/19 19:44 Blood Culture - Preliminary Blood - Peripheral Venous NO GROWTH OBTAINED AFTER 48 HOURS, INCUBATION TO CONTINUE FOR 3 DAYS. 06/20/19 01:00 Urine Culture - Final Urine - Urine - Catheterized Yeast Like Organism -Pulm consult -Bronchodilators -keep SpO2 >90% -O2 via NC -tylenol prn for temp >100F Code(s): J18.9 - PNEUMONIA, UNSPECIFIED ORGANISM (2) Dysphagia Code(s): R13.10 - DYSPHAGIA, UNSPECIFIED (3) Functional quadriplegia Assessment/Plan: -PT -fall precautions -Baclofen Code(s): R53.2 - FUNCTIONAL QUADRIPLEGIA (4) Neuro-degenerative disorders Assessment/Plan: -PT -fall precautions -Baclofen -Neuro Code(s): G31.9 - DEGENERATIVE DISEASE OF NERVOUS SYSTEM, UNSPECIFIED (5) UTI (urinary tract infection) Assessment/Plan: -ID on board -UA shows 3+ leuks, 2+ blood, 1+ protein -UC pending -no leukocytosis -afebrile -Vancomycin and Azactam Code(s): N39.0 - URINARY TRACT INFECTION, SITE NOT SPECIFIED Qualifiers: Urinary tract infection type: site unspecified Hematuria presence: with hematuria Qualified Code(s): N39.0 - Urinary tract infection, site not specified; R31.9 - Hematuria, unspecified (6) Bacteremia Assessment/Plan: Microbiology ABX PER ID Microbiology 06/19/19 19:44 Blood Culture - Final Blood - Peripheral Venous Mr S Aureus Staphylococcus Haemolyticus 06/21/19 08:40 Blood Culture - Preliminary Blood - Peripheral Venous NO GROWTH OBTAINED AFTER 24 HOURS, INCUBATION TO CONTINUE FOR 4 DAYS. 06/21/19 08:45 Blood Culture - Preliminary Blood - Peripheral Venous NO GROWTH OBTAINED AFTER 24 HOURS, INCUBATION TO CONTINUE FOR 4 DAYS. 06/19/19 19:44 Blood Culture - Preliminary Blood - Peripheral Venous NO GROWTH OBTAINED AFTER 48 HOURS, INCUBATION TO CONTINUE FOR 3 DAYS. 06/20/19 01:00 Urine Culture - Final Urine - Urine - Catheterized Yeast Like Organism Code(s): R78.81 - BACTEREMIA (7) Anemia Assessment/Plan: W/U ORDERED MONITOR CONSIDER GI Code(s): D64.9 - ANEMIA, UNSPECIFIED
[2019-06-22 10:03] LABS: ALBUMIN 2.6 g/dl (3.4-5.0); BILIRUBIN,TOTAL 0.5 mg/dL (0.2-1); BLOOD UREA NITROGEN 9.4 mg/dL (7-18); CALCIUM 9.1 mg/dL (8.5-10.1); CREATININE 0.5 mg/dL (0.55-1.3); POTASSIUM 3.6 mmol/L (3.5-5.1); TOT PROT 6.6 g/dl (6.4-8.2)
[2019-06-22] MEDS: HEPARIN NA (PORCINE) 5,000 UNITS/ML 1ML VIAL SQ SCH ×2 (10:09→23:02)
[2019-06-22] MEDS: BACLOFEN 10 MG TABLET (FP) PEG SCH (10:09)
[2019-06-22] MEDS: LACTULOSE 20 GM/30 ML UDC (FOR ORAL USE ONLY) GT SCH (10:10)
[2019-06-22] MEDS: HYDROCORTISONE 2.5% TOPICAL CREAM 30 GM TUBE RC SCH ×2 (10:10→23:02)
[2019-06-22] MEDS: VANCOMYCIN 1 GRAM (PRE-DOCKED) 1,000 MG/250 ML BAG IVPB SCH ×2 (10:46→23:02)
--- NOTE | 2019-06-22 12:26 | PN ---
Progress Note (short form) - Note Progress Note: PULMONARY Blood culture positive for gram positive cocci MRSA VSS/AFEBRILE Gen: more awake Heart: RRR Lung: decreased breath sounds at the bases Abd: soft, nontender Ext: no edema, contracted LABS/MEDS/NOTES/IMAGES/MICRO NOTED A/P Mrsa bacteremia UTI Pneumonia Sepsis Progressive Neurodegerative Disease Functional Quadriplegia HTN Hypothyroidism - continue antibiotics - f/u cultures - IVF - O2 to keep spO2 >90% - aspiration precautions - DVT prophylaxis - Isolation Mychal TRINH MD
--- NOTE | 2019-06-22 17:32 | PN ---
Progress Note, Physician History of Present Illness: AWAKE, ALERT WEEPY NON VERBAL NO ACUTE DISTRESS BREATHING NON LABORED AFEBRILE BC MRSA, SCN - Current Medication List Current Medications: Active Medications Acetaminophen (Tylenol -) 650 mg NR Q6H PRN PRN Reason: FEVER Last Admin: 06/21/19 13:07 Dose: 650 mg Albuterol Sulfate (Ventolin 0.083% Nebulizer Soln -) 1 amp NEB RQID PRN PRN Reason: SHORT OF BREATH/WHEEZING Baclofen (Lioresal -) 10 mg PEG DAILY [facility] Last Admin: 06/22/19 10:09 Dose: 10 mg Heparin Sodium (Porcine) (Heparin -) 5,000 unit SQ BID [facility] Last Admin: 06/22/19 10:09 Dose: 5,000 unit Hydrocortisone (Anusol 2.5% Hc Cream -) 1 applic RC BID [facility] Last Admin: 06/22/19 10:10 Dose: 1 applic Vancomycin HCl (Vancomycin (Pre-Docked)) 1,000 mg in 250 mls @ 166.667 mls/hr IVPB BID [facility]; Protocol Last Admin: 06/22/19 10:46 Dose: 166.667 mls/hr Aztreonam 1 gm/ Dextrose 50 mls @ 100 mls/hr IVPB Q8H-IV [facility]; Protocol Last Admin: 06/22/19 10:05 Dose: 100 mls/hr Dextrose/Sodium Chloride (D5-Ns -) 1,000 mls @ 42 mls/hr IV ASDIR [facility] Last Admin: 06/21/19 10:43 Dose: Not Given Ipratropium [place] (Atrovent 0.02% Nebulizer -) 1 amp NEB RQID PRN PRN Reason: WHEEZING Lactulose (Cephulac (Oral Use)) 10 gm GT DAILY [facility] Last Admin: 06/22/19 10:10 Dose: 10 gm Levothyroxine Sodium (Synthroid -) 150 mcg GT DAILY@0700 [facility] Last Admin: 06/22/19 06:25 Dose: 150 mcg Senna (Senna -) 2 tab PO HS [facility] Last Admin: 06/21/19 22:20 Dose: 2 tab - Objective Vital Signs: Vital Signs Temperature 97.9 F 06/22/19 13:45 Pulse Rate 86 06/22/19 13:45 Respiratory Rate 20 06/22/19 13:45 Blood Pressure 104/50 L 06/22/19 13:45 O2 Sat by Pulse Oximetry (%) 98 06/22/19 09:00 Constitutional: Yes: No Distress Eyes: Yes: Conjunctiva Clear Cardiovascular: Yes: Regular Rate and Rhythm, S1, S2 Respiratory: Yes: Diminished Gastrointestinal: Yes: Normal Bowel Sounds, Soft. No: Tenderness Labs: CBC, BMP 06/22/19 08:26 06/22/19 08:26 INR, PTT INR 1.01 (0.83-1.09) 06/19/19 19:44 Assessment/Plan + BC MRSA, SCN FEVER IMPROVED UTI ?RECURRENT PNEUMONIA TOXIC METABOLIC ENCEPHALOPATHY IMPROVED NEUROMUSCULAR DISORDER PCN ALLERGY REPEAT BC PENDING CONTINUE VANCOMYCIN/ AZTREONAM
[2019-06-22] MEDS: DEXTROSE 5%-NORMAL SALINE 1,000 ML IV SCH (17:34)
[2019-06-22] MEDS ORDERED: PT OWN MED DRAWER 7, Y5N ONE (21:17)
[2019-06-22] MEDS: SENNOSIDES 8.6MG TABLET (FP) PO SCH (23:02)
[2019-06-23] MEDS ORDERED: AZTREONAM 1 GM VIAL (RESTRICTED TO ID) ONE ×3 (01:35→17:08)
[2019-06-23] MEDS ORDERED: DEXTROSE 5%-WATER - 50 ML IVPB ONE ×3 (01:36→17:08)
[2019-06-23] MEDS: AZTREONAM 1 GM in DEXTROSE 5%-WATER - 50 ML IVPB SCH ×3 (02:35→17:15)
[2019-06-23] MEDS: LEVOTHYROXINE NA 150 MCG TABLET GT SCH (06:38)
[2019-06-23] MEDS: LACTULOSE 20 GM/30 ML UDC (FOR ORAL USE ONLY) GT SCH (09:45)
[2019-06-23] MEDS: BACLOFEN 10 MG TABLET (FP) PEG SCH (09:46)
[2019-06-23 09:47] LABS: BASO % 0.5 % (0-2.0); EOS % 10.9 % (0-4.5); HEMATOCRIT 30.5 % (32.4-45.2); HEMOGLOBIN 10.6 GM/dL (10.7-15.3); LYMPH % 20.5 % (8-40); MCH 33.1 pg (25.7-33.7); MCHC 34.8 g/dl (32.0-36.0); MEAN CELL VOLUME 94.9 fl (80-96); MEAN PLT VOLUME 8.9 fl (7.5-11.1); MONO % 10.1 % (3.8-10.2); PLATELET COUNT 184 K/MM3 (134-434); RBC 3.21 M/mm3 (3.60-5.2); RDW 13.8 % (11.6-15.6); WHITE BLOOD COUNT 3.8 K/mm3 (4.0-10.0)
[2019-06-23] MEDS: HYDROCORTISONE 2.5% TOPICAL CREAM 30 GM TUBE RC SCH ×2 (09:47→22:49)
[2019-06-23] MEDS: VANCOMYCIN 1 GRAM (PRE-DOCKED) 1,000 MG/250 ML BAG IVPB SCH ×2 (09:47→22:48)
[2019-06-23] MEDS: HEPARIN NA (PORCINE) 5,000 UNITS/ML 1ML VIAL SQ SCH ×2 (09:47→22:49)
--- NOTE | 2019-06-23 10:51 | PN ---
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 Pleasure feeds during the day, NO PO FLUIDS - Current Medication List Current Medications: Active Medications Acetaminophen (Tylenol -) 650 mg NR Q6H PRN PRN Reason: FEVER Last Admin: 06/21/19 13:07 Dose: 650 mg Albuterol Sulfate (Ventolin 0.083% Nebulizer Soln -) 1 amp NEB RQID PRN PRN Reason: SHORT OF BREATH/WHEEZING Baclofen (Lioresal -) 10 mg PEG DAILY [facility] Last Admin: 06/23/19 09:46 Dose: 10 mg Heparin Sodium (Porcine) (Heparin -) 5,000 unit SQ BID [facility] Last Admin: 06/23/19 09:47 Dose: 5,000 unit Hydrocortisone (Anusol 2.5% Hc Cream -) 1 applic RC BID [facility] Last Admin: 06/23/19 09:47 Dose: 1 applic Vancomycin HCl (Vancomycin (Pre-Docked)) 1,000 mg in 250 mls @ 166.667 mls/hr IVPB BID [facility]; Protocol Last Admin: 06/23/19 09:47 Dose: 166.667 mls/hr Aztreonam 1 gm/ Dextrose 50 mls @ 100 mls/hr IVPB Q8H-IV [facility]; Protocol Last Admin: 06/23/19 09:46 Dose: 100 mls/hr Dextrose/Sodium Chloride (D5-Ns -) 1,000 mls @ 42 mls/hr IV ASDIR [facility] Last Admin: 06/22/19 17:34 Dose: 42 mls/hr Ipratropium [place] (Atrovent 0.02% Nebulizer -) 1 amp NEB RQID PRN PRN Reason: WHEEZING Lactulose (Cephulac (Oral Use)) 10 gm GT DAILY [facility] Last Admin: 06/23/19 09:45 Dose: 10 gm Levothyroxine Sodium (Synthroid -) 150 mcg GT DAILY@0700 [facility] Last Admin: 06/23/19 06:38 Dose: 150 mcg Senna (Senna -) 2 tab PO HS [facility] Last Admin: 06/22/19 23:02 Dose: 2 tab - Objective Vital Signs: Vital Signs Temperature 97.4 F L 01/18/20 06:41 Pulse Rate 97 H 06/23/19 06:41 Respiratory Rate 20 06/23/19 06:41 Blood Pressure 105/67 06/23/19 06:41 O2 Sat by Pulse Oximetry (%) 98 06/22/19 09:00 Constitutional: Yes: No Distress, Calm, Thin Cardiovascular: Yes: Regular Rate and Rhythm Respiratory: Yes: Regular Gastrointestinal: Yes: Normal Bowel Sounds, Soft Genitourinary: Yes: Incontinence Musculoskeletal: Yes: Muscle Weakness Extremities: Yes: Other (generalized atrophy) Peripheral Pulses WNL: Yes Neurological: Yes: Alert, Pre-Existing Deficit Psychiatric: Yes: Alert Labs: CBC, BMP 06/23/19 08:49 06/22/19 08:26 INR, PTT INR 1.01 (0.83-1.09) 06/19/19 19:44 Assessment/Plan (1) HCAP (healthcare-associated pneumonia) Assessment/Plan: -CXR shows Left basilar consolidation -ID on board -no leukocytosis -afebrile -Vancomycin and Azactam -BC pending -Pulm consult -Bronchodilators -keep SpO2 >90% -O2 via NC -tylenol prn for temp >100F -Cultures: Code(s): J18.9 - PNEUMONIA, UNSPECIFIED ORGANISM (2) Multiple sclerosis Assessment/Plan: -PT -fall precautions -Baclofen Code(s): G35 - MULTIPLE SCLEROSIS (3) Functional quadriplegia Assessment/Plan: -PT -fall precautions -Baclofen Code(s): R53.2 - FUNCTIONAL QUADRIPLEGIA (4) Hypotension Assessment/Plan: -IV hydration -BP improved -Cardiology consult Code(s): I95.9 - HYPOTENSION, UNSPECIFIED (5) Hypothyroid Assessment/Plan: -Levothyroxine Microbiology 06/21/19 08:40 Blood - Peripheral Venous Blood Culture - Preliminary NO GROWTH OBTAINED AFTER 48 HOURS, INCUBATION TO CONTINUE FOR 3 DAYS. 06/21/19 08:45 Blood - Peripheral Venous Blood Culture - Preliminary NO GROWTH OBTAINED AFTER 48 HOURS, INCUBATION TO CONTINUE FOR 3 DAYS. 06/19/19 19:44 Blood - Peripheral Venous Blood Culture - Preliminary NO GROWTH OBTAINED AFTER 72 HOURS, INCUBATION TO CONTINUE FOR 2 DAYS. 06/19/19 19:44 Blood - Peripheral Venous Blood Culture - Final Mr S Aureus Staphylococcus Haemolyticus 06/20/19 01:00 Urine - Urine - Catheterized Urine Culture - Final Yeast Like Organism -TSH 3.36 Code(s): E03.9 - HYPOTHYROIDISM, UNSPECIFIED (6) UTI (urinary tract infection) Assessment/Plan: -ID on board -UA shows 3+ leuks, 2+ blood, 1+ protein -UC pending -no leukocytosis -afebrile -Vancomycin and Azactam Code(s): N39.0 - URINARY TRACT INFECTION, SITE NOT SPECIFIED Qualifiers: Urinary tract infection type: site unspecified Hematuria presence: with hematuria Qualified Code(s): N39.0 - Urinary tract infection, site not specified; R31.9 - Hematuria, unspecified Assessment/Plan see problem list dvt ppx
--- NOTE | 2019-06-23 12:53 | PN ---
Progress Note (short form) - Note Progress Note: PULMONARY Pt awake, nonverbal. No fevers recorded. Vital Signs Period Temp Pulse Resp BP Sys/Ricardo Pulse Ox Last 24 Hr 97.4 F-98.5 F 86-99 20-20 95-107/50-67 Gen: more awake Heart: RRR Lung: decreased breath sounds at the bases Abd: soft, nontender Ext: no edema, contracted CBC, BMP 06/23/19 08:49 06/22/19 08:26 Active Medications Acetaminophen (Tylenol -) 650 mg NR Q6H PRN PRN Reason: FEVER Last Admin: 06/21/19 13:07 Dose: 650 mg Albuterol Sulfate (Ventolin 0.083% Nebulizer Soln -) 1 amp NEB RQID PRN PRN Reason: SHORT OF BREATH/WHEEZING Baclofen (Lioresal -) 10 mg PEG DAILY [facility] Last Admin: 06/23/19 09:46 Dose: 10 mg Heparin Sodium (Porcine) (Heparin -) 5,000 unit SQ BID [facility] Last Admin: 06/23/19 09:47 Dose: 5,000 unit Hydrocortisone (Anusol 2.5% Hc Cream -) 1 applic RC BID [facility] Last Admin: 06/23/19 09:47 Dose: 1 applic Vancomycin HCl (Vancomycin (Pre-Docked)) 1,000 mg in 250 mls @ 166.667 mls/hr IVPB BID [facility]; Protocol Last Admin: 06/23/19 09:47 Dose: 166.667 mls/hr Aztreonam 1 gm/ Dextrose 50 mls @ 100 mls/hr IVPB Q8H-IV [facility]; Protocol Last Admin: 06/23/19 09:46 Dose: 100 mls/hr Dextrose/Sodium Chloride (D5-Ns -) 1,000 mls @ 42 mls/hr IV ASDIR [facility] Last Admin: 06/22/19 17:34 Dose: 42 mls/hr Ipratropium [place] (Atrovent 0.02% Nebulizer -) 1 amp NEB RQID PRN PRN Reason: WHEEZING Lactulose (Cephulac (Oral Use)) 10 gm GT DAILY [facility] Last Admin: 06/23/19 09:45 Dose: 10 gm Levothyroxine Sodium (Synthroid -) 150 mcg GT DAILY@0700 [facility] Last Admin: 06/23/19 06:38 Dose: 150 mcg Senna (Senna -) 2 tab PO HS [facility] Last Admin: 06/22/19 23:02 Dose: 2 tab A/P UTI Pneumonia MRSA Bacteremia Sepsis Progressive Neurodegerative Disease Functional Quadriplegia HTN Hypothyroidism - continue antibiotics - f/u cultures - IVF - O2 to keep spO2 >90% - aspiration precautions - DVT prophylaxis Problem List - Problems (1) Pneumonia Code(s): J18.9 - PNEUMONIA, UNSPECIFIED ORGANISM Qualifiers: Pneumonia type: due to unspecified organism Laterality: left Lung location: unspecified part of lung Qualified Code(s): J18.9 - Pneumonia, unspecified organism (2) UTI (urinary tract infection) Code(s): N39.0 - URINARY TRACT INFECTION, SITE NOT SPECIFIED Qualifiers: Urinary tract infection type: site unspecified Hematuria presence: with hematuria Qualified Code(s): N39.0 - Urinary tract infection, site not specified; R31.9 - Hematuria, unspecified
[2019-06-23] MEDS: DEXTROSE 5%-NORMAL SALINE 1,000 ML IV SCH (17:18)
[2019-06-23] MEDS: SENNOSIDES 8.6MG TABLET (FP) PO SCH (22:48)
[2019-06-24] MEDS ORDERED: AZTREONAM 1 GM VIAL (RESTRICTED TO ID) ONE ×3 (02:36→17:21)
[2019-06-24] MEDS ORDERED: DEXTROSE 5%-WATER - 50 ML IVPB ONE ×3 (02:37→17:21)
[2019-06-24] MEDS: AZTREONAM 1 GM in DEXTROSE 5%-WATER - 50 ML IVPB SCH ×3 (02:45→17:25)
[2019-06-24] MEDS: LEVOTHYROXINE NA 150 MCG TABLET GT SCH (06:38)
[2019-06-24] MEDS: HYDROCORTISONE 2.5% TOPICAL CREAM 30 GM TUBE RC SCH ×2 (09:29→22:14)
[2019-06-24] MEDS: BACLOFEN 10 MG TABLET (FP) PEG SCH (09:29)
[2019-06-24] MEDS: LACTULOSE 20 GM/30 ML UDC (FOR ORAL USE ONLY) GT SCH (09:29)
[2019-06-24] MEDS: HEPARIN NA (PORCINE) 5,000 UNITS/ML 1ML VIAL SQ SCH ×2 (09:29→22:14)
--- NOTE | 2019-06-24 10:03 | PN ---
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 Pleasure feeds during the day, NO PO FLUIDS - Current Medication List Current Medications: Active Medications Acetaminophen (Tylenol -) 650 mg NR Q6H PRN PRN Reason: FEVER Last Admin: 06/21/19 13:07 Dose: 650 mg Albuterol Sulfate (Ventolin 0.083% Nebulizer Soln -) 1 amp NEB RQID PRN PRN Reason: SHORT OF BREATH/WHEEZING Baclofen (Lioresal -) 10 mg PEG DAILY [facility] Last Admin: 06/24/19 09:29 Dose: 10 mg Heparin Sodium (Porcine) (Heparin -) 5,000 unit SQ BID [facility] Last Admin: 06/24/19 09:29 Dose: 5,000 unit Hydrocortisone (Anusol 2.5% Hc Cream -) 1 applic RC BID [facility] Last Admin: 06/24/19 09:29 Dose: 1 applic Vancomycin HCl (Vancomycin (Pre-Docked)) 1,000 mg in 250 mls @ 166.667 mls/hr IVPB BID [facility]; Protocol Last Admin: 06/23/19 22:48 Dose: 166.667 mls/hr Aztreonam 1 gm/ Dextrose 50 mls @ 100 mls/hr IVPB Q8H-IV [facility]; Protocol Last Admin: 06/24/19 09:29 Dose: 100 mls/hr Dextrose/Sodium Chloride (D5-Ns -) 1,000 mls @ 42 mls/hr IV ASDIR [facility] Last Admin: 06/23/19 17:18 Dose: 42 mls/hr Ipratropium [place] (Atrovent 0.02% Nebulizer -) 1 amp NEB RQID PRN PRN Reason: WHEEZING Lactulose (Cephulac (Oral Use)) 10 gm GT DAILY [facility] Last Admin: 06/24/19 09:29 Dose: 10 gm Levothyroxine Sodium (Synthroid -) 150 mcg GT DAILY@0700 [facility] Last Admin: 06/24/19 06:38 Dose: 150 mcg Senna (Senna -) 2 tab PO HS [facility] Last Admin: 06/23/19 22:48 Dose: 2 tab - Objective Vital Signs: Vital Signs Temperature 97.5 F L 01/19/20 09:00 Pulse Rate 93 H 06/24/19 09:00 Respiratory Rate 20 06/24/19 09:00 Blood Pressure 107/60 06/24/19 09:00 O2 Sat by Pulse Oximetry (%) 98 06/22/19 09:00 Constitutional: Yes: No Distress, Calm, Thin Cardiovascular: Yes: Regular Rate and Rhythm Respiratory: Yes: Regular Gastrointestinal: Yes: Normal Bowel Sounds, Soft Genitourinary: Yes: Incontinence Musculoskeletal: Yes: Joint Stiffness, Muscle Weakness Extremities: Yes: Other (generalized atropy) Edema: No Peripheral Pulses WNL: Yes Neurological: Yes: Alert, Oriented Psychiatric: Yes: Alert, Oriented Labs: CBC, BMP 06/23/19 08:49 06/22/19 08:26 INR, PTT INR 1.01 (0.83-1.09) 06/19/19 19:44 Assessment/Plan (1) HCAP (healthcare-associated pneumonia) Assessment/Plan: -CXR shows Left basilar consolidation -ID on board -no leukocytosis -afebrile -Vancomycin and Azactam -BC pending -Pulm consult -Bronchodilators -keep SpO2 >90% -O2 via NC -tylenol prn for temp >100F -Cultures: Code(s): J18.9 - PNEUMONIA, UNSPECIFIED ORGANISM (2) Multiple sclerosis Assessment/Plan: -PT -fall precautions -Baclofen Code(s): G35 - MULTIPLE SCLEROSIS (3) Functional quadriplegia Assessment/Plan: -PT -fall precautions -Baclofen Code(s): R53.2 - FUNCTIONAL QUADRIPLEGIA (4) Hypotension Assessment/Plan: -IV hydration -BP improved -Cardiology consult Code(s): I95.9 - HYPOTENSION, UNSPECIFIED (5) Hypothyroid Assessment/Plan: -Levothyroxine Microbiology 06/21/19 08:40 Blood - Peripheral Venous Blood Culture - Preliminary NO GROWTH OBTAINED AFTER 48 HOURS, INCUBATION TO CONTINUE FOR 3 DAYS. 06/21/19 08:45 Blood - Peripheral Venous Blood Culture - Preliminary NO GROWTH OBTAINED AFTER 48 HOURS, INCUBATION TO CONTINUE FOR 3 DAYS. 06/19/19 19:44 Blood - Peripheral Venous Blood Culture - Preliminary NO GROWTH OBTAINED AFTER 72 HOURS, INCUBATION TO CONTINUE FOR 2 DAYS. 06/19/19 19:44 Blood - Peripheral Venous Blood Culture - Final Mr S Aureus Staphylococcus Haemolyticus 06/20/19 01:00 Urine - Urine - Catheterized Urine Culture - Final Yeast Like Organism -TSH 3.36 Code(s): E03.9 - HYPOTHYROIDISM, UNSPECIFIED (6) UTI (urinary tract infection) Assessment/Plan: -ID on board -UA shows 3+ leuks, 2+ blood, 1+ protein -UC pending -no leukocytosis -afebrile -Vancomycin and Azactam Code(s): N39.0 - URINARY TRACT INFECTION, SITE NOT SPECIFIED Qualifiers: Urinary tract infection type: site unspecified Hematuria presence: with hematuria Qualified Code(s): N39.0 - Urinary tract infection, site not specified; R31.9 - Hematuria, unspecified Assessment/Plan see problem list dvt ppx
[2019-06-24] MEDS: VANCOMYCIN 1 GRAM (PRE-DOCKED) 1,000 MG/250 ML BAG IVPB SCH ×2 (10:44→22:14)
--- NOTE | 2019-06-24 13:19 | PN ---
Progress Note (short form) - Note Progress Note: PULMONARY Pt awake, nonverbal. No fevers recorded. Vital Signs Period Temp Pulse Resp BP Sys/Ricardo Pulse Ox Last 24 Hr 97.5 F-98.6 F 78-100 20-20 99-107/51-66 96 Gen: more awake Heart: RRR Lung: decreased breath sounds at the bases Abd: soft, nontender Ext: no edema, contracted CBC, BMP 06/23/19 08:49 06/22/19 08:26 Active Medications Acetaminophen (Tylenol -) 650 mg NR Q6H PRN PRN Reason: FEVER Last Admin: 06/21/19 13:07 Dose: 650 mg Albuterol Sulfate (Ventolin 0.083% Nebulizer Soln -) 1 amp NEB RQID PRN PRN Reason: SHORT OF BREATH/WHEEZING Baclofen (Lioresal -) 10 mg PEG DAILY [facility] Last Admin: 06/24/19 09:29 Dose: 10 mg Heparin Sodium (Porcine) (Heparin -) 5,000 unit SQ BID [facility] Last Admin: 06/24/19 09:29 Dose: 5,000 unit Hydrocortisone (Anusol 2.5% Hc Cream -) 1 applic RC BID [facility] Last Admin: 06/24/19 09:29 Dose: 1 applic Vancomycin HCl (Vancomycin (Pre-Docked)) 1,000 mg in 250 mls @ 166.667 mls/hr IVPB BID [facility]; Protocol Last Admin: 06/24/19 10:44 Dose: 166.667 mls/hr Aztreonam 1 gm/ Dextrose 50 mls @ 100 mls/hr IVPB Q8H-IV [facility]; Protocol Last Admin: 06/24/19 09:29 Dose: 100 mls/hr Dextrose/Sodium Chloride (D5-Ns -) 1,000 mls @ 42 mls/hr IV ASDIR [facility] Last Admin: 06/23/19 17:18 Dose: 42 mls/hr Ipratropium [place] (Atrovent 0.02% Nebulizer -) 1 amp NEB RQID PRN PRN Reason: WHEEZING Lactulose (Cephulac (Oral Use)) 10 gm GT DAILY [facility] Last Admin: 06/24/19 09:29 Dose: 10 gm Levothyroxine Sodium (Synthroid -) 150 mcg GT DAILY@0700 [facility] Last Admin: 06/24/19 06:38 Dose: 150 mcg Senna (Senna -) 2 tab PO HS [facility] Last Admin: 06/23/19 22:48 Dose: 2 tab A/P UTI Pneumonia MRSA Bacteremia Sepsis Progressive Neurodegerative Disease Functional Quadriplegia HTN Hypothyroidism - continue antibiotics - IVF - O2 to keep spO2 >90% - aspiration precautions - DVT prophylaxis Problem List - Problems (1) Pneumonia Code(s): J18.9 - PNEUMONIA, UNSPECIFIED ORGANISM Qualifiers: Pneumonia type: due to unspecified organism Laterality: left Lung location: unspecified part of lung Qualified Code(s): J18.9 - Pneumonia, unspecified organism (2) UTI (urinary tract infection) Code(s): N39.0 - URINARY TRACT INFECTION, SITE NOT SPECIFIED Qualifiers: Urinary tract infection type: site unspecified Hematuria presence: with hematuria Qualified Code(s): N39.0 - Urinary tract infection, site not specified; R31.9 - Hematuria, unspecified
[2019-06-24] MEDS: DEXTROSE 5%-NORMAL SALINE 1,000 ML IV SCH (17:26)
--- NOTE | 2019-06-24 19:48 | PN ---
Progress Note, Physician History of Present Illness: AWAKE, ALERT WEEPY NON VERBAL NO ACUTE DISTRESS BREATHING NON LABORED AFEBRILE BC MRSA, SCN - Current Medication List Current Medications: Active Medications Acetaminophen (Tylenol -) 650 mg NR Q6H PRN PRN Reason: FEVER Last Admin: 06/21/19 13:07 Dose: 650 mg Albuterol Sulfate (Ventolin 0.083% Nebulizer Soln -) 1 amp NEB RQID PRN PRN Reason: SHORT OF BREATH/WHEEZING Baclofen (Lioresal -) 10 mg PEG DAILY [facility] Last Admin: 06/24/19 09:29 Dose: 10 mg Heparin Sodium (Porcine) (Heparin -) 5,000 unit SQ BID [facility] Last Admin: 06/24/19 09:29 Dose: 5,000 unit Hydrocortisone (Anusol 2.5% Hc Cream -) 1 applic RC BID [facility] Last Admin: 06/24/19 09:29 Dose: 1 applic Vancomycin HCl (Vancomycin (Pre-Docked)) 1,000 mg in 250 mls @ 166.667 mls/hr IVPB BID [facility]; Protocol Last Admin: 06/24/19 10:44 Dose: 166.667 mls/hr Aztreonam 1 gm/ Dextrose 50 mls @ 100 mls/hr IVPB Q8H-IV [facility]; Protocol Last Admin: 06/24/19 17:25 Dose: 100 mls/hr Dextrose/Sodium Chloride (D5-Ns -) 1,000 mls @ 42 mls/hr IV ASDIR [facility] Last Admin: 06/24/19 17:26 Dose: Not Given Ipratropium [place] (Atrovent 0.02% Nebulizer -) 1 amp NEB RQID PRN PRN Reason: WHEEZING Lactulose (Cephulac (Oral Use)) 10 gm GT DAILY [facility] Last Admin: 06/24/19 09:29 Dose: 10 gm Levothyroxine Sodium (Synthroid -) 150 mcg GT DAILY@0700 [facility] Last Admin: 06/24/19 06:38 Dose: 150 mcg Senna (Senna -) 2 tab PO HS [facility] Last Admin: 06/23/19 22:48 Dose: 2 tab - Objective Vital Signs: Vital Signs Temperature 99.2 F 06/24/19 16:02 Pulse Rate 96 H 06/24/19 16:02 Respiratory Rate 202 H 06/24/19 16:02 Blood Pressure 108/68 06/24/19 16:02 O2 Sat by Pulse Oximetry (%) 96 06/24/19 10:00 Constitutional: Yes: No Distress Cardiovascular: Yes: Regular Rate and Rhythm, S1, S2 Respiratory: Yes: Rhonchi Gastrointestinal: Yes: Normal Bowel Sounds, Soft Integumentary: Yes: Other (SKIN INTACT) Labs: CBC, BMP 06/23/19 08:49 06/22/19 08:26 INR, PTT INR 1.01 (0.83-1.09) 06/19/19 19:44 Assessment/Plan + BC MRSA, SCN FEVER IMPROVED UTI ?RECURRENT PNEUMONIA TOXIC METABOLIC ENCEPHALOPATHY IMPROVED NEUROMUSCULAR DISORDER PCN ALLERGY REPEAT BC NO GROWTH CONTINUE VANCOMYCIN/ AZTREONAM
[2019-06-24] MEDS: SENNOSIDES 8.6MG TABLET (FP) PO SCH (22:14)
[2019-06-25] MEDS: DEXTROSE 5%-NORMAL SALINE 1,000 ML IV SCH (00:54)
[2019-06-25] MEDS ORDERED: AZTREONAM 1 GM VIAL (RESTRICTED TO ID) ONE ×2 (01:23→08:58)
[2019-06-25] MEDS ORDERED: DEXTROSE 5%-WATER - 50 ML IVPB ONE ×2 (01:23→08:58)
[2019-06-25] MEDS: AZTREONAM 1 GM in DEXTROSE 5%-WATER - 50 ML IVPB SCH ×2 (01:31→08:59)
[2019-06-25] MEDS: LEVOTHYROXINE NA 150 MCG TABLET GT SCH (06:43)
[2019-06-25] MEDS: LACTULOSE 20 GM/30 ML UDC (FOR ORAL USE ONLY) GT SCH (08:59)
[2019-06-25] MEDS: BACLOFEN 10 MG TABLET (FP) PEG SCH (08:59)
[2019-06-25] MEDS: AMINO ACIDS/PROTEIN HYDROLYS 30 ML LIQUID.PKT PO SCH ×2 (08:59→17:30)
[2019-06-25] MEDS: HEPARIN NA (PORCINE) 5,000 UNITS/ML 1ML VIAL SQ SCH ×2 (08:59→22:24)
[2019-06-25] MEDS: HYDROCORTISONE 2.5% TOPICAL CREAM 30 GM TUBE RC SCH ×2 (08:59→22:23)
--- NOTE | 2019-06-25 09:45 | PN ---
Progress Note, Physician Chief Complaint: UTI AMS Pneumonia History of Present Illness: Previous notes and events reviewed awake, alert, nonverbal NAD tachycardic, afebrile no leukocytosis erythema noted to R side of face with mild R orbital edema erythema noted to R hand near IV insertion site, mild erythema to L hand - Current Medication List Current Medications: Active Medications Acetaminophen (Tylenol -) 650 mg NR Q6H PRN PRN Reason: FEVER Last Admin: 06/21/19 13:07 Dose: 650 mg Albuterol Sulfate (Ventolin 0.083% Nebulizer Soln -) 1 amp NEB RQID PRN PRN Reason: SHORT OF BREATH/WHEEZING Amino Acids (Prosource No Carb Liquid Pkt) 30 ml PO BID@0800,1730 [facility] Last Admin: 06/25/19 08:59 Dose: 30 ml Baclofen (Lioresal -) 10 mg PEG DAILY [facility] Last Admin: 06/25/19 08:59 Dose: 10 mg Heparin Sodium (Porcine) (Heparin -) 5,000 unit SQ BID [facility] Last Admin: 06/25/19 08:59 Dose: 5,000 unit Hydrocortisone (Anusol 2.5% Hc Cream -) 1 applic RC BID [facility] Last Admin: 06/25/19 08:59 Dose: 1 applic Vancomycin HCl (Vancomycin (Pre-Docked)) 1,000 mg in 250 mls @ 166.667 mls/hr IVPB BID [facility]; Protocol Last Admin: 06/24/19 22:14 Dose: 166.667 mls/hr Aztreonam 1 gm/ Dextrose 50 mls @ 100 mls/hr IVPB Q8H-IV [facility]; Protocol Last Admin: 06/25/19 08:59 Dose: 100 mls/hr Dextrose/Sodium Chloride (D5-Ns -) 1,000 mls @ 42 mls/hr IV ASDIR [facility] Last Admin: 06/25/19 00:54 Dose: 42 mls/hr Ipratropium [place] (Atrovent 0.02% Nebulizer -) 1 amp NEB RQID PRN PRN Reason: WHEEZING Lactulose (Cephulac (Oral Use)) 10 gm GT DAILY [facility] Last Admin: 06/25/19 08:59 Dose: 10 gm Levothyroxine Sodium (Synthroid -) 150 mcg GT DAILY@0700 [facility] Last Admin: 06/25/19 06:43 Dose: 150 mcg Senna (Senna -) 2 tab PO HS [facility] Last Admin: 06/24/19 22:14 Dose: 2 tab - Objective Vital Signs: Vital Signs Temperature 97.4 F L 06/25/19 06:00 Pulse Rate 110 H 06/25/19 06:00 Respiratory Rate 20 06/25/19 06:00 Blood Pressure 106/53 L 06/25/19 06:00 O2 Sat by Pulse Oximetry (%) 96 06/24/19 22:00 Constitutional: Yes: No Distress, Calm, Thin, Other (non-verbal) Eyes: Yes: Conjunctiva Clear, Other (mild R orbital edema) HENT: Yes: Atraumatic Cardiovascular: Yes: Tachycardia Respiratory: Yes: Regular, Diminished Gastrointestinal: Yes: Normal Bowel Sounds, Soft, Other (G tube) Genitourinary: Yes: Incontinence Musculoskeletal: Yes: Joint Stiffness, Muscle Weakness Extremities: Yes: WNL Edema: No Integumentary: Yes: Erythema (R side of face, R hand) Neurological: Yes: Alert, Pre-Existing Deficit Psychiatric: Yes: Alert Labs: CBC, BMP 06/23/19 08:49 06/22/19 08:26 INR, PTT INR 1.01 (0.83-1.09) 06/19/19 19:44 Microbiology 06/21/19 08:40 Blood - Peripheral Venous Blood Culture - Preliminary NO GROWTH OBTAINED AFTER 96 HOURS, INCUBATION TO CONTINUE FOR 1 DAYS. 06/21/19 08:45 Blood - Peripheral Venous Blood Culture - Preliminary NO GROWTH OBTAINED AFTER 96 HOURS, INCUBATION TO CONTINUE FOR 1 DAYS. 06/19/19 19:44 Blood - Peripheral Venous Blood Culture - Final NO GROWTH AFTER 5 DAYS INCUBATION 06/19/19 19:44 Blood - Peripheral Venous Blood Culture - Final S Aureus Staphylococcus Haemolyticus 06/20/19 01:00 Urine - Urine - Catheterized Urine Culture - Final Yeast Like Organism Problem List - Problems (1) HCAP (healthcare-associated pneumonia) Assessment/Plan: -CXR shows Left basilar consolidation -ID on board -no leukocytosis -afebrile -Vancomycin and Azactam -BC positive for MRSA, repeat BC neg -Pulm con board -Bronchodilators -keep SpO2 >90% -O2 via NC -tylenol prn for temp >100F Code(s): J18.9 - PNEUMONIA, UNSPECIFIED ORGANISM (2) Multiple sclerosis Assessment/Plan: -PT -fall precautions -Baclofen Code(s): G35 - MULTIPLE SCLEROSIS (3) Functional quadriplegia Assessment/Plan: -PT -fall precautions -Baclofen Code(s): R53.2 - FUNCTIONAL QUADRIPLEGIA (4) Hypotension Assessment/Plan: -BP meds currently on hold -improving -IV hydration -Cardiology on board Code(s): I95.9 - HYPOTENSION, UNSPECIFIED (5) Hypothyroid Assessment/Plan: -Levothyroxine -TSH 3.36 Code(s): E03.9 - HYPOTHYROIDISM, UNSPECIFIED (6) UTI (urinary tract infection) Assessment/Plan: -ID on board -UA shows 3+ leuks, 2+ blood, 1+ protein -UC yeast like organism -no leukocytosis -afebrile -Vancomycin and Azactam Code(s): N39.0 - URINARY TRACT INFECTION, SITE NOT SPECIFIED Qualifiers: Urinary tract infection type: site unspecified Hematuria presence: with hematuria Qualified Code(s): N39.0 - Urinary tract infection, site not specified; R31.9 - Hematuria, unspecified (7) Erythema Assessment/Plan: -erythema to R side of face with mild orbital cellulitis -allergic reaction vs cellulitis? -re-call ID Code(s): L53.9 - ERYTHEMATOUS CONDITION, UNSPECIFIED Assessment/Plan see problem list dvt ppx
[2019-06-25] MEDS: VANCOMYCIN 1 GRAM (PRE-DOCKED) 1,000 MG/250 ML BAG IVPB SCH (10:29)
--- NOTE | 2019-06-25 11:06 | PN ---
Progress Note, Physician History of Present Illness: AWAKE NOT VERBALLY RESPONSIVE NO ACUTE DISTRESS BREATHING NON LABORED AFEBRILE DEVELOPED R PERIOBITAL ERYTHEMA/ SWELLING PAST 24HR NO REPORTED TRAUMA BC MRSA, SCN - Current Medication List Current Medications: Active Medications Acetaminophen (Tylenol -) 650 mg NR Q6H PRN PRN Reason: FEVER Last Admin: 06/21/19 13:07 Dose: 650 mg Albuterol Sulfate (Ventolin 0.083% Nebulizer Soln -) 1 amp NEB RQID PRN PRN Reason: SHORT OF BREATH/WHEEZING Amino Acids (Prosource No Carb Liquid Pkt) 30 ml PO BID@0800,1730 [facility] Last Admin: 06/25/19 08:59 Dose: 30 ml Baclofen (Lioresal -) 10 mg PEG DAILY [facility] Last Admin: 06/25/19 08:59 Dose: 10 mg Heparin Sodium (Porcine) (Heparin -) 5,000 unit SQ BID [facility] Last Admin: 06/25/19 08:59 Dose: 5,000 unit Hydrocortisone (Anusol 2.5% Hc Cream -) 1 applic RC BID [facility] Last Admin: 06/25/19 08:59 Dose: 1 applic Vancomycin HCl (Vancomycin (Pre-Docked)) 1,000 mg in 250 mls @ 166.667 mls/hr IVPB BID [facility]; Protocol Last Admin: 06/25/19 10:29 Dose: 166.667 mls/hr Aztreonam 1 gm/ Dextrose 50 mls @ 100 mls/hr IVPB Q8H-IV [facility]; Protocol Last Admin: 06/25/19 08:59 Dose: 100 mls/hr Dextrose/Sodium Chloride (D5-Ns -) 1,000 mls @ 42 mls/hr IV [facility] Last Admin: 06/25/19 00:54 Dose: 42 mls/hr Ipratropium [place] (Atrovent 0.02% Nebulizer -) 1 amp NEB RQID PRN PRN Reason: WHEEZING Lactulose (Cephulac (Oral Use)) 10 gm GT DAILY [facility] Last Admin: 06/25/19 08:59 Dose: 10 gm Levothyroxine Sodium (Synthroid -) 150 mcg GT DAILY@0700 [facility] Last Admin: 06/25/19 06:43 Dose: 150 mcg Senna (Senna -) 2 tab PO HS [facility] Last Admin: 06/24/19 22:14 Dose: 2 tab - Objective Vital Signs: Vital Signs Temperature 97.4 F L 06/25/19 06:00 Pulse Rate 110 H 06/25/19 06:00 Respiratory Rate 20 06/25/19 06:00 Blood Pressure 106/53 L 06/25/19 06:00 O2 Sat by Pulse Oximetry (%) 96 06/24/19 22:00 Constitutional: Yes: No Distress HENT: Yes: Other (+ R PERIORBITAL ERYTHEMA/ EDEMA; ERYTHEMA R FOREARM) Cardiovascular: Yes: Regular Rate and Rhythm, S1, S2 Respiratory: Yes: CTA Bilaterally Gastrointestinal: Yes: Normal Bowel Sounds, Soft. No: Tenderness Edema: No Labs: CBC, BMP 06/23/19 08:49 06/22/19 08:26 INR, PTT INR 1.01 (0.83-1.09) 06/19/19 19:44 Assessment/Plan ? R PERIORBITAL CELLULITIS + BC MRSA, SCN FEVER IMPROVED UTI ?RECURRENT PNEUMONIA TOXIC METABOLIC ENCEPHALOPATHY IMPROVED NEUROMUSCULAR DISORDER PCN ALLERGY REPEAT BC NO GROWTH CONTINUE VANCOMYCIN D/C AZTREONAM REPEAT VANCOMYCIN LEVEL WILL NEED PICC FOR OUTPATIENT ANTIBIOTIC THERAPY
--- NOTE | 2019-06-25 12:11 | PN ---
Progress Note (short form) - Note Progress Note: PULMONARY Blood culture positive for gram positive cocci MRSA VSS/AFEBRILE Right krista-orbital edema/erythema Gen: more awake Heart: RRR Lung: decreased breath sounds at the bases Abd: soft, nontender Ext: no edema, contracted LABS/MEDS/NOTES/IMAGES/MICRO NOTED A/P Mrsa bacteremia ? Krista-orbital Cellulitis Pneumonia Sepsis Progressive Neurodegerative Disease Functional Quadriplegia HTN Hypothyroidism - continue antibiotics as per ID - IVF - O2 to keep spO2 >90% - aspiration precautions - DVT prophylaxis - Isolation Mychal TRINH MD
[2019-06-25] MEDS: SENNOSIDES 8.6MG TABLET (FP) PO SCH (22:24)
[2019-06-26] MEDS: DEXTROSE 5%-NORMAL SALINE 1,000 ML IV SCH ×3 (02:59→18:40)
[2019-06-26] MEDS: LEVOTHYROXINE NA 150 MCG TABLET GT SCH (06:18)
--- NOTE | 2019-06-26 08:33 | DS ---
Physical Examination Vital Signs: Vital Signs Temperature 97.8 F 06/26/19 07:40 Pulse Rate 104 H 06/26/19 07:40 Respiratory Rate 20 06/26/19 07:40 Blood Pressure 94/56 L 06/26/19 07:40 O2 Sat by Pulse Oximetry (%) 97 06/25/19 22:00 Labs: CBC, BMP 06/23/19 08:49 06/22/19 08:26 Discharge Summary Problems reviewed: Yes Reason For Visit: HYPOTHYRODISM,HOSPITAL-ACQUIRED PNEUMONIA Current Active Problems Anemia (Acute) Bacteremia (Acute) CAD (coronary artery disease) (Acute) Erythema (Acute) HCAP (healthcare-associated pneumonia) (Acute) Multiple sclerosis (Acute) Condition: Guarded - Instructions - Home Medications Comprehensive Discharge Medication List: Ambulatory Orders Propranolol HCl [Propranolol HCl ER] 80 mg GT BID 08/14/18 Acetaminophen 650 mg GT Q6H PRN 10/06/18 Vits A and D/White Pet/Lanolin [A and D Ointment] 1 applic TP BID 10/06/18 Zinc Oxide 20% Topical Oint 1 applic TP Q8H 10/09/18 Baclofen [Lioresal -] 10 mg PEG DAILY tablet 10/17/18 Hydrocortisone 2.5% Topical Cr [Anusol-Hc -] 1 applic RC BID 04/22/19 Lactulose (Oral Use) [Cephulac -] 15 ml GT DAILY 04/22/19 Sennosides [Senna] 2 tab GT HS 04/22/19 Lisinopril [Prinivil] 2.5 mg NGT DAILY tablet 05/01/19 Ipratropium/Albuterol Sulfate [Iprat-Albut 0.5-3(2.5) mg/3 ml] 3 ml IH QID 05/17 Heparin - 5,000 unit SQ BID vial 05/24/19 Levothyroxine [Synthroid -] 150 mcg GT DAILY@0700 tablet 05/24/19 Bacitracin - [Bacitracin Topical Ointment -] 1 applic TP BID tube 06/08/19 Clotrimazole/Betamet Diprop [Lotrisone -] 1 applic TP BID tube 06/08/19 Nystatin Powder [Nystop Powder -] 1 applic TP TID applic 06/08/19
--- NOTE | 2019-06-26 08:50 | DS ---
Physical Examination Vital Signs: Vital Signs Temperature 97.8 F 06/26/19 07:40 Pulse Rate 104 H 06/26/19 07:40 Respiratory Rate 20 06/26/19 07:40 Blood Pressure 94/56 L 06/26/19 07:40 O2 Sat by Pulse Oximetry (%) 97 06/25/19 22:00 Findings/Remarks: IN BED NO EVENTS OVERNIGHT AWAITING PICC LINEEVENTS REVIEWED, I CALLED DR JANSEN FROM ID HE RECOMMENDED A PICC LINE WITH OUTPATIENT IV ABX TREATMENT Constitutional: Yes: Mild Distress Cardiovascular: Yes: Regular Rate and Rhythm Respiratory: Yes: Diminished, On Nasal O2 Gastrointestinal: Yes: Soft Musculoskeletal: Yes: Muscle Weakness Edema: No Discharge Summary Problems reviewed: Yes Reason For Visit: HYPOTHYRODISM,HOSPITAL-ACQUIRED PNEUMONIA Current Active Problems Anemia (Acute) Bacteremia (Acute) CAD (coronary artery disease) (Acute) Erythema (Acute) HCAP (healthcare-associated pneumonia) (Acute) Multiple sclerosis (Acute) Procedures: Principal: PICC LINE Hospital Course: ADMITTED FOR SEPSIS WORKUP, PATIENT WITH CHRONIC NEUROLOGICAL DISEASE HAD BLOOD CULTURES POSITIVE FOR MRSA AND WILL NEED DETENTION ABX TREATMENT. Plan of Treatment: IV ABX VIA PICC LINE DETENTION. DR JANSEN FROM INFECTIOUS DISEASE TO DETERMINE DURATION PATIENT WILL NEED A FOLLOW UP WITH DR JANSEN OUTPATIENT CLEARED FOR PICCLINE PLACEMENT. MAY BE DISCHARGED AFTER ANTIBIOTIC TREATMENT SCHEDULED BY DR JANSEN Condition: Poor - Instructions Diet, Activity, Other Instructions: JEVITY TUBE FEEDS ADD PROSOURCE FOR PROTEIN SUPPLEMENTATION BID AND CHECK LABS CBC/CMP AT LEAST WEEKLY. Disposition: [facility] - Home Medications Comprehensive Discharge Medication List: Ambulatory Orders Propranolol HCl [Propranolol HCl ER] 80 mg GT BID 08/14/18 Acetaminophen 650 mg GT Q6H PRN 10/06/18 Vits A and D/White Pet/Lanolin [A and D Ointment] 1 applic TP BID 10/06/18 Zinc Oxide 20% Topical Oint 1 applic TP Q8H 10/09/18 Baclofen [Lioresal -] 10 mg PEG DAILY tablet 10/17/18 Hydrocortisone 2.5% Topical Cr [Anusol-Hc -] 1 applic RC BID 04/22/19 Lactulose (Oral Use) [Cephulac -] 15 ml GT DAILY 04/22/19 Sennosides [Senna] 2 tab GT HS 04/22/19 Lisinopril [Prinivil] 2.5 mg NGT DAILY tablet 05/01/19 Ipratropium/Albuterol Sulfate [Iprat-Albut 0.5-3(2.5) mg/3 ml] 3 ml IH QID 05/17 Heparin - 5,000 unit SQ BID vial 05/24/19 Levothyroxine [Synthroid -] 150 mcg GT DAILY@0700 tablet 05/24/19 Bacitracin - [Bacitracin Topical Ointment -] 1 applic TP BID tube 06/08/19 Clotrimazole/Betamet Diprop [Lotrisone -] 1 applic TP BID tube 06/08/19 Nystatin Powder [Nystop Powder -] 1 applic TP TID applic 06/08/19
[2019-06-26 08:56] LABS: HEMOGLOBIN 10.5 GM/dL (10.7-15.3); MCH 32.7 pg (25.7-33.7); MCHC 34.9 g/dl (32.0-36.0); MEAN CELL VOLUME 93.6 fl (80-96); MEAN PLT VOLUME 8.3 fl (7.5-11.1); PLATELET COUNT 234 K/MM3 (134-434); RDW 13.8 % (11.6-15.6); WHITE BLOOD COUNT 5.4 K/mm3 (4.0-10.0)
[2019-06-26 09:19] LABS: ALBUMIN 2.5 g/dl (3.4-5.0); BILIRUBIN,TOTAL 0.4 mg/dL (0.2-1); BLOOD UREA NITROGEN 11.2 mg/dL (7-18); CALCIUM 9.1 mg/dL (8.5-10.1); CREATININE 0.4 mg/dL (0.55-1.3); POTASSIUM 3.7 mmol/L (3.5-5.1); TOT PROT 6.2 g/dl (6.4-8.2)
[2019-06-26] MEDS: LACTULOSE 20 GM/30 ML UDC (FOR ORAL USE ONLY) GT SCH (09:19)
[2019-06-26] MEDS: AMINO ACIDS/PROTEIN HYDROLYS 30 ML LIQUID.PKT PO SCH ×2 (09:21→16:36)
[2019-06-26] MEDS: HEPARIN NA (PORCINE) 5,000 UNITS/ML 1ML VIAL SQ SCH ×2 (09:21→21:06)
[2019-06-26] MEDS: BACLOFEN 10 MG TABLET (FP) PEG SCH (09:21)
--- NOTE | 2019-06-26 10:13 | PN ---
Progress Note (short form) - Note Progress Note: Awake, nonverbal. NAD. No fevers recorded. Intake & Output 06/23/19 06/24/19 06/25/19 06/26/19 23:59 23:59 23:59 23:59 Intake Total 2 2 2449 504 Output Total 2 Balance 1831 1879 2449 504 Weight 114 lb Last Vital Signs Temp Pulse Resp BP Pulse Ox 97.8 F 104 H 20 94/56 L 97 06/26/19 07:40 06/26/19 07:40 06/26/19 07:40 06/26/19 07:40 06/25/19 22:00 Active Medications Acetaminophen (Tylenol -) 650 mg NR Q6H PRN PRN Reason: FEVER Last Admin: 06/21/19 13:07 Dose: 650 mg Albuterol Sulfate (Ventolin 0.083% Nebulizer Soln -) 1 amp NEB RQID PRN PRN Reason: SHORT OF BREATH/WHEEZING Amino Acids (Prosource No Carb Liquid Pkt) 30 ml PO BID@0800,1730 [facility] Last Admin: 06/26/19 09:21 Dose: 30 ml Baclofen (Lioresal -) 10 mg PEG DAILY [facility] Last Admin: 06/26/19 09:21 Dose: 10 mg Heparin Sodium (Porcine) (Heparin -) 5,000 unit SQ BID [facility] Last Admin: 06/26/19 09:21 Dose: 5,000 unit Hydrocortisone (Anusol 2.5% Hc Cream -) 1 applic RC BID [facility] Last Admin: 06/25/19 22:23 Dose: 1 applic Dextrose/Sodium Chloride (D5-Ns -) 1,000 mls @ 42 mls/hr IV ASDIR [facility] Last Admin: 06/26/19 02:59 Dose: 42 mls/hr Ipratropium [place] (Atrovent 0.02% Nebulizer -) 1 amp NEB RQID PRN PRN Reason: WHEEZING Lactulose (Cephulac (Oral Use)) 10 gm GT DAILY [facility] Last Admin: 06/26/19 09:19 Dose: 10 gm Levothyroxine Sodium (Synthroid -) 150 mcg GT DAILY@0700 [facility] Last Admin: 06/26/19 06:18 Dose: 150 mcg Senna (Senna -) 2 tab PO HS [facility] Last Admin: 06/25/19 22:24 Dose: 2 tab Gen: NAD Heart: RRR Lung: decreased breath sounds at the bases Abd: soft, nontender, (+) PEG Ext: no edema, contracted Laboratory Results - last 24 hr 06/26/19 06/26/19 08:05 08:05 WBC 5.4 RBC 3.20 L Hgb 10.5 L Hct 30.0 L MCV 93.6 MCH 32.7 MCHC 34.9 RDW 13.8 Plt Count 234 D MPV 8.3 Sodium 140 Potassium 3.7 Chloride 107 Carbon Dioxide 27 Anion Gap 5 L BUN 11.2 Creatinine 0.4 L Est GFR (CKD-EPI)AfAm 136.86 Est GFR (CKD-EPI)NonAf 118.08 Random Glucose 126 H Calcium 9.1 Total Bilirubin 0.4 AST 13 L ALT 20 Alkaline Phosphatase 117 Total Protein 6.2 L Albumin 2.5 L Problem List - Problems (1) Pneumonia Code(s): J18.9 - PNEUMONIA, UNSPECIFIED ORGANISM Qualifiers: Pneumonia type: due to unspecified organism Laterality: left Lung location: unspecified part of lung Qualified Code(s): J18.9 - Pneumonia, unspecified organism (2) UTI (urinary tract infection) Code(s): N39.0 - URINARY TRACT INFECTION, SITE NOT SPECIFIED Qualifiers: Urinary tract infection type: site unspecified Hematuria presence: with hematuria Qualified Code(s): N39.0 - Urinary tract infection, site not specified; R31.9 - Hematuria, unspecified A/P UTI Pneumonia MRSA Bacteremia Sepsis Progressive Neurodegerative Disease Functional Quadriplegia HTN Hypothyroidism - Off ABX - O2 to keep spO2 >90% - aspiration precautions - DVT prophylaxis - DC planning Dr Holly
[2019-06-26] MEDS: HYDROCORTISONE 2.5% TOPICAL CREAM 30 GM TUBE RC SCH ×2 (10:44→21:06)
[2019-06-26] MEDS: ACETAMINOPHEN 325 MG TABLET (FP) NR PRN (18:41)
--- NOTE | 2019-06-26 20:06 | PN ---
Progress Note (short form) - Note Progress Note: NEUROLOGY PROGRESS: Events reviewed and discussed with RN. Still with low-grade temps, on Vancomicin and aztrelactam Just received Tylenol. Rash on right face noted by by RN this AM, attributed to "laying on that side all night." However, patient also has flat, erythematous rash on both arms. Lethargic but arousable. Follows occ simple commands. Severe dysarthria Pseudobulbar affect Contractures r arm, both legs. IMP: Severe, B/L motor signs with Bulbar Palsy. 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 Now with recurrent low-grade temps and new rash. Suggest: Consider drug allergic reaction (antibiotics). Ask ID to F/U Hold antibiotics and reculture. Thank you very much, Rush Phan MD
[2019-06-26] MEDS: SENNOSIDES 8.6MG TABLET (FP) PO SCH (21:06)
[2019-06-27] MEDS: LEVOTHYROXINE NA 150 MCG TABLET GT SCH (06:13)
--- NOTE | 2019-06-27 08:15 | PN ---
Progress Note (short form) - Note Progress Note: Awake, nonverbal. NAD. No fevers recorded. No acute events overnight. Intake & Output 06/24/19 06/25/19 06/26/19 06/27/19 23:59 23:59 23:59 23:59 Intake Total 1882 2449 554 1714 Output Total 2 Balance 1880 2449 554 1714 Weight 114 lb Last Vital Signs Temp Pulse Resp BP Pulse Ox 99.2 F 104 H 20 99/53 L 100 06/27/19 06:00 06/27/19 06:00 06/27/19 06:00 06/27/19 06:00 06/26/19 21:00 Active Medications Acetaminophen (Tylenol -) 650 mg NR Q6H PRN PRN Reason: FEVER Last Admin: 06/26/19 18:41 Dose: 650 mg Albuterol Sulfate (Ventolin 0.083% Nebulizer Soln -) 1 amp NEB RQID PRN PRN Reason: SHORT OF BREATH/WHEEZING Amino Acids (Prosource No Carb Liquid Pkt) 30 ml PO BID@0800,1730 [facility] Last Admin: 06/26/19 16:36 Dose: 30 ml Baclofen (Lioresal -) 10 mg PEG DAILY [facility] Last Admin: 06/26/19 09:21 Dose: 10 mg Heparin Sodium (Porcine) (Heparin -) 5,000 unit SQ BID [facility] Last Admin: 06/26/19 21:06 Dose: 5,000 unit Hydrocortisone (Anusol 2.5% Hc Cream -) 1 applic RC BID [facility] Last Admin: 06/26/19 21:06 Dose: 1 applic Dextrose/Sodium Chloride (D5-Ns -) 1,000 mls @ 42 mls/hr IV ASDIR [facility] Last Admin: 06/26/19 18:40 Dose: 42 mls/hr Ipratropium [place] (Atrovent 0.02% Nebulizer -) 1 amp NEB RQID PRN PRN Reason: WHEEZING Lactulose (Cephulac (Oral Use)) 10 gm GT DAILY [facility] Last Admin: 06/26/19 09:19 Dose: 10 gm Levothyroxine Sodium (Synthroid -) 150 mcg GT DAILY@0700 [facility] Last Admin: 06/27/19 06:13 Dose: 150 mcg Senna (Senna -) 2 tab PO HS [facility] Last Admin: 06/26/19 21:06 Dose: 2 tab Gen: NAD Heart: RRR Lung: decreased breath sounds at the bases Abd: soft, nontender, (+) PEG Ext: no edema, contracted Laboratory Results - last 24 hr 06/26/19 06/26/19 08:05 08:05 WBC 5.4 RBC 3.20 L Hgb 10.5 L Hct 30.0 L MCV 93.6 MCH 32.7 MCHC 34.9 RDW 13.8 Plt Count 234 D MPV 8.3 Sodium 140 Potassium 3.7 Chloride 107 Carbon Dioxide 27 Anion Gap 5 L BUN 11.2 Creatinine 0.4 L Est GFR (CKD-EPI)AfAm 136.86 Est GFR (CKD-EPI)NonAf 118.08 Random Glucose 126 H Calcium 9.1 Total Bilirubin 0.4 AST 13 L ALT 20 Alkaline Phosphatase 117 Total Protein 6.2 L Albumin 2.5 L Problem List - Problems (1) Pneumonia Code(s): J18.9 - PNEUMONIA, UNSPECIFIED ORGANISM Qualifiers: Pneumonia type: due to unspecified organism Laterality: left Lung location: unspecified part of lung Qualified Code(s): J18.9 - Pneumonia, unspecified organism (2) UTI (urinary tract infection) Code(s): N39.0 - URINARY TRACT INFECTION, SITE NOT SPECIFIED Qualifiers: Urinary tract infection type: site unspecified Hematuria presence: with hematuria Qualified Code(s): N39.0 - Urinary tract infection, site not specified; R31.9 - Hematuria, unspecified A/P UTI Pneumonia MRSA Bacteremia Sepsis Progressive Neurodegerative Disease Functional Quadriplegia HTN Hypothyroidism - Off ABX - O2 to keep spO2 >90% - aspiration precautions - DVT prophylaxis - DC planning Dr Holly
[2019-06-27] MEDS: AMINO ACIDS/PROTEIN HYDROLYS 30 ML LIQUID.PKT PO SCH ×2 (08:55→16:57)
--- NOTE | 2019-06-27 09:18 | PN ---
Progress Note, Physician - Current Medication List Current Medications: Active Medications Acetaminophen (Tylenol -) 650 mg NR Q6H PRN PRN Reason: FEVER Last Admin: 06/26/19 18:41 Dose: 650 mg Albuterol Sulfate (Ventolin 0.083% Nebulizer Soln -) 1 amp NEB RQID PRN PRN Reason: SHORT OF BREATH/WHEEZING Amino Acids (Prosource No Carb Liquid Pkt) 30 ml PO BID@0800,1730 [facility] Last Admin: 06/27/19 08:55 Dose: 30 ml Baclofen (Lioresal -) 10 mg PEG DAILY [facility] Last Admin: 06/26/19 09:21 Dose: 10 mg Heparin Sodium (Porcine) (Heparin -) 5,000 unit SQ BID [facility] Last Admin: 06/26/19 21:06 Dose: 5,000 unit Hydrocortisone (Anusol 2.5% Hc Cream -) 1 applic RC BID [facility] Last Admin: 06/26/19 21:06 Dose: 1 applic Dextrose/Sodium Chloride (D5-Ns -) 1,000 mls @ 42 mls/hr IV ASDIR [facility] Last Admin: 06/26/19 18:40 Dose: 42 mls/hr Ipratropium [place] (Atrovent 0.02% Nebulizer -) 1 amp NEB RQID PRN PRN Reason: WHEEZING Lactulose (Cephulac (Oral Use)) 10 gm GT DAILY [facility] Last Admin: 06/26/19 09:19 Dose: 10 gm Levothyroxine Sodium (Synthroid -) 150 mcg GT DAILY@0700 [facility] Last Admin: 06/27/19 06:13 Dose: 150 mcg Senna (Senna -) 2 tab PO HS [facility] Last Admin: 06/26/19 21:06 Dose: 2 tab - Objective Vital Signs: Vital Signs Temperature 99.2 F 06/27/19 06:00 Pulse Rate 104 H 06/27/19 06:00 Respiratory Rate 20 06/27/19 06:00 Blood Pressure 99/53 L 06/27/19 06:00 O2 Sat by Pulse Oximetry (%) 100 06/26/19 21:00 Labs: CBC, BMP 06/26/19 08:05 06/26/19 08:05 INR, PTT INR 1.01 (0.83-1.09) 06/19/19 19:44 Problem List - Problems (1) HCAP (healthcare-associated pneumonia) Code(s): J18.9 - PNEUMONIA, UNSPECIFIED ORGANISM (2) Dysphagia Code(s): R13.10 - DYSPHAGIA, UNSPECIFIED (3) Functional quadriplegia Code(s): R53.2 - FUNCTIONAL QUADRIPLEGIA (4) Neuro-degenerative disorders Code(s): G31.9 - DEGENERATIVE DISEASE OF NERVOUS SYSTEM, UNSPECIFIED (5) UTI (urinary tract infection) Code(s): N39.0 - URINARY TRACT INFECTION, SITE NOT SPECIFIED Qualifiers: Urinary tract infection type: site unspecified Hematuria presence: with hematuria Qualified Code(s): N39.0 - Urinary tract infection, site not specified; R31.9 - Hematuria, unspecified (6) Bacteremia Code(s): R78.81 - BACTEREMIA (7) Anemia Code(s): D64.9 - ANEMIA, UNSPECIFIED
--- NOTE | 2019-06-27 09:23 | DS ---
Physical Examination Vital Signs: Vital Signs Temperature 99.2 F 06/27/19 06:00 Pulse Rate 104 H 06/27/19 06:00 Respiratory Rate 20 06/27/19 06:00 Blood Pressure 99/53 L 06/27/19 06:00 O2 Sat by Pulse Oximetry (%) 100 06/26/19 21:00 Cardiovascular: Yes: S1, S2 Respiratory: Yes: Regular, CTA Bilaterally, On Nasal O2 Gastrointestinal: Yes: Normal Bowel Sounds, Soft Labs: CBC, BMP 06/26/19 08:05 06/26/19 08:05 Discharge Summary Problems reviewed: Yes Reason For Visit: HYPOTHYRODISM,HOSPITAL-ACQUIRED PNEUMONIA Current Active Problems Anemia (Acute) Bacteremia (Acute) CAD (coronary artery disease) (Acute) Erythema (Acute) HCAP (healthcare-associated pneumonia) (Acute) Multiple sclerosis (Acute) Hospital Course: ADMITTED FOR SEPSIS WORKUP, PATIENT WITH CHRONIC NEUROLOGICAL DISEASE HAD BLOOD CULTURES POSITIVE FOR MRSA AND WILL NEED DENTAL CREAM MAKER ABX TREATMENT. (1) HCAP (healthcare-associated pneumonia) Assessment/Plan: -CXR shows Left basilar consolidation -ID on board--pic line\ Microbiology 06/21/19 08:40 Blood - Peripheral Venous Blood Culture - Preliminary NO GROWTH OBTAINED AFTER 48 HOURS, INCUBATION TO CONTINUE FOR 3 DAYS. 06/21/19 08:45 Blood - Peripheral Venous Blood Culture - Preliminary NO GROWTH OBTAINED AFTER 48 HOURS, INCUBATION TO CONTINUE FOR 3 DAYS. 06/19/19 19:44 Blood - Peripheral Venous Blood Culture - Preliminary NO GROWTH OBTAINED AFTER 72 HOURS, INCUBATION TO CONTINUE FOR 2 DAYS. 06/19/19 19:44 Blood - Peripheral Venous Blood Culture - Final S Aureus Staphylococcus Haemolyticus -Pulm consult appreciated -Bronchodilators -keep SpO2 >90% -O2 via NC -tylenol prn for temp >100F -Cultures: Code(s): J18.9 - PNEUMONIA, UNSPECIFIED ORGANISM (2) Severe, B/L motor signs with Bulbar Palsy. Assessment/Plan: -PT -fall precautions -Baclofen (3) Functional quadriplegia Assessment/Plan: -PT -fall precautions -Baclofen Code(s): R53.2 - FUNCTIONAL QUADRIPLEGIA (4) Hypotension Assessment/Plan: -IV hydration -BP improved -Cardiology consult Code(s): I95.9 - HYPOTENSION, UNSPECIFIED (5) Hypothyroid Assessment/Plan: -Levothyroxine -TSH 3.36 Code(s): E03.9 - HYPOTHYROIDISM, UNSPECIFIED (6) UTI (urinary tract infection) Assessment/Plan: -ID on board -UA shows 3+ leuks, 2+ blood, 1+ protein -UC 06/20/19 01:00 Urine - Urine - Catheterized Urine Culture - Final Yeast Like Organism -no leukocytosis -ABX per id Code(s): N39.0 - URINARY TRACT INFECTION, SITE NOT SPECIFIED Qualifiers: Urinary tract infection type: site unspecified Hematuria presence: with hematuria Qualified Code(s): N39.0 - Urinary tract infection, site not specified; R31.9 - Hematuria, unspecified Plan of Treatment: IV ABX VIA PICC LINE [facility]. DR JANSEN FROM INFECTIOUS DISEASE TO DETERMINE DURATION PATIENT WILL NEED A FOLLOW UP WITH DR JANSEN OUTPATIENT CLEARED FOR PICCLINE PLACEMENT. MAY BE DISCHARGED AFTER ANTIBIOTIC TREATMENT SCHEDULED BY DR JANSEN Condition: Poor - Instructions Diet, Activity, Other Instructions: JEVITY TUBE FEEDS ADD PROSOURCE FOR PROTEIN SUPPLEMENTATION BID AND CHECK LABS CBC/CMP AT LEAST WEEKLY. Disposition: [facility]ILITY - Home Medications Comprehensive Discharge Medication List: Ambulatory Orders Propranolol HCl [Propranolol HCl ER] 80 mg GT BID 08/14/18 Acetaminophen 650 mg GT Q6H PRN 10/06/18 Vits A and D/White Pet/Lanolin [A and D Ointment] 1 applic TP BID 10/06/18 Zinc Oxide 20% Topical Oint 1 applic TP Q8H 10/09/18 Baclofen [Lioresal -] 10 mg PEG DAILY tablet 10/17/18 Hydrocortisone 2.5% Topical Cr [Anusol-Hc -] 1 applic RC BID 04/22/19 Lactulose (Oral Use) [Cephulac -] 15 ml GT DAILY 04/22/19 Sennosides [Senna] 2 tab GT HS 04/22/19 Lisinopril [Prinivil] 2.5 mg NGT DAILY tablet 05/01/19 Ipratropium/Albuterol Sulfate [Iprat-Albut 0.5-3(2.5) mg/3 ml] 3 ml IH QID 05/17 Heparin - 5,000 unit SQ BID vial 05/24/19 Levothyroxine [Synthroid -] 150 mcg GT DAILY@0700 tablet 05/24/19 Bacitracin - [Bacitracin Topical Ointment -] 1 applic TP BID tube 06/08/19 Clotrimazole/Betamet Diprop [Lotrisone -] 1 applic TP BID tube 06/08/19 Nystatin Powder [Nystop Powder -] 1 applic TP TID applic 06/08/19
[2019-06-27] MEDS: LACTULOSE 20 GM/30 ML UDC (FOR ORAL USE ONLY) GT SCH (10:14)
[2019-06-27] MEDS: BACLOFEN 10 MG TABLET (FP) PEG SCH (10:15)
[2019-06-27] MEDS: HEPARIN NA (PORCINE) 5,000 UNITS/ML 1ML VIAL SQ SCH (10:16)
[2019-06-27] MEDS: HYDROCORTISONE 2.5% TOPICAL CREAM 30 GM TUBE RC SCH (10:18)
[2019-06-27] MEDS ORDERED: NYSTATIN/TRIAMCINOLONE TOPICAL CREAM 15 GM TUBE TP SCH (10:45)
--- NOTE | 2019-06-27 10:58 | PN ---
Progress Note, Physician History of Present Illness: AWAKE APPEARS MORE COMFORTABLE NOT VERBALLY RESPONSIVE NO ACUTE DISTRESS BREATHING NON LABORED LOW GRADE TEMP NOTED R PERIOBITAL ERYTHEMA/ SWELLING RESOLVED BC MRSA, SCN 06/19/19 - Current Medication List Current Medications: Active Medications Acetaminophen (Tylenol -) 650 mg NR Q6H PRN PRN Reason: FEVER Last Admin: 06/26/19 18:41 Dose: 650 mg Albuterol Sulfate (Ventolin 0.083% Nebulizer Soln -) 1 amp NEB RQID PRN PRN Reason: SHORT OF BREATH/WHEEZING Amino Acids (Prosource No Carb Liquid Pkt) 30 ml PO BID@0800,1730 [facility] Last Admin: 06/27/19 08:55 Dose: 30 ml Baclofen (Lioresal -) 10 mg PEG DAILY [facility] Last Admin: 06/27/19 10:15 Dose: 10 mg Heparin Sodium (Porcine) (Heparin -) 5,000 unit SQ BID [facility] Last Admin: 06/27/19 10:16 Dose: 5,000 unit Hydrocortisone (Anusol 2.5% Hc Cream -) 1 applic RC BID [facility] Last Admin: 06/27/19 10:18 Dose: 1 applic Dextrose/Sodium Chloride (D5-Ns -) 1,000 mls @ 42 mls/hr IV ASDIR [facility] Last Admin: 06/26/19 18:40 Dose: 42 mls/hr Ipratropium [place] (Atrovent 0.02% Nebulizer -) 1 amp NEB RQID PRN PRN Reason: WHEEZING Lactulose (Cephulac (Oral Use)) 10 gm GT DAILY [facility] Last Admin: 06/27/19 10:14 Dose: 10 gm Levothyroxine Sodium (Synthroid -) 150 mcg GT DAILY@0700 [facility] Last Admin: 06/27/19 06:13 Dose: 150 mcg Nystatin/Triamcinolone Acetonide (Mycolog Ii Cream -) 1 applic TP BID [facility] Propranolol HCl (Inderal -) 40 mg GT BID [facility] Senna (Senna -) 2 tab PO HS [facility] Last Admin: 06/26/19 21:06 Dose: 2 tab Zinc Acetate/Diphenhydramine (Benadryl 2% Cream) 1 applic TP DAILY [facility] - Objective Vital Signs: Vital Signs Temperature 99.2 F 06/27/19 06:00 Pulse Rate 104 H 06/27/19 06:00 Respiratory Rate 20 01/22/20 06:00 Blood Pressure 99/53 L 06/27/19 06:00 O2 Sat by Pulse Oximetry (%) 100 06/26/19 21:00 Constitutional: Yes: No Distress Eyes: Yes: Conjunctiva Clear Cardiovascular: Yes: Regular Rate and Rhythm, S1, S2 Respiratory: Yes: CTA Bilaterally Gastrointestinal: Yes: Normal Bowel Sounds, Soft. No: Tenderness Edema: No Integumentary: Yes: Other (MACULO-PAPULAR RASH ON ABDO AROUND GT NO OTHER RASH NOTED) Labs: CBC, BMP 06/26/19 08:05 06/26/19 08:05 INR, PTT INR 1.01 (0.83-1.09) 06/19/19 19:44 Assessment/Plan + BC MRSA, SCN UTI ?RECURRENT PNEUMONIA TOXIC METABOLIC ENCEPHALOPATHY IMPROVED NEUROMUSCULAR DISORDER PCN ALLERGY VANCOMYCIN ON HOLD PENDING REPEAT VANCOMYCIN LEVEL PICC FOR OUTPATIENT ANTIBIOTIC THERAPY, ADDITIONAL 3WK VANCOMYCIN
[2019-06-27] MEDS: DEXTROSE 5%-NORMAL SALINE 1,000 ML IV SCH (12:11)
[2019-06-27] MEDS ORDERED: VANCOMYCIN 1 GRAM (PRE-DOCKED) 1,000 MG/250 ML BAG IVPB SCH (14:00)
[2019-06-27 14:58] VITALS: BP 115/67; PULSE 111; TEMP 100.1
[2019-06-27] MEDS: ACETAMINOPHEN 325 MG TABLET (FP) NR PRN (16:57)
== END 2019-06-27 19:27 | DRG 139 ==
LOC: JER 17:33 → JERBED 22:03 → J6S 06-20 18:04
PROVIDERS: ADMIT Internal Medicine; ATTEND Family Medicine
DX: J18.9 Pneumonia, unspecified organism (principal); G93.41 Metabolic encephalopathy; N39.0 Urinary tract infection, site not specified; R53.2 Functional quadriplegia; E03.9 Hypothyroidism, unspecified; I25.10 Atherosclerotic heart disease of native coronary artery without angina pectoris; I05.0 Rheumatic mitral stenosis; G82.20 Paraplegia, unspecified; L03.213 Periorbital cellulitis; K59.09 Other constipation; G35 Multiple sclerosis; I10 Essential (primary) hypertension; I95.9 Hypotension, unspecified; G12.22 Progressive bulbar palsy; G31.9 Degenerative disease of nervous system, unspecified; B95.62 Methicillin resistant Staphylococcus aureus infection as the cause of diseases classified elsewhere; Z88.0 Allergy status to penicillin
CPT/HCPCS: 36415; 36569; 71045-TC-FY; 77001-TC-FY; 80048; 80053; 81003; 82272; 82728; 82803; 83540; 83605; 84443; 84484; 85025; 85027; 85610; 85730; 87040; 87077; 87086; 87186; 87804; 93005; 93010; 99285-25; C1751; G0480; J0475; J1644